=== PATIENT | female | born 1960 | race Caucasian/White ===

== ENCOUNTER 2019-01-18 11:39 | Day surgery (SDC) | payer MEDICARE, OTHER ==
[2019-01-15 12:11] VITALS: BMI 31.8
[~2019-01-18 11:39] MED LIST: HEPARIN SODIUM,PORCINE 5,000 UNIT/ML 1 ML VIAL SQ ONE; LACTATED RINGERS 1,000 ML IV SCH; ONDANSETRON 4 MG/2 ML VIAL IVP ONE; Pre Op ABX Message 1 EACH MISC MISCELLANE ONE
[2019-01-18 12:43] VITALS: RESP 16
[2019-01-18 13:03] LABS: Glucose,Whole Blood 188 mg/dL (75-99)
[2019-01-18] MEDS ORDERED: LIDOCAINE 1% 20 ML VIAL (10MG/ML) FOR IV START INTRADERMA ONE (13:03)
[2019-01-18] MEDS ORDERED: fentaNYL (PF) 50 MCG/ML 2 ML AMP IVP ONE ×2 (14:15→14:30)
[2019-01-18] MEDS ORDERED: PROPOFOL 10 MG/ML 20 ML VIAL IV ONE (14:58)
[2019-01-18] MEDS ORDERED: MIDAZOLAM 2 MG/2 ML VIAL ONE (14:58)
[2019-01-18] MEDS ORDERED: LIDOCAINE 1% INJ 10MG/ML (20 ML MDV) ONE (14:58)
[2019-01-18] MEDS ORDERED: BUPIVACAIN-EPI 0.25%-1:200,000 30 ML VIAL SQ ONE ×2 (15:23)
[2019-01-18] MEDS ORDERED: SODIUM CHLORIDE 0.9% 100 ML with ceFAZolin 2,000 MG IV ONE ×2 (15:23)
[2019-01-18] MEDS ORDERED: LACTATED RINGERS 1,000 ML IV ONE (15:27)
[2019-01-18] MEDS ORDERED: BACITRACIN 500 UNIT/GM OINT 28.4 GM TUBE TOPICAL ONE (15:43)
[2019-01-18] MEDS ORDERED: HYDROcodone/APAP 5-325MG 1 EACH TAB PO PRN (15:53)
[2019-01-18] MEDS ORDERED: NALOXONE 0.4 MG/ML 1 ML VIAL IV PRN (15:53)
--- NOTE | 2019-01-18 15:56 | P.OP ---
Date of Procedure: 01/18/19 Procedure(s) Performed: PREOPERATIVE DIAGNOSIS: Infected sebaceous cyst chest wall, chest wall nevus POSTOPERATIVE DIAGNOSIS: Same PROCEDURE: Excision cyst and nevus SURGEON: Camilo EBL: 10 mL ANESTHESIA: Local plus sedation COMPLICATIONS: None OPERATIVE PROCEDURE: Patient was placed in the operating table in the supine position. The patient was placed under sedation. The chest was prepped and draped sterilely. The skin was localized with Marcaine. An elliptical incision was made encompassing the infected sebaceous cyst along the medial aspect of her previous mastectomy scar site and including the more medially located nevus that was midsternal in location. The subcutaneous tissues were divided using both cautery and sharp dissection. The area was fully excised. Bleeding was controlled using electrocautery. The subcutaneous tissues were closed using 3-0 Vicryl sutures. Skin was closed using interrupted and running 4-0 nylon sutures. Sterile dressings were applied. DISPOSITION: Stable to recovery room
[2019-01-18] MEDS: HYDROmorphone 0.5 MG/0.5 ML SYRINGE IVP PRN ×2 (16:02→16:13)
[2019-01-18 16:12] VITALS: TEMP 97.6
[2019-01-18 16:23] LABS: Glucose,Whole Blood 117 mg/dL (75-99)
[2019-01-18 17:11] VITALS: BP 119/63; PULSE 74
== END 2019-01-18 17:18 | disposition home or self-care (01) ==
LOC: OR 11:39
PROVIDERS: ATTEND Surgery
DX: L72.0 Epidermal cyst (principal); L02.213 Cutaneous abscess of chest wall; L90.5 Scar conditions and fibrosis of skin; L08.9 Local infection of the skin and subcutaneous tissue, unspecified; I10 Essential (primary) hypertension; F41.9 Anxiety disorder, unspecified; K44.9 Diaphragmatic hernia without obstruction or gangrene; J44.9 Chronic obstructive pulmonary disease, unspecified; K57.92 Diverticulitis of intestine, part unspecified, without perforation or abscess without bleeding; K21.9 Gastro-esophageal reflux disease without esophagitis; G47.33 Obstructive sleep apnea (adult) (pediatric); E11.9 Type 2 diabetes mellitus without complications; R56.9 Unspecified convulsions; M06.9 Rheumatoid arthritis, unspecified; K08.9 Disorder of teeth and supporting structures, unspecified; F17.210 Nicotine dependence, cigarettes, uncomplicated; Z85.3 Personal history of malignant neoplasm of breast; Z90.11 Acquired absence of right breast and nipple; Z85.828 Personal history of other malignant neoplasm of skin; Z88.5 Allergy status to narcotic agent; Z88.2 Allergy status to sulfonamides; Z88.8 Allergy status to other drugs, medicaments and biological substances; Z88.1 Allergy status to other antibiotic agents; Z91.048 Other nonmedicinal substance allergy status; Z79.899 Other long term (current) drug therapy; Z79.891 Long term (current) use of opiate analgesic; Z79.1 Long term (current) use of non-steroidal anti-inflammatories (NSAID); Z79.4 Long term (current) use of insulin; Z79.82 Long term (current) use of aspirin; Z87.11 Personal history of peptic ulcer disease; Z87.898 Personal history of other specified conditions; Z90.89 Acquired absence of other organs; Z90.49 Acquired absence of other specified parts of digestive tract; Z98.890 Other specified postprocedural states; Z90.710 Acquired absence of both cervix and uterus; Z86.73 Personal history of transient ischemic attack (TIA), and cerebral infarction without residual deficits; Z82.49 Family history of ischemic heart disease and other diseases of the circulatory system; Z83.3 Family history of diabetes mellitus; Z80.1 Family history of malignant neoplasm of trachea, bronchus and lung
CPT/HCPCS: 11404; 12032; 88304; J2250; J1644; J2405; J0690; J2001; J3010; J2704; J1170

== ENCOUNTER → 2021-12-03 | Outpatient (CLI) | payer MEDICARE, OTHER ==
[2021-12-03 18:17] LABS: HCT 51.7 % (37.2-46.3); HGB 17.6 g/dL (12.0-15.0); MCH 35.1 pg (27.0-32.0); Mean Platelet Volume 11.5 fL (9.5-12.2); NRBC Per 100 WBC 0 /100 WBCS (0.0-0.0); Platelet Count 191 X 10*3/uL (140-440); RBC 5.02 X 10*6/uL (4.10-5.20); RDW 13.9 % (11.5-14.5); WBC 6.22 X 10*3/uL (4.50-10.00)
[2021-12-03 20:28] LABS: African American GFR (CKD) 72.8 (60.0-200.0); Anion Gap 11.3 mmol/L (10.00-18.00); Blood Urea Nitrogen 10.1 mg/dL (9.0-27.0); Carbon Dioxide 26.9 mmol/L (20.0-27.5); Non-African American GFR(CKD) 62.8 (60.0-200.0); Potassium 4.4 mmol/L (3.5-5.5)
== END | disposition home or self-care (01) ==
LOC: LABPAT 10:56
PROVIDERS: ATTEND Internal Medicine
DX: Z01.812 Encounter for preprocedural laboratory examination (principal); R07.9 Chest pain, unspecified
CPT/HCPCS: 36415; 80051; 82565; 84520; 85027

== ENCOUNTER 2021-12-07 06:04 | Day surgery (SDC) | payer MEDICARE, OTHER ==
[2021-12-04 09:05] VITALS: BMI 30.7
[~2021-12-07 06:04] MED LIST changes: +ALPRAZolam 0.25 MG TAB PO PRN; +ALPRAZolam 0.5 MG TAB PO PRN; +ASPIRIN 325 MG TAB PO ONE; +HEPARIN SODIUM,PORCINE 10,000 UNIT in SODIUM CHLORIDE 0.9% 1,000 ML IRRIGATION PRN; +HEPARIN SODIUM,PORCINE 2,500 UNIT in SODIUM CHLORIDE 0.9% 250 ML IRRIGATION PRN; -HEPARIN SODIUM,PORCINE 5,000 UNIT/ML 1 ML VIAL SQ ONE; -LACTATED RINGERS 1,000 ML IV SCH; +NITROGLYCERIN SL TABS 0.4 MG TAB SUBLINGUAL PRN; -ONDANSETRON 4 MG/2 ML VIAL IVP ONE; -Pre Op ABX Message 1 EACH MISC MISCELLANE ONE; +SODIUM CHLORIDE 0.9% 1,000 ML in EMPTY BAG 1 BAG IV SCH
[2021-12-07 07:04] LABS: Glucose,Whole Blood 147 mg/dL (70-110)
[2021-12-07 07:11] VITALS: TEMP 99.1
[2021-12-07] MEDS ORDERED: HEPARIN SODIUM 1,000 UN/ML (10ML VL) ONE (07:19)
[2021-12-07] MEDS ORDERED: fentaNYL (PF) 50 MCG/ML 2 ML AMP ONE (07:23)
[2021-12-07] MEDS ORDERED: MIDAZOLAM 2 MG/2 ML VIAL IV ONE (07:42)
[2021-12-07] MEDS ORDERED: fentaNYL (PF) 50 MCG/ML 2 ML AMP IV ONE (07:42)
[2021-12-07] MEDS ORDERED: LIDOCAINE 1% INJ 10MG/ML (30 ML VIAL-PF) SQ ONE (07:43)
[2021-12-07] MEDS ORDERED: VERAPAMIL SYRINGE (5 MG/10 ML) INTRAARTER ONE (07:45)
[2021-12-07] MEDS ORDERED: HEPARIN SODIUM 1,000 UN/ML (10ML VL) IV ONE (07:48)
[2021-12-07] MEDS ORDERED: CLOPIDOGREL 75 MG TAB ONE (07:58)
[2021-12-07] MEDS ORDERED: CLOPIDOGREL 75 MG TAB PO ONE (08:02)
[2021-12-07] MEDS: NITROGLYCERIN 1000MCG/10ML SYRINGE INTRACORON ONE ×3 (08:11→08:18)
[2021-12-07] MEDS ORDERED: IOPAMIDOL-370 125ML BTL INJ ONE (08:19)
[2021-12-07] MEDS ORDERED: MAG HYDROX/AL HYDROX/SIMETH 30 ML CUP ONE (08:31)
[2021-12-07] MEDS ORDERED: MAG HYDROX/AL HYDROX/SIMETH 30 ML CUP PO PRN (08:47)
[2021-12-07] MEDS ORDERED: ZOLPIDEM 5 MG TAB PO PRN (08:47)
[2021-12-07] MEDS ORDERED: ATROPINE SULFATE 0.1 MG/ML 10ML SYRINGE IV PRN (08:47)
[2021-12-07] MEDS ORDERED: NITROGLYCERIN SL TABS 0.4 MG TAB SUBLINGUAL PRN (08:47)
[2021-12-07] MEDS ORDERED: RX INFO: IV CONTRAST WAS GIVEN 1 EACH MISC MISCELLANE PRN (08:47)
--- NOTE | 2021-12-07 08:47 | P.PRCINT ---
Percutaneous Coronary Int. - Percutaneous Coronary Intervention Percutaneous Coronary Intervention: PROCEDURES PERFORMED: Left heart catheterization, bilateral coronary angiography, PCI distal RCA with a 2.5 x 15mm Xience KATHLEEN INDICATION: New onset chest pain in the last 2 months, worse with exertion and stress consistent with unstable angina CONSENT:I have discussed the risks, benefits and alternative therapies for the above-mentioned procedure and for both sedation/analgesia as well as necessary blood product administration, if indicated, as they pertain to this patient. The patient has indicated understanding and acceptance of the risks and procedures discussed. PROCEDURE: After the risks, benefits and alternatives of the above mentioned procedure explained in detail with the patient, informed consent was obtained. Patient was taken to the catheterization lab and prepped and draped in usual fashion. 1% lidocaine was used to anesthetize the right radial artery. A 6- Latvian sheath was placed in the right radial artery using modified Seldinger technique. Left coronary angiography was performed with a 5-Latvian JL 3.5 catheter and right coronary angiography was performed with a 5-Latvian JR5 catheter in various views. A 5-Latvian FR5 catheter was inserted into the left ventricle and pressure measurements were obtained. The decision was made to perform PCI of the RCA. Heparin was given for ACT>250. A 6Fr AL 0.75 guide was used to engage the RCA. A 0.014 BMW wire was advanced into the distal PDA. A 2.25 x 8mm balloon was used to predilate the lesion. A 2.5 x 15mm Xience KATHLEEN was placed in the distal RCA, a cm past a moderate size acute marginal branch. The wire was pulled and final angiograms were performed. Pre intervention there was 99% stenosis and YENNI 1 flow and post intervention there was 0% stenosis and YENNI 3 flow. The right radial sheath was removed and a TR band was placed with hemostasis achieved. The patient tolerated the procedure well. Patient was transported back to the post catheterization holding area in stable condition. Conscious Sedation: Patient was monitored under the direct supervision of myself for conscious sedation using Versed and fentanyl for a total duration of 20 minutes HEMODYNAMICS: Aorta: 101/65 LV: 98/7, LVEDP 20 mmHg SELECTIVE CORONARY ARTERIOGRAPHY: LEFT MAIN: The left main is a large caliber vessel which bifurcates into the LAD and circumflex. There is no significant stenosis. LEFT ANTERIOR DESCENDING CORONARY ARTERY: LAD is a large caliber vessel which wraps around to the apex. There is a mid LAD bridging and otherwise mild luminal irregularities. There are left to right collaterals. LEFT CIRCUMFLEX CORONARY ARTERY: Left circumflex is a moderate to large caliber vessel with mild luminal irregularities RIGHT CORONARY ARTERY: The right coronary artery is a large caliber vessel which gives off a PDA and PLV branch and is the dominant vessel. There is a mild to moderate caliber marginal branch with mild luminal irregularities. The distal PDA has a 99% stenosis. FINAL IMPRESSION: 1. CAD as described above with mild luminal irregularities of the left system and 99% distal RCA stenosis. 2. S/p PCI distal RCA with a 2.5 x 15mm Xience KATHLEEN 3. Elevated left sided filling pressures PLAN: 1. Aggressive risk factor modification per most recent ACC/AHA guidelines. 2. Continue dual antiplatelets with aspirin and Plavix for 12 months.
[2021-12-07] MEDS ORDERED: oxyCODONE-APAP 10-325MG 1 EACH TAB PO PRN (08:50)
[2021-12-07] MEDS ORDERED: SODIUM CHLORIDE 0.9% 1,000 ML in EMPTY BAG 1 BAG IV SCH (09:00)
[2021-12-07 18:38] VITALS: BP 117/74; PULSE 62; RESP 16
[2021-12-08] MEDS ORDERED: CLOPIDOGREL 75 MG TAB PO SCH (09:00)
[2021-12-08] MEDS ORDERED: ASPIRIN 81 MG PO SCH (09:00)
== END 2021-12-07 13:25 | disposition home or self-care (01) ==
LOC: CATHCVL 06:04
PROVIDERS: ATTEND Internal Medicine
DX: I25.10 Atherosclerotic heart disease of native coronary artery without angina pectoris (principal); I10 Essential (primary) hypertension; Z87.891 Personal history of nicotine dependence; E78.5 Hyperlipidemia, unspecified; E11.9 Type 2 diabetes mellitus without complications; Z20.822 Contact with and (suspected) exposure to COVID-19; Z79.4 Long term (current) use of insulin; Z79.52 Long term (current) use of systemic steroids; Z79.899 Other long term (current) drug therapy; Z88.5 Allergy status to narcotic agent; Z88.8 Allergy status to other drugs, medicaments and biological substances; Z91.09 Other allergy status, other than to drugs and biological substances; Z88.2 Allergy status to sulfonamides
CPT/HCPCS: 93458; 87635; C9600; C1769 ×2; C1887; C1894; C1725; C1874; J2250; J2001; J3010; J1644; Q9967

== ENCOUNTER → 2022-02-05 | Outpatient (CLI) | payer MEDICARE, OTHER ==
[2022-02-05 18:42] LABS: Chol/HDL Ratio 2.98 Ratio; LDL Cholesterol,Calculated 60.7 mg/dL (0.0-131.0)
== END | disposition home or self-care (01) ==
LOC: LABWHC1 11:34
PROVIDERS: ATTEND Internal Medicine
DX: I25.10 Atherosclerotic heart disease of native coronary artery without angina pectoris (principal); E78.5 Hyperlipidemia, unspecified
CPT/HCPCS: 36415; 80061

== ENCOUNTER 2022-04-15 20:37 | Inpatient (IN) | payer MEDICARE, OTHER ==
[2022-04-15] MEDS ORDERED: SODIUM CHLORIDE 0.9% 1,000 ML IV STA (21:16)
--- NOTE | 2022-04-15 21:26 | ED ---
Weakness HPI - General Chief complaint: Weakness Stated complaint: Weakness Time Seen by Provider: 04/15/22 21:16 Source: EMS, RN notes reviewed, old records reviewed, Caregiver Mode of arrival: EMS Limitations: no limitations - History of Present Illness Initial comments: This is a 62-year-old female to the ER today for evaluation. Patient presents today for evaluation of persistent weakness. Patient statement she has many medical issues remained is walking. Patient is without headache chest pain shortness breath or abdominal pain. No back pain. No loss of bowel or bladder. MD Complaint: generalized weakness -: days(s) Location: generalized Severity: mild Severity scale (1-10): 2 Consistency: constant Improves with: none Worsens with: none Context: history of similar Associated Symptoms: denies other symptoms - Related Data Home Medications Medication Instructions Recorded Confirmed Ibuprofen 800 mg PO TID 01/15/19 12/07/21 Insulin Aspart [NovoLOG Flexpen] 40 units SQ QID PRN 01/15/19 12/04/21 Insulin Glargine [Lantus] 8 unit SQ HS 01/15/19 12/07/21 Linaclotide [Linzess] 145 mcg PO BID 01/15/19 12/07/21 Montelukast Sodium [Singulair] 10 mg PO HS 01/15/19 12/07/21 Nitroglycerin Sl Tabs [Nitrostat] 0.4 mg SUBLINGUAL Q5M PRN 01/15/19 12/04/21 dilTIAZem HCL [Cardizem CD] 120 mg PO HS 01/15/19 12/07/21 gemfibroziL [Lopid] 600 mg PO BID 01/15/19 12/07/21 levETIRAcetam [Keppra] 750 mg PO BID 01/15/19 12/07/21 Baclofen 10 mg PO TID 12/04/21 12/07/21 Citalopram Hydrobromide 40 mg PO DAILY 12/04/21 12/07/21 [Citalopram HBr] Evolocumab [Repatha Sureclick] 140 mg SQ Q14D 12/04/21 12/07/21 Folic Acid 1 mg PO DAILY 12/04/21 12/07/21 Gabapentin [Neurontin] 200 mg PO BID 12/04/21 12/07/21 Magnesium Chloride [Mag64] 128 mg PO DAILY 12/04/21 12/07/21 Omeprazole 40 mg PO BID 12/04/21 12/07/21 Triamterene/Hydrochlorothiazid 1 each PO HS 12/04/21 12/07/21 [Triamterene-Hctz 37.5-25 mg Tb] oxyCODONE HCL [Oxycodone HCl] 10 mg PO TID 12/04/21 12/07/21 rOPINIRole HCL [Requip] 1 mg PO TID 12/04/21 12/07/21 Previous Rx's Medication Instructions Recorded Clopidogrel [Plavix] 75 mg PO DAILY #90 tablet 12/07/21 lisinopriL 2.5 mg PO DAILY #30 tablet 12/07/21 Allergies Allergy/AdvReac Type Severity Reaction Status Date / Time atorvastatin [From Lipitor] Allergy Unknown Unknown Verified 04/15/22 20:45 Corticosteroids Allergy Unknown Anaphylaxis Verified 04/15/22 20:45 (Glucocorticoids) doxycycline Allergy Unknown Unknown Verified 04/15/22 20:45 Xxxszoz-CXO-NoR Reductase Allergy Unknown Anaphylaxis Verified 04/15/22 20:45 Inhibitor [Sqanctv-Yty-Wox Reductase Inhibitor] Sulfa (Sulfonamide Allergy Unknown Nausea & Verified 04/15/22 20:45 Antibiotics) Vomiting ANABOLIC STEROIDS Allergy Severe Anaphylaxis Uncoded 04/15/22 20:45 persumesor aerosol products Allergy Severe Anaphylaxis Uncoded 04/15/22 20:45 STEROIDS Allergy Severe Anaphylaxis Uncoded 04/15/22 20:45 EKG Electrode Patches Allergy Unknown Blisters Uncoded 04/15/22 20:45 Review of Systems ROS Statement: Those systems with pertinent positive or pertinent negative responses have been documented in the HPI. ROS Other: All systems not noted in ROS Statement are negative. Past Medical History Past Medical History: Cancer, Chest Pain / Angina, COPD, CVA/TIA, Diabetes Mellitus, GERD/Reflux, Hypertension, Pneumonia, Rheumatoid Arthritis (RA), Seizure Disorder, Sleep Apnea/CPAP/BIPAP Additional Past Medical History / Comment(s): SEIZURE X1 (2011), HX TIA, HX OF HEAD INJURIES, MIGRAINES, BRONCHITIS, SLEEP APNEA-USES C-PAP MACHINE, HERNIATED DISCS WITH BACK PAIN, OSTEOPOROSIS, IBS, HX COLON POLYPS, HX OF DYSPHAGIA WITH DILATION- STATES USUALLY YEARLY., RIGHT BREAST CANCER 2009 WITH SURGERY & CHEMO., FACIAL SKIN CANCER.. VARICOSE VEINS, STATES ENLARGED LEFT VENTRICLE. History of Any Multi-Drug Resistant Organisms: None Reported Past Surgical History: Appendectomy, Breast Surgery, Section, Cholecystectomy, Heart Catheterization, Hysterectomy, Tonsillectomy Additional Past Surgical History / Comment(s): CARPAL TUNNEL, LEFT BREAST BX AND LIFT, RIGHT BREAST BX, LUMPECTOMY'S AND RIGHT BREAST MASTECTOMY AND RECONSTRUCTION. PORT-A-CATH INSERTED AND REMOVED. Past Anesthesia/Blood Transfusion Reactions: No Reported Reaction, Motion Sickness Past Psychological History: Anxiety, Depression Past Alcohol Use History: None Reported Past Drug Use History: None Reported - Past Family History Mother Family Medical History: Cancer Additional Family Medical History / Comment(s): LUNG CANCER. Father Family Medical History: Coronary Artery Disease (CAD), Diabetes Mellitus General Exam Limitations: no limitations General appearance: alert, in no apparent distress Head exam: Present: atraumatic, normocephalic, normal inspection Eye exam: Present: normal appearance, PERRL, EOMI. Absent: scleral icterus, conjunctival injection, periorbital swelling ENT exam: Present: normal exam, mucous membranes moist Neck exam: Present: normal inspection. Absent: tenderness, meningismus, lymphadenopathy Respiratory exam: Present: normal lung sounds bilaterally. Absent: respiratory distress, wheezes, rales, rhonchi, stridor Cardiovascular Exam: Present: regular rate, normal rhythm, normal heart sounds. Absent: systolic murmur, diastolic murmur, rubs, gallop, clicks GI/Abdominal exam: Present: soft, normal bowel sounds. Absent: distended, tenderness, guarding, rebound, rigid Extremities exam: Present: normal inspection, full ROM, normal capillary refill. Absent: tenderness, pedal edema, joint swelling, calf tenderness Back exam: Present: normal inspection Neurological exam: Present: alert, oriented X3, CN II-XII intact Psychiatric exam: Present: normal affect, normal mood Skin exam: Present: warm, dry, intact, normal color. Absent: rash Course Vital Signs 04/15/22 20:45 Temperature 98.2 F Pulse Rate 87 Respiratory 15 Rate Blood Pressure 114/52 O2 Sat by Pulse 99 Oximetry - Reevaluation(s) Reevaluation #1: 04/15/22 21:47 Medical records reviewed Reevaluation #2: 04/15/22 21:47 Patient is unchanged here in the emergency department Reevaluation #3: 04/15/22 21:47 patient informed results questions answered Reevaluation #4: 04/15/22 21:47 Differential Weakness: Hypoglycemia, shock, sepsis, hyponatremia, anemia, infection, SD, ETOH, adverse medicine reaction, overdose, stroke, this is not meant to be an all-inclusive list. Reevaluation #5: 04/15/22 21:47 Was pt. sent in by a medical professional or institution? @ -no Did you speak to anyone other than the patient for history? @ -family Did you review nursing and triage notes? @ -agree accurate Were old charts reviewed? @ -no Differential Diagnosis? @ -prior EKG interpreted by me (3pts min.)? @ -yes X-rays interpreted by me (1pt min.)? @ -[none] CT interpreted by me (1pt min.)? @ -[none] U/S interpreted by me (1pt. min.)? @ -[none] What testing was considered but not performed? (CT, X-rays, U/S, labs)? Why? @ no What meds were considered but not given? Why? @ -[none] Did you discuss the management of the patient with other professionals? @ -no Did you reconcile home meds? @ -[none] Was smoking cessation discussed for >3mins.? @ -[none] Was critical care preformed (if so, how long)? @ -yes 32 Were there social determinants of health that impacted care today? How? (Homelessness, low income, unemployed, alcoholism, drug addiction, transportation, low edu. Level, literacy, decrease access to med. care, fpc, rehab)? @ -no Was there de-escalation of care discussed even if they declined? (Discuss DNR or withdrawal of care, Hospice)? @ -no What co-morbidities impacted this encounter? (DM, HTN, Smoking, COPD, CAD, Cancer, CVA, Hep., AIDS, mental health diagnosis, sleep apnea, morbid obesity)? @ -no Was patient admitted / discharged? @ -admit Undiagnosed new problem with uncertain prognosis? @ -[none] Drug Therapy requiring intensive monitoring for toxicity (Heparin, Nitro, Insulin, Cardizem)? @ -[none] Were any procedures done? @ -[none] Diagnosis/symptom? @ -[default] Acute, or Chronic, or Acute on Chronic? @ -[default] Uncomplicated (without systemic symptoms) or Complicated (systemic symptoms)? @ -[default] Side effects of treatment? @ -[none] Exacerbation, Progression, or Severe Exacerbation] @ -[no] Poses a threat to life or bodily function? @ yes 04/15/22 23:04 - Consultations Consultation #1: Spoke with admitting physician regarding admission there agreeable Medical Decision Making - Medical Decision Making [address] with complete weakness and inability to ambulate and severity of debility. Patient does have significantly low hemoglobin and anemia, significant malnutrition with multiple electrolyte abnormalities. Patient be admitted to stepdown - Lab Data Result diagrams: 04/15/22 22:03 04/15/22 22:03 Lab Results 04/15/22 04/15/22 04/15/22 Range/Units 20:59 22:03 22:03 WBC 8.1 (3.8-10.6) k/uL RBC 1.41 L (3.80-5.40) m/uL Hgb 4.5 L* (11.4-16.0) gm/dL Hct 13.0 L* (34.0-46.0) % MCV 92.4 (80.0-100.0) fL MCH 31.6 (25.0-35.0) pg MCHC 34.2 (31.0-37.0) g/dL RDW 15.2 (11.5-15.5) % Plt Count 217 (150-450) k/uL MPV 10.5 Neutrophils % 70 % Lymphocytes % 19 % Monocytes % 6 % Eosinophils % 2 % Basophils % 0 % Neutrophils # 5.7 (1.3-7.7) k/uL Lymphocytes # 1.6 (1.0-4.8) k/uL Monocytes # 0.5 (0-1.0) k/uL Eosinophils # 0.2 (0-0.7) k/uL Basophils # 0.0 (0-0.2) k/uL Hypochromasia Moderate Hyperchromasia Slight Poikilocytosis Marked PT (9.0-12.0) sec INR (<1.2) APTT (22.0-30.0) sec Sodium 137 (137-145) mmol/L Potassium 2.3 L* (3.5-5.1) mmol/L Chloride 118 H (98-107) mmol/L Carbon Dioxide 15 L (22-30) mmol/L Anion Gap 4 mmol/L BUN 31 H (7-17) mg/dL Creatinine 0.68 (0.52-1.04) mg/dL Est GFR (CKD-EPI)AfAm >90 (>60 ml/min/1.73 sqM) Est GFR (CKD-EPI)NonAf >90 (>60 ml/min/1.73 sqM) Glucose 105 H (74-99) mg/dL Calcium 5.2 L* (8.4-10.2) mg/dL Phosphorus 2.9 (2.5-4.5) mg/dL Magnesium 1.5 L (1.6-2.3) mg/dL Total Bilirubin 0.1 L (0.2-1.3) mg/dL AST 12 L (14-36) U/L ALT 8 (4-34) U/L Alkaline Phosphatase 28 L (38-126) U/L NT-Pro-B Natriuret Pep 916 pg/mL Total Protein 3.6 L (6.3-8.2) g/dL Albumin 1.9 L (3.5-5.0) g/dL 04/15/22 Range/Units 22:03 WBC (3.8-10.6) k/uL RBC (3.80-5.40) m/uL Hgb (11.4-16.0) gm/dL Hct (34.0-46.0) % MCV (80.0-100.0) fL MCH (25.0-35.0) pg MCHC (31.0-37.0) g/dL RDW (11.5-15.5) % Plt Count (150-450) k/uL MPV Neutrophils % % Lymphocytes % % Monocytes % % Eosinophils % % Basophils % % Neutrophils # (1.3-7.7) k/uL Lymphocytes # (1.0-4.8) k/uL Monocytes # (0-1.0) k/uL Eosinophils # (0-0.7) k/uL Basophils # (0-0.2) k/uL Hypochromasia Hyperchromasia Poikilocytosis PT 10.0 (9.0-12.0) sec INR 0.9 (<1.2) APTT 19.1 L (22.0-30.0) sec Sodium (137-145) mmol/L Potassium (3.5-5.1) mmol/L Chloride (98-107) mmol/L Carbon Dioxide (22-30) mmol/L Anion Gap mmol/L BUN (7-17) mg/dL Creatinine (0.52-1.04) mg/dL Est GFR (CKD-EPI)AfAm (>60 ml/min/1.73 sqM) Est GFR (CKD-EPI)NonAf (>60 ml/min/1.73 sqM) Glucose (74-99) mg/dL Calcium (8.4-10.2) mg/dL Phosphorus (2.5-4.5) mg/dL Magnesium (1.6-2.3) mg/dL Total Bilirubin (0.2-1.3) mg/dL AST (14-36) U/L ALT (4-34) U/L Alkaline Phosphatase (38-126) U/L NT-Pro-B Natriuret Pep pg/mL Total Protein (6.3-8.2) g/dL Albumin (3.5-5.0) g/dL - Radiology Data Radiology results: report reviewed (X-ray lumbar spine is negative for acute disease), image reviewed Critical Care Time Critical Care Time: Yes Total Critical Care Time: 32 Disposition Clinical Impression: Dehydration, Hypokalemia, Myopathy, Anemia, Weakness, Back pain Disposition: ADMITTED IP TO THIS [facility] Condition: Serious Is patient prescribed a controlled substance at d/c from ED?: No Referrals: Art Dewitt MD [Primary Care Provider] - 1-2 days Time of Disposition: 23:05
[2022-04-15 22:17] LABS: Basophils % (A) 0 %; Eosinophils # (A) 0.2 k/uL (0-0.7); Eosinophils % (A) 2 %; Hyperchromasia Slight; Hypochromasia Moderate; Lymphocytes # (A) 1.6 k/uL (1.0-4.8); Lymphocytes % (A) 19 %; MCH 31.6 pg (25.0-35.0); MCHC 34.2 g/dL (31.0-37.0); MCV 92.4 fL (80.0-100.0); Mean Platelet Volume 10.5; Monocytes # (A) 0.5 k/uL (0-1.0); Monocytes % (A) 6 %; Neutrophils # (A) 5.7 k/uL (1.3-7.7); Neutrophils % (A) 70 %; Platelet Count 217 k/uL (150-450); Poikilocytosis Marked; RBC 1.41 m/uL (3.80-5.40); RDW 15.2 % (11.5-15.5); WBC 8.1 k/uL (3.8-10.6)
[2022-04-15 22:23] LABS: HGB 4.5 gm/dL (11.4-16.0)
[2022-04-15 22:29] LABS: ALT 8 U/L (4-34); AST 12 U/L (14-36); African American GFR (CKD) >90 (>60 ml/min/1.73 sqM); Albumin 1.9 g/dL (3.5-5.0); Alkaline Phosphatase 28 U/L (38-126); Anion Gap 4 mmol/L; Blood Urea Nitrogen 31 mg/dL (7-17); Carbon Dioxide 15 mmol/L (22-30); Chloride 118 mmol/L (98-107); Glucose 105 mg/dL (74-99); Magnesium 1.5 mg/dL (1.6-2.3); Non-African American GFR(CKD) >90 (>60 ml/min/1.73 sqM); Phosphorus 2.9 mg/dL (2.5-4.5); Sodium 137 mmol/L (137-145); Total Bilirubin 0.1 mg/dL (0.2-1.3); Total Protein 3.6 g/dL (6.3-8.2)
[2022-04-15 22:32] LABS: Calcium 5.2 mg/dL (8.4-10.2); Potassium 2.3 mmol/L (3.5-5.1)
--- NOTE | 2022-04-15 22:36 | XR ---
EXAMINATION TYPE: XR lumbar spine 2 or 3V DATE OF EXAM: 04/15/2022 CLINICAL HISTORY: Weakness and low back pain. TECHNIQUE: Frontal and lateral images of the lumbar spine are obtained. COMPARISON: CT lumbar spine February 09, 2011 FINDINGS: There are 5 lumbar type vertebral bodies redemonstrated. The lumbar spine shows stable an d satisfactory alignment without evidence of acute fracture or dislocation. Vertebral body heights an d disk space heights remain within normal limits. Overlying cholecystectomy clips are redemonstrated. Mild to moderate overlying arterial vascular calcification is again seen. IMPRESSION: As above.
[2022-04-15 22:41] LABS: INR 0.9 (<1.2)
[2022-04-15 22:46] LABS: Partial Thromboplastin Time 19.1 sec (22.0-30.0)
[2022-04-15] MEDS ORDERED: MORPHINE SULFATE 4 MG/ML SYRINGE IVP STA (22:48)
[2022-04-15] MEDS ORDERED: MAGNESIUM OXIDE 400 MG TAB PO STA ×2 (23:00)
[2022-04-15] MEDS ORDERED: POTASSIUM BICARBONATE/CIT AC 20 MEQ TABLET.EFF PO ONE ×2 (23:00)
[2022-04-15] MEDS ORDERED: CALCIUM CARBONATE 500 MG CHEWABLE PO PRN (23:00)
[2022-04-15] MEDS ORDERED: CALCIUM GLUCONATE IN NACL 2 GM in SALINE 1 100ML.BAG IVPB ONE (23:00)
[2022-04-15] MEDS ORDERED: NALOXONE 0.4 MG/ML 1 ML VIAL IV PRN (23:02)
[2022-04-15] MEDS ORDERED: ONDANSETRON 4 MG/2 ML VIAL IVP PRN (23:02)
[2022-04-15] MEDS: MAGNESIUM SULFATE-D5W PMX 1 GM in DEXTROSE/WATER 1 100ML.BAG IVPB SCH (23:20)
[2022-04-15] MEDS: SODIUM CHLORIDE 0.9% 1,000 ML IV SCH (23:49)
[2022-04-16] MEDS: MAGNESIUM SULFATE-D5W PMX 1 GM in DEXTROSE/WATER 1 100ML.BAG IVPB SCH (03:59)
[2022-04-16 04:21] LABS: Albumin 3.1 g/dL (3.5-5.0); Calcium 8.2 mg/dL (8.4-10.2); Magnesium 2.5 mg/dL (1.6-2.3); Potassium 3.7 mmol/L (3.5-5.1); Total Bilirubin 0.5 mg/dL (0.2-1.3); Total Protein 5.3 g/dL (6.3-8.2)
[2022-04-16 04:22] LABS: Basophils % (A) 0 %; Eosinophils # (A) 0.1 k/uL (0-0.7); Eosinophils % (A) 1 %; Hypochromasia Slight; Lymphocytes # (A) 0.8 k/uL (1.0-4.8); Lymphocytes % (A) 11 %; MCH 30.3 pg (25.0-35.0); MCHC 33.4 g/dL (31.0-37.0); MCV 90.7 fL (80.0-100.0); Monocytes # (A) 0.3 k/uL (0-1.0); Monocytes % (A) 4 %; Neutrophils # (A) 6.1 k/uL (1.3-7.7); Neutrophils % (A) 82 %; Platelet Count 187 k/uL (150-450); Poikilocytosis Marked; RBC 2.12 m/uL (3.80-5.40); RDW 15.8 % (11.5-15.5); WBC 7.5 k/uL (3.8-10.6)
[2022-04-16 04:25] LABS: HGB 6.4 gm/dL (11.4-16.0)
[2022-04-16 04:26] LABS: HCT 19.2 % (34.0-46.0)
[2022-04-16 06:05] LABS: Glucose,Whole Blood 217 mg/dL (70-110)
[2022-04-16] MEDS: PANTOPRAZOLE 40 MG/10 ML VIAL IV SCH ×2 (08:04→20:11)
[2022-04-16] MEDS: MORPHINE SULFATE 4 MG/ML SYRINGE IV PRN ×3 (08:04→22:16)
--- NOTE | 2022-04-16 08:04 | P.HPIM ---
History of Present Illness This is a pleasant 62 years old female with multiple medical problems diabetes mellitus, COPD, CVA/TIA, hypertension, rheumatoid arthritis, seizure disorder, sleep apnea on CPAP, history of migraine and chronic back pain, irritable bowel syndrome, history of right breast cancer in 2010 status post surgery and chemotherapy. Information were obtained from the patient and sister at bedside. Patient presents because of feeling generally weak for a few days, yesterday she went downstairs to have a cigarette and she could not get back she was very weak and short of breath, she says that her weakness and all her extremities and e qual and at the same time. Also she is feeling dizzy with exertion and more weakness. She denies headache, no new weakness or numbness. However she is complaining of from burning and pain in both feet and up to the knees, Patient fell 2 days ago on her knees with no head trauma. 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 She noticed some black stool and she is complaining of from abdominal pain, mainly in the lower abdomen and more to the right side and suprapubic area, about 9-10 in severity, nonspecific and radiating to the right side. She is on oxycodone at home for back surgery and back pain that is been going on for about one year however she declines recent use of other pain medication like NSAIDs. No diarrhea actually she is constipated, she has vomiting 2 days ago with no blood but not currently. Presents with generalized weakness Patient found to be severely anemic with hemoglobin was 4.5 on admission she received 2 units of blood transfusion and hemoglobin went up to 6.4 INR 0.9. Sodium 1:30 09/19/1932, potassium 2.3 and 3.7. Creatinine 0.6 and 1.0. Troponin elevated 0.12. ProBNP 916 Lumbosacral x-ray showing no evidence of acute fracture or dislocation. In the emergency room patient received normal saline, morphine, replace electrolytes. And IV Protonix. GI service was consulted. Currently patient is receiving third unit of blood transfusion and she is kept nothing by mouth Review of Systems Review of systems CONSTITUTIONAL: No fever, no malaise, HEENT: No recent visual problems or hearing problems. Denied any sore throat. CARDIOVASCULAR: No orthopnea, PND, no palpitations, no syncope. PULMONARY: No shortness of breath, no cough, no hemoptysis. GASTROINTESTINAL: No diarrhea, no nausea,. Normoactive bowel sounds. NEUROLOGICAL: No headaches, no weakness, no numbness. HEMATOLOGICAL: Denies any bleeding or petechiae. GENITOURINARY: Denies any change in urine frequency, or urgency. MUSCULOSKELETAL/RHEUMATOLOGICAL: Denies any joint pain, swelling, or any muscle pain. ENDOCRINE: Denies any polyuria or polydipsia. Past Medical History Past Medical History: Cancer, Chest Pain / Angina, COPD, CVA/TIA, Diabetes Mellitus, GERD/Reflux, Hypertension, Pneumonia, Rheumatoid Arthritis (RA), Seizure Disorder, Sleep Apnea/CPAP/BIPAP Additional Past Medical History / Comment(s): SEIZURE X1 (2011), HX TIA, HX OF HEAD INJURIES, MIGRAINES, BRONCHITIS, SLEEP APNEA-USES C-PAP MACHINE, HERNIATED DISCS WITH BACK PAIN, OSTEOPOROSIS, IBS, HX COLON POLYPS, HX OF DYSPHAGIA WITH DILATION- STATES USUALLY YEARLY., RIGHT BREAST CANCER 2009 WITH SURGERY & CHEMO., FACIAL SKIN CANCER.. VARICOSE VEINS, STATES ENLARGED LEFT VENTRICLE. History of Any Multi-Drug Resistant Organisms: None Reported Past Surgical History: Appendectomy, Breast Surgery, Section, Cholecystectomy, Heart Catheterization, Hysterectomy, Tonsillectomy Additional Past Surgical History / Comment(s): CARPAL TUNNEL, LEFT BREAST BX AND LIFT, RIGHT BREAST BX, LUMPECTOMY'S AND RIGHT BREAST MASTECTOMY AND RECONSTRUCTION. PORT-A-CATH INSERTED AND REMOVED. Past Anesthesia/Blood Transfusion Reactions: No Reported Reaction, Motion Sickness Past Psychological History: Anxiety, Depression Smoking Status: Current every day smoker Past Alcohol Use History: None Reported Additional Past Alcohol Use History / Comment(s): SMOKES 1/2 PPD, SMOKING SINCE 11 YEARS OLD Past Drug Use History: None Reported - Past Family History Mother Family Medical History: Cancer Additional Family Medical History / Comment(s): LUNG CANCER. Father Family Medical History: Coronary Artery Disease (CAD), Diabetes Mellitus Medications and Allergies Home Medications Medication Instructions Recorded Confirmed Type Ibuprofen 800 mg PO TID 01/15/19 04/16/22 History Insulin Aspart [NovoLOG Flexpen] See Protocol SQ ACHS 01/15/19 04/16/22 History Insulin Glargine [Lantus] 4 unit SQ HS 01/15/19 04/16/22 History Linaclotide [Linzess] 145 mcg PO BID 01/15/19 04/16/22 History Montelukast Sodium [Singulair] 10 mg PO HS 01/15/19 04/16/22 History Nitroglycerin Sl Tabs [Nitrostat] 0.4 mg SUBLINGUAL Q5M PRN 01/15/19 04/16/22 History dilTIAZem HCL [Cardizem CD] 120 mg PO HS 01/15/19 04/16/22 History gemfibroziL [Lopid] 600 mg PO BID 01/15/19 04/16/22 History levETIRAcetam [Keppra] 750 mg PO BID 01/15/19 04/16/22 History Baclofen 10 mg PO TID 12/04/21 04/16/22 History Citalopram Hydrobromide 40 mg PO DAILY 12/04/21 04/16/22 History [Citalopram HBr] Evolocumab [Repatha Sureclick] 140 mg SQ Q14D 12/04/21 04/16/22 History Folic Acid 1 mg PO DAILY 12/04/21 04/16/22 History Gabapentin [Neurontin] 200 mg PO BID 12/04/21 04/16/22 History Magnesium Chloride [Mag64] 128 mg PO DAILY 12/04/21 04/16/22 History Triamterene/Hydrochlorothiazid 1 tab PO HS 12/04/21 04/16/22 History [Triamterene-Hctz 37.5-25 mg Tb] oxyCODONE HCL [Oxycodone HCl] 10 mg PO TID 12/04/21 04/16/22 History rOPINIRole HCL [Requip] 1 mg PO TID 12/04/21 04/16/22 History Clopidogrel [Plavix] 75 mg PO DAILY #90 tablet 12/07/21 04/16/22 Rx lisinopriL 2.5 mg PO DAILY #30 tablet 12/07/21 04/16/22 Rx Metoprolol Succinate (ER) [Toprol 25 mg PO W/LUNCH 04/16/22 04/16/22 History Xl] Pantoprazole Sodium [Protonix] 40 mg PO DAILY 04/16/22 04/16/22 History Allergies Allergy/AdvReac Type Severity Reaction Status Date / Time atorvastatin [From Lipitor] Allergy Unknown Unknown Verified 04/16/22 07:21 Corticosteroids Allergy Unknown Anaphylaxis Verified 04/16/22 07:21 (Glucocorticoids) doxycycline Allergy Unknown Unknown Verified 04/16/22 07:21 Oiefndb-RVP-ElB Reductase Allergy Unknown Anaphylaxis Verified 04/16/22 07:21 Inhibitor [Qhhcfpw-Unf-Qvz Reductase Inhibitor] Sulfa (Sulfonamide AdvReac Unknown Nausea & Verified 04/16/22 07:21 Antibiotics) Vomiting ANABOLIC STEROIDS Allergy Severe Anaphylaxis Uncoded 04/16/22 07:21 persumesor aerosol products Allergy Severe Anaphylaxis Uncoded 04/16/22 07:21 STEROIDS Allergy Severe Anaphylaxis Uncoded 04/16/22 07:21 EKG Electrode Patches Allergy Unknown Blisters Uncoded 04/16/22 07:21 Physical Exam Vitals: Vital Signs Temp Pulse Pulse Resp BP BP Pulse Ox 04/16/22 06:16 16 04/16/22 06:12 97.7 F 78 16 157/68 94 L 04/16/22 05:52 98 F 84 18 138/71 92 L 04/16/22 05:42 97.9 F 87 16 124/75 96 04/16/22 05:15 98.1 F 87 16 152/77 98 04/16/22 04:00 145/76 100 04/16/22 03:45 124/72 100 04/16/22 03:30 126/61 100 04/16/22 03:15 123/70 100 04/16/22 03:00 119/71 100 04/16/22 02:45 113/61 100 04/16/22 02:30 123/54 100 04/16/22 02:15 109/56 100 04/16/22 02:00 86 108/52 99 04/16/22 01:45 74 91/49 90 L 04/16/22 01:30 87 92/43 94 L 04/16/22 01:15 94/48 95 04/16/22 01:05 98.3 F 80 16 100/48 98 04/16/22 01:00 92/48 79 L 04/16/22 00:45 98.7 F 72 16 91/44 98 04/16/22 00:43 91/44 04/16/22 00:29 98.6 F 68 16 91/44 97 04/15/22 23:29 68 15 114/54 100 04/15/22 20:45 98.2 F 87 15 114/52 99 Intake and Output 04/15/22 04/16/22 04/16/22 22:59 06:59 14:59 Intake Total 548 Balance 548 Intake: Blood Product 548 Rc As-1 Unit 0 [id number] Rc Pheresis As-3 Unit 277 [id number] Rc Pheresis As-3 Unit 271 [id number] Other: Voiding Method External Catheter Weight 68.039 kg 68.039 kg GENERAL: The patient is alert and oriented x3, not in any acute distress. Well developed, well nourished. HEENT: Pupils are round and equally reacting to light. EOMI. No scleral icterus. No conjunctival pallor. Normocephalic, atraumatic. No pharyngeal erythema. No thyromegaly. CARDIOVASCULAR: S1 and S2 present. No murmurs, rubs, or gallops. PULMONARY: Chest is clear to auscultation, no wheezing or crackles. -ABDOMEN: Soft, suprapubic and right lower quadrant tenderness, no rebound tenderness, no guarding, nondistended, normoactive bowel sounds. No palpable organomegaly. MUSCULOSKELETAL: No joint swelling or deformity. EXTREMITIES: No cyanosis, clubbing, or pedal edema. NEUROLOGICAL: Gross neurological examination did not reveal any focal deficits. SKIN: No rashes. no petechiae. Results CBC & Chem 7: 04/16/22 03:47 04/16/22 03:47 Labs: Abnormal Lab Results - Last 24 Hours (Table) 04/15/22 04/15/22 04/15/22 Range/Units 21:52 22:03 22:03 RBC (3.80-5.40) m/uL Hgb (11.4-16.0) gm/dL Hct (34.0-46.0) % RDW (11.5-15.5) % Lymphocytes # (1.0-4.8) k/uL APTT (22.0-30.0) sec Sodium (137-145) mmol/L Potassium 2.3 L* (3.5-5.1) mmol/L Chloride 118 H (98-107) mmol/L Carbon Dioxide 15 L (22-30) mmol/L BUN 31 H (7-17) mg/dL Creatinine (0.52-1.04) mg/dL Glucose 105 H (74-99) mg/dL POC Glucose (mg/dL) (70-110) mg/dL Calcium 5.2 L* (8.4-10.2) mg/dL Phosphorus (2.5-4.5) mg/dL Magnesium 1.5 L (1.6-2.3) mg/dL Total Bilirubin 0.1 L (0.2-1.3) mg/dL AST 12 L (14-36) U/L Alkaline Phosphatase 28 L (38-126) U/L Troponin I 0.110 H* (0.000-0.034) ng/mL Total Protein 3.6 L (6.3-8.2) g/dL Albumin 1.9 L (3.5-5.0) g/dL Crossmatch See Detail 04/15/22 04/15/22 04/16/22 Range/Units 22:03 22:03 03:47 RBC 1.41 L (3.80-5.40) m/uL Hgb 4.5 L* (11.4-16.0) gm/dL Hct 13.0 L* (34.0-46.0) % RDW (11.5-15.5) % Lymphocytes # (1.0-4.8) k/uL APTT 19.1 L (22.0-30.0) sec Sodium 132 L (137-145) mmol/L Potassium (3.5-5.1) mmol/L Chloride (98-107) mmol/L Carbon Dioxide (22-30) mmol/L BUN 45 H (7-17) mg/dL Creatinine 1.06 H (0.52-1.04) mg/dL Glucose 181 H (74-99) mg/dL POC Glucose (mg/dL) (70-110) mg/dL Calcium 8.2 L (8.4-10.2) mg/dL Phosphorus 5.0 H (2.5-4.5) mg/dL Magnesium 2.5 H (1.6-2.3) mg/dL Total Bilirubin (0.2-1.3) mg/dL AST (14-36) U/L Alkaline Phosphatase (38-126) U/L Troponin I (0.000-0.034) ng/mL Total Protein 5.3 L (6.3-8.2) g/dL Albumin 3.1 L (3.5-5.0) g/dL Crossmatch 04/16/22 04/16/22 04/16/22 Range/Units 03:47 03:47 06:04 RBC 2.12 L (3.80-5.40) m/uL Hgb 6.4 L* D (11.4-16.0) gm/dL Hct 19.2 L* (34.0-46.0) % RDW 15.8 H (11.5-15.5) % Lymphocytes # 0.8 L (1.0-4.8) k/uL APTT (22.0-30.0) sec Sodium (137-145) mmol/L Potassium (3.5-5.1) mmol/L Chloride (98-107) mmol/L Carbon Dioxide (22-30) mmol/L BUN (7-17) mg/dL Creatinine (0.52-1.04) mg/dL Glucose (74-99) mg/dL POC Glucose (mg/dL) 217 H (70-110) mg/dL Calcium (8.4-10.2) mg/dL Phosphorus (2.5-4.5) mg/dL Magnesium (1.6-2.3) mg/dL Total Bilirubin (0.2-1.3) mg/dL AST (14-36) U/L Alkaline Phosphatase (38-126) U/L Troponin I 0.154 H* (0.000-0.034) ng/mL Total Protein (6.3-8.2) g/dL Albumin (3.5-5.0) g/dL Crossmatch Thrombosis Risk Factor Assmnt - Choose All That Apply Any of the Below Risk Factors Present?: Yes Each Factor Represents 1 point: Age 41-60 years, Medical pt on bed rest, Obesity (BMI >25) Thrombosis Risk Factor Assessment Total Risk Factor Score: 3 Thrombosis Risk Factor Assessment Level: Moderate Risk Assessment and Plan Assessment: Severe anemia, present on admission Elevated troponin suspicious for supply/demand ischemia. Bilateral feet and leg tingling and pain Suprapubic tenderness and dysuria, rule out obstructive lesion or UTI nicotine dependence, counseled to quit and she agrees but she declines nicotine patch Hypertension Diabetes mellitus History of CVA/TIA History of rheumatoid arthritis History of seizure disorder History of sleep apnea History of migraine Chronic back pain, status post back surgery at [facility] about 20 ago as per patient History of irritable bowel syndrome History of right breast cancer in 2010 status post surgery and chemotherapy Plan: Keep the patient nothing by mouth, Continue with IV Protonix Monitor hemoglobin Anemia workup (called lab decided on the first specimen) GI team consult Cardiologic consult for elevated troponin Check ultrasound of the leg although the chances for DVT is low Check urine analysis and bladder scan labs and medication were reviewed.. Continue same treatment. Continue with symptomatic treatment. Resume home medication. Monitor labs and vitals. DVT and GI prophylaxis. Further recommendations as per clinical course of the patient DVT prophylaxis:no Subcutaneous heparin in view of severe anemia GI Prophylaxis: Ppi PT/OT: Pending Prognosis is guarded
--- NOTE | 2022-04-16 08:21 | P.CONS ---
History of Present Illness - Reason for Consult Consult date: 04/16/22 Anemia Requesting physician: Bear Bradford - Chief Complaint Weakness - History of Present Illness this is a pleasant 62-year-old female with multiple comorbidities including history of breast cancer, angina, coronary artery disease status post stenting in November of 2021, diabetes mellitus, GERD, hypertension, rheumatoid arthritis, seizure disorder and sleep apnea. Patient states she has been feeling weak over the last couple weeks, on admission she was noted to have a hemoglobin of 4.5. She states that she's had some epigastric discomfort, black stools for at least 1-2 weeks. No nausea or vomiting. Patient is on Plavix, and ibuprofen daily. She states that she just started noticing herself some dark red in her stool as well last evening. No previous history of GI bleed. She does have a history of dysphagia and has had esophageal dilation in the past. Last EGD colonoscopy approximately 2 years ago done at [facility].patient is receiving her third unit of blood. She had a repeat hemoglobin this morning at 6.4. Labs WBC 7.5 hemoglobin 6.4 hematocrit 19 platelet count 187,000 INR 0.9 sodium 132 potassium 3.7 BUN 45 creatinine 1.0 magnesium 2.5 total bilirubin 0.5 AST 17 ALT 12 alkaline phosphatase 40 troponin 0.154 Review of Systems REVIEW OF SYSTEMS: CARDIOPULMONARY: No chest pain or shortness of breath. Gastrointestinal: epigastric pain, also reports some lower abdominal discomfort that wraps around towards her kidney. No nausea or vomiting. No hematemesis, coffee-ground emesis. reported black stool, melena. GENITOURINARY: No dysuria or hematuria. MUSCULOSKELETAL: Reports normal range of motion. SKIN: No rashes. No jaundice. ENDOCRINE: No chills, fevers. No excessive weight gain or loss. No polydipsia or polyuria. PSYCHIATRIC: Unremarkable. NEUROLOGY: No change in mental status. Denies dizziness, headache. ENT: Vision unremarkable. CONSTITUTIONAL: No recent weight loss. No fever, chills, night sweats. Past Medical History Past Medical History: Cancer, Chest Pain / Angina, COPD, CVA/TIA, Diabetes Mellitus, GERD/Reflux, Hypertension, Pneumonia, Rheumatoid Arthritis (RA), Seizure Disorder, Sleep Apnea/CPAP/BIPAP Additional Past Medical History / Comment(s): SEIZURE X1 (2011), HX TIA, HX OF HEAD INJURIES, MIGRAINES, BRONCHITIS, SLEEP APNEA-USES C-PAP MACHINE, HERNIATED DISCS WITH BACK PAIN, OSTEOPOROSIS, IBS, HX COLON POLYPS, HX OF DYSPHAGIA WITH DILATION- STATES USUALLY YEARLY., RIGHT BREAST CANCER 2009 WITH SURGERY & CHEMO., FACIAL SKIN CANCER.. VARICOSE VEINS, STATES ENLARGED LEFT VENTRICLE. History of Any Multi-Drug Resistant Organisms: None Reported Past Surgical History: Appendectomy, Breast Surgery, Section, Cholecystectomy, Heart Catheterization, Hysterectomy, Tonsillectomy Additional Past Surgical History / Comment(s): CARPAL TUNNEL, LEFT BREAST BX AND LIFT, RIGHT BREAST BX, LUMPECTOMY'S AND RIGHT BREAST MASTECTOMY AND RECONSTRUCTION. PORT-A-CATH INSERTED AND REMOVED. Past Anesthesia/Blood Transfusion Reactions: No Reported Reaction, Motion Sickness Past Psychological History: Anxiety, Depression Smoking Status: Current every day smoker Past Alcohol Use History: None Reported Additional Past Alcohol Use History / Comment(s): SMOKES 1/2 PPD, SMOKING SINCE 11 YEARS OLD Past Drug Use History: None Reported - Past Family History Mother Family Medical History: Cancer Additional Family Medical History / Comment(s): LUNG CANCER. Father Family Medical History: Coronary Artery Disease (CAD), Diabetes Mellitus Medications and Allergies Home Medications Medication Instructions Recorded Confirmed Type Ibuprofen 800 mg PO TID 01/15/19 04/16/22 History Insulin Aspart [NovoLOG Flexpen] See Protocol SQ ACHS 01/15/19 04/16/22 History Insulin Glargine [Lantus] 4 unit SQ HS 01/15/19 04/16/22 History Linaclotide [Linzess] 145 mcg PO BID 01/15/19 04/16/22 History Montelukast Sodium [Singulair] 10 mg PO HS 01/15/19 04/16/22 History Nitroglycerin Sl Tabs [Nitrostat] 0.4 mg SUBLINGUAL Q5M PRN 01/15/19 04/16/22 History dilTIAZem HCL [Cardizem CD] 120 mg PO HS 01/15/19 04/16/22 History gemfibroziL [Lopid] 600 mg PO BID 01/15/19 04/16/22 History levETIRAcetam [Keppra] 750 mg PO BID 01/15/19 04/16/22 History Baclofen 10 mg PO TID 12/04/21 04/16/22 History Citalopram Hydrobromide 40 mg PO DAILY 12/04/21 04/16/22 History [Citalopram HBr] Evolocumab [Repatha Sureclick] 140 mg SQ Q14D 12/04/21 04/16/22 History Folic Acid 1 mg PO DAILY 12/04/21 04/16/22 History Gabapentin [Neurontin] 200 mg PO BID 12/04/21 04/16/22 History Magnesium Chloride [Mag64] 128 mg PO DAILY 12/04/21 04/16/22 History Triamterene/Hydrochlorothiazid 1 tab PO HS 12/04/21 04/16/22 History [Triamterene-Hctz 37.5-25 mg Tb] oxyCODONE HCL [Oxycodone HCl] 10 mg PO TID 12/04/21 04/16/22 History rOPINIRole HCL [Requip] 1 mg PO TID 12/04/21 04/16/22 History Clopidogrel [Plavix] 75 mg PO DAILY #90 tablet 12/07/21 04/16/22 Rx lisinopriL 2.5 mg PO DAILY #30 tablet 12/07/21 04/16/22 Rx Metoprolol Succinate (ER) [Toprol 25 mg PO W/LUNCH 04/16/22 04/16/22 History Xl] Pantoprazole Sodium [Protonix] 40 mg PO DAILY 04/16/22 04/16/22 History Allergies Allergy/AdvReac Type Severity Reaction Status Date / Time atorvastatin [From Lipitor] Allergy Unknown Unknown Verified 04/16/22 07:21 Corticosteroids Allergy Unknown Anaphylaxis Verified 04/16/22 07:21 (Glucocorticoids) doxycycline Allergy Unknown Unknown Verified 04/16/22 07:21 Nufwthv-YBJ-LnP Reductase Allergy Unknown Anaphylaxis Verified 04/16/22 07:21 Inhibitor [Xicjwpd-Hma-Rvf Reductase Inhibitor] Sulfa (Sulfonamide AdvReac Unknown Nausea & Verified 04/16/22 07:21 Antibiotics) Vomiting ANABOLIC STEROIDS Allergy Severe Anaphylaxis Uncoded 04/16/22 07:21 persumesor aerosol products Allergy Severe Anaphylaxis Uncoded 04/16/22 07:21 STEROIDS Allergy Severe Anaphylaxis Uncoded 04/16/22 07:21 EKG Electrode Patches Allergy Unknown Blisters Uncoded 04/16/22 07:21 Physical Exam Vitals: Vital Signs Temp Pulse Pulse Resp BP BP Pulse Ox 04/16/22 06:16 16 04/16/22 06:12 97.7 F 78 16 157/68 94 L 04/16/22 05:52 98 F 84 18 138/71 92 L 04/16/22 05:42 97.9 F 87 16 124/75 96 04/16/22 05:15 98.1 F 87 16 152/77 98 04/16/22 04:00 145/76 100 04/16/22 03:45 124/72 100 04/16/22 03:30 126/61 100 04/16/22 03:15 123/70 100 04/16/22 03:00 119/71 100 04/16/22 02:45 113/61 100 04/16/22 02:30 123/54 100 04/16/22 02:15 109/56 100 04/16/22 02:00 86 108/52 99 04/16/22 01:45 74 91/49 90 L 04/16/22 01:30 87 92/43 94 L 04/16/22 01:15 94/48 95 04/16/22 01:05 98.3 F 80 16 100/48 98 04/16/22 01:00 92/48 79 L 04/16/22 00:45 98.7 F 72 16 91/44 98 04/16/22 00:43 91/44 04/16/22 00:29 98.6 F 68 16 91/44 97 04/15/22 23:29 68 15 114/54 100 04/15/22 20:45 98.2 F 87 15 114/52 99 Intake and Output 04/15/22 04/15/22 04/16/22 14:59 22:59 06:59 Intake Total 548 Balance 548 Intake: Blood Product 548 Rc As-1 Unit 0 [id number] Rc Pheresis As-3 Unit 277 [id number] Rc Pheresis As-3 Unit 271 [id number] Other: Voiding Method External Catheter Weight 68.039 kg 68.039 kg General appearance: The patient is alert, oriented, appears in no acute distress. HET: Head is normocephalic and atraumatic. Conjunctiva pink. Sclera anicteric. Neck: Supple without lymphadenopathy. Trachea midline. Heart: S1 S2. Regular rate and rhythm. Lungs: Clear to auscultation. Abdomen: Soft, epigastric tenderness, nondistended with bowel sounds. No guarding or rigidity. Skin: No rashes. No jaundice. Extremities: Normal skin color and turgor. No pedal edema. Neurological: No focal deficits. Alert and oriented x3. Results CBC & Chem 7: 04/16/22 03:47 04/16/22 03:47 Labs: Abnormal Lab Results - Last 24 Hours (Table) 04/15/22 04/15/22 04/15/22 Range/Units 21:52 22:03 22:03 RBC (3.80-5.40) m/uL Hgb (11.4-16.0) gm/dL Hct (34.0-46.0) % RDW (11.5-15.5) % Lymphocytes # (1.0-4.8) k/uL APTT (22.0-30.0) sec Sodium (137-145) mmol/L Potassium 2.3 L* (3.5-5.1) mmol/L Chloride 118 H (98-107) mmol/L Carbon Dioxide 15 L (22-30) mmol/L BUN 31 H (7-17) mg/dL Creatinine (0.52-1.04) mg/dL Glucose 105 H (74-99) mg/dL POC Glucose (mg/dL) (70-110) mg/dL Calcium 5.2 L* (8.4-10.2) mg/dL Phosphorus (2.5-4.5) mg/dL Magnesium 1.5 L (1.6-2.3) mg/dL Total Bilirubin 0.1 L (0.2-1.3) mg/dL AST 12 L (14-36) U/L Alkaline Phosphatase 28 L (38-126) U/L Troponin I 0.110 H* (0.000-0.034) ng/mL Total Protein 3.6 L (6.3-8.2) g/dL Albumin 1.9 L (3.5-5.0) g/dL Crossmatch See Detail 04/15/22 04/15/22 04/16/22 Range/Units 22:03 22:03 03:47 RBC 1.41 L (3.80-5.40) m/uL Hgb 4.5 L* (11.4-16.0) gm/dL Hct 13.0 L* (34.0-46.0) % RDW (11.5-15.5) % Lymphocytes # (1.0-4.8) k/uL APTT 19.1 L (22.0-30.0) sec Sodium 132 L (137-145) mmol/L Potassium (3.5-5.1) mmol/L Chloride (98-107) mmol/L Carbon Dioxide (22-30) mmol/L BUN 45 H (7-17) mg/dL Creatinine 1.06 H (0.52-1.04) mg/dL Glucose 181 H (74-99) mg/dL POC Glucose (mg/dL) (70-110) mg/dL Calcium 8.2 L (8.4-10.2) mg/dL Phosphorus 5.0 H (2.5-4.5) mg/dL Magnesium 2.5 H (1.6-2.3) mg/dL Total Bilirubin (0.2-1.3) mg/dL AST (14-36) U/L Alkaline Phosphatase (38-126) U/L Troponin I (0.000-0.034) ng/mL Total Protein 5.3 L (6.3-8.2) g/dL Albumin 3.1 L (3.5-5.0) g/dL Crossmatch 04/16/22 04/16/22 04/16/22 Range/Units 03:47 03:47 06:04 RBC 2.12 L (3.80-5.40) m/uL Hgb 6.4 L* D (11.4-16.0) gm/dL Hct 19.2 L* (34.0-46.0) % RDW 15.8 H (11.5-15.5) % Lymphocytes # 0.8 L (1.0-4.8) k/uL APTT (22.0-30.0) sec Sodium (137-145) mmol/L Potassium (3.5-5.1) mmol/L Chloride (98-107) mmol/L Carbon Dioxide (22-30) mmol/L BUN (7-17) mg/dL Creatinine (0.52-1.04) mg/dL Glucose (74-99) mg/dL POC Glucose (mg/dL) 217 H (70-110) mg/dL Calcium (8.4-10.2) mg/dL Phosphorus (2.5-4.5) mg/dL Magnesium (1.6-2.3) mg/dL Total Bilirubin (0.2-1.3) mg/dL AST (14-36) U/L Alkaline Phosphatase (38-126) U/L Troponin I 0.154 H* (0.000-0.034) ng/mL Total Protein (6.3-8.2) g/dL Albumin (3.5-5.0) g/dL Crossmatch Assessment and Plan (1) GI bleed Narrative/Plan: 62-year-old female who presented for persistent weakness was noted to have a hemoglobin of 4.5. Patient reports history of ibuprofen use daily for pain, Plavix and aspirin for history of coronary artery disease. Patient also reporting noticing that she has had black stool yesterday with some also Dr. daily. Complaints of epigastric pain. Sister reports she believes that she's been having dark stool for at least 1-2 week duration. No nausea or vomiting. His reporting epigastric pain. Possible etiologies include peptic ulcer d isease, gastritis, esophagitis, AVM or other possible etiologies. She also has a history in the past of esophageal narrowing requiring dilation. We'll proceed with EGD. Avoid anticoagulation, NSAIDs. Current Visit: Yes Status: Acute Code(s): K92.2 - GASTROINTESTINAL HEMORRHAGE, UNSPECIFIED SNOMED Code(s): 75438904 (2) Anemia Current Visit: Yes Status: Acute Code(s): D64.9 - ANEMIA, UNSPECIFIED SNOMED Code(s): 911026338 (3) Coronary artery disease Narrative/Plan: patient with history of stent in November 2021 currently on Plavix and aspirin. Patient with elevated troponins likely reactive from severe anemia. Current Visit: Yes Status: Acute Code(s): I25.10 - ATHSCL HEART DISEASE OF [place] CORONARY ARTERY W/O ANG PCTRS SNOMED Code(s): 95864865 (4) Hypokalemia Current Visit: Yes Status: Acute Code(s): E87.6 - HYPOKALEMIA SNOMED Code(s): 30897591 Plan: 1. Continue symptomatic and supportive care 2. Repeat CBC this evening, transfuse for hemoglobin less than 7 3. Agree with current blood transfusion 4. Protonix 40 mg IV push twice a day 5. Hold aspirin and Plavix today 6. Keep nothing by mouth 7. Avoid NSAIDs 8. Patient scheduled for EGD this afternoon Thank you for this consultation, patient will go for EGD this afternoon, then there will be no GI coverage for the weekend. Dr. Jina Donaldson I agree with the dictator's note, documented as a scribe by Ashley Batista.
[2022-04-16 08:42] LABS: Appearance,Urine Clear (Clear); Bilirubin,Urine Negative (Negative); Blood,Urine Negative (Negative); Color,Urine Light Yellow; Glucose,Urine (UA) Negative (Negative); Ketones,Urine Negative (Negative); Leukocyte Esterase,Urine Negative (Negative); Nitrite,Urine Negative (Negative); Protein,Urine Negative (Negative); Specific Gravity,Urine 1.013 (1.001-1.035); Urobilinogen,Urine <2.0 mg/dL (<2.0)
--- NOTE | 2022-04-16 09:07 | US ---
EXAMINATION TYPE: US venous doppler duplex LE DATE OF EXAM: 04/16/2022 8:38 AM COMPARISON: NONE CLINICAL HISTORY: leg swelling. Patient states she lost feeling of her legs. Patient states she fell down. No redness or swelling. SIDE PERFORMED: Bilateral TECHNIQUE: The lower extremity deep venous system is examined utilizing real time linear array sonog donna with graded compression, doppler sonography and color-flow sonography. VESSELS IMAGED: Common Femoral Vein Deep Femoral Vein Greater Saphenous Vein * Femoral Vein Popliteal Vein Small Saphenous Vein * Proximal Calf Veins (* superficial vessels) Right Leg: Negative for DVT Left Leg: Negative for DVT IMPRESSION: 1. Bilateral lower extremity ultrasound negative for deep venous thrombosis.
--- NOTE | 2022-04-16 10:50 | P.CRDCN ---
History of Present Illness Consult date: 04/16/22 History of present illness: HISTORY OF PRESENT ILLNESS: This is a 62-year-old female with a past medical history significant for hypertension, hyperlipidemia, diabetes, and coronary artery disease with recent stenting to the RCA in November 2021. Patient follows in the office with Dr. Michaels. We have been asked to see the patient in consultation for abnormal troponins. Patient examined at the bedside. Patient presented to the hospital with a chief complaint of epigastric discomfort, weakness, and black stools. The patient was found to have acute anemia with a hemoglobin of 4.5. She has received RBC transfusion. She is scheduled to undergo EGD today with GI service. It is noted that the patient was taking aspirin and Plavix at home secondary to recent stenting. She also reports taking ibuprofen daily. * Laboratory data: WBC 7.5. Hemoglobin 6.4. Platelet count 187. Sodium 132. Potassium 3.7. BUN 45. Creatinine 1.06. Troponin 0.110. 0.154. * Current home cardiac medications include Plavix 75 mg daily, Repatha 140mg SQ Q14 days, metoprolol succinate 20 family grams daily, Cardizem CD 120 mg at night, Lopid 600 mg twice a day, lisinopril 2.5 mg daily, and Triamterene-HCTZ 37.5-25mg at night. REVIEW OF SYSTEMS: At the time of my exam: CONSTITUTIONAL: Denies fever or chills. HEENT: Denies blurred vision, vision changes, or eye pain. Denies hemoptysis CARDIOVASCULAR: Denies chest pain. Denies orthopnea. Denies PND. Denies palpitations RESPIRATORY: Denies shortness of breath. GASTROINTESTINAL: Denies abdominal pain. Denies nausea or vomiting. HEMATOLOGIC: Denies bleeding disorders. GENITOURINARY: Denies any blood in urine. SKIN: Denies pruitis. Denies rash. PHYSICAL EXAM: VITAL SIGNS: Reviewed. GENERAL: Well-developed in no acute distress. HEENT: Head is normocephalic. Pupils are equal, round. Sclerae anicteric. Mucous membranes of the mouth are moist. Neck supple. No JVD or thyromegaly LUNGS: Respirations even and unlabored. Lungs essentially clear to auscultation bilaterally. HEART: Regular rate and rhythm. S1 and S2 heard. ABDOMEN: Soft. Nondistended. Nontender. EXTREMITIES: Normal range of motion. No clubbing or cyanosis. Peripheral pulses intact. No lower extremity edema NEUROLOGIC: Awake and alert. Oriented x 3. ASSESSMENT: Acute GI bleed Acute blood loss anemia Abnormal troponin, not suggestive of ACS, likely type II HI secondary to anemia Coronary artery disease with stenting to the RCA Hypertension Hyperlipidemia Diabetes PLAN: Obtain 2-D echo to assess cardiac structure and function Continue to hold aspirin and Plavix. Ideally, would resume aspirin if possible Patient to undergo EGD today with GI services Further recommendations pending patient's course Nurse practitioner note has been reviewed by physician. Signing provider agrees with the documented findings, assessment, and plan of care. Past Medical History Past Medical History: Cancer, Chest Pain / Angina, COPD, CVA/TIA, Diabetes Mellitus, GERD/Reflux, Hypertension, Pneumonia, Rheumatoid Arthritis (RA), Seizure Disorder, Sleep Apnea/CPAP/BIPAP Additional Past Medical History / Comment(s): SEIZURE X1 (2011), HX TIA, HX OF HEAD INJURIES, MIGRAINES, BRONCHITIS, SLEEP APNEA-USES C-PAP MACHINE, HERNIATED DISCS WITH BACK PAIN, OSTEOPOROSIS, IBS, HX COLON POLYPS, HX OF DYSPHAGIA WITH DILATION- STATES USUALLY YEARLY., RIGHT BREAST CANCER 2009 WITH SURGERY & CHEMO., FACIAL SKIN CANCER.. VARICOSE VEINS, STATES ENLARGED LEFT VENTRICLE. History of Any Multi-Drug Resistant Organisms: None Reported Past Surgical History: Appendectomy, Breast Surgery, Section, Cholecystectomy, Heart Catheterization, Hysterectomy, Tonsillectomy Additional Past Surgical History / Comment(s): CARPAL TUNNEL, LEFT BREAST BX AND LIFT, RIGHT BREAST BX, LUMPECTOMY'S AND RIGHT BREAST MASTECTOMY AND RECONSTRUCTION. PORT-A-CATH INSERTED AND REMOVED. Past Anesthesia/Blood Transfusion Reactions: No Reported Reaction, Motion Sickness Past Psychological History: Anxiety, Depression Smoking Status: Current every day smoker Past Alcohol Use History: None Reported Additional Past Alcohol Use History / Comment(s): SMOKES 1/2 PPD, SMOKING SINCE 11 YEARS OLD Past Drug Use History: None Reported - Past Family History Mother Family Medical History: Cancer Additional Family Medical History / Comment(s): LUNG CANCER. Father Family Medical History: Coronary Artery Disease (CAD), Diabetes Mellitus Medications and Allergies Home Medications Medication Instructions Recorded Confirmed Type Ibuprofen 800 mg PO TID 01/15/19 04/16/22 History Insulin Aspart [NovoLOG Flexpen] See Protocol SQ ACHS 01/15/19 04/16/22 History Insulin Glargine [Lantus] 4 unit SQ HS 01/15/19 04/16/22 History Linaclotide [Linzess] 145 mcg PO BID 01/15/19 04/16/22 History Montelukast Sodium [Singulair] 10 mg PO HS 01/15/19 04/16/22 History Nitroglycerin Sl Tabs [Nitrostat] 0.4 mg SUBLINGUAL Q5M PRN 01/15/19 04/16/22 History dilTIAZem HCL [Cardizem CD] 120 mg PO HS 01/15/19 04/16/22 History gemfibroziL [Lopid] 600 mg PO BID 01/15/19 04/16/22 History levETIRAcetam [Keppra] 750 mg PO BID 01/15/19 04/16/22 History Baclofen 10 mg PO TID 12/04/21 04/16/22 History Citalopram Hydrobromide 40 mg PO DAILY 12/04/21 04/16/22 History [Citalopram HBr] Evolocumab [Repatha Sureclick] 140 mg SQ Q14D 12/04/21 04/16/22 History Folic Acid 1 mg PO DAILY 12/04/21 04/16/22 History Gabapentin [Neurontin] 200 mg PO BID 12/04/21 04/16/22 History Magnesium Chloride [Mag64] 128 mg PO DAILY 12/04/21 04/16/22 History Triamterene/Hydrochlorothiazid 1 tab PO HS 12/04/21 04/16/22 History [Triamterene-Hctz 37.5-25 mg Tb] oxyCODONE HCL [Oxycodone HCl] 10 mg PO TID 12/04/21 04/16/22 History rOPINIRole HCL [Requip] 1 mg PO TID 12/04/21 04/16/22 History Clopidogrel [Plavix] 75 mg PO DAILY #90 tablet 12/07/21 04/16/22 Rx lisinopriL 2.5 mg PO DAILY #30 tablet 12/07/21 04/16/22 Rx Metoprolol Succinate (ER) [Toprol 25 mg PO W/LUNCH 04/16/22 04/16/22 History Xl] Pantoprazole Sodium [Protonix] 40 mg PO DAILY 04/16/22 04/16/22 History Allergies Allergy/AdvReac Type Severity Reaction Status Date / Time atorvastatin [From Lipitor] Allergy Unknown Unknown Verified 04/16/22 07:21 Corticosteroids Allergy Unknown Anaphylaxis Verified 04/16/22 07:21 (Glucocorticoids) doxycycline Allergy Unknown Unknown Verified 04/16/22 07:21 Wobklts-WUO-VqR Reductase Allergy Unknown Anaphylaxis Verified 04/16/22 07:21 Inhibitor [Dkdnoam-Yrg-Hev Reductase Inhibitor] Sulfa (Sulfonamide AdvReac Unknown Nausea & Verified 04/16/22 07:21 Antibiotics) Vomiting ANABOLIC STEROIDS Allergy Severe Anaphylaxis Uncoded 04/16/22 07:21 persumesor aerosol products Allergy Severe Anaphylaxis Uncoded 04/16/22 07:21 STEROIDS Allergy Severe Anaphylaxis Uncoded 04/16/22 07:21 EKG Electrode Patches Allergy Unknown Blisters Uncoded 04/16/22 07:21 Physical Exam Vitals: Vital Signs Temp Pulse Pulse Resp BP BP BP 04/16/22 09:43 98.5 F 86 20 151/82 04/16/22 09:42 98.5 F 86 20 151/82 04/16/22 08:00 98 F 83 20 139/75 04/16/22 06:16 16 04/16/22 06:12 97.7 F 78 16 157/68 04/16/22 05:52 98 F 84 18 138/71 04/16/22 05:42 97.9 F 87 16 124/75 04/16/22 05:15 98.1 F 87 16 152/77 04/16/22 04:00 145/76 04/16/22 03:45 124/72 04/16/22 03:30 126/61 04/16/22 03:15 123/70 04/16/22 03:00 119/71 04/16/22 02:45 113/61 04/16/22 02:30 123/54 04/16/22 02:15 109/56 04/16/22 02:00 86 108/52 04/16/22 01:45 74 91/49 04/16/22 01:30 87 92/43 04/16/22 01:15 94/48 04/16/22 01:05 98.3 F 80 16 100/48 04/16/22 01:00 92/48 04/16/22 00:45 98.7 F 72 16 91/44 04/16/22 00:43 91/44 04/16/22 00:29 98.6 F 68 16 91/44 04/15/22 23:29 68 15 114/54 04/15/22 20:45 98.2 F 87 15 114/52 Pulse Ox 04/16/22 09:43 92 L 04/16/22 09:42 92 L 04/16/22 08:00 95 04/16/22 06:16 04/16/22 06:12 94 L 04/16/22 05:52 92 L 04/16/22 05:42 96 04/16/22 05:15 98 04/16/22 04:00 100 04/16/22 03:45 100 04/16/22 03:30 100 04/16/22 03:15 100 04/16/22 03:00 100 04/16/22 02:45 100 04/16/22 02:30 100 04/16/22 02:15 100 04/16/22 02:00 99 04/16/22 01:45 90 L 04/16/22 01:30 94 L 04/16/22 01:15 95 04/16/22 01:05 98 04/16/22 01:00 79 L 04/16/22 00:45 98 04/16/22 00:43 04/16/22 00:29 97 04/15/22 23:29 100 04/15/22 20:45 99 Intake and Output 04/15/22 04/16/22 04/16/22 22:59 06:59 14:59 Intake Total 548 310 Balance 548 310 Intake: Blood Product 548 310 Rc As-1 Unit 0 310 [id number] Rc Pheresis As-3 Unit 277 [id number] Rc Pheresis As-3 Unit 271 [id number] Other: Voiding Method External Catheter External Catheter # Voids 2 Weight 68.039 kg 68.039 kg Results 04/16/22 03:47 04/16/22 03:47 Cardiac Enzymes 04/15/22 04/15/22 04/16/22 Range/Units 22:03 22:03 03:47 AST 12 L 17 (14-36) U/L Troponin I 0.110 H* (0.000-0.034) ng/mL 04/16/22 Range/Units 03:47 AST (14-36) U/L Troponin I 0.154 H* (0.000-0.034) ng/mL Coagulation 04/15/22 Range/Units 22:03 PT 10.0 (9.0-12.0) sec APTT 19.1 L (22.0-30.0) sec CBC 04/15/22 04/16/22 Range/Units 22:03 03:47 WBC 8.1 7.5 (3.8-10.6) k/uL RBC 1.41 L 2.12 L (3.80-5.40) m/uL Hgb 4.5 L* 6.4 L* D (11.4-16.0) gm/dL Hct 13.0 L* 19.2 L* (34.0-46.0) % Plt Count 217 187 (150-450) k/uL Comprehensive Metabolic Panel 04/15/22 04/16/22 Range/Units 22:03 03:47 Sodium 137 132 L (137-145) mmol/L Potassium 2.3 L* 3.7 (3.5-5.1) mmol/L Chloride 118 H 103 (98-107) mmol/L Carbon Dioxide 15 L 23 (22-30) mmol/L BUN 31 H 45 H (7-17) mg/dL Creatinine 0.68 1.06 H (0.52-1.04) mg/dL Glucose 105 H 181 H (74-99) mg/dL Calcium 5.2 L* 8.2 L (8.4-10.2) mg/dL AST 12 L 17 (14-36) U/L ALT 8 12 (4-34) U/L Alkaline Phosphatase 28 L 40 (38-126) U/L Total Protein 3.6 L 5.3 L (6.3-8.2) g/dL Albumin 1.9 L 3.1 L (3.5-5.0) g/dL Current Medications Generic Name Dose Route Start Last Admin Trade Name Freq PRN Reason Stop Dose Admin Calcium Carbonate/Glycine 500 mg 04/15/22 23:00 Calcium Carbonate 500 Mg Chewable PO TID PRN Heartburn Sodium Chloride 1,000 mls @ 20 mls/hr 04/15/22 23:15 04/15/22 23:49 Saline 0.9% IV 20 mls/hr .Q24H JESUS Administration Morphine Sulfate 4 mg 04/15/22 22:48 04/16/22 08:04 Morphine Sulfate 4 Mg/Ml Syringe IV 4 mg Q4HR PRN Administration Severe Pain (Scale 7 to 10) Naloxone HCl 0.2 mg 04/15/22 23:02 Naloxone 0.4 Mg/Ml 1 Ml Vial IV Q2M PRN Opioid Reversal Ondansetron HCl 4 mg 04/15/22 23:02 Ondansetron 4 Mg/2 Ml Vial IVP Q8HR PRN Nausea And Vomiting Pantoprazole Sodium 40 mg 04/16/22 09:00 04/16/22 08:04 Pantoprazole 40 Mg/10 Ml Vial IV 40 mg BID JESUS Administration Intake and Output 04/15/22 04/16/22 04/16/22 22:59 06:59 14:59 Intake Total 548 310 Balance 548 310 Intake: Blood Product 548 310 Rc As-1 Unit 0 310 [id number] Rc Pheresis As-3 Unit 277 [id number] Rc Pheresis As-3 Unit 271 [id number] Other: Voiding Method External Catheter External Catheter # Voids 2 Weight 68.039 kg 68.039 kg 04/16/22 03:47 04/16/22 03:47
[2022-04-16 11:37] LABS: Glucose,Whole Blood 184 mg/dL (70-110)
[2022-04-16 11:54] LABS: % Iron Saturation 1.9 (12.00-45.00); Ferritin 4.6 ng/mL (10.0-291.0)
[2022-04-16] MEDS ORDERED: PROPOFOL 10 MG/ML 20 ML VIAL IV ONE (14:37)
[2022-04-16] MEDS ORDERED: LIDOCAINE 2% INJ 20 MG/ML (2 ML VIAL) ONE (14:37)
[2022-04-16] MEDS ORDERED: IV FLUID CONTINUATION 1,000 ML IV ONE ×2 (14:41)
--- NOTE | 2022-04-16 14:59 | P.PCN ---
Date of Procedure: 04/16/22 Procedure(s) Performed: BRIEF HISTORY: Patient is a 62-year-old, pleasant, white female admitted to the hospital with severe symptomatic anemia and hemoglobin of 4.5 g/dL requiring 4 units of PRBC transfusion.. She is becoming of intermittent black tarry stools as well as epigastric pain and hence scheduled for an upper endoscopy for possible upper GI source of bleeding PROCEDURE PERFORMED: Esophagogastroduodenoscopy with biopsy. PREOPERATIVE DIAGNOSIS: Severe symptomatic anemia and black tarry stools. IV sedation per anesthesia. PROCEDURE: After informed consent was obtained, the patient was brought into the endoscopy unit. IV sedation was administered by Anesthesia under continuous monitoring. Initially the Olympus GIF-140 video endoscope was inserted into the mouth. Esophagus intubated without any difficulty. It was gradually advanced into the stomach and duodenum and carefully examined. The bulb and the second part of the duodenum appeared normal. The scope at this time was withdrawn to the stomach, adequately insufflated with air, and upon careful examination, mucosa of the antrum, had scattered erosions and a 5 mm antral ulcer with no active bleeding. Biopsies were done from this area. Mucosa of the body, cardia and the fundus appeared normal. The scope was then withdrawn into the esophagus. The GE junction was located at 39 cm from the incisors. Small hiatal hernia noted. The esophagus appeared normal. There were no erosions or ulcerations seen and the patient tolerated the procedure well. IMPRESSION: 1. 5 mm antral ulcer and scattered superficial antral erosions but no active bleeding. 2. Small hiatal hernia. RECOMMENDATIONS: The findings of this examination were discussed with the patient as well as her family. She was advised to follow with the biopsy results. She will be scheduled for colonoscopy tomorrow to evaluate further. In the meantime she will remain on a clear liquid diet and monitor CBC on a daily basis..
[2022-04-16] MEDS ORDERED: PEG 3350 (236 GM/BTL) + LYTES 4,000 ML BOTTLE PO ONE (16:00)
[2022-04-16 16:37] LABS: Glucose,Whole Blood 164 mg/dL (70-110)
[2022-04-16] MEDS: SODIUM CHLORIDE 0.9% 1,000 ML IV SCH (16:44)
[2022-04-16] MEDS: CITALOPRAM HYDROBROMIDE 20 MG TAB PO SCH (18:19)
[2022-04-16] MEDS: METOPROLOL SUCCINATE (ER) 25 MG TAB.ER.24H PO SCH (18:19)
[2022-04-16 20:01] LABS: Glucose,Whole Blood 179 mg/dL (70-110)
[2022-04-16] MEDS: GABAPENTIN 100 MG CAP PO SCH (20:10)
[2022-04-16] MEDS: MONTELUKAST 10 MG TAB PO SCH (20:10)
[2022-04-16] MEDS: DILTIAZEM CD 120 MG CAP.ER.24H PO SCH (20:10)
[2022-04-16] MEDS: INSULIN DETEMIR (LEVEMIR) 100 UNIT/ML SYR SQ SCH (20:11)
[2022-04-16] MEDS ORDERED: CYANOCOBALAMIN 1,000 MCG/ML 1 ML VIAL IM ONE (22:46)
[2022-04-16] MEDS: FERROUS SULFATE 325 MG TAB PO SCH (23:18)
[2022-04-17] MEDS: MORPHINE SULFATE 4 MG/ML SYRINGE IV PRN ×5 (02:18→20:16)
[2022-04-17] MEDS: FERROUS SULFATE 325 MG TAB PO SCH ×2 (05:51→17:35)
[2022-04-17 06:06] LABS: Glucose,Whole Blood 146 mg/dL (70-110)
[2022-04-17] MEDS ORDERED: IV FLUID CONTINUATION 1,000 ML IV ONE (06:55)
[2022-04-17] MEDS ORDERED: PROPOFOL 10 MG/ML 20 ML VIAL IV ONE (06:59)
[2022-04-17] MEDS ORDERED: LIDOCAINE 2% INJ 20 MG/ML (2 ML VIAL) ONE (06:59)
--- NOTE | 2022-04-17 07:25 | P.PCN ---
Date of Procedure: 04/17/22 Procedure(s) Performed: BRIEF HISTORY: Patient is a 62-year-old pleasant white female scheduled for an elective colonoscopy as a part of evaluation of severe symptomatic iron deficiency anemia. She was admitted with a hemoglobin of 4.5 g/dL received total of 4 units of PRBC transfusion and repeat CBC this morning is pending. She underwent upper endoscopy yesterday that revealed mild antral erosive gastritis with the small superficial antral ulcer. No active bleeding noted. She is scheduled for colonoscopy to evaluate further. PROCEDURE PERFORMED: Colonoscopy. PREOPERATIVE DIAGNOSIS: Severe symptomatic iron deficiency anemia. IV sedation per Anesthesia. PROCEDURE: After informed consent was obtained, the patient, was brought into the endoscopy unit. IV sedation was administered by Anesthesia under continuous monitoring. Digital rectal examination was normal. Initially the Olympus CF-160 flexible video colonoscope was then inserted in the rectum, gradually advanced into the cecum without any difficulty. Careful examination was performed as the scope was gradually being withdrawn. Ileocecal valve and the appendiceal orifice were visualized and appeared normal. Prep was oral in several days of the colon which precluded adequate visualization. Irrigation was performed. Visualized portions of the mucosa of the cecum, ascending colon, transverse colon, descending colon, sigmoid colon, and rectum appeared normal. Retroflexion was performed in the rectum and no lesions were seen. The patient tolerated the procedure well. IMPRESSION: Normal-appearing colon from rectum to cecum but poor prep in several areas of the colon that precluded adequate visualization. No obvious polyps noted. . RECOMMENDATIONS: Findings of this examination were discussed with the patient . She will be scheduled for a small bowel capsule endoscopy today. If the hemoglobin is stable she can be discharged home tomorrow with outpatient follow- up in one to 2 weeks..
[2022-04-17] MEDS ORDERED: SIMETHICONE 40 MG/0.6 ML DROPS 2,000 MG/30 ML BOTTLE PO ONE (08:47)
[2022-04-17 09:15] LABS: African American GFR (CKD) >90 (>60 ml/min/1.73 sqM); Anion Gap 5 mmol/L; Blood Urea Nitrogen 27 mg/dL (7-17); Calcium 7.4 mg/dL (8.4-10.2); Carbon Dioxide 25 mmol/L (22-30); Chloride 106 mmol/L (98-107); Glucose 117 mg/dL (74-99); Non-African American GFR(CKD) >90 (>60 ml/min/1.73 sqM); Sodium 136 mmol/L (137-145)
[2022-04-17 09:37] LABS: Anisocytosis Slight; Basophils % (A) 0 %; Eosinophils # (A) 0.1 k/uL (0-0.7); Eosinophils % (A) 2 %; Hyperchromasia Slight; Hypochromasia Slight; Lymphocytes # (A) 1.2 k/uL (1.0-4.8); Lymphocytes % (A) 21 %; MCH 29.6 pg (25.0-35.0); MCHC 33.1 g/dL (31.0-37.0); MCV 89.6 fL (80.0-100.0); Mean Platelet Volume 8.8; Monocytes # (A) 0.3 k/uL (0-1.0); Monocytes % (A) 6 %; Neutrophils # (A) 3.8 k/uL (1.3-7.7); Neutrophils % (A) 67 %; Platelet Count 170 k/uL (150-450); Poikilocytosis Marked; RBC 2.68 m/uL (3.80-5.40); RDW 16.1 % (11.5-15.5); WBC 5.7 k/uL (3.8-10.6)
[2022-04-17 09:41] LABS: HGB 7.9 gm/dL (11.4-16.0)
[2022-04-17] MEDS ORDERED: Potassium Replacement Protocol 1 EACH MISC MISCELLANE PRN ×3 (11:10→14:08)
[2022-04-17] MEDS: PANTOPRAZOLE 40 MG/10 ML VIAL IV SCH ×2 (11:16→20:17)
[2022-04-17 11:35] LABS: Glucose,Whole Blood 162 mg/dL (70-110)
--- NOTE | 2022-04-17 13:13 | P.PN ---
Subjective This is a pleasant 62 years old female with multiple medical problems diabetes mellitus, COPD, CVA/TIA, hypertension, rheumatoid arthritis, seizure disorder, sleep apnea on CPAP, history of migraine and chronic back pain, irritable bowel syndrome, history of right breast cancer in 2010 status post surgery and chemotherapy. Information were obtained from the patient and sister at bedside. Patient presents because of feeling generally weak for a few days, yesterday she went downstairs to have a cigarette and she could not get back she was very weak and short of breath, she says that her weakness and all her extremities and equal and at the same time. Also she is feeling dizzy with exertion and more weakness. She denies headache, no new weakness or numbness. However she is complaining of from burning and pain in both feet and up to the knees, Patient fell 2 days ago on her knees with no head trauma. Also patient has some chest pain yesterday but not today, she has history of coronary artery disease and she is off on up with Dr. 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 She noticed some black stool and she is complaining of from abdominal pain, mainly in the lower abdomen and more to the right side and suprapubic area, about 9-10 in severity, nonspecific and radiating to the right side. She is on oxycodone at home for back surgery and back pain that is been going on for about one year however she declines recent use of other pain medication like NSAIDs. No diarrhea actually she is constipated, she has vomiting 2 days ago with no blood but not currently. Presents with generalized weakness Patient found to be severely anemic with hemoglobin was 4.5 on admission she received 2 units of blood transfusion and hemoglobin went up to 6.4 INR 0.9. Sodium 1:30 09/19/1932, potassium 2.3 and 3.7. Creatinine 0.6 and 1.0. Troponin elevated 0.12. ProBNP 916 Lumbosacral x-ray showing no evidence of acute fracture or dislocation. In the emergency room patient received normal saline, morphine, replace electrolytes. And IV Protonix. GI service was consulted. Currently patient is receiving third unit of blood transfusion and she is kept nothing by mouth 04/17/2022 Patient reports improvement in her generalized weakness and exertional dyspnea She denies any pain, no abdominal pain but she still looks tired She still have pain and numbness in both feet and legs Ultrasound of the neck is negative for DVT Hemoglobin 7.9 Colonoscopy was normal today, small bowel endoscopy was recommended by GI team and if her hemoglobin remains stable tomorrow she may be considered for discharge. Objective - Vital Signs Vital signs: Vital Signs Temp 98.4 F 04/17/22 11:57 Pulse 66 04/17/22 11:57 Resp 17 04/17/22 11:57 BP 106/57 04/17/22 11:57 Pulse Ox 95 04/17/22 11:57 FiO2 Intake & Output 04/16/22 04/17/22 04/17/22 18:59 06:59 18:59 Intake Total 1370 300 Output Total 1125 Balance 245 300 Intake: IV 50 300 Intake, IV Titration 100 Amount Sodium Chloride 0.9% 1, 100 000 ml @ 20 mls/hr IV . Q24H [facility] Rx#:[id number] Blood Product 1220 Rc As-1 Unit 310 [id number] Rc As-1 Unit 310 [id number] Output: Urine 700 Post Void Residual 425 Other: Voiding Method External Catheter Toilet Toilet # Voids 1 2 # Bowel Movements 6 - Exam GENERAL: The patient is alert and oriented x3, not in any acute distress. Well developed, well nourished. HEENT: Pupils are round and equally reacting to light. EOMI. No scleral icterus. No conjunctival pallor. Normocephalic, atraumatic. No pharyngeal erythema. No thyromegaly. CARDIOVASCULAR: S1 and S2 present. No murmurs, rubs, or gallops. PULMONARY: Chest is clear to auscultation, no wheezing or crackles. ABDOMEN: Soft, nontender, nondistended, normoactive bowel sounds. No palpable organomegaly. MUSCULOSKELETAL: No joint swelling or deformity. EXTREMITIES: No cyanosis, clubbing, or pedal edema. NEUROLOGICAL: Gross neurological examination did not reveal any focal deficits. SKIN: No rashes. no petechiae. - Labs CBC & Chem 7: 04/17/22 08:44 04/17/22 08:44 Labs: Abnormal Lab Results - Last 24 Hours (Table) 04/15/22 04/16/22 04/16/22 Range/Units 21:52 16:33 20:00 RBC (3.80-5.40) m/uL Hgb (11.4-16.0) gm/dL Hct (34.0-46.0) % RDW (11.5-15.5) % Sodium (137-145) mmol/L Potassium (3.5-5.1) mmol/L BUN (7-17) mg/dL Glucose (74-99) mg/dL POC Glucose (mg/dL) 164 H 179 H (70-110) mg/dL Calcium (8.4-10.2) mg/dL Crossmatch See Detail 04/17/22 04/17/22 04/17/22 Range/Units 06:04 08:44 08:44 RBC 2.68 L (3.80-5.40) m/uL Hgb 7.9 L D (11.4-16.0) gm/dL Hct 24.0 L (34.0-46.0) % RDW 16.1 H (11.5-15.5) % Sodium 136 L (137-145) mmol/L Potassium 3.0 L (3.5-5.1) mmol/L BUN 27 H (7-17) mg/dL Glucose 117 H (74-99) mg/dL POC Glucose (mg/dL) 146 H (70-110) mg/dL Calcium 7.4 L (8.4-10.2) mg/dL Crossmatch 04/17/22 Range/Units 11:34 RBC (3.80-5.40) m/uL Hgb (11.4-16.0) gm/dL Hct (34.0-46.0) % RDW (11.5-15.5) % Sodium (137-145) mmol/L Potassium (3.5-5.1) mmol/L BUN (7-17) mg/dL Glucose (74-99) mg/dL POC Glucose (mg/dL) 162 H (70-110) mg/dL Calcium (8.4-10.2) mg/dL Crossmatch Assessment and Plan Assessment: Severe anemia, present on admission Elevated troponin suspicious for supply/demand ischemia. Bilateral feet and leg tingling and pain Suprapubic tenderness and dysuria, rule out obstructive lesion or UTI nicotine dependence, counseled to quit and she agrees but she declines nicotine patch Hypertension Diabetes mellitus History of CVA/TIA History of rheumatoid arthritis History of seizure disorder History of sleep apnea History of migraine Chronic back pain, status post back surgery at [facility] about 20 ago as per patient History of irritable bowel syndrome History of right breast cancer in 2010 status post surgery and chemotherapy Plan: Check small bowel endoscopy Monitor hemoglobin tomorrow if stable can be considered for discharge per GI team Continue with IV Protonix GI team consult Cardiologic consult for elevated troponin Check ultrasound of the leg although the chances for DVT is low Check urine analysis and bladder scan labs and medication were reviewed.. Continue same treatment. Continue with symptomatic treatment. Resume home medication. Monitor labs and vitals. DVT and GI prophylaxis. Further recommendations as per clinical course of the patient DVT prophylaxis:no Subcutaneous heparin in view of severe anemia GI Prophylaxis: Ppi PT/OT: Pending Prognosis is guarded
--- NOTE | 2022-04-17 13:48 | P.PN ---
Subjective Progress Note Date: 04/17/22 PROGRESS NOTE The patient is a 62-year-old female with a history of hyperlipidemia diabetes status post stenting of the RCA in 2021 who presented with severe anemia, GI bleeding with a hemoglobin of 4.5 with minimal elevation of the troponin. She underwent upper and lower endoscopy today and there is no evidence of a source for her bleeding. She is undergoing small bowel capsule imaging. She feels we ll this morning. She denies any chest discomfort, dizziness or palpitations. She has no nausea. She continues to be in sinus mechanism. Medications: Cardizem 120 mg daily, iron, insulin, ropinirole, Celexa 40 mg daily PHYSICAL EXAMINATION: Blood pressure 106/60 heart rate 60 LUNGS: Clear to auscultation HEART: Regular rate and rhythm, S1, S2. No S3. No systolic murmur ABDOMEN: Soft, nontender, no organomegaly EXTREMETIES: No edema LAB: Hemoglobin 7.9, potassium 3.0, BUN 27, creatinine 0.7 IMPRESSION: 1. Acute GI bleeding, source unclear 2. Status post stenting in November 2021 3. History of diabetes 4. History of hypertension PLAN: 1. Follow hemoglobin 2. Await the input of the GI service regarding resuming at least aspirin 3. Follow blood pressure 4. Depending on her progress further recommendations will be made Objective - Vital Signs Vital signs: Vital Signs Temp 98.4 F 04/17/22 11:57 Pulse 66 04/17/22 11:57 Resp 17 04/17/22 11:57 BP 106/57 04/17/22 11:57 Pulse Ox 95 04/17/22 11:57 FiO2 Intake & Output 04/16/22 04/17/22 04/17/22 18:59 06:59 18:59 Intake Total 1370 300 Output Total 1125 Balance 245 300 Intake: IV 50 300 Intake, IV Titration 100 Amount Sodium Chloride 0.9% 1, 100 000 ml @ 20 mls/hr IV . Q24H [facility] Rx#:[id number] Blood Product 1220 Rc As-1 Unit 310 [id number] Rc As-1 Unit 310 [id number] Output: Urine 700 Post Void Residual 425 Other: Voiding Method External Catheter Toilet Toilet # Voids 1 2 # Bowel Movements 6 - Labs CBC & Chem 7: 04/17/22 08:44 04/17/22 08:44 Labs: Abnormal Lab Results - Last 24 Hours (Table) 04/16/22 04/16/22 04/17/22 Range/Units 16:33 20:00 06:04 RBC (3.80-5.40) m/uL Hgb (11.4-16.0) gm/dL Hct (34.0-46.0) % RDW (11.5-15.5) % Sodium (137-145) mmol/L Potassium (3.5-5.1) mmol/L BUN (7-17) mg/dL Glucose (74-99) mg/dL POC Glucose (mg/dL) 164 H 179 H 146 H (70-110) mg/dL Calcium (8.4-10.2) mg/dL 04/17/22 04/17/22 04/17/22 Range/Units 08:44 08:44 11:34 RBC 2.68 L (3.80-5.40) m/uL Hgb 7.9 L D (11.4-16.0) gm/dL Hct 24.0 L (34.0-46.0) % RDW 16.1 H (11.5-15.5) % Sodium 136 L (137-145) mmol/L Potassium 3.0 L (3.5-5.1) mmol/L BUN 27 H (7-17) mg/dL Glucose 117 H (74-99) mg/dL POC Glucose (mg/dL) 162 H (70-110) mg/dL Calcium 7.4 L (8.4-10.2) mg/dL
[2022-04-17] MEDS: CITALOPRAM HYDROBROMIDE 20 MG TAB PO SCH (14:06)
[2022-04-17] MEDS: GABAPENTIN 100 MG CAP PO SCH ×2 (14:06→20:17)
[2022-04-17] MEDS: CYANOCOBALAMIN 500 MCG TAB PO SCH (14:06)
--- NOTE | 2022-04-17 15:05 | CA ---
Transthoracic Echo Report Name: Valerie Rios Age: 62 Gender: F : 1960 Exam Date: 04/16/2022 15:20 Exam Location: [facility] Ht (in): 63 Wt (lb): 150 Ordering Physician: Tianna Mejia Attending/Referring Phys: [id number], Jackie Chief Marketing Officer Marysol Parikh RDCS Procedure CPT: Indications: LV function Cardiac Hx: Technical Quality: Fair Contrast 1: Total Dose (mL): Contrast 2: Total Dose (mL): MEASUREMENTS (Male / Female) Normal Values 2D ECHO LV Diastolic Diameter PLAX 3.7 cm 4.2 - 5.9 / 3.9 - 5.3 cm LV Systolic Diameter PLAX 2.7 cm IVS Diastolic Thickness 1.7 cm 0.6 - 1.0 / 0.6 - 0.9 cm LVPW Diastolic Thickness 1.7 cm 0.6 - 1.0 / 0.6 - 0.9 cm LV Relative Wall Thickness 0.9 LA Volume 57.4 cm??? 18 - 58 / 22 - 52 cm??? M-MODE Aortic Root Diameter MM 2.5 cm LA Systolic Diameter MM 4.8 cm LA Ao Ratio MM 1.9 AV Cusp Separation MM 1.3 cm DOPPLER AV Peak Velocity 154.1 cm/s AV Peak Gradient 9.5 mmHg LVOT Peak Velocity 120.6 cm/s LVOT Peak Gradient 5.8 mmHg MV Area PHT 3.5 cm??? Mitral E Point Velocity 77.4 cm/s Mitral A Point Velocity 94.1 cm/s Mitral E to A Ratio 0.8 MV Deceleration Time 215.3 ms MV E' Velocity 5.8 cm/s Mitral E to MV E' Ratio 13.2 TR Peak Velocity 306.9 cm/s TR Peak Gradient 37.7 mmHg Right Ventricular Systolic Press 39.2 mmHg FINDINGS Left Ventricle Severely increased septal wall thickness. Severely increased posterior wall thickness. Normal left ventricular systolic function with no obvious regional wall motion abnormalities. Left ventricular cavity size normal. Left ventricular ejection fraction is estimated at 55-60 %. Right Ventricle Right ventricle appears to be dilated. Mild pulmonary hypertension. Right Atrium Normal right atrial size. Left Atrium Mildly increased left atrial volume. Mitral Valve Structurally normal mitral valve. Mild mitral regurgitation. Mitral valve thickened. Mild mitral annular calcification. Aortic Valve No aortic valve stenosis or regurgitation. Aortic valve sclerosis. Tricuspid Valve Structurally normal tricuspid valve. Mild tricuspid regurgitation. Pulmonic Valve Pulmonic valve not well visualized. Pericardium No pericardial effusion. Aorta Normal size aortic root and proximal ascending aorta. CONCLUSIONS 1. Normal left ventricle size and systolic function 2. Moderate mitral and tricuspid regurgitation 3. The right ventricle appears to be dilated with mild pulmonary hypertension Previewed by: Dr. Deedee Peace MD (Electronically Signed) Final Date: 17 April 2022 15:04
[2022-04-17] MEDS: POTASSIUM CHLORIDE ER 20 MEQ TAB.ER PO SCH ×2 (16:22→17:35)
[2022-04-17 16:40] LABS: Glucose,Whole Blood 217 mg/dL (70-110)
[2022-04-17] MEDS: POTASSIUM CHLORIDE 10 MEQ in WATER FOR INJECTION 1 100ML.BAG IVPB SCH ×2 (17:10→17:11)
[2022-04-17] MEDS: METOPROLOL SUCCINATE (ER) 25 MG TAB.ER.24H PO SCH (17:29)
[2022-04-17 20:09] LABS: Glucose,Whole Blood 185 mg/dL (70-110)
[2022-04-17] MEDS: INSULIN DETEMIR (LEVEMIR) 100 UNIT/ML SYR SQ SCH (20:16)
[2022-04-17] MEDS: DILTIAZEM CD 120 MG CAP.ER.24H PO SCH (20:17)
[2022-04-17] MEDS: MONTELUKAST 10 MG TAB PO SCH (20:17)
[2022-04-18] MEDS: MORPHINE SULFATE 4 MG/ML SYRINGE IV PRN ×4 (05:37→20:56)
[2022-04-18 06:17] LABS: Glucose,Whole Blood 145 mg/dL (70-110)
[2022-04-18] MEDS: SODIUM CHLORIDE 0.9% 1,000 ML IV SCH ×2 (06:31→23:46)
[2022-04-18] MEDS: FERROUS SULFATE 325 MG TAB PO SCH ×2 (06:32→17:08)
[2022-04-18 08:45] LABS: Anisocytosis Slight; Basophils % (A) 1 %; Eosinophils # (A) 0.1 k/uL (0-0.7); Eosinophils % (A) 2 %; HCT 21.4 % (34.0-46.0); HGB 7.3 gm/dL (11.4-16.0); Hypochromasia Slight; Lymphocytes # (A) 1.1 k/uL (1.0-4.8); Lymphocytes % (A) 19 %; MCH 31.1 pg (25.0-35.0); MCHC 34.3 g/dL (31.0-37.0); MCV 90.6 fL (80.0-100.0); Mean Platelet Volume 8.7; Monocytes # (A) 0.4 k/uL (0-1.0); Monocytes % (A) 7 %; Neutrophils # (A) 3.9 k/uL (1.3-7.7); Neutrophils % (A) 69 %; Platelet Count 168 k/uL (150-450); Poikilocytosis Marked; RBC 2.36 m/uL (3.80-5.40); RDW 16.1 % (11.5-15.5); WBC 5.7 k/uL (3.8-10.6)
[2022-04-18] MEDS: PANTOPRAZOLE 40 MG/10 ML VIAL IV SCH ×2 (08:54→20:55)
[2022-04-18] MEDS: CITALOPRAM HYDROBROMIDE 20 MG TAB PO SCH (08:54)
[2022-04-18] MEDS: CYANOCOBALAMIN 500 MCG TAB PO SCH (08:55)
[2022-04-18] MEDS: GABAPENTIN 100 MG CAP PO SCH ×2 (08:55→20:55)
[2022-04-18 09:05] LABS: African American GFR (CKD) >90 (>60 ml/min/1.73 sqM); Anion Gap 2 mmol/L; Blood Urea Nitrogen 26 mg/dL (7-17); Calcium 7.8 mg/dL (8.4-10.2); Carbon Dioxide 27 mmol/L (22-30); Chloride 109 mmol/L (98-107); Glucose 109 mg/dL (74-99); Non-African American GFR(CKD) >90 (>60 ml/min/1.73 sqM); Potassium 3.6 mmol/L (3.5-5.1); Sodium 138 mmol/L (137-145)
[2022-04-18] MEDS: METOPROLOL SUCCINATE (ER) 25 MG TAB.ER.24H PO SCH (11:33)
[2022-04-18 11:43] LABS: Glucose,Whole Blood 158 mg/dL (70-110)
--- NOTE | 2022-04-18 11:50 | P.PN ---
Subjective This is a pleasant 62 years old female with multiple medical problems diabetes mellitus, COPD, CVA/TIA, hypertension, rheumatoid arthritis, seizure disorder, sleep apnea on CPAP, history of migraine and chronic back pain, irritable bowel syndrome, history of right breast cancer in 2010 status post surgery and chemotherapy. Information were obtained from the patient and sister at bedside. Patient presents because of feeling generally weak for a few days, yesterday she went downstairs to have a cigarette and she could not get back she was very weak and short of breath, she says that her weakness and all her extremities and equal and at the same time. Also she is feeling dizzy with exertion and more weakness. She denies headache, no new weakness or numbness. However she is complaining of from burning and pain in both feet and up to the knees, Patient fell 2 days ago on her knees with no head trauma. Also patient has some chest pain yesterday but not today, she has history of coronary artery disease and she is off on up with Dr. Michaels her blood coordinator. She noticed some black stool and she is complaining of from abdominal pain, mainly in the lower abdomen and more to the right side and suprapubic area, about 9-10 in severity, nonspecific and radiating to the right side. She is on oxycodone at home for back surgery and back pain that is been going on for about one year however she declines recent use of other pain medication like NSAIDs. No diarrhea actually she is constipated, she has vomiting 2 days ago with no blood but not currently. Presents with generalized weakness Patient found to be severely anemic with hemoglobin was 4.5 on admission she received 2 units of blood transfusion and hemoglobin went up to 6.4 INR 0.9. Sodium 1:30 [birth year]1931, potassium 2.3 and 3.7. Creatinine 0.6 and 1.0. Troponin elevated 0.12. ProBNP 916 Lumbosacral x-ray showing no evidence of acute fracture or dislocation. In the emergency room patient received normal saline, morphine, replace electrolytes. And IV Protonix. GI service was consulted. Currently patient is receiving third unit of blood transfusion and she is kept nothing by mouth 04/17/2022 Patient reports improvement in her generalized weakness and exertional dyspnea She denies any pain, no abdominal pain but she still looks tired She still have pain and numbness in both feet and legs Ultrasound of the neck is negative for DVT Hemoglobin 7.9 Colonoscopy was normal today, small bowel endoscopy was recommended by GI team and if her hemoglobin remains stable tomorrow she may be considered for discharge. 04/18/2022 Patient weakness slightly better today and she still have some exertional dyspnea when she walks. She is complaining of from sciatic pain on both legs more on the right side with more numbness, more on the right side but no pain anywhere else like no chest pain or abdominal pain. She had some headache earlier which is better now. 04/18/2022 Patient weakness and exertional dyspnea improving slowly and gradually She is complaining from sciatic Pain in both legs more on the right side. She had some headache earlier which is resolved now. Colonoscopy was unremarkable and normal appearing Patient remains on Protonix for stomach ulcer and patient informed of the diagnosis with recommendation to follow-up the biopsy and she verbalized understanding and acceptance and said she will follow up with results. Wet Pan Operator also the case and recommended to start the patient on aspirin 81 mg whenever cleared by surgery team. Plavix remains on hold. She is on vitamin B12 and iron replacement therapy. Objective - Vital Signs Vital signs: Vital Signs Temp 98.9 F 04/18/22 11:41 Pulse 70 04/18/22 11:41 Resp 18 04/18/22 11:41 BP 100/52 04/18/22 11:41 Pulse Ox 95 04/18/22 11:41 FiO2 Intake & Output 04/17/22 04/18/22 04/18/22 18:59 06:59 18:59 Other: Voiding Method Toilet Toilet Toilet # Voids 2 5 1 - Exam GENERAL: The patient is alert and oriented x3, not in any acute distress. Well developed, well nourished. HEENT: Pupils are round and equally reacting to light. EOMI. No scleral icterus. No conjunctival pallor. Normocephalic, atraumatic. No pharyngeal erythema. No thyromegaly. CARDIOVASCULAR: S1 and S2 present. No murmurs, rubs, or gallops. PULMONARY: Chest is clear to auscultation, no wheezing or crackles. ABDOMEN: Soft, nontender, nondistended, normoactive bowel sounds. No palpable organomegaly. MUSCULOSKELETAL: No joint swelling or deformity. EXTREMITIES: No cyanosis, clubbing, or pedal edema. NEUROLOGICAL: Gross neurological examination did not reveal any focal deficits. SKIN: No rashes. no petechiae. - Labs CBC & Chem 7: 04/18/22 08:14 04/18/22 08:14 Labs: Abnormal Lab Results - Last 24 Hours (Table) 04/17/22 04/17/22 04/18/22 Range/Units 16:38 20:07 06:16 RBC (3.80-5.40) m/uL Hgb (11.4-16.0) gm/dL Hct (34.0-46.0) % RDW (11.5-15.5) % Chloride (98-107) mmol/L BUN (7-17) mg/dL Glucose (74-99) mg/dL POC Glucose (mg/dL) 217 H 185 H 145 H (70-110) mg/dL Calcium (8.4-10.2) mg/dL 04/18/22 04/18/22 04/18/22 Range/Units 08:14 08:14 11:40 RBC 2.36 L (3.80-5.40) m/uL Hgb 7.3 L (11.4-16.0) gm/dL Hct 21.4 L (34.0-46.0) % RDW 16.1 H (11.5-15.5) % Chloride 109 H (98-107) mmol/L BUN 26 H (7-17) mg/dL Glucose 109 H (74-99) mg/dL POC Glucose (mg/dL) 158 H (70-110) mg/dL Calcium 7.8 L (8.4-10.2) mg/dL Assessment and Plan Assessment: Severe anemia, present on admission Elevated troponin suspicious for supply/demand ischemia. Bilateral feet and leg tingling and pain Suprapubic tenderness and dysuria, rule out obstructive lesion or UTI nicotine dependence, counseled to quit and she agrees but she declines nicotine patch Hypertension Diabetes mellitus History of CVA/TIA History of rheumatoid arthritis History of seizure disorder History of sleep apnea History of migraine Chronic back pain, status post back surgery at [facility] about 20 ago as per patient History of irritable bowel syndrome History of right breast cancer in 2009 status post surgery and chemotherapy Plan: Check small bowel endoscopy Monitor hemoglobin tomorrow if stable can be considered for discharge per GI team Continue with IV Protonix GI team consult Cardiologic consult for elevated troponin Check ultrasound of the leg although the chances for DVT is low Check urine analysis and bladder scan labs and medication were reviewed.. Continue same treatment. Continue with symptomatic treatment. Resume home medication. Monitor labs and vitals. DVT and GI prophylaxis. Further recommendations as per clinical course of the patient DVT prophylaxis:no Subcutaneous heparin in view of severe anemia GI Prophylaxis: Ppi PT/OT: Pending Prognosis is guarded
--- NOTE | 2022-04-18 12:26 | P.PN ---
Subjective Progress Note Date: 04/18/22 The patient is a 62-year-old female with a history of hyperlipidemia diabetes status post stenting of the RCA in 2021 who presented with severe anemia, GI bleeding with a hemoglobin of 4.5 with minimal elevation of the troponin. She underwent upper and lower endoscopy today and there is no evidence of a source for her bleeding. She is undergoing small bowel capsule imaging. She feels well this morning. She denies any chest discomfort, dizziness or palpitations. She has no nausea. She continues to be in sinus mechanism. 04/18/2022 Patient was seen and examined resting comfortably in bed. She is overall feeling a bit better. She does not feel her breathing is back to her baseline but improved since admission. Hemoglobin this morning 7.3. We're waiting results of capsule endoscopy. Awaiting input from GI in regards to resuming aspirin. Objective - Vital Signs Vital signs: Vital Signs Temp 98.9 F 04/18/22 11:41 Pulse 70 04/18/22 11:41 Resp 18 04/18/22 11:41 BP 100/52 04/18/22 11:41 Pulse Ox 95 04/18/22 11:41 FiO2 Intake & Output 04/17/22 04/18/22 04/18/22 18:59 06:59 18:59 Other: Voiding Method Toilet Toilet Toilet # Voids 2 5 1 - Exam PHYSICAL EXAMINATION: HEENT: Head is atraumatic, normocephalic. Pupils equal, round. Neck is supple. There is no elevated jugular venous pressure. HEART EXAMINATION: Heart sounds regular, S1 and S2 normal. No murmur or gallop heard. CHEST EXAMINATION: Lungs are clear to auscultation and precussion. No chest wall tenderness is noted on palpation or with deep breathing. ABDOMEN: Soft, nontender. Bowel sounds are heard. No organomegaly noted. EXTREMITIES: 2+ peripheral pulses with no evidence of peripheral edema and no calf tenderness noted. NEUROLOGIC patient is awake, alert and oriented x3. . - Labs CBC & Chem 7: 04/18/22 08:14 04/18/22 08:14 Labs: Abnormal Lab Results - Last 24 Hours (Table) 04/17/22 04/17/22 04/18/22 Range/Units 16:38 20:07 06:16 RBC (3.80-5.40) m/uL Hgb (11.4-16.0) gm/dL Hct (34.0-46.0) % RDW (11.5-15.5) % Chloride (98-107) mmol/L BUN (7-17) mg/dL Glucose (74-99) mg/dL POC Glucose (mg/dL) 217 H 185 H 145 H (70-110) mg/dL Calcium (8.4-10.2) mg/dL 04/18/22 04/18/22 04/18/22 Range/Units 08:14 08:14 11:40 RBC 2.36 L (3.80-5.40) m/uL Hgb 7.3 L (11.4-16.0) gm/dL Hct 21.4 L (34.0-46.0) % RDW 16.1 H (11.5-15.5) % Chloride 109 H (98-107) mmol/L BUN 26 H (7-17) mg/dL Glucose 109 H (74-99) mg/dL POC Glucose (mg/dL) 158 H (70-110) mg/dL Calcium 7.8 L (8.4-10.2) mg/dL Assessment and Plan Assessment: 1. Acute GI bleeding, source unclear 2. Status post stenting in November 2021 3. History of diabetes 4. History of hypertension Plan: From cardiology's perspective continue to follow hemoglobin and blood pressure. Awaiting input from GI service in regards to resuming aspirin. We will continue to follow the patient provides further recommendations accordingly. SDET note has been reviewed, I agree with a documented findings and plan of care. Patient was seen and examined.
[2022-04-18 15:06] LABS: Anisocytosis Slight; HCT 20.3 % (34.0-46.0); Hypochromasia Slight; MCH 31.6 pg (25.0-35.0); MCHC 34.4 g/dL (31.0-37.0); MCV 91.8 fL (80.0-100.0); Mean Platelet Volume 9.2; Platelet Count 161 k/uL (150-450); Poikilocytosis Marked; RBC 2.21 m/uL (3.80-5.40); RDW 16.5 % (11.5-15.5); WBC 5.8 k/uL (3.8-10.6)
[2022-04-18] MEDS: ACETAMINOPHEN TAB 325 MG TAB PO PRN (15:37)
[2022-04-18 16:52] LABS: Glucose,Whole Blood 136 mg/dL (70-110)
[2022-04-18 20:25] LABS: Glucose,Whole Blood 166 mg/dL (70-110)
[2022-04-18] MEDS: MONTELUKAST 10 MG TAB PO SCH (20:55)
[2022-04-18] MEDS: INSULIN DETEMIR (LEVEMIR) 100 UNIT/ML SYR SQ SCH (20:55)
[2022-04-18] MEDS: DILTIAZEM CD 120 MG CAP.ER.24H PO SCH (20:55)
[2022-04-19] MEDS: MORPHINE SULFATE 4 MG/ML SYRINGE IV PRN ×5 (01:03→23:43)
[2022-04-19 06:12] LABS: Glucose,Whole Blood 137 mg/dL (70-110)
[2022-04-19] MEDS: FERROUS SULFATE 325 MG TAB PO SCH (06:21)
[2022-04-19 08:21] LABS: African American GFR (CKD) >90 (>60 ml/min/1.73 sqM); Anion Gap 3 mmol/L; Blood Urea Nitrogen 21 mg/dL (7-17); Calcium 7.6 mg/dL (8.4-10.2); Carbon Dioxide 28 mmol/L (22-30); Chloride 106 mmol/L (98-107); Glucose 111 mg/dL (74-99); Non-African American GFR(CKD) >90 (>60 ml/min/1.73 sqM); Potassium 3.3 mmol/L (3.5-5.1); Sodium 137 mmol/L (137-145)
[2022-04-19 08:38] LABS: Anisocytosis Slight; Hypochromasia Moderate; MCHC 33.7 g/dL (31.0-37.0); Mean Platelet Volume 9.3; Platelet Count 151 k/uL (150-450); Poikilocytosis Marked; RBC 2.05 m/uL (3.80-5.40); RDW 18.4 % (11.5-15.5); WBC 4.5 k/uL (3.8-10.6)
[2022-04-19 08:44] LABS: HCT 18.9 % (34.0-46.0); HGB 6.4 gm/dL (11.4-16.0)
[2022-04-19] MEDS: CITALOPRAM HYDROBROMIDE 20 MG TAB PO SCH (09:03)
[2022-04-19] MEDS: CYANOCOBALAMIN 500 MCG TAB PO SCH (09:03)
[2022-04-19] MEDS: PANTOPRAZOLE 40 MG/10 ML VIAL IV SCH ×2 (09:03→20:06)
[2022-04-19] MEDS: GABAPENTIN 100 MG CAP PO SCH ×2 (09:04→21:04)
[2022-04-19] MEDS ORDERED: Potassium Replacement Protocol 1 EACH MISC MISCELLANE PRN (09:10)
[2022-04-19] MEDS: POTASSIUM CHLORIDE ER 20 MEQ TAB.ER PO SCH (09:37)
[2022-04-19] MEDS: CYANOCOBALAMIN 1,000 MCG/ML 1 ML VIAL IM SCH (10:56)
[2022-04-19] MEDS: SODIUM FERRIC GLUCONAT-SUCROSE 125 MG in SODIUM CHLORIDE 0.9% 100 ML IVPB SCH (10:56)
--- NOTE | 2022-04-19 11:26 | P.PN ---
Subjective Progress Note Date: 04/19/22 Principal diagnosis: Anemia This is a pleasant 62-year-old female with multiple comorbidities including history of breast cancer, angina, coronary artery disease status post stenting in November of 2021, diabetes mellitus, GERD, hypertension, rheumatoid arthritis, seizure disorder and sleep apnea. Patient states she has been feeling weak over the last couple weeks, on admission she was noted to have a hemoglobin of 4.5. She states that she's had some epigastric discomfort, black stools for at least 1-2 weeks. No nausea or vomiting. Patient is on Plavix, and ibuprofen daily. She states that she just started noticing herself some dark red in her stool as well last evening. No previous history of GI bleed. She does have a history of dysphagia and has had esophageal dilation in the past. Last EGD colonoscopy approximately 2 years ago done at [facility].patient is receiving her third unit of blood. She had a repeat hemoglobin this morning at 6.4. 04/19/2022: Patient seen and examined as a follow-up. Tuesday she underwent EGD with findings of a 5 mm antral ulcer and scattered superficial antral erosions but no active bleeding. Small hiatal hernia. Patient then was scheduled to undergo colonoscopy on 04/17/2022, colonoscopy revealed normal appearing colon from rectum to cecum but poor prep and several areas of the colon that precluded adequate visualization. No obvious polyps noted. Patient then underwent small bowel capsule endoscopy with results currently pending. This morning patient had a drop in her hemoglobin to 6.4. 1 unit of blood as ordered. Patient does have a long history of chronic anemia and follows with Dr. Daugherty in the outpatient setting. States she was due for vitamin B12 last week and has gotten iron in the past. No blood transfusions that she can recall. She denies any abdominal pain, nausea or vomiting. No rectal bleeding. Has not had a bowel movement since her colonoscopy. Starting to pass flatus. Tolerating a regular diet. Objective - Vital Signs Vital signs: Vital Signs Temp 98.1 F 04/19/22 08:56 Pulse 74 04/19/22 08:56 Resp 16 04/19/22 08:56 BP 95/69 04/19/22 08:56 Pulse Ox 99 04/19/22 08:56 FiO2 Intake & Output 04/18/22 04/19/22 04/19/22 18:59 06:59 18:59 Intake Total 10 118 Balance 10 118 Intake: IV 10 Invasive Line 2 10 Oral 118 Other: Voiding Method Toilet Toilet # Voids 2 1 1 - Exam General appearance: The patient is alert, oriented, appears in no acute distress. HET: Head is normocephalic and atraumatic. Conjunctiva pink. Sclera anicteric. Neck: Supple without lymphadenopathy. Trachea midline. Heart: S1 S2. Regular rate and rhythm. Lungs: Clear to auscultation. Abdomen: Soft, nontender, nondistended with bowel sounds. No guarding or rigidity. Skin: No rashes. No jaundice. Extremities: Normal skin color and turgor. No pedal edema. Neurological: No focal deficits. Alert and oriented x3. - Labs CBC & Chem 7: 04/19/22 07:14 04/19/22 07:14 Labs: Abnormal Lab Results - Last 24 Hours (Table) 04/18/22 04/18/22 04/18/22 Range/Units 11:40 14:37 16:49 RBC 2.21 L (3.80-5.40) m/uL Hgb 7.0 L (11.4-16.0) gm/dL Hct 20.3 L (34.0-46.0) % RDW 16.5 H (11.5-15.5) % Potassium (3.5-5.1) mmol/L BUN (7-17) mg/dL Glucose (74-99) mg/dL POC Glucose (mg/dL) 158 H 136 H (70-110) mg/dL Calcium (8.4-10.2) mg/dL 04/18/22 04/19/22 04/19/22 Range/Units 20:24 06:11 07:14 RBC (3.80-5.40) m/uL Hgb (11.4-16.0) gm/dL Hct (34.0-46.0) % RDW (11.5-15.5) % Potassium 3.3 L (3.5-5.1) mmol/L BUN 21 H (7-17) mg/dL Glucose 111 H (74-99) mg/dL POC Glucose (mg/dL) 166 H 137 H (70-110) mg/dL Calcium 7.6 L (8.4-10.2) mg/dL 04/19/22 Range/Units 07:14 RBC 2.05 L (3.80-5.40) m/uL Hgb 6.4 L* (11.4-16.0) gm/dL Hct 18.9 L* (34.0-46.0) % RDW 18.4 H (11.5-15.5) % Potassium (3.5-5.1) mmol/L BUN (7-17) mg/dL Glucose (74-99) mg/dL POC Glucose (mg/dL) (70-110) mg/dL Calcium (8.4-10.2) mg/dL Assessment and Plan (1) GI bleed Narrative/Plan: 62-year-old female who presented for persistent weakness was noted to have a hemoglobin of 4.5. Patient reports history of ibuprofen use daily for pain, Plavix and aspirin for history of coronary artery disease. Patient also reporting noticing that she has had black stool yesterday with some also Dr. daily. Complaints of epigastric pain. Sister reports she believes that she's been having dark stool for at least 1-2 week duration. No nausea or vomiting. His reporting epigastric pain. Possible etiologies include peptic ulcer di sease, gastritis, esophagitis, AVM or other possible etiologies. She also has a history in the past of esophageal narrowing requiring dilation. We'll proceed with EGD. Avoid anticoagulation, NSAIDs. Patient underwent EGD, colonoscopy. EGD showed small antral ulcer and scattered erosions with no active bleeding. Colonoscopy although poor prep visualized areas normal from rectum to cecum. Patient underwent small bowel capsule endoscopy with results currently pending. Current Visit: Yes Status: Acute Code(s): K92.2 - GASTROINTESTINAL HEMORRHAGE, UNSPECIFIED SNOMED Code(s): 71582777 (2) Anemia Narrative/Plan: Patient with history of chronic anemia, follows with hematology. Hematology consulted. Current Visit: Yes Status: Acute Priority: High Code(s): D64.9 - ANEMIA, UNSPECIFIED SNOMED Code(s): 496100375 (3) Coronary artery disease Narrative/Plan: patient with history of stent in November 2021 currently on Plavix and aspirin. Patient with elevated troponins likely reactive from severe anemia. Current Visit: Yes Status: Acute Code(s): I25.10 - ATHSCL HEART DISEASE OF [place] CORONARY ARTERY W/O ANG PCTRS SNOMED Code(s): 10354021 (4) Hypokalemia Current Visit: Yes Status: Acute Code(s): E87.6 - HYPOKALEMIA SNOMED Code(s): 00862820 (5) Gastric AVM Narrative/Plan: Small bowel capsule endoscopy showed AVMs in the distal jejunum/proximal ileum. Unable to treat with endoscopy. Continue with iron supplementation, avoid anticoagulation. Current Visit: Yes Status: Acute Code(s): K31.819 - ANGIODYSPLASIA OF STOMACH AND DUODENUM WITHOUT BLEEDING SNOMED Code(s): 219006311 Plan: 1. Continue symptomatic and supportive care 2. Repeat CBC this evening, transfuse for hemoglobin less than 7 3. Transfuse 1 unit of blood 4. Protonix 40 mg IV push twice a day 5. Distal jejunum/proximal ileum AVM. Avoid anticoagulation. Discussed with cardiology, avoid dual antiplatelet therapy. Patient recent cardiac stent November 2021 6. Diet as tolerated 7. Avoid NSAIDs Dr. Jina Donaldson I agree with the dictator's note, documented as a scribe by Ashley Batista.
[2022-04-19 11:37] LABS: Glucose,Whole Blood 185 mg/dL (70-110)
--- NOTE | 2022-04-19 11:40 | P.PN ---
Subjective HISTORY OF PRESENTING ILLNESS The patient is a 62-year-old female with a history of hyperlipidemia diabetes status post stenting of the RCA in 2021 who presented with severe anemia, GI bleeding with a hemoglobin of 4.5 with minimal elevation of the troponin. She underwent upper and lower endoscopy today and there is no evidence of a source for her bleeding. She is undergoing small bowel capsule imaging. She feels well this morning. She denies any chest discomfort, dizziness or palpitations. She has no nausea. She continues to be in sinus mechanism. 04/18/2022 Patient was seen and examined resting comfortably in bed. She is overall fe eling a bit better. She does not feel her breathing is back to her baseline but improved since admission. Hemoglobin this morning 7.3. We're waiting results of capsule endoscopy. Awaiting input from GI in regards to resuming aspirin. 04/19 patient seen and examined. Patient underwent EGD and colonoscopy with no active bleeding. She denies any hematochezia or melena. Denies any lightheadedness. Her antihypertensive medications have been held except for diltiazem. remains off of antiplatelets. Hemoglobin down to 6.6 and has received IV iron and pending blood transfusion. PHYSICAL EXAMINATION Vital signs reviewed. CONSTITUTIONAL: No apparent distress. HEENT: Head is normocephalic. Pupils are equal, round. Sclerae anicteric. Mucous membranes of the mouth are moist. No JVD. No carotid bruit. CHEST EXAMINATION: Lungs are clear to auscultation. No chest wall tenderness is noted on palpation or with deep breathing. HEART EXAMINATION: Regular rate and rhythm. S1, S2 heard. No murmurs, gallops or rub. ABDOMEN: Soft, nontender. Positive bowel sounds. EXTREMITIES: 2+ peripheral pulses, no lower extremity edema and no calf tenderness. NEUROLOGIC EXAMINATION: Patient is awake, alert and oriented x3. Assessment: 1. Acute GI bleeding, source unclear 2. Status post stenting in November 2021 3. History of diabetes 4. History of hypertension 5. NSTEMI related to GIB Plan: discussed with GI service and given no active bleeding okay to place back on aspirin and we will restart aspirin 81 mg daily. Continue to monitor hemoglobin and transfuse as needed. Iron supplementation. Further recommendations to follow. Objective - Vital Signs Vital signs: Vital Signs Temp 98.1 F 01/30/23 08:56 Pulse 74 04/19/22 08:56 Resp 16 04/19/22 11:15 BP 100/50 04/19/22 11:15 Pulse Ox 97 04/19/22 11:15 FiO2 Intake & Output 04/18/22 04/19/22 04/19/22 18:59 06:59 18:59 Intake Total 10 118 Balance 10 118 Intake: IV 10 Invasive Line 2 10 Oral 118 Other: Voiding Method Toilet Toilet # Voids 2 1 1 - Labs CBC & Chem 7: 04/19/22 07:14 04/19/22 07:14 Labs: Abnormal Lab Results - Last 24 Hours (Table) 04/18/22 04/18/22 04/18/22 Range/Units 11:40 14:37 16:49 RBC 2.21 L (3.80-5.40) m/uL Hgb 7.0 L (11.4-16.0) gm/dL Hct 20.3 L (34.0-46.0) % RDW 16.5 H (11.5-15.5) % Potassium (3.5-5.1) mmol/L BUN (7-17) mg/dL Glucose (74-99) mg/dL POC Glucose (mg/dL) 158 H 136 H (70-110) mg/dL Calcium (8.4-10.2) mg/dL 04/18/22 04/19/22 04/19/22 Range/Units 20:24 06:11 07:14 RBC (3.80-5.40) m/uL Hgb (11.4-16.0) gm/dL Hct (34.0-46.0) % RDW (11.5-15.5) % Potassium 3.3 L (3.5-5.1) mmol/L BUN 21 H (7-17) mg/dL Glucose 111 H (74-99) mg/dL POC Glucose (mg/dL) 166 H 137 H (70-110) mg/dL Calcium 7.6 L (8.4-10.2) mg/dL 04/19/22 Range/Units 07:14 RBC 2.05 L (3.80-5.40) m/uL Hgb 6.4 L* (11.4-16.0) gm/dL Hct 18.9 L* (34.0-46.0) % RDW 18.4 H (11.5-15.5) % Potassium (3.5-5.1) mmol/L BUN (7-17) mg/dL Glucose (74-99) mg/dL POC Glucose (mg/dL) (70-110) mg/dL Calcium (8.4-10.2) mg/dL
[2022-04-19] MEDS ORDERED: ASPIRIN 81 MG PO SCH (11:45)
--- NOTE | 2022-04-19 13:21 | P.PN ---
Subjective This is a pleasant 62 years old female with multiple medical problems diabetes mellitus, COPD, CVA/TIA, hypertension, rheumatoid arthritis, seizure disorder, sleep apnea on CPAP, history of migraine and chronic back pain, irritable bowel syndrome, history of right breast cancer in 2010 status post surgery and chemotherapy. Information were obtained from the patient and sister at bedside. Patient presents because of feeling generally weak for a few days, yesterday she went downstairs to have a cigarette and she could not get back she was very weak and short of breath, she says that her weakness and all her extremities and equal and at the same time. Also she is feeling dizzy with exertion and more weakness. She denies headache, no new weakness or numbness. However she is complaining of from burning and pain in both feet and up to the knees, Patient fell 2 days ago on her knees with no head trauma. Also patient has some chest pain yesterday but not today, she has history of coronary artery disease and she is off on up with Dr. Michaels her manager star. She noticed some black stool and she is complaining of from abdominal pain, mainly in the lower abdomen and more to the right side and suprapubic area, about 9-10 in severity, nonspecific and radiating to the right side. She is on oxycodone at home for back surgery and back pain that is been going on for about one year however she declines recent use of other pain medication like NSAIDs. No diarrhea actually she is constipated, she has vomiting 2 days ago with no blood but not currently. Presents with generalized weakness Patient found to be severely anemic with hemoglobin was 4.5 on admission she received 2 units of blood transfusion and hemoglobin went up to 6.4 INR 0.9. Sodium 1:30 09/19/1932, potassium 2.3 and 3.7. Creatinine 0.6 and 1.0. Troponin elevated 0.12. ProBNP 916 Lumbosacral x-ray showing no evidence of acute fracture or dislocation. In the emergency room patient received normal saline, morphine, replace electrolytes. And IV Protonix. GI service was consulted. Currently patient is receiving third unit of blood transfusion and she is kept nothing by mouth 04/17/2022 Patient reports improvement in her generalized weakness and exertional dyspnea She denies any pain, no abdominal pain but she still looks tired She still have pain and numbness in both feet and legs Ultrasound of the neck is negative for DVT Hemoglobin 7.9 Colonoscopy was normal today, small bowel endoscopy was recommended by GI team and if her hemoglobin remains stable tomorrow she may be considered for discharge. 04/18/2022 Patient weakness slightly better today and she still have some exertional dyspnea when she walks. She is complaining of from sciatic pain on both legs more on the right side with more numbness, more on the right side but no pain anywhere else like no chest pain or abdominal pain. She had some headache earlier which is better now. 04/18/2022 Patient weakness and exertional dyspnea improving slowly and gradually She is complaining from sciatic Pain in both legs more on the right side. She had some headache earlier which is resolved now. Colonoscopy was unremarkable and normal appearing Patient remains on Protonix for stomach ulcer and patient informed of the diagnosis with recommendation to follow-up the biopsy and she verbalized understanding and acceptance and said she will follow up with results. Side Show Entertainer also the case and recommended to start the patient on aspirin 81 mg whenever cleared by surgery team. Plavix remains on hold. She is on vitamin B12 and iron replacement therapy. 04/19/2022 Patient feels better generally with this weakness and exertional dyspnea She has chronic sciatic pain since 1996 Her headache is gone and is working better However her hemoglobin dropped today down to 6.4, colonoscopy was normal and EGD showing antral ulcer. She is getting 1 unit of blood today Aspirin and Plavix are still on hold and she is on IV Protonix Also she is getting vitamin B12 and iron replacement therapy. Objective - Vital Signs Vital signs: Vital Signs Temp 98.1 F 04/19/22 08:56 Pulse 74 04/19/22 08:56 Resp 16 04/19/22 11:15 BP 100/50 04/19/22 11:15 Pulse Ox 97 04/19/22 11:15 FiO2 Intake & Output 04/18/22 04/19/22 04/19/22 18:59 06:59 18:59 Intake Total 10 236 Balance 10 236 Intake: IV 10 Invasive Line 2 10 Oral 236 Other: Voiding Method Toilet Toilet # Voids 2 1 1 - Exam GENERAL: The patient is alert and oriented x3, not in any acute distress. Well developed, well nourished. HEENT: Pupils are round and equally reacting to light. EOMI. No scleral icterus. No conjunctival pallor. Normocephalic, atraumatic. No pharyngeal erythema. No thyromegaly. CARDIOVASCULAR: S1 and S2 present. No murmurs, rubs, or gallops. PULMONARY: Chest is clear to auscultation, no wheezing or crackles. ABDOMEN: Soft, nontender, nondistended, normoactive bowel sounds. No palpable organomegaly. MUSCULOSKELETAL: No joint swelling or deformity. EXTREMITIES: No cyanosis, clubbing, or pedal edema. NEUROLOGICAL: Gross neurological examination did not reveal any focal deficits. SKIN: No rashes. no petechiae. - Labs CBC & Chem 7: 04/19/22 07:14 04/19/22 07:14 Labs: Abnormal Lab Results - Last 24 Hours (Table) 04/18/22 04/18/22 04/18/22 Range/Units 14:37 16:49 20:24 RBC 2.21 L (3.80-5.40) m/uL Hgb 7.0 L (11.4-16.0) gm/dL Hct 20.3 L (34.0-46.0) % RDW 16.5 H (11.5-15.5) % Potassium (3.5-5.1) mmol/L BUN (7-17) mg/dL Glucose (74-99) mg/dL POC Glucose (mg/dL) 136 H 166 H (70-110) mg/dL Calcium (8.4-10.2) mg/dL Crossmatch 04/19/22 04/19/22 04/19/22 Range/Units 06:11 07:14 07:14 RBC 2.05 L (3.80-5.40) m/uL Hgb 6.4 L* (11.4-16.0) gm/dL Hct 18.9 L* (34.0-46.0) % RDW 18.4 H (11.5-15.5) % Potassium 3.3 L (3.5-5.1) mmol/L BUN 21 H (7-17) mg/dL Glucose 111 H (74-99) mg/dL POC Glucose (mg/dL) 137 H (70-110) mg/dL Calcium 7.6 L (8.4-10.2) mg/dL Crossmatch 04/19/22 04/19/22 Range/Units 09:39 11:34 RBC (3.80-5.40) m/uL Hgb (11.4-16.0) gm/dL Hct (34.0-46.0) % RDW (11.5-15.5) % Potassium (3.5-5.1) mmol/L BUN (7-17) mg/dL Glucose (74-99) mg/dL POC Glucose (mg/dL) 185 H (70-110) mg/dL Calcium (8.4-10.2) mg/dL Crossmatch See Detail Assessment and Plan Assessment: Severe anemia, present on admission Elevated troponin suspicious for supply/demand ischemia. Bilateral feet and leg tingling and pain Suprapubic tenderness and dysuria, rule out obstructive lesion or UTI nicotine dependence, counseled to quit and she agrees but she declines nicotine patch Hypertension Diabetes mellitus History of CVA/TIA History of rheumatoid arthritis History of seizure disorder History of sleep apnea History of migraine Chronic back pain, status post back surgery at [facility] about 20 ago as per patient History of irritable bowel syndrome History of right breast cancer in 2009 status post surgery and chemotherapy Plan: Check small bowel endoscopy Monitor hemoglobin tomorrow if stable can be considered for discharge per GI team Continue with IV Protonix GI team consult Cardiologic consult for elevated troponin Check ultrasound of the leg although the chances for DVT is low Check urine analysis and bladder scan labs and medication were reviewed.. Continue same treatment. Continue with symptomatic treatment. Resume home medication. Monitor labs and vitals. DVT and GI prophylaxis. Further recommendations as per clinical course of the patient DVT prophylaxis:no Subcutaneous heparin in view of severe anemia GI Prophylaxis: Ppi PT/OT: Pending Prognosis is guarded
[2022-04-19 16:30] LABS: Glucose,Whole Blood 226 mg/dL (70-110)
[2022-04-19] MEDS: METOPROLOL SUCCINATE (ER) 25 MG TAB.ER.24H PO SCH (17:31)
[2022-04-19 19:32] LABS: Reticulocyte % 5.4 % (0.5-2.0)
--- NOTE | 2022-04-19 19:39 | P.CONS ---
History of Present Illness - Reason for Consult Consult date: 04/19/22 anemia, known Requesting physician: Ashley Pompa - Chief Complaint weakness - History of Present Illness Ms Rios is a pleasant female pt of Dr. Daugherty who we have been asked to see because of severe anemia. She came to ER for progressive weakness, dizziness, reports very dark, maroon stools x 1 week, no other bleeding to report, no fever, abd pain, N,V. Hgb was 4.5 on admit, she is s/p 5 units PRBCs with Hgb 6.4 today- another unit ordered. Iron studies and ferritin low. Iron ordered. She did have upper and lower endoscopy with GI, capsule pending. She was referred to Dr. Daugherty 06/09 because of progressive anemia. Hgb was 10.4 in 09/08. 03/10 Hgb was 8.1 when she was inpt after a fall, altered mental status, confusion, and COVID infection. 04/11 it was 7.9, and remained in that range on repeat blood draws in 05/12. Ferritin on 05/04/21 was only 8 with serum iron of 25. Patient's chem panel did not show any significant anomaly other then hyperglycemia. She had no bleeding Hx, some dark stools, FOB was positive in 2020. She was chronically taking ibuprofen for MATT and DJD. Had colonoscopy and EGD 2016 at the [facility]. SHe reported multiple colonic polyps removed but these were all benign. Labs confirmed severe iron deficiency. Her B12 was in the lower end of normal at 274, with high MMA, also indicating probable B12 deficiency. She received IV iron in 06/09, 07/10, 09/09. EGD and colonoscopy on 06/18/21 showed some mild gastritis and esophagitis. She was started on IM B12. Testing for pernicious anemia revealed parietal cell antibody positive, but intrinsic factor antibody was negative. With supplementation, her Hgb actually increased to > normal, and was 18.4 in 01/09. Workup done to rule out primary polycythemia, which was negative for MPD-related gene mutations. Erythropoietin level was also normal, essentially ruling this out. Carbon monoxide level was increased in the range for smokers indicating that secondary polycythemia was the most likely cause. Iron supplementation was held, B12 cont on a monthly basis. Hx of breast cancer on the right side, treated with mastectomy and then chemotherapy in 2008. Review of Systems 10 point ROS is neg except as stated in HPI Past Medical History Past Medical History: Cancer, Chest Pain / Angina, COPD, CVA/TIA, Diabetes Mellitus, GERD/Reflux, Hypertension, Pneumonia, Rheumatoid Arthritis (RA), Seizure Disorder, Sleep Apnea/CPAP/BIPAP Additional Past Medical History / Comment(s): SEIZURE X1 (2011), HX TIA, HX OF HEAD INJURIES, MIGRAINES, BRONCHITIS, SLEEP APNEA-USES C-PAP MACHINE, HERNIATED DISCS WITH BACK PAIN, OSTEOPOROSIS, IBS, HX COLON POLYPS, HX OF DYSPHAGIA WITH DILATION- STATES USUALLY YEARLY., RIGHT BREAST CANCER 2009 WITH SURGERY & CHEMO., FACIAL SKIN CANCER.. VARICOSE VEINS, STATES ENLARGED LEFT VENTRICLE. History of Any Multi-Drug Resistant Organisms: None Reported Past Surgical History: Appendectomy, Breast Surgery, Section, Cholecystectomy, Heart Catheterization, Hysterectomy, Tonsillectomy Additional Past Surgical History / Comment(s): CARPAL TUNNEL, LEFT BREAST BX AND LIFT, RIGHT BREAST BX, LUMPECTOMY'S AND RIGHT BREAST MASTECTOMY AND RECONSTRUCTION. PORT-A-CATH INSERTED AND REMOVED. Past Anesthesia/Blood Transfusion Reactions: No Reported Reaction, Motion Sickness Past Psychological History: Anxiety, Depression Smoking Status: Current every day smoker Past Alcohol Use History: None Reported Additional Past Alcohol Use History / Comment(s): SMOKES 1/2 PPD, SMOKING SINCE 11 YEARS OLD Past Drug Use History: None Reported - Past Family History Mother Family Medical History: Cancer Additional Family Medical History / Comment(s): LUNG CANCER. Father Family Medical History: Coronary Artery Disease (CAD), Diabetes Mellitus Medications and Allergies Home Medications Medication Instructions Recorded Confirmed Type Ibuprofen 800 mg PO TID 01/15/19 04/16/22 History Insulin Aspart [NovoLOG Flexpen] See Protocol SQ ACHS 01/15/19 04/16/22 History Insulin Glargine [Lantus] 4 unit SQ HS 01/15/19 04/16/22 History Linaclotide [Linzess] 145 mcg PO BID 01/15/19 04/16/22 History Montelukast Sodium [Singulair] 10 mg PO HS 01/15/19 04/16/22 History Nitroglycerin Sl Tabs [Nitrostat] 0.4 mg SUBLINGUAL Q5M PRN 01/15/19 04/16/22 History dilTIAZem HCL [Cardizem CD] 120 mg PO HS 01/15/19 04/16/22 History gemfibroziL [Lopid] 600 mg PO BID 01/15/19 04/16/22 History levETIRAcetam [Keppra] 750 mg PO BID 01/15/19 04/16/22 History Baclofen 10 mg PO TID 12/04/21 04/16/22 History Citalopram Hydrobromide 40 mg PO DAILY 12/04/21 04/16/22 History [Citalopram HBr] Evolocumab [Repatha Sureclick] 140 mg SQ Q14D 12/04/21 04/16/22 History Folic Acid 1 mg PO DAILY 12/04/21 04/16/22 History Gabapentin [Neurontin] 200 mg PO BID 12/04/21 04/16/22 History Magnesium Chloride [Mag64] 128 mg PO DAILY 12/04/21 04/16/22 History Triamterene/Hydrochlorothiazid 1 tab PO HS 12/04/21 04/16/22 History [Triamterene-Hctz 37.5-25 mg Tb] oxyCODONE HCL [Oxycodone HCl] 10 mg PO TID 12/04/21 04/16/22 History rOPINIRole HCL [Requip] 1 mg PO TID 12/04/21 04/16/22 History Clopidogrel [Plavix] 75 mg PO DAILY #90 tablet 12/07/21 04/16/22 Rx lisinopriL 2.5 mg PO DAILY #30 tablet 12/07/21 04/16/22 Rx Metoprolol Succinate (ER) [Toprol 25 mg PO W/LUNCH 04/16/22 04/16/22 History Xl] Pantoprazole Sodium [Protonix] 40 mg PO DAILY 04/16/22 04/16/22 History Allergies Allergy/AdvReac Type Severity Reaction Status Date / Time atorvastatin [From Lipitor] Allergy Unknown Unknown Verified 04/16/22 07:21 Corticosteroids Allergy Unknown Anaphylaxis Verified 04/16/22 07:21 (Glucocorticoids) doxycycline Allergy Unknown Unknown Verified 04/16/22 07:21 [place]-LOX-VgG Reductase Allergy Unknown Anaphylaxis Verified 04/16/22 07:21 Inhibitor [Pltazlh-Wvc-Our Reductase Inhibitor] Sulfa (Sulfonamide AdvReac Unknown Nausea & Verified 04/16/22 07:21 Antibiotics) Vomiting ANABOLIC STEROIDS Allergy Severe Anaphylaxis Uncoded 04/16/22 07:21 persumesor aerosol products Allergy Severe Anaphylaxis Uncoded 04/16/22 07:21 STEROIDS Allergy Severe Anaphylaxis Uncoded 04/16/22 07:21 EKG Electrode Patches Allergy Unknown Blisters Uncoded 04/16/22 07:21 Physical Exam Vitals: Vital Signs Temp Pulse Pulse Resp BP Pulse Ox 04/19/22 08:56 98.1 F 74 16 95/69 99 04/19/22 07:42 96 04/19/22 03:40 97.8 F 115 H 20 114/62 93 L 04/18/22 23:38 98.0 F 101 H 20 98/60 93 L 04/18/22 20:00 98.1 F 78 18 117/67 97 04/18/22 15:25 98.7 F 90 19 101/53 04/18/22 13:50 70 18 04/18/22 11:41 98.9 F 70 18 100/52 95 Intake and Output 04/18/22 04/19/22 04/19/22 22:59 06:59 14:59 Intake Total 10 118 Balance 10 118 Intake: IV 10 Invasive Line 2 10 Oral 118 Other: Voiding Method Toilet Toilet # Voids 2 1 1 - Constitutional General appearance: average body habitus, cooperative, no acute distress - EENT dry mouth Eyes: anicteric sclerae, EOMI ENT: hearing grossly normal - Neck Neck: no lymphadenopathy - Respiratory Respiratory: bilateral: CTA, diminished - Cardiovascular Rhythm: regular Heart sounds: normal: S1, S2 Abnormal Heart Sounds: no systolic murmur, no diastolic murmur, no rub, no S3 Gallop, no S4 Gallop, no click, no other leg Peripheral Edema: bilateral: None - Gastrointestinal General gastrointestinal: no absent bowel sounds, no decreased bowel sounds, no distended, no hepatomegaly, no hyperactive bowel sounds, normal bowel sounds, no organomegaly, no rigid, no scaphoid, soft, no splenomegaly, no tenderness, no umbilical hernia, no ventral hernia - Neurologic Neurologic: CNII-XII intact - Musculoskeletal Musculoskeletal: strength equal bilaterally - Psychiatric Psychiatric: A&O x's 3, appropriate affect, intact judgment & insight Results CBC & Chem 7: 04/19/22 07:14 04/19/22 18:57 Labs: Abnormal Lab Results - Last 24 Hours (Table) 04/18/22 04/18/22 04/18/22 Range/Units 11:40 14:37 16:49 RBC 2.21 L (3.80-5.40) m/uL Hgb 7.0 L (11.4-16.0) gm/dL Hct 20.3 L (34.0-46.0) % RDW 16.5 H (11.5-15.5) % Potassium (3.5-5.1) mmol/L BUN (7-17) mg/dL Glucose (74-99) mg/dL POC Glucose (mg/dL) 158 H 136 H (70-110) mg/dL Calcium (8.4-10.2) mg/dL 04/18/22 04/19/22 04/19/22 Range/Units 20:24 06:11 07:14 RBC (3.80-5.40) m/uL Hgb (11.4-16.0) gm/dL Hct (34.0-46.0) % RDW (11.5-15.5) % Potassium 3.3 L (3.5-5.1) mmol/L BUN 21 H (7-17) mg/dL Glucose 111 H (74-99) mg/dL POC Glucose (mg/dL) 166 H 137 H (70-110) mg/dL Calcium 7.6 L (8.4-10.2) mg/dL 04/19/22 Range/Units 07:14 RBC 2.05 L (3.80-5.40) m/uL Hgb 6.4 L* (11.4-16.0) gm/dL Hct 18.9 L* (34.0-46.0) % RDW 18.4 H (11.5-15.5) % Potassium (3.5-5.1) mmol/L BUN (7-17) mg/dL Glucose (74-99) mg/dL POC Glucose (mg/dL) (70-110) mg/dL Calcium (8.4-10.2) mg/dL Comments: ECHO report reviewed GI procedure notes reviewed Venous US: report reviewed (BLE doppler, neg for DVT) Assessment and Plan (1) Anemia Current Visit: Yes Status: Acute Priority: High Code(s): D64.9 - ANEMIA, UNSPECIFIED SNOMED Code(s): 787109640 (2) Weakness Current Visit: Yes Status: Acute Priority: High Code(s): R53.1 - WEAKNESS SNOMED Code(s): 24440104 Plan: Hx of anemia, acute on chronic -Pt has history of anemia, iron def. GI work up, polyps. Given iron--> Hgb went above 18, iron held (05/2021) -Hgb of 4.5, and received 4 units of PRBCs. Hemoglobin today was 6.4, 1 unit PRBC unit ordered. Please transfuse for hemoglobin less than 7 or if symptomatic. -Iron studies showed iron deficiency. Parenteral iron ordered. -B12 injection ordered x 1 as pt is due -Pt reports having marisol blood in stool and melena over the last 1 week. Pt is being followed by GI. EGD showed antral ulceration but no acute bleeding and a small hiatal hernia, biopsy pending. Colonoscopy was negative for acute finding. Small bowel capsule study pending -Pt was on plavix and ASA for previous cardiac stent. This has been discontinued during this admission due to acute bleeding. Cardiology recommendations pending Hx of secondary polycythemia -due likely to smoking, worked up last year by Dr. Daugherty. Will monitor Hgb as pt is given iron
[2022-04-19 20:39] LABS: Glucose,Whole Blood 225 mg/dL (70-110)
[2022-04-19] MEDS: DILTIAZEM CD 120 MG CAP.ER.24H PO SCH (21:04)
[2022-04-19] MEDS: MONTELUKAST 10 MG TAB PO SCH (21:05)
[2022-04-19] MEDS: INSULIN DETEMIR (LEVEMIR) 100 UNIT/ML SYR SQ SCH (21:05)
[2022-04-19] MEDS: SODIUM CHLORIDE 0.9% 1,000 ML IV SCH (23:24)
[2022-04-20 06:16] LABS: Glucose,Whole Blood 125 mg/dL (70-110)
[2022-04-20 07:57] LABS: African American GFR (CKD) >90 (>60 ml/min/1.73 sqM); Anion Gap 1 mmol/L; Blood Urea Nitrogen 16 mg/dL (7-17); Carbon Dioxide 28 mmol/L (22-30); Chloride 108 mmol/L (98-107); Glucose 100 mg/dL (74-99); Non-African American GFR(CKD) >90 (>60 ml/min/1.73 sqM); Sodium 137 mmol/L (137-145)
[2022-04-20 08:20] LABS: Anisocytosis Moderate; Basophils % (A) 1 %; Eosinophils # (A) 0.2 k/uL (0-0.7); Eosinophils % (A) 4 %; HCT 21.8 % (34.0-46.0); HGB 7.2 gm/dL (11.4-16.0); Hypochromasia Moderate; Lymphocytes # (A) 1.2 k/uL (1.0-4.8); Lymphocytes % (A) 21 %; MCH 30.7 pg (25.0-35.0); MCHC 32.9 g/dL (31.0-37.0); MCV 93.1 fL (80.0-100.0); Macrocytosis Slight; Mean Platelet Volume 9.7; Monocytes # (A) 0.3 k/uL (0-1.0); Monocytes % (A) 5 %; Neutrophils # (A) 3.7 k/uL (1.3-7.7); Neutrophils % (A) 66 %; Platelet Count 142 k/uL (150-450); Poikilocytosis Marked; RBC 2.34 m/uL (3.80-5.40); RDW 21.1 % (11.5-15.5); WBC 5.7 k/uL (3.8-10.6)
[2022-04-20] MEDS: CITALOPRAM HYDROBROMIDE 20 MG TAB PO SCH (08:30)
[2022-04-20] MEDS: GABAPENTIN 100 MG CAP PO SCH ×2 (08:31→21:23)
[2022-04-20] MEDS: PANTOPRAZOLE 40 MG/10 ML VIAL IV SCH ×2 (08:31→21:23)
[2022-04-20] MEDS: MORPHINE SULFATE 4 MG/ML SYRINGE IV PRN ×4 (08:32→21:31)
[2022-04-20] MEDS: SODIUM FERRIC GLUCONAT-SUCROSE 125 MG in SODIUM CHLORIDE 0.9% 100 ML IVPB SCH (08:35)
--- NOTE | 2022-04-20 11:24 | P.PN ---
Subjective Progress Note Date: 04/20/22 HISTORY OF PRESENTING ILLNESS The patient is a 62-year-old female with a history of hyperlipidemia diabetes status post stenting of the RCA in 2021 who presented with severe anemia, GI bleeding with a hemoglobin of 4.5 with minimal elevation of the troponin. She underwent upper and lower endoscopy today and there is no evidence of a source for her bleeding. She is undergoing small bowel capsule imaging. She feels well this morning. She denies any chest discomfort, dizziness or palpitations. She has no nausea. She continues to be in sinus mechanism. 04/18/2022 Patient was seen and examined resting comfortably in bed. She is overall feeling a bit better. She does not feel her breathing is back to her baseline but improved since admission. Hemoglobin this morning 7.3. We're waiting results of capsule endoscopy. Awaiting input from GI in regards to resuming aspirin. 04/19 patient seen and examined. Patient underwent EGD and colonoscopy with no active bleeding. She denies any hematochezia or melena. Denies any lightheadedness. Her antihypertensive medications have been held except for diltiazem. remains off of antiplatelets. Hemoglobin down to 6.6 and has received IV iron and pending blood transfusion. 04/20 Patient underwent capsule endoscopy which didn't reveal AVM and aspirin was discontinued yesterday before she received any. No new concerns today. Hemoglobin is 7.2. BUN 16 and creatinine 0.63, potassium 4.0. Blood pressure is 90s/55, heart rate in the 60s and 70s. PHYSICAL EXAMINATION Vital signs reviewed. CONSTITUTIONAL: No apparent distress. HEENT: Head is normocephalic. Pupils are equal, round. Sclerae anicteric. Mucous membranes of the mouth are moist. No JVD. No carotid bruit. CHEST EXAMINATION: Lungs are clear to auscultation. No chest wall tenderness is noted on palpation or with deep breathing. HEART EXAMINATION: Regular rate and rhythm. S1, S2 heard. No murmurs, gallops or rub. ABDOMEN: Soft, nontender. EXTREMITIES: 2+ peripheral pulses, no lower extremity edema and no calf tenderness. NEUROLOGIC EXAMINATION: Patient is awake, alert and oriented x3. Assessment: 1. Acute GI bleeding, source unclear 2. Status post stenting in November 2021 3. History of diabetes 4. History of hypertension 5. NSTEMI related to GIB Plan: Continue patient's home cardiac medications Hold aspirin and Plavix until cleared by GI. Patient at this point is safe to be off Plavix at 6 months post stent. Cardiology we'll sign off and follow on an as-needed basis. Please reconsult for any new concerns. Nurse practitioner note has been reviewed, I agree with the documented findings and plan of care. Patient was seen and examined. Objective - Vital Signs Vital signs: Vital Signs Temp 98.4 F 04/20/22 08:20 Pulse 74 04/20/22 08:20 Resp 20 04/20/22 08:20 BP 94/55 04/20/22 08:20 Pulse Ox 98 04/20/22 09:05 FiO2 Intake & Output 04/19/22 04/20/22 04/20/22 18:59 06:59 18:59 Intake Total 546 10 480 Balance 546 10 480 Intake: IV 10 Invasive Line 2 10 Oral 236 480 Blood Product 310 Rc As-1 Unit 310 [id number] Other: Voiding Method Toilet Toilet # Voids 1 1 1 - Labs CBC & Chem 7: 04/20/22 07:17 04/20/22 07:17 Labs: Abnormal Lab Results - Last 24 Hours (Table) 04/19/22 04/19/22 04/19/22 Range/Units 07:14 09:39 11:34 RBC (3.80-5.40) m/uL Hgb (11.4-16.0) gm/dL Hct (34.0-46.0) % RDW (11.5-15.5) % Plt Count (150-450) k/uL Retic Count 5.4 H (0.5-2.0) % Chloride (98-107) mmol/L Glucose (74-99) mg/dL POC Glucose (mg/dL) 185 H (70-110) mg/dL Calcium (8.4-10.2) mg/dL Crossmatch See Detail 04/19/22 04/19/22 04/20/22 Range/Units 16:28 20:38 06:15 RBC (3.80-5.40) m/uL Hgb (11.4-16.0) gm/dL Hct (34.0-46.0) % RDW (11.5-15.5) % Plt Count (150-450) k/uL Retic Count (0.5-2.0) % Chloride (98-107) mmol/L Glucose (74-99) mg/dL POC Glucose (mg/dL) 226 H 225 H 125 H (70-110) mg/dL Calcium (8.4-10.2) mg/dL Crossmatch 04/20/22 04/20/22 Range/Units 07:17 07:17 RBC 2.34 L (3.80-5.40) m/uL Hgb 7.2 L (11.4-16.0) gm/dL Hct 21.8 L (34.0-46.0) % RDW 21.1 H (11.5-15.5) % Plt Count 142 L (150-450) k/uL Retic Count (0.5-2.0) % Chloride 108 H (98-107) mmol/L Glucose 100 H (74-99) mg/dL POC Glucose (mg/dL) (70-110) mg/dL Calcium 8.0 L (8.4-10.2) mg/dL Crossmatch
[2022-04-20 11:52] LABS: Glucose,Whole Blood 157 mg/dL (70-110)
[2022-04-20] MEDS: METOPROLOL SUCCINATE (ER) 25 MG TAB.ER.24H PO SCH (12:21)
--- NOTE | 2022-04-20 12:35 | P.PN ---
Subjective Progress Note Date: 04/20/22 Principal diagnosis: Anemia This is a pleasant 62-year-old female with multiple comorbidities including history of breast cancer, angina, coronary artery disease status post stenting in November of 2021, diabetes mellitus, GERD, hypertension, rheumatoid arthritis, seizure disorder and sleep apnea. Patient states she has been feeling weak over the last couple weeks, on admission she was noted to have a hemoglobin of 4.5. She states that she's had some epigastric discomfort, black stools for at least 1-2 weeks. No nausea or vomiting. Patient is on Plavix, and ibuprofen daily. She states that she just started noticing herself some dark red in her stool as well last evening. No previous history of GI bleed. She does have a history of dysphagia and has had esophageal dilation in the past. Last EGD colonoscopy approximately 2 years ago done at [facility].patient is receiving her third unit of blood. She had a repeat hemoglobin this morning at 6.4. 04/19/2022: Patient seen and examined as a follow-up. Tuesday she underwent EGD with findings of a 5 mm antral ulcer and scattered superficial antral erosions but no active bleeding. Small hiatal hernia. Patient then was scheduled to undergo colonoscopy on 04/17/2022, colonoscopy revealed normal appearing colon from rectum to cecum but poor prep and several areas of the colon that precluded adequate visualization. No obvious polyps noted. Patient then underwent small bowel capsule endoscopy with results currently pending. This morning patient had a drop in her hemoglobin to 6.4. 1 unit of blood as ordered. Patient does have a long history of chronic anemia and follows with Dr. Daugherty in the outpatient setting. States she was due for vitamin B12 last week and has gotten iron in the past. No blood transfusions that she can recall. She denies any abdominal pain, nausea or vomiting. No rectal bleeding. Has not had a bowel movement since her colonoscopy. Starting to pass flatus. Tolerating a regular diet. 04/20/2022: Patient seen and examined his follow-up for GI bleed. a small bowel capsule endoscopy showed a nonbleeding and small bleeding AVM noted in the distal jejunum/proximal ileum. She received 1 unit of blood yesterday, repeat hemoglobin today 7.2. As of this morning she had no bowel movement but states that she feels that she will be having one today. Denies any abdominal pain, nausea or vomiting. No rectal bleeding. Objective - Vital Signs Vital signs: Vital Signs Temp 98.4 F 04/20/22 08:20 Pulse 74 04/20/22 08:20 Resp 20 04/20/22 08:20 BP 94/55 04/20/22 08:20 Pulse Ox 96 04/20/22 08:20 FiO2 Intake & Output 04/19/22 04/20/22 04/20/22 18:59 06:59 18:59 Intake Total 546 10 480 Balance 546 10 480 Intake: IV 10 Invasive Line 2 10 Oral 236 480 Blood Product 310 Rc As-1 Unit 310 [id number] Other: Voiding Method Toilet Toilet # Voids 1 1 1 - Exam General appearance: The patient is alert, oriented, appears in no acute distress. HET: Head is normocephalic and atraumatic. Conjunctiva pink. Sclera anicteric. Neck: Supple without lymphadenopathy. Trachea midline. Heart: S1 S2. Regular rate and rhythm. Lungs: Clear to auscultation. Abdomen: Soft, nontender, nondistended with bowel sounds. No guarding or rigidity. Skin: No rashes. No jaundice. Extremities: Normal skin color and turgor. No pedal edema. Neurological: No focal deficits. Alert and oriented x3. - Labs CBC & Chem 7: 04/20/22 07:17 04/20/22 07:17 Labs: Abnormal Lab Results - Last 24 Hours (Table) 04/19/22 04/19/22 04/19/22 Range/Units 07:14 09:39 11:34 RBC (3.80-5.40) m/uL Hgb (11.4-16.0) gm/dL Hct (34.0-46.0) % RDW (11.5-15.5) % Plt Count (150-450) k/uL Retic Count 5.4 H (0.5-2.0) % Chloride (98-107) mmol/L Glucose (74-99) mg/dL POC Glucose (mg/dL) 185 H (70-110) mg/dL Calcium (8.4-10.2) mg/dL Crossmatch See Detail 04/19/22 04/19/22 04/20/22 Range/Units 16:28 20:38 06:15 RBC (3.80-5.40) m/uL Hgb (11.4-16.0) gm/dL Hct (34.0-46.0) % RDW (11.5-15.5) % Plt Count (150-450) k/uL Retic Count (0.5-2.0) % Chloride (98-107) mmol/L Glucose (74-99) mg/dL POC Glucose (mg/dL) 226 H 225 H 125 H (70-110) mg/dL Calcium (8.4-10.2) mg/dL Crossmatch 04/20/22 04/20/22 Range/Units 07:17 07:17 RBC 2.34 L (3.80-5.40) m/uL Hgb 7.2 L (11.4-16.0) gm/dL Hct 21.8 L (34.0-46.0) % RDW 21.1 H (11.5-15.5) % Plt Count 142 L (150-450) k/uL Retic Count (0.5-2.0) % Chloride 108 H (98-107) mmol/L Glucose 100 H (74-99) mg/dL POC Glucose (mg/dL) (70-110) mg/dL Calcium 8.0 L (8.4-10.2) mg/dL Crossmatch Assessment and Plan (1) GI bleed Narrative/Plan: 62-year-old female who presented for persistent weakness was noted to have a hemoglobin of 4.5. Patient reports history of ibuprofen use daily for pain, Plavix and aspirin for history of coronary artery disease. Patient also reporting noticing that she has had black stool yesterday with some also Dr. daily. Complaints of epigastric pain. Sister reports she believes that she's been having dark stool for at least 1-2 week duration. No nausea or vomiting. His reporting epigastric pain. Possible etiologies include peptic ulcer disease, gastritis, esophagitis, AVM or other possible etiologies. She also has a history in the past of esophageal narrowing requiring dilation. We'll proceed with EGD. Avoid anticoagulation, NSAIDs. Patient underwent EGD, colonoscopy. EGD showed small antral ulcer and scattered erosions with no active bleeding. Colonoscopy although poor prep visualized areas normal from rectum to cecum. small bowel capsule endoscopy was reviewed and showed a nonbleeding AVM and a small bleeding AVM in the distal jejunum/proximal ileum. No indication for further endoscopic evaluation at this time. Continue to monitor H&H, hold anticoagulation and transfuse as needed. Current Visit: Yes Status: Acute Code(s): K92.2 - GASTROINTESTINAL HEMORRHAGE, UNSPECIFIED SNOMED Code(s): 75871988 (2) Anemia Narrative/Plan: Patient with history of chronic anemia, follows with hematology. Hematology consulted. Current Visit: Yes Status: Acute Priority: High Code(s): D64.9 - ANEMIA, UNSPECIFIED SNOMED Code(s): 231820925 (3) Coronary artery disease Narrative/Plan: patient with history of stent in November 2021 currently on Plavix and aspirin. Patient with elevated troponins likely reactive from severe anemia. Current Visit: Yes Status: Acute Code(s): I25.10 - ATHSCL HEART DISEASE OF [place] CORONARY ARTERY W/O ANG PCTRS SNOMED Code(s): 54872614 (4) Hypokalemia Current Visit: Yes Status: Acute Code(s): E87.6 - HYPOKALEMIA SNOMED Code(s): 89727438 (5) Gastric AVM Narrative/Plan: Small bowel capsule endoscopy showed AVMs in the distal jejunum/proximal ileum. Unable to treat with endoscopy. Continue with iron supplementation, avoid anticoagulation. Current Visit: Yes Status: Acute Code(s): K31.819 - ANGIODYSPLASIA OF STOMAC H AND DUODENUM WITHOUT BLEEDING SNOMED Code(s): 550179562 Plan: 1. Continue symptomatic and supportive care 2. Daily CBC, transfuse for hemoglobin less than 7 3. Protonix 40 40 mg daily 4. Distal jejunum/proximal ileum AVM. Avoid anticoagulation. Discussed with cardiology, avoid dual antiplatelet therapy. Patient recent cardiac stent November 2021 5. Diet as tolerated 6. Avoid NSAIDs 7. No further planned endoscopic evaluation indicated. Once hemoglobin is stable, cleared from gastroenterology for discharge Thank you for this consultation. Dr. Jina Donaldson I agree with the dictator's note, documented as a scribe by Ashley Batista.
--- NOTE | 2022-04-20 14:02 | P.PN ---
Subjective This is a pleasant 62 years old female with multiple medical problems diabetes mellitus, COPD, CVA/TIA, hypertension, rheumatoid arthritis, seizure disorder, sleep apnea on CPAP, history of migraine and chronic back pain, irritable bowel syndrome, history of right breast cancer in 2010 status post surgery and chemotherapy. Information were obtained from the patient and sister at bedside. Patient presents because of feeling generally weak for a few days, yesterday she went downstairs to have a cigarette and she could not get back she was very weak and short of breath, she says that her weakness and all her extremities and equal and at the same time. Also she is feeling dizzy with exertion and more weakness. She denies headache, no new weakness or numbness. However she is complaining of from burning and pain in both feet and up to the knees, Patient fell 2 days ago on her knees with no head trauma. 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 She noticed some black stool and she is complaining of from abdominal pain, mainly in the lower abdomen and more to the right side and suprapubic area, about 9-10 in severity, nonspecific and radiating to the right side. She is on oxycodone at home for back surgery and back pain that is been going on for about one year however she declines recent use of other pain medication like NSAIDs. No diarrhea actually she is constipated, she has vomiting 2 days ago with no blood but not currently. Presents with generalized weakness Patient found to be severely anemic with hemoglobin was 4.5 on admission she received 2 units of blood transfusion and hemoglobin went up to 6.4 INR 0.9. Sodium 1:30 09/19/1932, potassium 2.3 and 3.7. Creatinine 0.6 and 1.0. Troponin elevated 0.12. ProBNP 916 Lumbosacral x-ray showing no evidence of acute fracture or dislocation. In the emergency room patient received normal saline, morphine, replace electrolytes. And IV Protonix. GI service was consulted. Currently patient is receiving third unit of blood transfusion and she is kept nothing by mouth 04/17/2022 Patient reports improvement in her generalized weakness and exertional dyspnea She denies any pain, no abdominal pain but she still looks tired She still have pain and numbness in both feet and legs Ultrasound of the neck is negative for DVT Hemoglobin 7.9 Colonoscopy was normal today, small bowel endoscopy was recommended by GI team and if her hemoglobin remains stable tomorrow she may be considered for discharge. 04/18/2022 Patient weakness slightly better today and she still have some exertional dyspnea when she walks. She is complaining of from sciatic pain on both legs more on the right side with more numbness, more on the right side but no pain anywhere else like no chest pain or abdominal pain. She had some headache earlier which is better now. 04/18/2022 Patient weakness and exertional dyspnea improving slowly and gradually She is complaining from sciatic Pain in both legs more on the right side. She had some headache earlier which is resolved now. Colonoscopy was unremarkable and normal appearing Patient remains on Protonix for stomach ulcer and patient informed of the diagnosis with recommendation to follow-up the biopsy and she verbalized understanding and acceptance and said she will follow up with results. Assurance Officer also the case and recommended to start the patient on aspirin 81 mg whenever cleared by surgery team. Plavix remains on hold. She is on vitamin B12 and iron replacement therapy. 04/19/2022 Patient feels better generally with this weakness and exertional dyspnea She has chronic sciatic pain since 1996 Her headache is gone and is working better However her hemoglobin dropped today down to 6.4, colonoscopy was normal and EGD showing antral ulcer. She is getting 1 unit of blood today Aspirin and Plavix are still on hold and she is on IV Protonix Also she is getting vitamin B12 and iron replacement therapy. 04/20/2022 Patient has evidence of Distal jejunum/proximal ileum AVM. GI team, they recommended to avoid anticoagulation with cardiology team who agreed to stop Plavix. We will discuss with GI team when we can resume but was hemoglobin stable patient can be considered for discharge per their recommendation. Yesterday hemoglobin 6.4 went up to 7.2 after blood transfusion. PT/OT recommended home Objective - Vital Signs Vital signs: Vital Signs Temp 98.1 F 04/20/22 11:21 Pulse 82 04/20/22 11:21 Resp 16 04/20/22 11:21 BP 128/54 04/20/22 11:21 Pulse Ox 94 L 04/20/22 11:21 FiO2 Intake & Output 01/30/23 01/31/23 01/31/23 18:59 06:59 18:59 Intake Total 546 10 480 Balance 546 10 480 Intake: IV 10 Invasive Line 2 10 Oral 236 480 Blood Product 310 Rc As-1 Unit 310 [id number] Other: Voiding Method Toilet Toilet # Voids 1 1 2 - Exam GENERAL: The patient is alert and oriented x3, not in any acute distress. Well developed, well nourished. HEENT: Pupils are round and equally reacting to light. EOMI. No scleral icterus. No conjunctival pallor. Normocephalic, atraumatic. No pharyngeal erythema. No thyromegaly. CARDIOVASCULAR: S1 and S2 present. No murmurs, rubs, or gallops. PULMONARY: Chest is clear to auscultation, no wheezing or crackles. ABDOMEN: Soft, nontender, nondistended, normoactive bowel sounds. No palpable organomegaly. MUSCULOSKELETAL: No joint swelling or deformity. EXTREMITIES: No cyanosis, clubbing, or pedal edema. NEUROLOGICAL: Gross neurological examination did not reveal any focal deficits. SKIN: No rashes. no petechiae. - Labs CBC & Chem 7: 04/20/22 07:17 04/20/22 07:17 Labs: Abnormal Lab Results - Last 24 Hours (Table) 04/19/22 04/19/22 04/19/22 Range/Units 07:14 09:39 16:28 RBC (3.80-5.40) m/uL Hgb (11.4-16.0) gm/dL Hct (34.0-46.0) % RDW (11.5-15.5) % Plt Count (150-450) k/uL Retic Count 5.4 H (0.5-2.0) % Chloride (98-107) mmol/L Glucose (74-99) mg/dL POC Glucose (mg/dL) 226 H (70-110) mg/dL Calcium (8.4-10.2) mg/dL Crossmatch See Detail 04/19/22 04/20/22 04/20/22 Range/Units 20:38 06:15 07:17 RBC 2.34 L (3.80-5.40) m/uL Hgb 7.2 L (11.4-16.0) gm/dL Hct 21.8 L (34.0-46.0) % RDW 21.1 H (11.5-15.5) % Plt Count 142 L (150-450) k/uL Retic Count (0.5-2.0) % Chloride (98-107) mmol/L Glucose (74-99) mg/dL POC Glucose (mg/dL) 225 H 125 H (70-110) mg/dL Calcium (8.4-10.2) mg/dL Crossmatch 04/20/22 04/20/22 Range/Units 07:17 11:40 RBC (3.80-5.40) m/uL Hgb (11.4-16.0) gm/dL Hct (34.0-46.0) % RDW (11.5-15.5) % Plt Count (150-450) k/uL Retic Count (0.5-2.0) % Chloride 108 H (98-107) mmol/L Glucose 100 H (74-99) mg/dL POC Glucose (mg/dL) 157 H (70-110) mg/dL Calcium 8.0 L (8.4-10.2) mg/dL Crossmatch Assessment and Plan Assessment: Distal jejunum/proximal ileum AVM. Severe anemia, present on admission, secondary to above Elevated troponin suspicious for supply/demand ischemia. Bilateral feet and leg tingling and pain Suprapubic tenderness and dysuria, rule out obstructive lesion or UTI nicotine dependence, counseled to quit and she agrees but she declines nicotine patch Hypertension Diabetes mellitus History of CVA/TIA History of rheumatoid arthritis History of seizure disorder History of sleep apnea History of migraine Chronic back pain, status post back surgery at [facility] about 20 ago as per patient History of irritable bowel syndrome History of right breast cancer in 2010 status post surgery and chemotherapy Plan: GI team recommended to avoid dual antiplatelet therapy or blood thinner. Assurance Officer agreed to hold Plavix and continue with aspirin. By GI team when hemoglobin stable and can resume aspirin patient can be considered for discharge Hemoglobin today is reviewed. Check hemoglobin tomorrow and we will reassess Continue with Protonix Check urine analysis and bladder scan labs and medication were reviewed.. Continue same treatment. Continue with symptomatic treatment. Resume home medication. Monitor labs and vitals. DVT and GI prophylaxis. Further recommendations as per clinical course of the patient DVT prophylaxis:no Subcutaneous heparin in view of severe anemia GI Prophylaxis: Ppi PT/OT: Home Prognosis is fair
[2022-04-20] MEDS: ACETAMINOPHEN TAB 325 MG TAB PO PRN (14:17)
[2022-04-20 15:11] VITALS: BMI 27.4
[2022-04-20 16:26] LABS: Glucose,Whole Blood 239 mg/dL (70-110)
--- NOTE | 2022-04-20 17:32 | P.PN ---
Subjective Progress Note Date: 04/20/22 Principal diagnosis: anemia, iron def, 2/2 bleeding, Hx of secondary polycythemia Pt is resting comfortably in stretcher. Pt reports she is having continued improvement in symptoms. Pt reports she has had no BM today or yesterday. She states she noticed light pink urine yesterday but denies clotting. She denies epistaxis. No other reported complaints at this time. Small bowel capsule study showed AVM at distal jejunum/proximal ileum Objective - Vital Signs Vital signs: Vital Signs Temp 98.1 F 04/20/22 11:21 Pulse 82 04/20/22 11:21 Resp 16 04/20/22 11:21 BP 128/54 04/20/22 11:21 Pulse Ox 94 L 04/20/22 11:21 FiO2 Intake & Output 04/19/22 04/20/22 04/20/22 18:59 06:59 18:59 Intake Total 546 10 480 Balance 546 10 480 Intake: IV 10 Invasive Line 2 10 Oral 236 480 Blood Product 310 Rc As-1 Unit 310 [id number] Other: Voiding Method Toilet Toilet # Voids 1 1 2 - Constitutional General appearance: Present: average body habitus, cooperative, no acute dis tress - EENT Eyes: Present: anicteric sclerae, EOMI ENT: Present: hearing grossly normal - Respiratory Respiratory: bilateral: CTA - Cardiovascular Rhythm: regular Heart sounds: normal: S1, S2 Abnormal Heart Sounds: Absent: systolic murmur, diastolic murmur, rub, S3 Gallop, S4 Gallop, click, other - Gastrointestinal General gastrointestinal: Present: normal bowel sounds, soft. Absent: tenderness - Integumentary Integumentary: Present: pale - Neurologic Neurologic Comment(s): grossly intact Neurologic: Present: CNII-XII intact - Musculoskeletal Musculoskeletal: Present: strength equal bilaterally - Psychiatric Psychiatric: Present: A&O x's 3, appropriate affect, intact judgment & insight - Labs CBC & Chem 7: 04/20/22 07:17 04/20/22 07:17 Labs: Abnormal Lab Results - Last 24 Hours (Table) 04/19/22 04/19/22 04/19/22 Range/Units 07:14 09:39 16:28 RBC (3.80-5.40) m/uL Hgb (11.4-16.0) gm/dL Hct (34.0-46.0) % RDW (11.5-15.5) % Plt Count (150-450) k/uL Retic Count 5.4 H (0.5-2.0) % Chloride (98-107) mmol/L Glucose (74-99) mg/dL POC Glucose (mg/dL) 226 H (70-110) mg/dL Calcium (8.4-10.2) mg/dL Crossmatch See Detail 04/19/22 04/20/22 04/20/22 Range/Units 20:38 06:15 07:17 RBC 2.34 L (3.80-5.40) m/uL Hgb 7.2 L (11.4-16.0) gm/dL Hct 21.8 L (34.0-46.0) % RDW 21.1 H (11.5-15.5) % Plt Count 142 L (150-450) k/uL Retic Count (0.5-2.0) % Chloride (98-107) mmol/L Glucose (74-99) mg/dL POC Glucose (mg/dL) 225 H 125 H (70-110) mg/dL Calcium (8.4-10.2) mg/dL Crossmatch 04/20/22 04/20/22 Range/Units 07:17 11:40 RBC (3.80-5.40) m/uL Hgb (11.4-16.0) gm/dL Hct (34.0-46.0) % RDW (11.5-15.5) % Plt Count (150-450) k/uL Retic Count (0.5-2.0) % Chloride 108 H (98-107) mmol/L Glucose 100 H (74-99) mg/dL POC Glucose (mg/dL) 157 H (70-110) mg/dL Calcium 8.0 L (8.4-10.2) mg/dL Crossmatch Assessment and Plan (1) Anemia Current Visit: Yes Status: Acute Priority: High Code(s): D64.9 - ANEMIA, UNSPECIFIED SNOMED Code(s): 456548444 (2) Weakness Current Visit: Yes Status: Acute Priority: High Code(s): R53.1 - WEAKNESS SNOMED Code(s): 51038046 Plan: Hx of anemia, acute on chronic -Pt has history of anemia, iron def, B12 deficiency. GI work up, polyps. Given iron--> Hgb went above 18, iron held (05/2021). EGD showed antral ulceration but no acute bleeding and a small hiatal hernia, biopsy pending. Colonoscopy was negative for acute finding. Capsule showed 2 AVM's, jejunum/ileum, one not bleeding one bleeding. F/U GI -Hgb 7.2 today, has received 5 units of PRBCs. Please transfuse for hemoglobin less than 7 or if symptomatic. -Iron studies showed iron deficiency. Parenteral iron started. -B12 injection -Pt was on plavix and ASA for previous cardiac stent. This has been discontinued during this admission due to acute bleeding. Cardiology recommendations pending Hx of secondary polycythemia -due likely to smoking, worked up last year by Dr. Daugherty. Will monitor Hgb as pt is being given iron. Attests: I have seen and examined pt, performed H&P, developed impression and plan of care. Discussed with dictator. Agree with dictation, documented as a scribe.
[2022-04-20] MEDS: CYANOCOBALAMIN 1,000 MCG/ML 1 ML VIAL IM SCH (19:08)
[2022-04-20 20:08] LABS: Glucose,Whole Blood 208 mg/dL (70-110)
[2022-04-20] MEDS: DILTIAZEM CD 120 MG CAP.ER.24H PO SCH (21:23)
[2022-04-20] MEDS: INSULIN DETEMIR (LEVEMIR) 100 UNIT/ML SYR SQ SCH (21:23)
[2022-04-20] MEDS: MONTELUKAST 10 MG TAB PO SCH (21:23)
[2022-04-20] MEDS: SODIUM CHLORIDE 0.9% 1,000 ML IV SCH (23:58)
[2022-04-21] MEDS: MORPHINE SULFATE 4 MG/ML SYRINGE IV PRN ×3 (02:28→13:50)
[2022-04-21 06:14] LABS: Glucose,Whole Blood 150 mg/dL (70-110)
[2022-04-21 08:44] LABS: Anisocytosis Moderate; Basophils % (A) 0 %; Eosinophils # (A) 0.2 k/uL (0-0.7); Eosinophils % (A) 3 %; HGB 7.3 gm/dL (11.4-16.0); Hypochromasia Moderate; Lymphocytes # (A) 0.9 k/uL (1.0-4.8); Lymphocytes % (A) 16 %; MCH 30.1 pg (25.0-35.0); MCHC 31.9 g/dL (31.0-37.0); MCV 94.3 fL (80.0-100.0); Macrocytosis Slight; Mean Platelet Volume 9.4; Monocytes # (A) 0.3 k/uL (0-1.0); Monocytes % (A) 5 %; Neutrophils # (A) 4.3 k/uL (1.3-7.7); Neutrophils % (A) 73 %; Platelet Count 145 k/uL (150-450); Poikilocytosis Marked; RBC 2.44 m/uL (3.80-5.40); RDW 21.8 % (11.5-15.5); WBC 5.9 k/uL (3.8-10.6)
[2022-04-21] MEDS: SODIUM FERRIC GLUCONAT-SUCROSE 125 MG in SODIUM CHLORIDE 0.9% 100 ML IVPB SCH (10:01)
[2022-04-21] MEDS: CITALOPRAM HYDROBROMIDE 20 MG TAB PO SCH (10:02)
[2022-04-21] MEDS: GABAPENTIN 100 MG CAP PO SCH (10:02)
[2022-04-21] MEDS: CYANOCOBALAMIN 1,000 MCG/ML 1 ML VIAL IM SCH (10:03)
[2022-04-21] MEDS: PANTOPRAZOLE 40 MG/10 ML VIAL IV SCH (10:03)
[2022-04-21 11:31] VITALS: RESP 16; TEMP 98.1
[2022-04-21 11:37] LABS: Glucose,Whole Blood 108 mg/dL (70-110)
--- NOTE | 2022-04-21 11:38 | P.PN ---
Subjective Progress Note Date: 04/21/22 Principal diagnosis: Anemia This is a pleasant 62-year-old female with multiple comorbidities including history of breast cancer, angina, coronary artery disease status post stenting in November of 2021, diabetes mellitus, GERD, hypertension, rheumatoid arthritis, seizure disorder and sleep apnea. Patient states she has been feeling weak over the last couple weeks, on admission she was noted to have a hemoglobin of 4.5. She states that she's had some epigastric discomfort, black stools for at least 1-2 weeks. No nausea or vomiting. Patient is on Plavix, and ibuprofen daily. She states that she just started noticing herself some dark red in her stool as well last evening. No previous history of GI bleed. She does have a history of dysphagia and has had esophageal dilation in the past. Last EGD colonoscopy approximately 2 years ago done at [facility].patient is receiving her third unit of blood. She had a repeat hemoglobin this morning at 6.4. 04/19/2022: Patient seen and examined as a follow-up. Tuesday she underwent EGD with findings of a 5 mm antral ulcer and scattered superficial antral erosions but no active bleeding. Small hiatal hernia. Patient then was scheduled to undergo colonoscopy on 04/17/2022, colonoscopy revealed normal appearing colon from rectum to cecum but poor prep and several areas of the colon that precluded adequate visualization. No obvious polyps noted. Patient then underwent small bowel capsule endoscopy with results currently pending. This morning patient had a drop in her hemoglobin to 6.4. 1 unit of blood as ordered. Patient does have a long history of chronic anemia and follows with Dr. Daugherty in the outpatient setting. States she was due for vitamin B12 last week and has gotten iron in the past. No blood transfusions that she can recall. She denies any abdominal pain, nausea or vomiting. No rectal bleeding. Has not had a bowel movement since her colonoscopy. Starting to pass flatus. Tolerating a regular diet. 04/20/2022: Patient seen and examined his follow-up for GI bleed. a small bowel capsule endoscopy showed a nonbleeding and small bleeding AVM noted in the distal jejunum/proximal ileum. She received 1 unit of blood yesterday, repeat hemoglobin today 7.2. As of this morning she had no bowel movement but states that she feels that she will be having one today. Denies any abdominal pain, nausea or vomiting. No rectal bleeding. 04/21/2022: Patient seen and examined in for follow-up. She reports no bowel movement since colonoscopy. She states she is feeling better overall. No abdominal pain, nausea or vomiting. Hemoglobin stable at 7.3. Patient has been receiving parental iron. She is status post EGD, colonoscopy and small bowel capsule endoscopy. Objective - Vital Signs Vital signs: Vital Signs Temp 98.1 F 04/21/22 11:28 Pulse 68 04/21/22 11:28 Resp 16 04/21/22 11:28 BP 114/68 04/21/22 11:28 Pulse Ox 94 L 04/21/22 11:28 FiO2 Intake & Output 04/20/22 04/21/22 04/21/22 18:59 06:59 18:59 Intake Total 600 10 240 Balance 600 10 240 Weight 68.039 kg Intake: IV 10 Invasive Line 2 10 Oral 600 240 Other: Voiding Method Toilet Toilet Toilet # Voids 2 2 - Exam General appearance: The patient is alert, oriented, appears in no acute distress. HET: Head is normocephalic and atraumatic. Conjunctiva pink. Sclera anicteric. Neck: Supple without lymphadenopathy. Trachea midline. Heart: S1 S2. Regular rate and rhythm. Lungs: Clear to auscultation. Abdomen: Soft, nontender, nondistended with bowel sounds. No guarding or rigidity. Skin: No rashes. No jaundice. Extremities: Normal skin color and turgor. No pedal edema. Neurological: No focal deficits. Alert and oriented x3. - Labs CBC & Chem 7: 04/21/22 08:15 04/20/22 07:17 Labs: Abnormal Lab Results - Last 24 Hours (Table) 04/20/22 04/20/22 04/20/22 Range/Units 11:40 16:24 20:06 RBC (3.80-5.40) m/uL Hgb (11.4-16.0) gm/dL Hct (34.0-46.0) % RDW (11.5-15.5) % Plt Count (150-450) k/uL Lymphocytes # (1.0-4.8) k/uL POC Glucose (mg/dL) 157 H 239 H 208 H (70-110) mg/dL 02/01/23 02/01/23 Range/Units 06:12 08:15 RBC 2.44 L (3.80-5.40) m/uL Hgb 7.3 L (11.4-16.0) gm/dL Hct 23.0 L (34.0-46.0) % RDW 21.8 H (11.5-15.5) % Plt Count 145 L (150-450) k/uL Lymphocytes # 0.9 L (1.0-4.8) k/uL POC Glucose (mg/dL) 150 H (70-110) mg/dL Assessment and Plan (1) GI bleed Narrative/Plan: 62-year-old female who presented for persistent weakness was noted to have a hemoglobin of 4.5. Patient reports history of ibuprofen use daily for pain, Plavix and aspirin for history of coronary artery disease. Patient also reporting noticing that she has had black stool yesterday with some also Dr. adily. Complaints of epigastric pain. Sister reports she believes that she's been having dark stool for at least 1-2 week duration. No nausea or vomiting. His reporting epigastric pain. Possible etiologies include peptic ulcer disease, gastritis, esophagitis, AVM or other possible etiologies. She also has a history in the past of esophageal narrowing requiring dilation. We'll proceed with EGD. Avoid anticoagulation, NSAIDs. Patient underwent EGD, colonoscopy. EGD showed small antral ulcer and scattered erosions with no active bleeding. Colonoscopy although poor prep visualized areas normal from rectum to cecum. small bowel capsule endoscopy was reviewed and showed a nonbleeding AVM and a small bleeding AVM in the distal jejunum/proximal ileum. No indication for further endoscopic evaluation at this time. Continue to monitor H&H, hold anticoagulation and transfuse as needed. Current Visit: Yes Status: Acute Code(s): K92.2 - GASTROINTESTINAL HEMORRHAGE, UNSPECIFIED SNOMED Code(s): 72664344 (2) Anemia Narrative/Plan: Patient with history of chronic anemia, follows with hematology. Hematology consulted. Current Visit: Yes Status: Acute Priority: High Code(s): D64.9 - ANEMIA, UNSPECIFIED SNOMED Code(s): 529323419 (3) Coronary artery disease Narrative/Plan: patient with history of stent in November 2021 currently on Plavix and aspirin. Patient with elevated troponins likely reactive from severe anemia. Current Visit: Yes Status: Acute Code(s): I25.10 - ATHSCL HEART DISEASE OF [place] CORONARY ARTERY W/O ANG PCTRS SNOMED Code(s): 68707400 (4) Hypokalemia Current Visit: Yes Status: Acute Code(s): E87.6 - HYPOKALEMIA SNOMED Code(s): 17304628 (5) Gastric AVM Narrative/Plan: Small bowel capsule endoscopy showed AVMs in the distal jejunum/proximal ileum. Unable to treat with endoscopy. Continue with iron supplementation, avoid anticoagulation. Current Visit: Yes Status: Acute Code(s): K31.819 - ANGIODYSPLASIA OF STOMACH AND DUODENUM WITHOUT BLEEDING SNOMED Code(s): 047646689 Plan: 1. Continue symptomatic and supportive care 2. Daily CBC, transfuse for hemoglobin less than 7 3. Protonix 40 40 mg daily 4. Distal jejunum/proximal ileum AVM. Avoid anticoagulation. Discussed with cardiology, avoid dual antiplatelet therapy. Patient recent cardiac stent November 2021 5. Diet as tolerated 6. Avoid NSAIDs 7. No further planned endoscopic evaluation indicated. Patient is cleared from gastroenterology for discharge. Thank you for this consultation. We will sign off at this time. Dr. Jina Donaldson I agree with the dictator's note, documented as a scribe by Ashley Batista.
[2022-04-21] MEDS ORDERED: FERROUS SULFATE 325 MG TAB PO SCH (12:36)
[2022-04-21 12:39] VITALS: PULSE 87
[2022-04-21] MEDS ORDERED: ASPIRIN 81 MG PO SCH (12:45)
[2022-04-21] MEDS: METOPROLOL SUCCINATE (ER) 25 MG TAB.ER.24H PO SCH (12:51)
[2022-04-21] MEDS: ACETAMINOPHEN TAB 325 MG TAB PO PRN (12:53)
[2022-04-21 13:55] VITALS: BP 120/54
--- NOTE | 2022-04-21 20:36 | P.DS ---
Providers Date of admission: 04/15/22 23:02 Attending physician: Dl Lawrence Consults: 04/15/22 23:02 Consult Physician Routine Consulting Provider: Jeannine Donaldson Consult Reason/Comments: anemia Do you want consulting provider notified?: Yes 04/16/22 07:58 Consult Physician Urgent Consulting Provider: Jono Donaldson Consult Reason/Comments: high marie, chest pain Do you want consulting provider notified?: Yes 04/19/22 09:38 Consult Physician Routine Consulting Provider: Wesley Daugherty Consult Reason/Comments: chronic anemia, known to you, had endoscopy Do you want consulting provider notified?: Yes Primary care physician: Art Shea [facility] Course: Diagnoses: Distal jejunum/proximal ileum AVM. Severe anemia, present on admission, secondary to above Elevated troponin suspicious for supply/demand ischemia. Bilateral feet and leg tingling and pain Suprapubic tenderness and dysuria, rule out obstructive lesion or UTI nicotine dependence, counseled to quit and she agrees but she declines nicotine patch Hypertension Diabetes mellitus History of CVA/TIA History of rheumatoid arthritis History of seizure disorder History of sleep apnea History of migraine Chronic back pain, status post back surgery at [facility] about 20 ago as per patient History of irritable bowel syndrome History of right breast cancer in 2010 status post surgery and chemotherapy Hospital course: This is a pleasant 62 years old female with multiple medical problems diabetes mellitus, COPD, CVA/TIA, hypertension, rheumatoid arthritis, seizure disorder, sleep apnea on CPAP, history of migraine and chronic back pain, irritable bowel syndrome, history of right breast cancer in 2010 status post surgery and chemotherapy. Patient presents because of feeling generally weak for a few days, she found to have severe anemia with hemoglobin 4.5. She received multiple blood transfusion hemoglobin improved. She tolerated by GI team and she underwent EGD on 04/16: 5 mm antral ulcer and scattered superficial antral erosions but no active bleeding. Colonoscopy was normal therefore patient underwent capsule endoscopy showing Distal jejunum/proximal ileum AVM. Hemoglobin remained stable at 7.3 and patient was asymptomatic, significantly improved strength and she was working herself in the hallway today using her walker. As per cardiology recommendation Plavix can be stopped as it is more than 6 months from her stent placement. We discussed the case with GI team who agreed to start the patient on aspirin. Also patient started on ferrous sulfate to support her hemoglobin. Patient today was eager to be discharged. She was fully awake and oriented back to her baseline. No chest pain, no dyspnea, no abdominal pain vomiting or diarrhea. No other new symptoms. Patient was cleared for discharge by GI and cardiology teams. Also patient will be discharged on Protonix recommendation 0 GI team Problems and management plan were discussed with the patient and he verbalized understanding and acceptance Patient was found stable and can be discharged home in guarded prognosis however he needs follow-up as an outpatient. Patient was instructed to follow up with PCP within one week and patient agrees with the appointments made for her with Dr. steward on 04/23 , patient was advised to check her blood thinners including hemoglobin. Also patient agrees with the appointments made for her with Dr. Donaldson on 04/26, with Dr. Michaels in [address] Daugherty from hematology team on 04/27 Physical exam Gen: patient is a AAOx3, no distress CVS: S1-S2, RRR, no murmur Lungs: B/L CTA, no wheezing Abdomen: soft, no distention, no tenderness, positive bowel sounds Extremity: no leg edema or induration Time spent more than 35 minutes Patient Condition at Discharge: Serious Plan - Discharge Summary Discharge Rx Participant: No New Discharge Prescriptions: New Aspirin 81 mg PO DAILY #30 tab Ferrous Sulfate [Iron (65 MG Elemental)] 325 mg PO BID-W/MEALS #60 tab Continue Montelukast Sodium [Singulair] 10 mg PO HS dilTIAZem HCL [Cardizem CD] 120 mg PO HS Nitroglycerin Sl Tabs [Nitrostat] 0.4 mg SUBLINGUAL Q5M PRN PRN Reason: Chest Pain gemfibroziL [Lopid] 600 mg PO BID levETIRAcetam [Keppra] 750 mg PO BID Insulin Glargine [Lantus Vial] 4 unit SQ HS Linaclotide [Linzess] 145 mcg PO BID Insulin Aspart [NovoLOG Flexpen] See Protocol SQ ACHS Folic Acid 1 mg PO DAILY rOPINIRole HCL [Requip] 1 mg PO TID Triamterene/Hydrochlorothiazid [Triamterene-Hctz 37.5-25 mg Tb] 1 tab PO HS Magnesium Chloride [Mag64] 128 mg PO DAILY Evolocumab [Repatha Sureclick] 140 mg SQ Q14D Citalopram Hydrobromide [Citalopram HBr] 40 mg PO DAILY Metoprolol Succinate (ER) [Toprol XL] 25 mg PO W/LUNCH Baclofen 10 mg PO TID Gabapentin [Neurontin] 200 mg PO BID oxyCODONE HCL [oxyCODONE HCL (IR)] 10 mg PO TID Pantoprazole Sodium [Protonix] 40 mg PO DAILY #30 tab Discontinued Ibuprofen 800 mg PO TID lisinopriL 2.5 mg PO DAILY #30 tablet Clopidogrel [Plavix] 75 mg PO DAILY #90 tablet Discharge Medication List Insulin Aspart [NovoLOG Flexpen] See Protocol SQ ACHS 01/15/19 [History] Insulin Glargine [Lantus Vial] 4 unit SQ HS 01/15/19 [History] Linaclotide [Linzess] 145 mcg PO BID 01/15/19 [History] Montelukast Sodium [Singulair] 10 mg PO HS 01/15/19 [History] Nitroglycerin Sl Tabs [Nitrostat] 0.4 mg SUBLINGUAL Q5M PRN 01/15/19 [History] dilTIAZem HCL [Cardizem CD] 120 mg PO HS 01/15/19 [History] gemfibroziL [Lopid] 600 mg PO BID 01/15/19 [History] levETIRAcetam [Keppra] 750 mg PO BID 01/15/19 [History] Baclofen 10 mg PO TID 12/04/21 [History] Citalopram Hydrobromide [Citalopram HBr] 40 mg PO DAILY 12/04/21 [History] Evolocumab [Repatha Surenimishaick] 140 mg SQ Q14D 12/04/21 [History] Folic Acid 1 mg PO DAILY 12/04/21 [History] Gabapentin [Neurontin] 200 mg PO BID 12/04/21 [History] Magnesium Chloride [Mag64] 128 mg PO DAILY 12/04/21 [History] Triamterene/Hydrochlorothiazid [Triamterene-Hctz 37.5-25 mg Tb] 1 tab PO HS 12/04/21 [History] oxyCODONE HCL [oxyCODONE HCL (IR)] 10 mg PO TID 12/04/21 [History] rOPINIRole HCL [Requip] 1 mg PO TID 12/04/21 [History] Metoprolol Succinate (ER) [Toprol XL] 25 mg PO W/LUNCH 04/16/22 [History] Aspirin 81 mg PO DAILY #30 tab 04/21/22 [Rx] Ferrous Sulfate [Iron (65 MG Elemental)] 325 mg PO BID-W/MEALS #60 tab 04/21/22 [Rx] Pantoprazole Sodium [Protonix] 40 mg PO DAILY #30 tab 04/21/22 [Rx] Follow up Appointment(s)/Referral(s): Wesley Daugherty MD [STAFF PHYSICIAN] - 04/27/22 9:30 am (This appt is at the office located behind [facility]) Nitesh Michaels DO [STAFF PHYSICIAN] - 05/10/22 2:45 pm Jeannine Donaldson MD [STAFF PHYSICIAN] - 04/26/22 4:00 pm Art Steward MD [Primary Care Provider] - 04/23/22 3:00 pm Patient Instructions/Handouts: Iron Supplements (By mouth), Aspirin (By mouth), Pantoprazole (By mouth), Gastrointestinal Bleeding (DC), Heart Healthy Diet (DC), Hypokalemia (DC), Anemia (DC) Activity/Diet/Wound Care/Special Instructions: Heart healthy diet activity is restricted till you see your doctor We recommend to avoid NSAIDs like normal treatment, no ibuprofen, no Mobic, no naproxen, Check with your doctor before the take any pain medication please Okay to take baby aspirin 81 mg daily Discharge/Stand Alone Forms: Who Do I Call?, [employer] Discharge Disposition: HOME WITH HOME HEALTH SERVICES
== END 2022-04-21 15:46 | disposition home or self-care (01) | DRG 377 ==
LOC: EC 20:37 → 3SCARD 23:02
PROVIDERS: ADMIT Hospitalist; ATTEND Hospitalist
PROC: 30233N1 Transfusion of Nonautologous Red Blood Cells into Peripheral Vein, Percutaneous Approach (ICD-10-PCS; 2022-04-16)
PROC: 0DB78ZX Excision of Stomach, Pylorus, Via Natural or Artificial Opening Endoscopic, Diagnostic (ICD-10-PCS; principal; 2022-04-16 07:55)
PROC: 0DJD8ZZ Inspection of Lower Intestinal Tract, Via Natural or Artificial Opening Endoscopic (ICD-10-PCS; 2022-04-17)
PROC: 0DJ07ZZ Inspection of Upper Intestinal Tract, Via Natural or Artificial Opening (ICD-10-PCS; 2022-04-17)
DX: K31.811 Angiodysplasia of stomach and duodenum with bleeding (principal); I21.A1 Myocardial infarction type 2; E46 Unspecified protein-calorie malnutrition; D62 Acute posthemorrhagic anemia; I11.9 Hypertensive heart disease without heart failure; E11.65 Type 2 diabetes mellitus with hyperglycemia; J44.9 Chronic obstructive pulmonary disease, unspecified; M06.9 Rheumatoid arthritis, unspecified; G40.909 Epilepsy, unspecified, not intractable, without status epilepticus; Z79.4 Long term (current) use of insulin; Z28.310 Unvaccinated for COVID-19; K25.9 Gastric ulcer, unspecified as acute or chronic, without hemorrhage or perforation; K29.70 Gastritis, unspecified, without bleeding; I10 Essential (primary) hypertension; K21.00 Gastro-esophageal reflux disease with esophagitis, without bleeding; M81.0 Age-related osteoporosis without current pathological fracture; E53.8 Deficiency of other specified B group vitamins; E78.5 Hyperlipidemia, unspecified; E86.0 Dehydration; E87.6 Hypokalemia; F32.A Depression, unspecified; F41.9 Anxiety disorder, unspecified; G89.29 Other chronic pain; M54.42 Lumbago with sciatica, left side; M54.41 Lumbago with sciatica, right side; I25.10 Atherosclerotic heart disease of native coronary artery without angina pectoris; I83.90 Asymptomatic varicose veins of unspecified lower extremity; K44.9 Diaphragmatic hernia without obstruction or gangrene; M19.90 Unspecified osteoarthritis, unspecified site; G47.30 Sleep apnea, unspecified; R13.10 Dysphagia, unspecified; K58.9 Irritable bowel syndrome, unspecified; Z68.27 Body mass index [BMI] 27.0-27.9, adult; F17.210 Nicotine dependence, cigarettes, uncomplicated; Z71.6 Tobacco abuse counseling; Z79.02 Long term (current) use of antithrombotics/antiplatelets; Z79.899 Other long term (current) drug therapy; Z86.73 Personal history of transient ischemic attack (TIA), and cerebral infarction without residual deficits; Z85.828 Personal history of other malignant neoplasm of skin; Z85.3 Personal history of malignant neoplasm of breast; Z92.21 Personal history of antineoplastic chemotherapy; Z86.16 Personal history of COVID-19; Z95.5 Presence of coronary angioplasty implant and graft; Z88.1 Allergy status to other antibiotic agents; Z88.2 Allergy status to sulfonamides; Z88.8 Allergy status to other drugs, medicaments and biological substances; W19.XXXA Unspecified fall, initial encounter
CPT/HCPCS: 36415; 36430; 43239; 45378; 72100; 80048; 80053; 81003; 82607; 82728; 82746; 83010; 83540; 83550; 83615; 83735; 83880; 84100; 84132; 84484; 85025; 85027; 85045; 85610; 85730; 86850; 86900; 86901; 86920; 88305; 91110; 93005; 93306; 93970; 94760; 96365; 96366; 96375; 99291

== ENCOUNTER → 2023-04-18 | Outpatient (CLI) | payer MEDICARE, OTHER ==
[2023-04-18 12:09] LABS: ALT 8 U/L (8-44); AST 17 U/L (13-35); LDL Cholesterol,Calculated 105.5 mg/dL (0.0-131.0)
== END | disposition home or self-care (01) ==
LOC: LABWHC1 08:43
PROVIDERS: ATTEND Internal Medicine
DX: E78.2 Mixed hyperlipidemia (principal)
CPT/HCPCS: 36415; 80061; 84450; 84460

== ENCOUNTER → 2024-01-06 | Outpatient (CLI) | payer MEDICARE ==
--- NOTE | 2024-01-11 23:05 | P.PCN ---
Date of Procedure: 01/06/24 Operative Findings: Home sleep study Pertinent history 63-year-old male patient, known history of COPD and coronary disease with previous stenting of the RCA in addition to history of diabetes mellitus, chronic kidney disease, hypertension, seizure disorder, chronic anemia, hyperlipidemia and environmental allergies. The patient was also given diagnosed obstructive sleep apnea many years back. He has not followed up with any treatment and the patient is currently undergoing home sleep study to [facility] the presence and severity of BRAXTON Pertinent physical findings Weight is 167 pounds with a BMI of 29.6 Technical description The [employer] ApneaLink system was used to complete his home sleep study. This is a type III home sleep study evaluation. The total recording duration was 8 hours and 4 minutes. The study started at 12:07 PM and ended at 8:12 AM. There was a total of 7 hours of 52 minutes of flow monitoring and 6 hours of 41 minutes of oxygen saturation monitoring. Results Respiratory analysis showed a total of 30 obstructive apneas and 23 obstructive hypopneas. The resulting AHI was 6.7. AHI in supine body position was 7.9 Oxygenation analysis Nocturnal oxygen desaturations were present. In fact, the patient's baseline pulse ox was 80% room air oxygen. The patient was placed on O2. Average pulse ox was 87% during sleep with a minimum pulse ox of 55% and the patient spent approximately 5 hours of diabetes of sleep time below pulse ox of 89% Cardiac summary Average heart rate was 68 with a minimum heart rate of 40 and a maximum rate of 238 Assessment Mild obstructive sleep apnea, with an AHI of 6.7 Chronic hypoxemia with evidence of nocturnal oxygen saturations COPD Coronary artery disease Chronic kidney disease Hypertension Seizure disorder Hyperlipidemia Chronic anemia Plan This is a case of mild obstructive sleep apnea. Treatment should be individuali zed. The benefit of CPAP therapy is marginal based on the severity of his illness. Recommend O2 therapy to maintain saturation above 90%. No immediate need for CPAP therapy unless his condition decompensates and/or the patient becomes more symptomatic. Encourage weight loss. Maintain good sleep hygiene measures.
== END ==
LOC: 3 N SLEEP 10:50
PROVIDERS: ATTEND Internal Medicine Critical Care Medicine
DX: G47.33 Obstructive sleep apnea (adult) (pediatric) (principal); R09.02 Hypoxemia; I25.10 Atherosclerotic heart disease of native coronary artery without angina pectoris; E78.5 Hyperlipidemia, unspecified; I12.9 Hypertensive chronic kidney disease with stage 1 through stage 4 chronic kidney disease, or unspecified chronic kidney disease; N18.9 Chronic kidney disease, unspecified; G40.909 Epilepsy, unspecified, not intractable, without status epilepticus; D64.9 Anemia, unspecified; E11.22 Type 2 diabetes mellitus with diabetic chronic kidney disease; F17.200 Nicotine dependence, unspecified, uncomplicated; J44.9 Chronic obstructive pulmonary disease, unspecified; Z95.5 Presence of coronary angioplasty implant and graft; Z88.8 Allergy status to other drugs, medicaments and biological substances; Z88.1 Allergy status to other antibiotic agents; Z88.2 Allergy status to sulfonamides; Z79.4 Long term (current) use of insulin; Z79.899 Other long term (current) drug therapy

== ENCOUNTER → 2024-01-12 | Outpatient (CLI) | payer MEDICARE ==
--- NOTE | 2024-01-12 09:10 | MM ---
Reason for Exam: Clinical finding. Last mammogram was performed 2 year(s) and 0 month(s) ago. Patient History: Menarche at age 16. First Full-Term at age 22. Left ovary removed at age 30. Right ovary removed at age 30. Hysterectomy at age 30. Patient has history of breast feeding. Breast cancer, right, age 49. 05/27/2009, Mastectomy on the Right side. 03/19/2009, Malignant Excisional Biopsy on the right side. 02/25/2009, Benign Core Biopsy on the right side. 02/25/2009, Benign Core Biopsy on the right side. 02/25/2009, Malignant Core Biopsy on the right side. Paternal grandmother had breast cancer at or over age 50. Prior Study Comparison: 06/01/2006 Bilateral Screening Mammogram, [facility]. 02/04/2009 Bilateral Diagnostic Mammogram, [facility]. 02/04/2009 Right Diagnostic Ultrasound, [facility]. 07/24/2010 Left Diagnostic Mammogram, [facility]. Tissue Density: Left: The breasts are heterogeneously dense, which may obscure small masses. Findings: Analyzed By CAD. No evidence for mass or distortion concern. Ultrasound recommended. Overall Assessment: Incomplete: need additional imaging evaluation, BI-RAD 0 Management: Diagnostic Breast Ultrasound of the left breast. . Results were given to the patient verbally at the time of exam. Patient should continue monthly self-breast exams. A clinical breast exam by your physician is recommended on an annual basis. This exam should not preclude additional follow-up of suspicious palpable abnormalities. Note on Joaquina scores and lifetime risk: 1. A Joaquina score greater than 3% is considered moderate risk. If this is the case, consider specialist referral to assess eligibility for a risk reducing agent. 2. If overall lifetime risk for the development of breast cancer is 20% or higher, the patient may qualify for future screening with alternating mammogram and breast MRI. [facility], , 01/12/2024 8:55 AM. Electronically signed and approved by: Mikie Hollingsworth M.D. Radiologis
--- NOTE | 2024-01-12 09:32 | USB ---
Reason for Exam: Clinical finding. Patient History: Menarche at age 16. First Full-Term at age 22. Left ovary removed at age 30. Right ovary removed at age 30. Hysterectomy at age 30. Patient has history of breast feeding. Breast cancer, right, age 49. 05/27/2009, Mastectomy on the Right side. 03/19/2009, Malignant Excisional Biopsy on the right side. 02/25/2009, Benign Core Biopsy on the right side. 02/25/2009, Benign Core Biopsy on the right side. 02/25/2009, Malignant Core Biopsy on the right side. Paternal grandmother had breast cancer at or over age 50. Technique: Method: Targeted. Prior Study Comparison: 06/01/2006 Bilateral Screening Mammogram, [facility]. 02/04/2009 Bilateral Diagnostic Mammogram, [facility]. 07/24/2010 Left Diagnostic Mammogram, [facility]. Findings: The area of palpable concern of the left breast, the axilla of the left breast and the retroareolar of the left breast were scanned. No solid or cystic masses are identified.. Overall Assessment: Negative, BI-RAD 1 Management: Diagnostic Mammogram of the left breast in 1 year. A clinical breast exam by your physician is recommended on an annual basis and results should be correlated with mammographic findings. This exam should not preclude additional follow-up of suspicious palpable abnormalities. Results were given to the patient verbally at the time of exam. [facility], , 01/12/2024 9:29 AM. Electronically signed and approved by: Mikie Hollingsworth M.D. Radiologis
--- NOTE | 2024-01-12 10:27 | BD ---
EXAMINATION TYPE: Axial Bone Density DATE OF EXAM: 01/12/2024 CLINICAL HISTORY: 63 years old Female. ICD-10 CODE: Z78.0 ASYMPTOMATIC MENOPAUSAL Height: 61.25 Weight: 169 FRAX RISK QUESTIONS: Family History (Parent hip fracture): no History of Fracture in Adulthood: no Secondary Osteoporosis: yes 3. Menopause before 45: yes 30 Rheumatoid Arthritis: yes Current Tobacco Use: yes RISK FACTORS HISTORY OF: Surgery to Spine/Hip(right/left)/Wrist (right/left): no MEDICATIONS: Thyroid Medications: no Osteoporosis Medications: no EXAM MEASUREMENTS: Bone mineral densitometry was performed using the User Replay System. Bone mineral density as measured about the Lumbar spine is: ----- L1-L4(G/cm2): 1.230 T Score Values are as follows: ----- L1: 0.2 ----- L2: 0.1 ----- L3: 0.3 ----- L4: 0.7 ----- L1-L4: 0.4 Z Score Values are as follows: ----- L1: 1.4 ----- L2: 1.3 ----- L3: 1.5 ----- L4: 1.9 ----- L1-L4: 1.6 Bone mineral density baseline Bone mineral density about the R hip (g/cm2): 0.967 Bone mineral density about the L hip (g/cm2): 0.888 T Score values are as follows: -----R Neck: 0.3 -----L Neck: -1.5 -----R Total: -0.3 -----L Total: -1.0 Z Score values are as follows: -----R Neck: 1.5 -----L Neck: -0.3 -----R Total: 0.6 -----L Total: 0.0 Bone mineral density baseline FRAX%s: The graph provided illustrates a 18.3% chance for a major osteoporotic fx and a 3.5% chance f or the hips probability for fx in 10 years time. IMPRESSION: Normal (Values between +1 and -1 indicate normal bone mass). Consider repeating this study in 5 year s or sooner if there is some new clinical indication. NOTE: T-SCORE=SD OF THE YOUNG ADULT MEAN. [facility], , 01/12/2024 10:25 AM
== END | disposition home or self-care (01) ==
LOC: RADMAMWWP 08:19
PROVIDERS: ATTEND Family Medicine
CPT/HCPCS: 77061; 77065; 77080

== ENCOUNTER → 2024-01-30 | Outpatient (CLI) | payer MEDICARE, OTHER ==
--- NOTE | 2024-01-30 11:02 | CT ---
EXAMINATION TYPE: CT chest wo con CT DLP: 348 mGycm, Automated exposure control for dose reduction was used. DATE OF EXAM: 01/30/2024 10:43 AM COMPARISON: PET/CT 08/30/2009. Chest radiograph 01/03/2024 CLINICAL INDICATION:Female, 63 years old with history of R91.1 SOLITARY PULMONARY NODULE; PHH, pulmon rossana nodule TECHNIQUE: Multiple axial images were obtained through the chest without IV contrast. Lack of IV or o ral contrast limits evaluation of solid and hollow organ viscera. . Coronal and sagittal reformats re viewed. FINDINGS: LUNGS/ PLEURA: No pleural effusion or pneumothorax. Scattered peripheral calcified granulomas through out the lungs redemonstrate. Biapical pleural parenchymal scarring with a stable right apical 1.5 cm groundglass opacity dating back to PET/CT 08/30/2009 and considered benign (series 4, image 11). Mild centrilobular emphysematous changes. AIRWAY: Patent and unremarkable.. HEART: The heart is mildly increased in size.. Trace pericardial effusion. Mild coronary arterial ta cifications. MEDIASTINUM: No gross evidence of adenopathy. VASCULATURE: No aortic aneurysm. Atherosclerotic calcification of the aorta and its branches. Mildly enlarged main pulmonary artery measuring up to 3.3 cm which can be seen with pulmonary hypertension. MUSCULOSKELETAL: No acute osseous abnormalities. Multilevel degenerative disc disease with anterior o steophytosis. SOFT TISSUES/LYMPH NODES: Right breast prosthesis. LOWER NECK: No significant findings. UPPER ABDOMEN: Gallbladder surgically absent. Dilatation of the common bile but measures up to 1.6 cm which is likely post cholecystectomy related. IMPRESSION: 1. Biapical pleural parenchymal scarring with a stable right apical 1.5 cm groundglass opacity dating back to PET/CT 08/30/2009 and considered benign. Multiple similar peripheral calcified granulomas. No definitive suspicious pulmonary nodule. 2. Mild COPD changes. [facility], , 01/30/2024 11:00 AM
== END | disposition home or self-care (01) ==
LOC: RADCTMAIN 09:53
PROVIDERS: ATTEND Internal Medicine
DX: J44.9 Chronic obstructive pulmonary disease, unspecified (principal); J84.10 Pulmonary fibrosis, unspecified; R91.1 Solitary pulmonary nodule; J98.4 Other disorders of lung
CPT/HCPCS: 71250

== ENCOUNTER 2024-02-29 22:05 | Observation (INO) | payer MEDICARE, OTHER ==
--- NOTE | 2024-02-29 22:33 | ED ---
General Adult HPI - General Chief complaint: Chest Pain Stated complaint: Chest Pain Time Seen by Provider: 02/29/24 22:15 Source: patient Mode of arrival: ambulatory Limitations: no limitations - History of Present Illness Initial comments: Dictation was produced using [employer] dictation software. please excuse any grammatical, word or spelling errors. Chief Complaint: 64-year-old female presents with abnormal outpatient lab History of Present Illness: Patient 64-year-old female she has multiple comorbidities include coronary artery disease, tobacco use, severe emphysema. Patient went to go see her primary care doctor yesterday for dizziness. Much of blood work was drawn. She was called today told to come to the ER for elevated BNP. Patient told that she is unable to take Lasix due to electrolyte derangement that it causes. Patient states that she has some chest pain back pain. She does feel short of breath. She does cough. The ROS documented in this emergency department record has been reviewed and confirmed by me. Those systems with pertinent positive or negative responses have been documented in the HPI. All other systems are other negative and/or noncontributory. - Related Data Home Medications Medication Instructions Recorded Confirmed Insulin Aspart [NovoLOG Flexpen] See Protocol SQ ACHS 01/15/19 08/26/23 Insulin Glargine [Lantus Vial] 4 unit SQ HS 01/15/19 08/26/23 Linaclotide [Linzess] 145 mcg PO BID 01/15/19 08/26/23 Montelukast Sodium [Singulair] 10 mg PO HS 01/15/19 08/26/23 Nitroglycerin Sl Tabs [Nitrostat] 0.4 mg SUBLINGUAL Q5M PRN 01/15/19 08/26/23 dilTIAZem HCL [Cardizem CD] 120 mg PO HS 01/15/19 08/26/23 gemfibroziL [Lopid] 600 mg PO BID 01/15/19 08/26/23 levETIRAcetam [Keppra] 750 mg PO BID 01/15/19 08/26/23 Baclofen 10 mg PO TID 12/04/21 08/26/23 Citalopram Hydrobromide 40 mg PO DAILY 12/04/21 08/26/23 [Citalopram HBr] Evolocumab [Repatha Sureclick] 140 mg SQ Q14D 12/04/21 08/26/23 Folic Acid 1 mg PO DAILY 12/04/21 08/26/23 Gabapentin [Neurontin] 200 mg PO BID 12/04/21 08/26/23 Magnesium Chloride [Mag64] 128 mg PO DAILY 12/04/21 08/26/23 Triamterene/Hydrochlorothiazid 1 tab PO HS 12/04/21 08/26/23 [Triamterene-Hctz 37.5-25 mg Tb] oxyCODONE HCL [oxyCODONE HCL (IR)] 10 mg PO TID 12/04/21 08/26/23 rOPINIRole HCL [Requip] 1 mg PO TID 12/04/21 08/26/23 Metoprolol Succinate (ER) [Toprol 25 mg PO W/LUNCH 04/16/22 08/26/23 XL] Albuterol Inhaler [Ventolin Hfa 1 puff INHALATION DAILY PRN 02/18/23 08/26/23 Inhaler] Ezetimibe [Zetia] 10 mg PO DAILY 08/12/23 08/26/23 Magnesium Chloride [Mag64] 64 mg PO DAILY 08/12/23 08/26/23 Previous Rx's Medication Instructions Recorded Aspirin 81 mg PO DAILY #30 tab 04/21/22 Ferrous Sulfate [Iron (65 MG 325 mg PO BID-W/MEALS #60 tab 04/21/22 Elemental)] Pantoprazole Sodium [Protonix] 40 mg PO DAILY #30 tab 04/21/22 Allergies Allergy/AdvReac Type Severity Reaction Status Date / Time atorvastatin [From Lipitor] Allergy Unknown Unknown Verified 02/29/24 22:13 Corticosteroids Allergy Unknown Anaphylaxis Verified 02/29/24 22:13 (Glucocorticoids) doxycycline Allergy Unknown Unknown Verified 02/29/24 22:13 Oujsgvr-CCU-TnQ Reductase Allergy Unknown Anaphylaxis Verified 02/29/24 22:13 Inhibitor [Snqbaxe-Gpb-Rfp Reductase Inhibitor] Sulfa (Sulfonamide AdvReac Unknown Nausea & Verified 02/29/24 22:13 Antibiotics) Vomiting ANABOLIC STEROIDS Allergy Severe Anaphylaxis Uncoded 02/29/24 22:13 persumesor aerosol products Allergy Severe Anaphylaxis Uncoded 02/29/24 22:13 STEROIDS Allergy Severe Anaphylaxis Uncoded 02/29/24 22:13 EKG Electrode Patches Allergy Unknown Blisters Uncoded 02/29/24 22:13 Review of Systems ROS Statement: Those systems with pertinent positive or pertinent negative responses have been documented in the HPI. ROS Other: All systems not noted in ROS Statement are negative. Past Medical History Past Medical History: Cancer, Chest Pain / Angina, COPD, CVA/TIA, Diabetes Mellitus, GERD/Reflux, Hypertension, Pneumonia, Rheumatoid Arthritis (RA), Seizure Disorder, Sleep Apnea/CPAP/BIPAP Additional Past Medical History / Comment(s): SEIZURE X1 (2011), HX TIA, HX OF HEAD INJURIES, MIGRAINES, BRONCHITIS, SLEEP APNEA-USES C-PAP MACHINE, HERNIATED DISCS WITH BACK PAIN, OSTEOPOROSIS, IBS, HX COLON POLYPS, HX OF DYSPHAGIA WITH DILATION- STATES USUALLY YEARLY., RIGHT BREAST CANCER 2010 WITH SURGERY & CHEMO., FACIAL SKIN CANCER.. VARICOSE VEINS, STATES ENLARGED LEFT VENTRICLE. History of Any Multi-Drug Resistant Organisms: None Reported Past Surgical History: Appendectomy, Breast Surgery, Section, Cholec ystectomy, Heart Catheterization, Heart Catheterization With Stent, Hysterectomy, Tonsillectomy Additional Past Surgical History / Comment(s): CARPAL TUNNEL, LEFT BREAST BX AND LIFT, RIGHT BREAST BX, LUMPECTOMY'S AND RIGHT BREAST MASTECTOMY AND RECONSTRUCTION. PORT-A-CATH INSERTED AND REMOVED. Past Anesthesia/Blood Transfusion Reactions: No Reported Reaction, Motion Sickness Date of Last Stent Placement:: 10/19/22 Past Psychological History: Anxiety, Depression Smoking Status: Current every day smoker Past Alcohol Use History: None Reported Past Drug Use History: None Reported - Past Family History Mother Family Medical History: Cancer Additional Family Medical History / Comment(s): LUNG CANCER. Father Family Medical History: Coronary Artery Disease (CAD), Diabetes Mellitus General Exam - General Exam Comments Initial Comments: PHYSICAL EXAM: General Impression: Alert and oriented x3, not in acute distress HEENT: Normocephalic atraumatic, extra-ocular movements intact, pupils equal and reactive to light bilaterally, mucous membranes moist. Cardiovascular: Heart regular rate and rhythm Chest: Able to complete full sentences, no retractions, no tachypnea, diffuse lung wheezing Abdomen: abdomen soft, non-tender, non-distended, no organomegaly Musculoskeletal: Pulses present and equal in all extremities, 2+ pitting edema bilaterally Motor: no focal deficits noted Neurological: CN II-XII grossly intact, no focal motor or sensory deficits noted Skin: Intact with no visualized rashes Psych: Normal affect and mood Limitations: no limitations Course Vital Signs 02/29/24 03/01/24 22:09 00:23 Temperature 98.6 F Pulse Rate 77 66 Respiratory 17 18 Rate Blood Pressure 117/77 133/83 O2 Sat by Pulse 87 L 93 L Oximetry Medical Decision Making - Medical Decision Making Was pt. sent in by a medical professional or institution (, PA, DIABETES EDUCATOR, urgent care, hospital, or long term...) When possible be specific @ -No Did you speak to anyone other than the patient for history (EMS, parent, family, police, friend...)? What history was obtained from this source @ -No Did you review nursing and triage notes (agree or disagree)? Why? @ -I reviewed and agree with nursing and triage notes Were old charts reviewed (outside hosp., previous admission, EMS record, old EKG, old radiological studies, urgent care reports/EKG's, long term records)? Report findings @ -No old charts were reviewed Differential Diagnosis (chest pain, altered mental status, abdominal pain women, abdominal pain men, vaginal bleeding, musculoskeletal, weakness, fever, dyspnea, syncope, headache, dizziness, GI bleed, back pain, seizure, CVA, palpatations, mental health)? @ -Differential Dyspnea: Coronary syndrome, arrhythmia, tamponade, asthma, COPD, pulmonary embolism, pneumonia, pneumothorax, pulmonary effusion, anaphylaxis, diabetic ketoacidosis, flailed chest, pulmonary contusion, diaphragmatic rupture, anemia, neuromuscular, this is not meant to be an all-inclusive list. EKG interpreted by me (3pts min.). @ -See above X-rays interpreted by me (1pt min.). @ -Chest x-ray shows no acute processes CT interpreted by me (1pt min.). @ -CT angiography shows CHF U/S interpreted by me (1pt. min.). @ -None done What testing was considered but not performed or refused? (CT, X-rays, U/S, labs)? Why? @ -None What meds were considered but not given or refused? Why? @ -None Was smoking cessation discussed for >3mins.? @ -No Were there social determinants of health that impacted care today? How? (Homelessness, low income, unemployed, alcoholism, drug addiction, transportation, low edu. Level, literacy, decrease access to med. care, shelter, rehab)? @ -No Was there de-escalation of care discussed even if they declined (Discuss DNR or withdrawal of care, Hospice)? DNR status @ -No What co-morbidities impacted this encounter? (DM, HTN, Smoking, COPD, CAD, Cancer, CVA, ARF, Chemo, Hep., AIDS, mental health diagnosis, sleep apnea, morbid obesity)? @ -COPD, emphysema Was patient admitted / discharged? Hospital course, mention meds given and route, prescriptions, significant lab abnormalities, going to OR and other pertinent info. @ -64-year-old female instructed to come to the ER for abnormal outpatient labs found to have elevated BNP. Vital signs upon arrival shows 87% on room air she does not wear home O2. Rest of vital signs within acceptable limits. Laboratory evaluation obtained. BNP elevated at 6000. Troponin elevated 0.018 likely secondary to trope leak. Rest of labs within acceptable limits. Patient's imaging studies suggest heart failure. Clinical presentation consistent with new onset cardiomyopathy. Patient admitted with consultation to cardiology. Case discussed with hospitalist for admission. Did you discuss the management of the patient with other professionals (professionals i.e. , PA, DIABETES EDUCATOR, lab, RT, psych nurse, nephrology social worker, data support analyst, teacher, deck officer, outsole caser)? Give summary @ -See above Was critical care preformed (if so, how long)? @ -Yes, 33 minutes for hypoxic respiratory failure Undiagnosed new problem with uncertain prognosis? @ -No Drug Therapy requiring intensive monitoring for toxicity (Heparin, Nitro, I nsulin, Cardizem)? @ -No Were any procedures done? @ -No Diagnosis/symptom? Acute, or Chronic, or Acute on Chronic? Uncomplicated (without systemic symptoms) or Complicated (systemic symptoms)? @ -New onset cardiomyopathy Side effects of treatment? @ -No Exacerbation, Progression, or Severe Exacerbation? @ -No Poses a threat to life or bodily function? How? (Chest pain, [place], [place], pneumonia, PE, COPD, DKA, ARF, appy, cholecystitis, CVA, Diverticulitis, Homicidal, Suicidal, threat to staff... and all critical care pts) @ -yes - Lab Data Result diagrams: 02/29/24 22:46 02/29/24 22:46 Lab Results 02/29/24 02/29/24 02/29/24 Range/Units 22:46 22:46 22:46 WBC 4.3 (3.8-10.6) k/uL RBC 5.30 (3.80-5.40) m/uL Hgb 17.0 H (11.4-16.0) gm/dL Hct 53.1 H (34.0-46.0) % MCV 100.2 H (80.0-100.0) fL MCH 32.0 (25.0-35.0) pg MCHC 31.9 (31.0-37.0) g/dL RDW 16.6 H (11.5-15.5) % Plt Count 126 L (150-450) k/uL MPV 9.6 Neutrophils % 55 % Lymphocytes % 31 % Monocytes % 9 % Eosinophils % 1 % Basophils % 1 % Neutrophils # 2.4 (1.3-7.7) k/uL Lymphocytes # 1.3 (1.0-4.8) k/uL Monocytes # 0.4 (0-1.0) k/uL Eosinophils # 0.1 (0-0.7) k/uL Basophils # 0.0 (0-0.2) k/uL Hypochromasia Slight Anisocytosis Slight Macrocytosis Slight PT 11.4 (10.0-12.5) sec INR 1.0 (<1.2) APTT 23.1 (22.0-30.0) sec D-Dimer 1.15 H (<0.60) mg/L FEU Sodium 136 L (137-145) mmol/L Potassium 3.5 (3.5-5.1) mmol/L Chloride 108 H (98-107) mmol/L Carbon Dioxide 25 (22-30) mmol/L Anion Gap 3 mmol/L BUN 24 H (7-17) mg/dL Creatinine 1.03 (0.52-1.04) mg/dL Est GFR (CKD-EPI)AfAm 66 (>60 ml/min/1.73 sqM) Est GFR (CKD-EPI)NonAf 57 (>60 ml/min/1.73 sqM) Glucose 172 H (74-99) mg/dL Calcium 8.4 (8.4-10.2) mg/dL Magnesium 1.9 (1.6-2.3) mg/dL Total Bilirubin 0.7 (0.2-1.3) mg/dL AST 21 (14-36) U/L ALT 12 (4-34) U/L Alkaline Phosphatase 72 (38-126) U/L Troponin I (0.000-0.034) ng/mL NT-Pro-B Natriuret Pep 6120 pg/mL Total Protein 5.7 L (6.3-8.2) g/dL Albumin 3.4 L (3.5-5.0) g/dL 02/29/24 Range/Units 22:46 WBC (3.8-10.6) k/uL RBC (3.80-5.40) m/uL Hgb (11.4-16.0) gm/dL Hct (34.0-46.0) % MCV (80.0-100.0) fL MCH (25.0-35.0) pg MCHC (31.0-37.0) g/dL RDW (11.5-15.5) % Plt Count (150-450) k/uL MPV Neutrophils % % Lymphocytes % % Monocytes % % Eosinophils % % Basophils % % Neutrophils # (1.3-7.7) k/uL Lymphocytes # (1.0-4.8) k/uL Monocytes # (0-1.0) k/uL Eosinophils # (0-0.7) k/uL Basophils # (0-0.2) k/uL Hypochromasia Anisocytosis Macrocytosis PT (10.0-12.5) sec INR (<1.2) APTT (22.0-30.0) sec D-Dimer (<0.60) mg/L FEU Sodium (137-145) mmol/L Potassium (3.5-5.1) mmol/L Chloride (98-107) mmol/L Carbon Dioxide (22-30) mmol/L Anion Gap mmol/L BUN (7-17) mg/dL Creatinine (0.52-1.04) mg/dL Est GFR (CKD-EPI)AfAm (>60 ml/min/1.73 sqM) Est GFR (CKD-EPI)NonAf (>60 ml/min/1.73 sqM) Glucose (74-99) mg/dL Calcium (8.4-10.2) mg/dL Magnesium (1.6-2.3) mg/dL Total Bilirubin (0.2-1.3) mg/dL AST (14-36) U/L ALT (4-34) U/L Alkaline Phosphatase (38-126) U/L Troponin I 0.018 (0.000-0.034) ng/mL NT-Pro-B Natriuret Pep pg/mL Total Protein (6.3-8.2) g/dL Albumin (3.5-5.0) g/dL Disposition Clinical Impression: CHF (congestive heart failure) Disposition: ADMITTED IP TO THIS HOSP Condition: Fair Referrals: Cyn Pulido MD [Primary Care Provider] - 1-2 days Decision Time: 00:15
--- NOTE | 2024-02-29 23:05 | XR ---
EXAMINATION TYPE: XR chest 2V DATE OF EXAM: 02/29/2024 CLINICAL HISTORY: Chest pain. TECHNIQUE: Frontal and lateral views of the chest are obtained. COMPARISON: Chest CT January 30, 2024 FINDINGS: There is persisting cardiomegaly with underlying emphysematous change along with periphera l reticular nodular increased opacities bilaterally. No pleural effusion or pneumothorax is seen. Oss eous structures are intact. IMPRESSION: Chronic parenchymal changes and cardiomegaly without acute pulmonary process. [facility], , 02/29/2024 11:03 PM
[2024-02-29 23:19] LABS: ALT 12 U/L (4-34); AST 21 U/L (14-36); African American GFR (CKD) 66 (>60 ml/min/1.73 sqM); Albumin 3.4 g/dL (3.5-5.0); Alkaline Phosphatase 72 U/L (38-126); Anion Gap 3 mmol/L; Blood Urea Nitrogen 24 mg/dL (7-17); Calcium 8.4 mg/dL (8.4-10.2); Carbon Dioxide 25 mmol/L (22-30); Chloride 108 mmol/L (98-107); Glucose 172 mg/dL (74-99); Magnesium 1.9 mg/dL (1.6-2.3); Non-African American GFR(CKD) 57 (>60 ml/min/1.73 sqM); Potassium 3.5 mmol/L (3.5-5.1); Sodium 136 mmol/L (137-145); Total Bilirubin 0.7 mg/dL (0.2-1.3); Total Protein 5.7 g/dL (6.3-8.2)
[2024-02-29 23:20] LABS: Partial Thromboplastin Time 23.1 sec (22.0-30.0); Prothrombin Time 11.4 sec (10.0-12.5)
[2024-02-29 23:21] LABS: NT-Pro-B-Type Natriuretic Pept 6120 pg/mL
[2024-02-29 23:25] LABS: Anisocytosis Slight; Basophils % (A) 1 %; Eosinophils # (A) 0.1 k/uL (0-0.7); Eosinophils % (A) 1 %; HCT 53.1 % (34.0-46.0); Hypochromasia Slight; Lymphocytes # (A) 1.3 k/uL (1.0-4.8); Lymphocytes % (A) 31 %; MCHC 31.9 g/dL (31.0-37.0); MCV 100.2 fL (80.0-100.0); Macrocytosis Slight; Mean Platelet Volume 9.6; Monocytes # (A) 0.4 k/uL (0-1.0); Monocytes % (A) 9 %; Neutrophils # (A) 2.4 k/uL (1.3-7.7); Neutrophils % (A) 55 %; Platelet Count 126 k/uL (150-450); RDW 16.6 % (11.5-15.5); WBC 4.3 k/uL (3.8-10.6)
[2024-03-01] MEDS: SODIUM CHLORIDE 0.9% 500 ML 250 ML IV STA (00:18)
--- NOTE | 2024-03-01 00:20 | CT ---
EXAMINATION TYPE: CT angio chest DATE OF EXAM: 03/01/2024 COMPARISON: Prior CT January 30, 2024 HISTORY: HIGH D DIMER CT DLP: 480.4 mGycm. Automated Exposure Control for Dose Reduction was Utilized. CONTRAST: CTA scan of the thorax is performed with IV Contrast, patient injected with 80 mL of Isovue 370, pulm onary embolism protocol. MIP Images are created on CT scanner and reviewed. FINDINGS: LUNGS: Mild to moderate underlying emphysematous change is redemonstrated. Stable 1.2 cm right apical scar like opacity axial image 11. No pleural effusion or pneumothorax seen bilaterally. Several tiny calcified nodules or benign granulomas in the periphery of the left lung are redemonstrated. MEDIASTINUM: There is satisfactory enhancement of the pulmonary artery and its branches, there is no CT evidence for pulmonary embolism. Some enhancement of the thoracic aorta without aneurysm or dissec tion. Cardiomegaly is seen. No significant pericardial effusion. Coronary artery calcification is pre sent. OTHER: Right breast implant redemonstrated. Cholecystectomy clips are seen. Mild ascites and visualiz ed upper abdomen. Mild to moderate diffuse subcutaneous edema in the abdomen. Multilevel spurring in the thoracic spine. IMPRESSION: 1. No CT evidence for acute pulmonary embolus. 2. Cardiomegaly and mild to moderate underlying emphysematous change without suspicious new acute pul monary process. 3. New mild ascites in the abdomen and mild to moderate diffuse subcutaneous edema. [facility], , 03/01/2024 12:17 AM
[2024-03-01] MEDS: FUROSEMIDE 10 MG/ML 4 ML VIAL IV SCH ×2 (01:22→21:31)
--- NOTE | 2024-03-01 04:32 | P.HPIM ---
History of Present Illness H&P Date: 03/01/24 Chief Complaint: Chest pain Patient is a 64-year-old female with past medical history of coronary artery disease (left heart cath in 2021 with a stent), tobacco use, severe emphysema, COPD, history of CVA/TIA, diabetes mellitus, GERD, hypertension, rheumatoid arthritis, seizure disorder, history of right breast cancer in 2009 status post of surgery and chemotherapy, and sleep apnea presented to the emergency department with chest pain and shortness of breath that has been progressively getting worse over the past few days. Patient reports that she used to be able to walk a lot more without getting short winded and lightheaded. Her last echocardiogram was done in 2022 and showed left ventricular ejection fraction of 55 to 60%. Patient visited her primary care physician yesterday and blood work was drawn. Her BNP was found to be elevated and patient was called today told to come to the ED for elevated BNP. Patient also reported a constant sharp chest pain that has been going on for the past few days which was not relieved with nitroglycerin. Patient also reported leg swelling that started a few days ago and is now getting worse. Reported that leg swelling is something new and has never happened before. Patient also reports dysuria and blood was found in the urine that started a few days ago. Patient denies fever, chills, vomiting, diarrhea, constipation. Reports belly pain, nausea, lower extremity swelling. ED documentation reviewed. In the ED patient was treated Lasix 40 mg IV. Vitals on admission temperature 98.6, pulse rate 66, respiratory rate 18, blood pressure 133/83, oxygen saturation 93% on nasal cannula at 2 L/min EKG independently interpreted as sinus rhythm with first-degree AV block, anteroseptal myocardial infarction probably old infarct CXR shows chronic parenchymal changes and cardiomegaly without acute pulmonary process CT angio of the chest shows no CT evidence for acute pulmonary embolus, cardiomegaly and mild to moderate underlying emphysematous change without suspicious new acute pulmonary process, new mild ascites in the abdomen and mild to moderate diffuse subcutaneous edema. Labs on admission show WBC 4.3, hemoglobin 17, hematocrit 53.1, platelet count 126, PT 11.4, PTT 23.1, INR 1.0, D-dimer 1.15, sodium 136, potassium 3.5, chloride 108, carbon dioxide 25, BUN 24, creatinine 1.03, glucose 172, troponin 0.018, BNP 6120, albumin 3.4 Review of systems: Pertinent positives and negatives as discussed in HPI, a complete review of systems was performed and all other systems are negative. PMH: coronary artery disease (left heart cath in 2021 with a stent placed and last echocardiogram done in 2022 showed left ventricular ejection fraction of 55 to 60%), tobacco use, severe emphysema, COPD, history of CVA/TIA, diabetes mellitus, GERD, hypertension, rheumatoid arthritis, seizure disorder, history of right breast cancer in 2009 status post of surgery and chemotherapy, and sleep apnea PSH: Appendectomy, breast surgery, , cholecystectomy, heart cath with stent in 2021, hysterectomy, tonsillectomy, carpal tunnel, lumpectomies and a right breast mastectomy and reconstruction, port-a-cath inserted and removed FMH: Mother has a history of lung cancer, father has a history of coronary jj ry disease and diabetes mellitus Allergies: Atorvastatin, corticosteroids, doxycycline, statins Social history: Tobacco: Currently everyday smoker Alcohol: No reported Recreational drugs: None reported Travel: No recent travel history Sick contacts: No recent sick contacts Physical examination: Vital signs reviewed General: nontoxic, no distress, appears at stated age, well-appearing Derm: warm, dry, intact Head: atraumatic, normocephalic, symmetric Eyes: EOMI, anicteric sclera Mouth: no lip lesion, mucus membranes moist Cardiovascular: S1 S2 reg, no murmur, distended JVD Lungs: Diffuse expiratory wheezing was noted, no rhonchi, no rales, no accessory muscle use Abdominal: soft, diffusely tender to palpation, no signs of peritonitis, no rebound tenderness Extremities: No cyanosis, clubbing. 2+ pitting edema noted bilateral lower extremity Neuro: Alert, Oriented, Gross neurological examination did not reveal any focal deficits. Intact muscle strength bilateral upper and lower extremity 5 out of 5. Cranial nerves II to XII grossly intact. Intact sensation in upper lower extremity bilaterally. Psych: appropriate affect Assessment/Plan: Patient is a 64-year-old female with past medical history of coronary artery disease (left heart cath in 2021 with a stent placed and last echocardiogram done in 2022 showed left ventricular ejection fraction of 55 to 60%), tobacco use, severe emphysema, COPD, history of CVA/TIA, diabetes mellitus, GERD, hypertension, rheumatoid arthritis, seizure disorder, history of right breast cancer in 2009 status post of surgery and chemotherapy, and sleep apnea presented to the emergency department with chest pain. Patient will be admitted under inpatient medicine service. Active: #. Congestive heart failure with reduced ejection fraction Last echo in 2022 ejection fraction of 55 to 60% BNP 6120 Order echocardiogram Continue IV Lasix 40 mg every 12 hour, monitor CMP Lisinopril 5 mg once daily Spironolactone 12.5 mg once daily Metoprolol succinate extended release 25 mg once daily Farxiga 10 mg once daily Cardiology consult Cardiac monitoring daily weight fluid restriction to 2000 cc daily #. Urinary tract infection Reports urinary symptoms Urinalysis Urine culture afebrile, no leukocytosis #. Chest pain rule out ACS Cardiac monitoring EKG showed a sinus rhythm with first-degree AV block Troponin 0.018 Trend troponin continue aspirin and zetia #. Diabetes mellitus Glucose 172 Sliding scale insulin Patient reports currently not taking any insulin at home #. Restless leg syndrome Continue home baclofen 10 mg 3 times daily, gabapentin 200 mg twice daily, ropinirole 1 mg 3 times daily One-time dose of oxycodone 10 mg Will restart rest of home medications once pharmacy confirmed with patient in the morning secondary polycythemia Hgb 17 possibly secondary to heavy smoking patient need to consider theraputic phlebotomy as OP to reduce HCT to 45% Chronic: #. GERD Continue Protonix 40 mg daily #. Hypertension Lisinopril 5 mg once daily #. Seizure disorder Continue Keppra 750 mg twice daily F: No restrictions E: Replete as needed N: Heart healthy diet A: Ambulatory DVT prophylaxis: Lovenox 40 mg subcu daily The patient is admitted with an anticipated more than 2 midnight stay for evaluation of congestive heart failure CODE STATUS: No code Discussed with: Dr. Kenyon Anticipated discharge place: Home I have seen and evaluated the patient today. I Discussed the case with the resident and agree with the resident's findings I edited the assessment and plan as necessary as documented in the resident's note. Past Medical History Past Medical History: Cancer, Chest Pain / Angina, COPD, CVA/TIA, Diabetes Mellitus, GERD/Reflux, Hypertension, Pneumonia, Rheumatoid Arthritis (RA), Seizure Disorder, Sleep Apnea/CPAP/BIPAP Additional Past Medical History / Comment(s): SEIZURE X1 (2011), HX TIA, HX OF HEAD INJURIES, MIGRAINES, BRONCHITIS, SLEEP APNEA-USES C-PAP MACHINE, HERNIATED DISCS WITH BACK PAIN, OSTEOPOROSIS, IBS, HX COLON POLYPS, HX OF DYSPHAGIA WITH DILATION- STATES USUALLY YEARLY., RIGHT BREAST CANCER 2010 WITH SURGERY & CHEMO., FACIAL SKIN CANCER.. VARICOSE VEINS, STATES ENLARGED LEFT VENTRICLE. History of Any Multi-Drug Resistant Organisms: None Reported Past Surgical History: Appendectomy, Breast Surgery, Section, Cholecystectomy, Heart Catheterization, Heart Catheterization With Stent, Hysterectomy, Tonsillectomy Additional Past Surgical History / Comment(s): CARPAL TUNNEL, LEFT BREAST BX AND LIFT, RIGHT BREAST BX, LUMPECTOMY'S AND RIGHT BREAST MASTECTOMY AND RECONSTRUCTION. PORT-A-CATH INSERTED AND REMOVED. Past Anesthesia/Blood Transfusion Reactions: No Reported Reaction, Motion Sickness Date of Last Stent Placement:: 10/19/22 Past Psychological History: Anxiety, Depression Smoking Status: Current every day smoker Past Alcohol Use History: None Reported Past Drug Use History: None Reported - Past Family History Mother Family Medical History: Cancer Additional Family Medical History / Comment(s): LUNG CANCER. Father Family Medical History: Coronary Artery Disease (CAD), Diabetes Mellitus Medications and Allergies Home Medications Medication Instructions Recorded Confirmed Type Insulin Aspart [NovoLOG Flexpen] See Protocol SQ ACHS 01/15/19 08/26/23 History Insulin Glargine [Lantus Vial] 4 unit SQ HS 01/15/19 08/26/23 History Linaclotide [Linzess] 145 mcg PO BID 01/15/19 08/26/23 History Montelukast Sodium [Singulair] 10 mg PO HS 01/15/19 08/26/23 History Nitroglycerin Sl Tabs [Nitrostat] 0.4 mg SUBLINGUAL Q5M PRN 01/15/19 08/26/23 History dilTIAZem HCL [Cardizem CD] 120 mg PO HS 01/15/19 08/26/23 History gemfibroziL [Lopid] 600 mg PO BID 01/15/19 08/26/23 History levETIRAcetam [Keppra] 750 mg PO BID 01/15/19 08/26/23 History Baclofen 10 mg PO TID 12/04/21 08/26/23 History Citalopram Hydrobromide 40 mg PO DAILY 12/04/21 08/26/23 History [Citalopram HBr] Evolocumab [Repatha Sureclick] 140 mg SQ Q14D 12/04/21 08/26/23 History Folic Acid 1 mg PO DAILY 12/04/21 08/26/23 History Gabapentin [Neurontin] 200 mg PO BID 12/04/21 08/26/23 History Magnesium Chloride [Mag64] 128 mg PO DAILY 12/04/21 08/26/23 History Triamterene/Hydrochlorothiazid 1 tab PO HS 12/04/21 08/26/23 History [Triamterene-Hctz 37.5-25 mg Tb] oxyCODONE HCL [oxyCODONE HCL (IR)] 10 mg PO TID 12/04/21 08/26/23 History rOPINIRole HCL [Requip] 1 mg PO TID 12/04/21 08/26/23 History Metoprolol Succinate (ER) [Toprol 25 mg PO W/LUNCH 04/16/22 08/26/23 History XL] Aspirin 81 mg PO DAILY #30 tab 04/21/22 08/26/23 Rx Ferrous Sulfate [Iron (65 MG 325 mg PO BID-W/MEALS #60 tab 04/21/22 08/26/23 Rx Elemental)] Pantoprazole Sodium [Protonix] 40 mg PO DAILY #30 tab 04/21/22 08/26/23 Rx Albuterol Inhaler [Ventolin Hfa 1 puff INHALATION DAILY PRN 02/18/23 08/26/23 History Inhaler] Ezetimibe [Zetia] 10 mg PO DAILY 08/12/23 08/26/23 History Magnesium Chloride [Mag64] 64 mg PO DAILY 08/12/23 08/26/23 History Allergies Allergy/AdvReac Type Severity Reaction Status Date / Time atorvastatin [From Lipitor] Allergy Unknown Unknown Verified 02/29/24 22:13 Corticosteroids Allergy Unknown Anaphylaxis Verified 02/29/24 22:13 (Glucocorticoids) doxycycline Allergy Unknown Unknown Verified 02/29/24 22:13 Mcldnnj-IUN-QyS Reductase Allergy Unknown Anaphylaxis Verified 02/29/24 22:13 Inhibitor [Hyuhmqw-Bdu-Aze Reductase Inhibitor] Sulfa (Sulfonamide AdvReac Unknown Nausea & Verified 02/29/24 22:13 Antibiotics) Vomiting ANABOLIC STEROIDS Allergy Severe Anaphylaxis Uncoded 02/29/24 22:13 persumesor aerosol products Allergy Severe Anaphylaxis Uncoded 02/29/24 22:13 STEROIDS Allergy Severe Anaphylaxis Uncoded 02/29/24 22:13 EKG Electrode Patches Allergy Unknown Blisters Uncoded 02/29/24 22:13 Physical Exam Vitals: Vital Signs Temp Pulse Resp BP Pulse Ox 03/01/24 00:23 66 18 133/83 93 L 02/29/24 22:09 98.6 F 77 17 117/77 87 L Intake and Output 02/29/24 02/29/24 03/01/24 14:59 22:59 06:59 Other: Weight 84.822 kg Results CBC & Chem 7: 02/29/24 22:46 02/29/24 22:46 Labs: Abnormal Lab Results - Last 24 Hours (Table) 02/29/24 02/29/24 02/29/24 Range/Units 22:46 22:46 22:46 Hgb 17.0 H (11.4-16.0) gm/dL Hct 53.1 H (34.0-46.0) % MCV 100.2 H (80.0-100.0) fL RDW 16.6 H (11.5-15.5) % Plt Count 126 L (150-450) k/uL D-Dimer 1.15 H (<0.60) mg/L FEU Sodium 136 L (137-145) mmol/L Chloride 108 H (98-107) mmol/L BUN 24 H (7-17) mg/dL Glucose 172 H (74-99) mg/dL Total Protein 5.7 L (6.3-8.2) g/dL Albumin 3.4 L (3.5-5.0) g/dL
[2024-03-01] MEDS ORDERED: IPRATROPIUM-ALBUTEROL 3 ML NEB INHALATION PRN (06:45)
[2024-03-01] MEDS ORDERED: DEXTROSE 50% SYRINGE 50 ML IVP PRN ×2 (07:12)
[2024-03-01 07:37] LABS: Glucose,Whole Blood 153 mg/dL (70-110)
[2024-03-01] MEDS: INSULIN ASPART (NovoLOG) 100 UNIT/ML VIAL SQ SCH (07:40)
[2024-03-01] MEDS: PANTOPRAZOLE 40 MG TABLET PO SCH ×2 (07:41→19:41)
[2024-03-01] MEDS: BACLOFEN 10 MG TAB PO SCH (08:20)
[2024-03-01] MEDS: DAPAGLIFLOZIN PROPANEDIOL 10 MG TABLET PO SCH (08:20)
[2024-03-01] MEDS: ASPIRIN 81 MG PO SCH (08:20)
[2024-03-01] MEDS: ENOXAPARIN 40 MG/0.4 ML SYRINGE SQ SCH (08:20)
[2024-03-01] MEDS: GABAPENTIN 100 MG CAP PO SCH (08:21)
[2024-03-01] MEDS: EZETIMIBE 10 MG TAB PO SCH (08:21)
[2024-03-01] MEDS: SPIRONOLACTONE 25 MG TAB PO SCH (08:21)
[2024-03-01] MEDS: lisinopriL 5 MG TAB PO SCH (08:22)
[2024-03-01] MEDS: CITALOPRAM HYDROBROMIDE 20 MG TAB PO SCH (10:30)
[2024-03-01] MEDS: lisinopriL 5 MG TAB PO ONE (10:30)
--- NOTE | 2024-03-01 11:24 | P.CRDCN ---
History of Present Illness History of present illness: HISTORY OF PRESENT ILLNESS: This is a 64-year-old female with a past medical history significant for hypertension, hyperlipidemia, diabetes, coronary artery disease with previous stenting, and anemia with small intestinal AVM. Patient follows in the office with Dr. Michaels. We have been asked to see the patient in consultation for CHF. Patient examined at the bedside in the emergency room. Patient states she has been short of breath at home for the past few days. She also reports lower extremity edema. She also endorses dizziness and lightheadedness. She states her oxygen saturations at home are usually in the 90s but the past week have been in the 70s and 80s. She went to her PCP to get labs drawn. She states she was called afterwards and told she had some abnormal blood work and was directed to come to the emergency room. Patient states at home her blood pressure u sually runs around 190. She states she has been compliant with all of her medications. She also reports having some vague chest discomfort. However she states that she is under a lot of stress lately and "everything hurts". DIAGNOSTICS: - EKG reveals sinus mechanism with first-degree AV block. No signs of acute ischemia. - Chest xray chronic parenchymal changes and cardiomegaly without acute pulmonary process - CTA: Negative for pulmonary embolism. Cardiomegaly and mild to moderate underlying emphysematous changes without suspicious no acute pulmonary process. New mild ascites in the abdomen and mild to moderate diffuse subcutaneous edema - Laboratory data: WBC 4.3. Hemoglobin 17.0. Platelet count 126. Sodium 136. Potassium 3.5. BUN 24. Creatinine 1.03. Troponin negative x 2. proBNP 6120. - Current home cardiac medications include Jardiance 10 mg daily, midodrine 5 mg twice a day, Ranexa 500 mg twice a day, Zetia 10 mg daily, metoprolol succinate 12.5 mg daily - Most recent echocardiogram obtained in March 2022 revealing ejection fraction of 55 to 60%, mild MR, mild TR -Patient underwent Lexiscan stress test in April 2023 revealing nonspecific stress EKG portion secondary to baseline EKG abnormalities - Cardiac catheterization history: November 2021 revealing mild luminal irregularities of the left system and 99% distal RCA stenosis, status post PCI of the distal RCA REVIEW OF SYSTEMS: At the time of my exam: CONSTITUTIONAL: Denies fever or chills. HEENT: Denies blurred vision, vision changes, or eye pain. Denies hemoptysis CARDIOVASCULAR: Denies chest pain. Denies orthopnea. Denies PND. Denies palpitations RESPIRATORY: Denies shortness of breath. GASTROINTESTINAL: Denies abdominal pain. Denies nausea or vomiting. HEMATOLOGIC: Denies bleeding disorders. GENITOURINARY: Denies any blood in urine. SKIN: Denies pruitis. Denies rash. PHYSICAL EXAM: VITAL SIGNS: Reviewed. GENERAL: Well-developed in no acute distress. HEENT: Head is normocephalic. Pupils are equal, round. Sclerae anicteric. Mucous membranes of the mouth are moist. Neck supple. No JVD or thyromegaly LUNGS: Respirations even and unlabored. Lungs essentially clear to auscultation bilaterally. HEART: Regular rate and rhythm. S1 and S2 heard. ABDOMEN: Soft. Nondistended. Nontender. EXTREMITIES: Normal range of motion. No clubbing or cyanosis. Peripheral pulses intact. Bilateral lower extremity edema noted NEUROLOGIC: Awake and alert. Oriented x 3. ASSESSMENT: Shortness of breath Acute heart failure with preserved EF 55% in 2022, repeat echo pending Coronary artery disease with previous stenting of the RCA Hypertension Hyperlipidemia Diabetes History of anemia with small intestinal AVM History of breast cancer Nicotine dependence PLAN: Obtain 2D echo to assess cardiac structure and function Continue IV Lasix 40 mg every 12 hours. Transition to oral diuretics 40 mg twice a day starting tomorrow. Daily weights, accurate intake and output, and monitoring of kidney function Continue additional cardiac medications Increase lisinopril to 10 mg daily Patient instructed to take her blood pressure cuff to her next doctor's appointment to confirm accuracy of cuff as she states her blood pressures at home run in the 190s. However blood pressures here are not that elevated. Smoking cessation recommended. Patient to be referred to [place] quit line upon discharge Further recommendations pending patient course Nurse practitioner note has been reviewed by physician. Signing provider agrees with the documented findings, assessment, and plan of care documented by HANDLE [employer]ENT MACHINE OPERATOR as a scribe. Past Medical History Past Medical History: Cancer, Chest Pain / Angina, COPD, CVA/TIA, Diabetes Mellitus, GERD/Reflux, Hypertension, Pneumonia, Rheumatoid Arthritis (RA), Seizure Disorder, Sleep Apnea/CPAP/BIPAP Additional Past Medical History / Comment(s): SEIZURE X1 (2011), HX TIA, HX OF HEAD INJURIES, MIGRAINES, BRONCHITIS, SLEEP APNEA-USES C-PAP MACHINE, HERNIATED DISCS WITH BACK PAIN, OSTEOPOROSIS, IBS, HX COLON POLYPS, HX OF DYSPHAGIA WITH DILATION- STATES USUALLY YEARLY., RIGHT BREAST CANCER 2010 WITH SURGERY & CHEMO., FACIAL SKIN CANCER.. VARICOSE VEINS, STATES ENLARGED LEFT VENTRICLE. History of Any Multi-Drug Resistant Organisms: None Reported Past Surgical History: Appendectomy, Breast Surgery, Section, Cholecystectomy, Heart Catheterization, Heart Catheterization With Stent, Hysterectomy, Tonsillectomy Additional Past Surgical History / Comment(s): CARPAL TUNNEL, LEFT BREAST BX AND LIFT, RIGHT BREAST BX, LUMPECTOMY'S AND RIGHT BREAST MASTECTOMY AND RECONSTRUCTION. PORT-A-CATH INSERTED AND REMOVED. Past Anesthesia/Blood Transfusion Reactions: No Reported Reaction, Motion Sickness Date of Last Stent Placement:: 10/19/22 Past Psychological History: Anxiety, Depression Smoking Status: Current every day smoker Past Alcohol Use History: None Reported Past Drug Use History: None Reported - Past Family History Mother Family Medical History: Cancer Additional Family Medical History / Comment(s): LUNG CANCER. Father Family Medical History: Coronary Artery Disease (CAD), Diabetes Mellitus Medications and Allergies Home Medications Medication Instructions Recorded Confirmed Type Montelukast Sodium [Singulair] 10 mg PO HS 01/15/19 03/01/24 History dilTIAZem HCL [Cardizem CD] 120 mg PO HS 01/15/19 03/01/24 History levETIRAcetam [Keppra] 750 mg PO BID 01/15/19 03/01/24 History Baclofen 10 mg PO TID 12/04/21 03/01/24 History Citalopram Hydrobromide 40 mg PO DAILY 12/04/21 03/01/24 History [Citalopram HBr] Evolocumab [Repatha Sureclick] 140 mg SQ Q14D 12/04/21 03/01/24 History Gabapentin [Neurontin] 200 mg PO BID 12/04/21 03/01/24 History Magnesium Chloride [Mag64] 128 mg PO DAILY 12/04/21 03/01/24 History Triamterene/Hydrochlorothiazid 1 tab PO DAILY 12/04/21 03/01/24 History [Triamterene-Hctz 37.5-25 mg Tb] oxyCODONE HCL [oxyCODONE HCL (IR)] 10 mg PO TID PRN 12/04/21 03/01/24 History rOPINIRole HCL [Requip] 1 mg PO TID 12/04/21 03/01/24 History Metoprolol Succinate (ER) [Toprol 12.5 mg PO DAILY 04/16/22 03/01/24 History XL] Albuterol Inhaler [Ventolin Hfa 2 puff INHALATION RT-Q6H PRN 02/18/23 03/01/24 History Inhaler] Ezetimibe [Zetia] 10 mg PO DAILY 08/12/23 03/01/24 History Cholecalciferol (Vitamin D3) 50 mcg PO DAILY 03/01/24 03/01/24 History [Vitamin D3 (50 Mcg = 2000 Iu)] Empagliflozin [Jardiance] 10 mg PO DAILY 03/01/24 03/01/24 History Esomeprazole Magnesium [NexIUM] 40 mg PO BID 03/01/24 03/01/24 History Ipratropium-Albuterol Nebulize 3 ml INHALATION RT-QID PRN 03/01/24 03/01/24 History [Duoneb 0.5 mg-3 mg/3 ml Soln] Midodrine [ProAmatine] 5 mg PO BID 03/01/24 03/01/24 History Nitrofurantoin Monohyd/M-Cryst 100 mg PO Q12HR 03/01/24 03/01/24 History [Macrobid] Ranolazine [Ranexa] 500 mg PO BID 03/01/24 03/01/24 History Allergies Allergy/AdvReac Type Severity Reaction Status Date / Time atorvastatin [From Lipitor] Allergy Unknown Unknown Verified 03/01/24 09:33 Corticosteroids Allergy Unknown Anaphylaxis Verified 03/01/24 09:33 (Glucocorticoids) doxycycline Allergy Unknown Unknown Verified 03/01/24 09:33 Okfcmco-BEZ-OhY Reductase Allergy Unknown Anaphylaxis Verified 03/01/24 09:33 Inhibitor [Ckcvpqa-Wop-Gkn Reductase Inhibitor] Sulfa (Sulfonamide AdvReac Unknown Nausea & Verified 03/01/24 09:33 Antibiotics) Vomiting ANABOLIC STEROIDS Allergy Severe Anaphylaxis Uncoded 03/01/24 09:33 persumesor aerosol products Allergy Severe Anaphylaxis Uncoded 03/01/24 09:33 STEROIDS Allergy Severe Anaphylaxis Uncoded 12/12/24 09:33 EKG Electrode Patches Allergy Unknown Blisters Uncoded 03/01/24 09:33 Physical Exam Vitals: Vital Signs Temp Pulse Resp BP Pulse Ox 03/01/24 08:53 129/69 03/01/24 07:42 98.4 F 76 18 146/90 94 L 03/01/24 03:00 75 18 153/92 94 L 03/01/24 00:23 66 18 133/83 93 L 02/29/24 22:09 98.6 F 77 17 117/77 87 L Intake and Output 02/29/24 03/01/24 03/01/24 22:59 06:59 14:59 Other: Weight 84.822 kg 80.195 kg Results 02/29/24 22:46 02/29/24 22:46 Cardiac Enzymes 02/29/24 02/29/24 03/01/24 Range/Units 22:46 22:46 07:55 AST 21 (14-36) U/L Troponin I 0.018 0.020 (0.000-0.034) ng/mL Coagulation 02/29/24 Range/Units 22:46 PT 11.4 (10.0-12.5) sec APTT 23.1 (22.0-30.0) sec CBC 02/29/24 Range/Units 22:46 WBC 4.3 (3.8-10.6) k/uL RBC 5.30 (3.80-5.40) m/uL Hgb 17.0 H (11.4-16.0) gm/dL Hct 53.1 H (34.0-46.0) % Plt Count 126 L (150-450) k/uL Comprehensive Metabolic Panel 02/29/24 Range/Units 22:46 Sodium 136 L (137-145) mmol/L Potassium 3.5 (3.5-5.1) mmol/L Chloride 108 H (98-107) mmol/L Carbon Dioxide 25 (22-30) mmol/L BUN 24 H (7-17) mg/dL Creatinine 1.03 (0.52-1.04) mg/dL Glucose 172 H (74-99) mg/dL Calcium 8.4 (8.4-10.2) mg/dL AST 21 (14-36) U/L ALT 12 (4-34) U/L Alkaline Phosphatase 72 (38-126) U/L Total Protein 5.7 L (6.3-8.2) g/dL Albumin 3.4 L (3.5-5.0) g/dL Current Medications Generic Name Dose Route Start Last Admin Trade Name Freq PRN Reason Stop Dose Admin Albuterol/Ipratropium 3 ml 03/01/24 06:45 Ipratropium-Albuterol 3 Ml Neb INHALATION RT-QID PRN Shortness Of Breath Or Wheezing Aspirin 81 mg 03/01/24 09:00 03/01/24 08:20 Aspirin 81 Mg PO 81 mg DAILY JESUS Administration Baclofen 10 mg 03/01/24 09:00 03/01/24 08:20 Baclofen 10 Mg Tab PO 10 mg TID JESUS Administration Cefdinir 300 mg 03/01/24 10:15 Cefdinir 300 Mg Cap PO BID JESUS Protocol Citalopram Hydrobromide 40 mg 03/01/24 10:16 03/01/24 10:30 Citalopram Hydrobromide 20 Mg Tab PO 40 mg DAILY JESUS Administration Dapagliflozin 10 mg 03/01/24 09:00 03/01/24 08:20 Dapagliflozin Propanediol 10 Mg Tablet PO 10 mg DAILY JESUS Administration Dextrose/Water 25 ml 03/01/24 07:12 Dextrose 50% Syringe 50 Ml IVP PER PROTOCOL PRN Hypoglycemia Protocol Dextrose/Water 50 ml 03/01/24 07:12 Dextrose 50% Syringe 50 Ml IVP PER PROTOCOL PRN Hypoglycemia Protocol Ezetimibe 10 mg 03/01/24 09:00 03/01/24 08:21 Ezetimibe 10 Mg Tab PO 10 mg DAILY JESUS Administration Enoxaparin Sodium 40 mg 03/01/24 09:00 03/01/24 08:20 Enoxaparin 40 Mg/0.4 Ml Syringe SQ 40 mg DAILY JESUS Administration Furosemide 40 mg 03/01/24 01:00 03/01/24 01:22 Furosemide 10 Mg/Ml 4 Ml Vial IV 40 mg Q12H JESUS Administration Gabapentin 200 mg 03/01/24 09:00 03/01/24 08:21 Gabapentin 100 Mg Cap PO 200 mg BID JESUS Administration Insulin Aspart 0 unit 03/01/24 07:30 03/01/24 07:40 Insulin Aspart (Novolog) 100 Unit/Ml Vial SQ 2 unit ACHS JESUS Administration Protocol Levetiracetam 750 mg 03/01/24 04:23 03/01/24 08:31 Levetiracetam 750 Mg Tab PO Not Given BID JESUS Lisinopril 10 mg 03/02/24 09:00 Lisinopril 10 Mg Tab PO DAILY JESUS Metoprolol Succinate 25 mg 03/01/24 12:30 Metoprolol Succinate (Er) 25 Mg Tab.Er.24h PO W/LUNCH JESUS Montelukast Sodium 10 mg 03/01/24 21:00 Montelukast 10 Mg Tab PO HS JESUS Oxycodone HCl 10 mg 03/01/24 06:42 Oxycodone Hcl 5 Mg Tab PO TID PRN Pain Pantoprazole Sodium 40 mg 03/01/24 17:30 Pantoprazole 40 Mg Tablet PO AC-BID JESUS Ropinirole HCl 1 mg 03/01/24 04:18 03/01/24 04:40 Ropinirole Hcl 1 Mg Tab PO 1 mg TID JESUS Administration Spironolactone 25 mg 03/01/24 09:00 03/01/24 08:21 Spironolactone 25 Mg Tab PO 25 mg DAILY JESUS Administration Intake and Output 02/29/24 03/01/24 03/01/24 22:59 06:59 14:59 Other: Weight 84.822 kg 80.195 kg Patient Weight 03/02/24 06:59 Weight 80.195 kg 02/29/24 22:46 02/29/24 22:46
[2024-03-01] MEDS: METOPROLOL SUCCINATE (ER) 25 MG TAB.ER.24H PO SCH (11:34)
[2024-03-01] MEDS: CEFDINIR 300 MG CAP PO SCH (11:34)
[2024-03-01 11:36] LABS: Glucose,Whole Blood 96 mg/dL (70-110)
[2024-03-01 18:25] LABS: Glucose,Whole Blood 161 mg/dL (70-110)
[2024-03-01 21:02] LABS: Glucose,Whole Blood 278 mg/dL (70-110)
[2024-03-01] MEDS: MONTELUKAST 10 MG TAB PO SCH (21:17)
[2024-03-02 05:18] VITALS: RESP 18
[2024-03-02 06:25] LABS: Glucose,Whole Blood 95 mg/dL (70-110)
[2024-03-02 08:05] LABS: African American GFR (CKD) 71 (>60 ml/min/1.73 sqM); Anion Gap 1 mmol/L; Blood Urea Nitrogen 24 mg/dL (7-17); Calcium 8.4 mg/dL (8.4-10.2); Carbon Dioxide 38 mmol/L (22-30); Chloride 98 mmol/L (98-107); Glucose 93 mg/dL (74-99); Non-African American GFR(CKD) 62 (>60 ml/min/1.73 sqM); Potassium 3.1 mmol/L (3.5-5.1); Sodium 137 mmol/L (137-145)
[2024-03-02] MEDS: lisinopriL 10 MG TAB PO SCH (08:07)
[2024-03-02] MEDS ORDERED: NON FORMULARY DRUG (Citalopram Hydrobromide [Citalopram Hbr] 40 MG Tablet) PO SCH (09:00)
--- NOTE | 2024-03-02 10:09 | CA ---
Transthoracic Echo Report Name: Valerie Rios Age: 64 Gender: F : 1960 Exam Date: 03/01/2024 09:22 Exam Location: [place] Echo Ht (in): 63 Wt (lb): 187 Ordering Physician: Radha Kenyon MD Attending/Referring Phys: [id number], Kostas Revenue Investigator Carole Alberts, [facility] Procedure CPT: Indications: chf exacerbation .LVEF Cardiac Hx: Technical Quality: Fair Contrast 1: Total Dose (mL): Contrast 2: Total Dose (mL): MEASUREMENTS (Male / Female) Normal Values 2D ECHO LV Diastolic Diameter PLAX 3.5 cm 4.2 - 5.9 / 3.9 - 5.3 cm LV Systolic Diameter PLAX 2.7 cm IVS Diastolic Thickness 0.9 cm 0.6 - 1.0 / 0.6 - 0.9 cm LVPW Diastolic Thickness 0.8 cm 0.6 - 1.0 / 0.6 - 0.9 cm LV Relative Wall Thickness 0.5 RV Internal Dim ED PLAX 3.9 cm LA Systolic Diameter LX 3.4 cm 3.0 - 4.0 / 2.7 - 3.8 cm M-MODE Aortic Root Diameter MM 3.1 cm AV Cusp Separation MM 1.7 cm DOPPLER AV Peak Velocity 131.0 cm/s AV Peak Gradient 6.9 mmHg Mitral E Point Velocity 68.7 cm/s Mitral A Point Velocity 92.9 cm/s Mitral E to A Ratio 0.7 MV Deceleration Time 360.4 ms MV E' Velocity 5.5 cm/s Mitral E to MV E' Ratio 12.5 TR Peak Velocity 282.7 cm/s TR Peak Gradient 32.0 mmHg Right Ventricular Systolic Press 50.0 mmHg FINDINGS Left Ventricle Left ventricular ejection fraction is estimated at 55-60 %. Small left ventricular cavity. Left ventricular wall thickness normal. Flattening of ventricular septum Right Ventricle Moderate right ventricular dilatation. Moderate pulmonary hypertension. Right ventricular systolic pressure estimated at 50 mm hg. Right Atrium Moderate right atrial dilatation. No right atrial thrombus or mass seen. Left Atrium Normal left atrial size. No left atrial thrombus or mass present. Mitral Valve Structurally normal mitral valve. No mitral stenosis, regurgitation or prolapse. Aortic Valve Trileaflet aortic valve. No aortic valve stenosis or regurgitation. Tricuspid Valve [id number] tricuspid regurgitation. Pulmonic Valve Structurally normal pulmonic valve. No pulmonic regurgitation. Pericardium No pericardial or pleural effusion. Aorta Normal size aortic root and proximal ascending aorta. CONCLUSIONS Normal LV size and systolic function. Enlarged right ventricle. Flattening of interventricular septum moderate to severe pulmonary hypertension right atrial enlargement. Mild mitral and moderate tricuspid regurgitation. No pericardial Previewed by: Dr. Randolph Brar MD (Electronically Signed) Final Date: 02 March 2024 10:08
[2024-03-02] MEDS ORDERED: IPRATROPIUM-ALBUTEROL 3 ML NEB INHALATION PRN (10:56)
[2024-03-02 12:07] LABS: Glucose,Whole Blood 134 mg/dL (70-110)
[2024-03-02] MEDS: POTASSIUM CHLORIDE ER 20 MEQ TAB.ER PO SCH (12:22)
[2024-03-02] MEDS: RANOLAZINE 500 MG TAB.ER.12H PO SCH (12:22)
[2024-03-02 14:12] VITALS: BMI 30.4
[2024-03-02] MEDS: FUROSEMIDE 40 MG TAB PO SCH (15:15)
--- NOTE | 2024-03-02 16:54 | P.PN ---
Subjective Progress Note Date: 03/02/24 Patient is a 64-year-old female with a past medical history of CHF with preserved ejection fraction (EF 55-60% per reports in 2022), coronary artery disease (left heart catheterization in 2021 with a stent), severe emphysema, COPD, history of CVA/TIA, diabetes mellitus, hypertension, rheumatoid arthritis, seizure disorder, history of right breast cancer in 2009 status post of surgery and chemotherapy, GERD, and sleep apnea presented to the emergency department with chest pain and shortness of breath that has been progressively getting worse over the past few days. She reports that she used to be able to walk a lot more without getting short of breath and lightheaded. She visited her primary care physician yesterday and blood work was performed. Her BNP was found to be elevated and she was called told to come to the ED for elevated BNP. She also reported a constant sharp chest pain that has been going on for the past few days which was not relieved with nitroglycerin. She also reported leg swelling that started a few days ago and is now getting worse. She reported that leg swelling is something new and has never happened before. Patient also reports dysuria and hematuria that started a few days ago. Patient denies fever, chills, vomiting, diarrhea, constipation. Endorses abdominal pain, nausea, lower extremity swelling. In the ED she was treated with IV Lasix 40 mg. Initial vitals showed T 98.6 F, FL 66 bpm, RR 18, BP 133/83, O2 sat 93% on 2 L nasal cannula. Initial EKG independently interpreted as sinus rhythm with first-degree AV block. Initial chest x-ray showed chronic parenchymal changes and cardiomegaly without acute pulmonary process. CT angio of the chest shows no evidence of acute pulmonary embolus, cardiomegaly, and mild to moderate underlying emphysematous change without suspicious no acute pulmonary process, new mild ascites in the abdomen and mild to moderate diffuse subcutaneous edema. Initial labs: WBCs 4.3, hemoglobin 17, hematocrit 53.1, platelets 126, PT 11.1, INR 1.0, APTT 23.1, D-dimer 1.15, sodium 136, potassium 3.5, chloride 108, CO2 25, BUN 24, creatinine 1.03, glucose 172, troponin X1 0.08, BNP 6120, albumin 3.4. 03/02. Patient seen and examined. No acute events overnight. She has no significant complaints today. Patient is currently on 3 L nasal cannula with O2 saturation at 93%. She endorses improved shortness of breath and cough. Echo revealed moderate to severe pulmonary hypertension, right atrial enlargement, en larged right ventricle, normal LV size and systolic function, mild mitral and moderate tricuspid regurgitation. Labs today: Sodium 137, potassium 3.1, chloride 98, CO2 38, BUN 24, creatinine 0.97, A1c 8.3, glucose 93, magnesium 1.7. Pertinent positives and negatives discussed above, a complete review of systems was performed and all the other systems were negative. Physical examination: Vital signs reviewed General: Nontoxic, no distress, appears stated age, well-appearing Derm: Warm, dry, intact Head: Atraumatic, normocephalic, symmetric Eyes: EOMI, anicteric sclera Mouth: No lip lesion, mucus membranes moist Cardiovascular: S1-S2 regular, no murmur Lungs: Diffuse expiratory wheezes bilaterally, no rhonchi, no rales, no accessory muscle use Abdominal: Soft, non-tender to palpation Extremities: No cyanosis, clubbing. 1+ pitting edema bilaterally Neuro: Alert, oriented x 3, gross neurological examination did not reveal any focal deficits. Cranial nerves II to XII grossly intact. Psych: Appropriate affect and mood Assessment and Plan: Patient is a 64-year-old female with a past medical history of CHF with preserved ejection fraction (EF 55-60% per reports in 2022), coronary artery disease (left heart catheterization in 2021 with a stent), severe emphysema, COPD, history of CVA/TIA, diabetes mellitus, hypertension, rheumatoid arthritis, seizure disorder, history of right breast cancer in 2009 status post of surgery and chemotherapy, GERD, and sleep apnea admitted for chest pain and COPD exacerbation. Active #. Acute exacerbation of heart failure with preserved ejection fraction, last EF 55-60% #Cor pulmonale Lasix 40 mg PO twice daily Metoprolol 25 mg PO daily Zetia 10 mg PO daily Cardiology following, pending further recommendations #. Pulmonary hypertension, group 3 #. COPD, not in acute exacerbation Oxygen supplementation as needed DuoNeb 4 times daily as needed #. Hypokalemia Replete potassium Hold hydrochlorothiazide #. UTI, diagnosed outpatient prior to admission Cefdinir 300 mg PO twice daily Resolved #. Chest pain #. Dyspnea Chronic #. Hypertension Lisinopril 10 mg PO daily -Unclear why patient is on diltiazem, currently on hold #. Diabetes mellitus Accu-Cheks ACHS Insulin sliding scale Monitor for hypoglycemia Farxiga 10 mg PO daily #. Seizure disorder Keppra 750 mg PO twice daily #. Restless leg syndrome Baclofen 10 mg PO 3 times daily Gabapentin 200 mg PO twice daily Ropinirole 1 mg PO 3 times daily #. GERD Protonix 40 mg PO daily F: None E: Replete if required N: Heart healthy diet A: Ambulatory DVT prophylaxis: Subcutaneous Lovenox 40 mg daily GI prophylaxis: Protonix 40 mg PO daily Code status: No code Anticipated discharge place: Home I have seen and evaluated the patient today. Discussed with the resident and agree with the residents finding and plan as documented in the resident's note. Changes highlighted in blue font. Objective - Vital Signs Vital signs: Vital Signs Temp 98.4 F 03/01/24 07:42 Pulse 62 03/02/24 04:00 Resp 18 03/02/24 04:00 BP 115/70 03/02/24 04:00 Pulse Ox 95 03/02/24 04:00 FiO2 Intake & Output 03/01/24 03/01/24 03/02/24 06:59 18:59 06:59 Output Total 1 Balance -1 Weight 84.822 kg 80.195 kg 77.9 kg Output: Urine 1 Other: Voiding Method Toilet # Voids 3 - Labs CBC & Chem 7: 02/29/24 22:46 03/02/24 07:00 Labs: Abnormal Lab Results - Last 24 Hours (Table) 03/01/24 03/01/24 03/01/24 Range/Units 07:36 18:23 21:01 POC Glucose (mg/dL) 153 H 161 H 278 H (70-110) mg/dL
--- NOTE | 2024-03-02 20:24 | P.PN ---
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 However CT of the chest did not show any evidence for acute pulm embolism Plan Continue aspirin Farxiga Zetia Continue Lasix 40 mg twice daily Continue lisinopril 10 mg p.o. daily Continue metoprolol succinate 25 mg daily Continue spironolactone 25 mg p.o. daily Outpatient evaluation of pulmonary hypertension Objective - Vital Signs Vital signs: Vital Signs Temp 98.4 F 03/02/24 20:00 Pulse 66 03/02/24 20:00 Resp 18 03/02/24 20:00 BP 93/56 03/02/24 20:00 Pulse Ox 92 L 03/02/24 20:00 FiO2 Intake & Output 03/02/24 03/02/24 03/03/24 06:59 18:59 06:59 Output Total 1 Balance -1 Weight 77.9 kg 77.9 kg Output: Urine 1 Other: Voiding Method Toilet Toilet # Voids 3 - Labs CBC & Chem 7: 02/29/24 22:46 03/02/24 07:00 Labs: Abnormal Lab Results - Last 24 Hours (Table) 03/01/24 03/02/24 03/02/24 Range/Units 21:01 07:00 07:00 Potassium 3.1 L (3.5-5.1) mmol/L Carbon Dioxide 38 H (22-30) mmol/L BUN 24 H (7-17) mg/dL POC Glucose (mg/dL) 278 H (70-110) mg/dL Hemoglobin A1c 8.3 H (<=6.0) % 03/02/24 Range/Units 12:05 Potassium (3.5-5.1) mmol/L Carbon Dioxide (22-30) mmol/L BUN (7-17) mg/dL POC Glucose (mg/dL) 134 H (70-110) mg/dL Hemoglobin A1c (<=6.0) %
[2024-03-02 20:39] LABS: Glucose,Whole Blood 167 mg/dL (70-110)
[2024-03-03 04:34] VITALS: TEMP 98.2
[2024-03-03 06:10] LABS: Glucose,Whole Blood 164 mg/dL (70-110)
[2024-03-03 08:11] LABS: African American GFR (CKD) 74 (>60 ml/min/1.73 sqM); Anion Gap 1 mmol/L; Blood Urea Nitrogen 27 mg/dL (7-17); Calcium 8.7 mg/dL (8.4-10.2); Carbon Dioxide 37 mmol/L (22-30); Chloride 99 mmol/L (98-107); Glucose 143 mg/dL (74-99); Non-African American GFR(CKD) 64 (>60 ml/min/1.73 sqM); Sodium 137 mmol/L (137-145)
[2024-03-03 09:47] VITALS: BP 100/54; PULSE 62
--- NOTE | 2024-03-03 13:07 | P.DS ---
Providers Date of admission: 03/01/24 00:55 Expected date of discharge: 03/03/24 Attending physician: Radha Kenyon MD Consults: 03/01/24 00:54 Consult Physician Routine Consulting Provider: Donny Barriga Consult Reason/Comments: chf Do you want consulting provider notified?: Yes Primary care physician: [facility] Hospital Course: Hospital Course: Patient is a 64-year-old female with a past medical history of CHF with preserved ejection fraction (EF 55-60% per reports in 2022), coronary artery disease (left heart catheterization in 2021 with a stent), severe emphysema, COPD, history of CVA/TIA, diabetes mellitus, hypertension, rheumatoid arthritis, seizure disorder, history of right breast cancer in 2009 status post of surgery and chemotherapy, GERD, and sleep apnea presented to the emergency department with chest pain and shortness of breath that has been progressively getting worse over the past few days. She reports that she used to be able to walk a lot more without getting short of breath and lightheaded. She visited her primary care physician yesterday and blood work was performed. Her BNP was found to be elevated and she was called told to come to the ED for elevated BNP. She also reported a constant sharp chest pain that has been going on for the past few days which was not relieved with nitroglycerin. She also reported leg swelling that started a few days ago and is now getting worse. She reported that leg swelling is something new and has never happened before. Patient also reports dysuria and hematuria that started a few days ago. Patient denies fever, chills, vomiting, diarrhea, constipation. Endorses abdominal pain, nausea, lower extremity swelling. In the ED she was treated with IV Lasix 40 mg. Initial vitals showed T 98.6 F, OR 66 bpm, RR 18, BP 133/83, O2 sat 93% on 2 L nasal cannula. Initial EKG independently interpreted as sinus rhythm with first-degree AV block. Initial chest x-ray showed chronic parenchymal changes and cardiomegaly without acute pulmonary process. CT angio of the chest shows no evidence of acute pulmonary embolus, cardiomegaly, and mild to moderate underlying emphysematous change without suspicious no acute pulmonary process, new mild ascites in the abdomen and mild to moderate diffuse subcutaneous edema. Initial labs: WBCs 4.3, hemoglobin 17, hematocrit 53.1, platelets 126, PT 11.1, INR 1.0, APTT 23.1, D-dimer 1.15, sodium 136, potassium 3.5, chloride 108, CO2 25, BUN 24, creatinine 1.03, glucose 172, troponin X1 0.08, BNP 6120, albumin 3.4. Cardiology was consulted. Dyspnea and cough have resolved. Echocardiogram showed normal LV size and systolic function, enlarged right ventricle, moderate to severe pulmonary hypertension. Patient should follow-up with primary care provider, knitted goods shaper, and arabic translator. Medications changes upon discharge: Start spironolactone 25 mg PO daily, aspirin 81 mg PO daily, Lasix 40 mg PO twice daily, metoprolol succinate (ER) 25 mg PO daily, lisinopril 10 mg PO daily, cefdinir 300 mg PO twice daily for 2 more days; discontinue Cardizem 120 mg PO at bedtime, triamterene/hydrochlorothiazide 37.5-25 mg PO daily, metoprolol succinate (ER) 12.5 mg PO daily, Macrobid 100 mg PO twice daily, midodrine Patient is medically stable for discharge. Final Diagnosis: #. Acute exacerbation of heart failure with preserved ejection fraction, last EF 55-60% #. Acute cor pulmonale #. Suspected pulmonary hypertension, group 3 #. COPD, not in acute exacerbation #. UTI, diagnosed outpatient prior to admission #. Hypokalemia. Resolved. #. Chest pain. Resolved. #. Dyspnea. Resolved. #. Hypertension #. Diabetes mellitus #. Seizure disorder #. Restless leg syndrome #. GERD Physical examination: Vital signs reviewed General: Nontoxic, no distress, appears stated age, well-appearing Derm: Warm, dry, intact Head: Atraumatic, normocephalic, symmetric Eyes: EOMI, anicteric sclera Mouth: No lip lesion, mucus membranes moist Cardiovascular: S1-S2 regular, no murmur Lungs: Diffuse expiratory wheezes bilaterally, no rhonchi, no rales, no accessory muscle use Abdominal: Soft, non-tender to palpation Extremities: No cyanosis, clubbing. 1+ pitting edema bilaterally Neuro: Alert, oriented x 3, gross neurological examination did not reveal any focal deficits. Cranial nerves II to XII grossly intact. Psych: Appropriate affect and mood A total of 36 minutes of time were spent preparing this complex discharge summary. Patient was discharged on 03/03/2024 at 858. I have seen and evaluated the patient today. Discussed with the resident and agree with the residents finding and plan as documented in the resident's note. Changes highlighted in blue font. Patient Condition at Discharge: Stable Plan - Discharge Summary Discharge Rx Participant: No New Discharge Prescriptions: New Spironolactone [Aldactone] 25 mg PO DAILY #90 tab Aspirin 81 mg PO DAILY #90 tab Furosemide [Lasix] 40 mg PO BID@0900,1600 #180 tab Cefdinir [Omnicef] 300 mg PO BID #4 cap Metoprolol Succinate (ER) [Toprol XL] 25 mg PO W/LUNCH #90 tab lisinopriL [Zestril] 10 mg PO DAILY #90 tab Continue Montelukast Sodium [Singulair] 10 mg PO HS levETIRAcetam [Keppra] 750 mg PO BID rOPINIRole HCL [Requip] 1 mg PO TID Magnesium Chloride [Mag64] 128 mg PO DAILY Evolocumab [Repatha Sureclick] 140 mg SQ Q14D Citalopram Hydrobromide [Citalopram HBr] 40 mg PO DAILY Cholecalciferol (Vitamin D3) [Vitamin D3 (50 Mcg = 2000 Iu)] 50 mcg PO DAILY Ranolazine [Ranexa] 500 mg PO BID Esomeprazole Magnesium [NexIUM] 40 mg PO BID Baclofen 10 mg PO TID Gabapentin [Neurontin] 200 mg PO BID oxyCODONE HCL [oxyCODONE HCL (IR)] 10 mg PO TID PRN PRN Reason: Pain Albuterol Inhaler [Ventolin Hfa Inhaler] 2 puff INHALATION RT-Q6H PRN PRN Reason: Shortness Of Breath Ezetimibe [Zetia] 10 mg PO DAILY Ipratropium-Albuterol Nebulize [Duoneb 0.5 mg-3 mg/3 ml Soln] 3 ml INHALATION RT-QID PRN PRN Reason: Shortness Of Breath Empagliflozin [Jardiance] 10 mg PO DAILY Discontinued dilTIAZem HCL [Cardizem CD] 120 mg PO HS Triamterene/Hydrochlorothiazid [Triamterene-Hctz 37.5-25 mg Tb] 1 tab PO DELMY LY Metoprolol Succinate (ER) [Toprol XL] 12.5 mg PO DAILY Nitrofurantoin Monohyd/M-Cryst [Macrobid] 100 mg PO Q12HR Midodrine [ProAmatine] 5 mg PO BID Discharge Medication List Montelukast Sodium [Singulair] 10 mg PO HS 01/15/19 [History] levETIRAcetam [Keppra] 750 mg PO BID 01/15/19 [History] Baclofen 10 mg PO TID 12/04/21 [History] Citalopram Hydrobromide [Citalopram HBr] 40 mg PO DAILY 12/04/21 [History] Evolocumab [Repatha Sureclick] 140 mg SQ Q14D 12/04/21 [History] Gabapentin [Neurontin] 200 mg PO BID 12/04/21 [History] Magnesium Chloride [Mag64] 128 mg PO DAILY 12/04/21 [History] oxyCODONE HCL [oxyCODONE HCL (IR)] 10 mg PO TID PRN 12/04/21 [History] rOPINIRole HCL [Requip] 1 mg PO TID 12/04/21 [History] Albuterol Inhaler [Ventolin Hfa Inhaler] 2 puff INHALATION RT-Q6H PRN 02/18/23 [History] Ezetimibe [Zetia] 10 mg PO DAILY 08/12/23 [History] Cholecalciferol (Vitamin D3) [Vitamin D3 (50 Mcg = 2000 Iu)] 50 mcg PO DAILY 03/01/24 [History] Empagliflozin [Jardiance] 10 mg PO DAILY 03/01/24 [History] Esomeprazole Magnesium [NexIUM] 40 mg PO BID 03/01/24 [History] Ipratropium-Albuterol Nebulize [Duoneb 0.5 mg-3 mg/3 ml Soln] 3 ml INHALATION RT-QID PRN 03/01/24 [History] Ranolazine [Ranexa] 500 mg PO BID 03/01/24 [History] Aspirin 81 mg PO DAILY #90 tab 03/03/24 [Rx] Cefdinir [Omnicef] 300 mg PO BID #4 cap 03/03/24 [Rx] Furosemide [Lasix] 40 mg PO BID@0900,1600 #180 tab 03/03/24 [Rx] Metoprolol Succinate (ER) [Toprol XL] 25 mg PO W/LUNCH #90 tab 03/03/24 [Rx] Spironolactone [Aldactone] 25 mg PO DAILY #90 tab 03/03/24 [Rx] lisinopriL [Zestril] 10 mg PO DAILY #90 tab 03/03/24 [Rx] Follow up Appointment(s)/Referral(s): Montana Xie MD [STAFF PHYSICIAN] - 1 Week Jaydon Burnett MD [STAFF PHYSICIAN] - 1 Week Cyn Pulido MD [Primary Care Provider] - 1-2 days Patient Instructions/Handouts: Cor Pulmonale (DC), COPD (Chronic Obstructive Pulmonary Disease) (DC) Activity/Diet/Wound Care/Special Instructions: Please follow-up with primary care provider, cardiology, and pulmonology. Discharge Disposition: HOME SELF-CARE
== END 2024-03-03 11:23 | disposition home or self-care (01) ==
LOC: EC 22:05 → 3SCARD 03-01 00:55
PROVIDERS: ADMIT Internal Medicine; ATTEND Internal Medicine
DX: I11.0 Hypertensive heart disease with heart failure (principal); I50.33 Acute on chronic diastolic (congestive) heart failure; I26.09 Other pulmonary embolism with acute cor pulmonale; I27.23 Pulmonary hypertension due to lung diseases and hypoxia; J44.9 Chronic obstructive pulmonary disease, unspecified; N39.0 Urinary tract infection, site not specified; E87.6 Hypokalemia; I07.1 Rheumatic tricuspid insufficiency; E11.9 Type 2 diabetes mellitus without complications; G25.81 Restless legs syndrome; E78.5 Hyperlipidemia, unspecified; F17.200 Nicotine dependence, unspecified, uncomplicated; F32.A Depression, unspecified; F41.9 Anxiety disorder, unspecified; G40.909 Epilepsy, unspecified, not intractable, without status epilepticus; I25.10 Atherosclerotic heart disease of native coronary artery without angina pectoris; I44.0 Atrioventricular block, first degree; K21.9 Gastro-esophageal reflux disease without esophagitis; M06.9 Rheumatoid arthritis, unspecified; M81.0 Age-related osteoporosis without current pathological fracture; Z79.4 Long term (current) use of insulin; Z79.82 Long term (current) use of aspirin; Z88.8 Allergy status to other drugs, medicaments and biological substances; Z88.1 Allergy status to other antibiotic agents; Z88.2 Allergy status to sulfonamides; Z79.899 Other long term (current) drug therapy; Z86.73 Personal history of transient ischemic attack (TIA), and cerebral infarction without residual deficits; Z95.5 Presence of coronary angioplasty implant and graft
CPT/HCPCS: 96372 ×2; 96376 ×2; 96374; 99291; 36415; 94760 ×2; 93005; 93306; 85379; 83880; 80053; 80048 ×2; 83735 ×2; 84484 ×2; 85025; 85610; 85730; 83036; 71046; 71275; G0378 ×3; J1940 ×2; J1650 ×2; Q9967

== ENCOUNTER → 2024-03-09 | Outpatient (CLI) | payer MEDICARE ==
[2024-03-09 16:21] LABS: ALT 15 U/L (8-44); AST 24 U/L (13-35); Chol/HDL Ratio 3.79 Ratio
[2024-03-09 16:22] LABS: LDL Cholesterol,Calculated 91.7 mg/dL (0.0-131.0)
== END | disposition home or self-care (01) ==
LOC: LABWHC1 08:31
PROVIDERS: ATTEND Internal Medicine
DX: E78.2 Mixed hyperlipidemia (principal)
CPT/HCPCS: 36415; 80061; 84450; 84460

== ENCOUNTER 2024-03-23 11:25 | Inpatient (IN) | payer MEDICARE ==
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
[2024-03-23 12:41] LABS: Glucose,Whole Blood 136 mg/dL (70-110)
[2024-03-23 12:46] LABS: Basophils % (A) 1 %; Eosinophils # (A) 0.1 k/uL (0-0.7); Eosinophils % (A) 2 %; Lymphocytes # (A) 1.6 k/uL (1.0-4.8); Lymphocytes % (A) 24 %; MCH 32.9 pg (25.0-35.0); MCHC 33.7 g/dL (31.0-37.0); MCV 97.7 fL (80.0-100.0); Mean Platelet Volume 10.4; Monocytes # (A) 0.4 k/uL (0-1.0); Monocytes % (A) 7 %; Neutrophils # (A) 4.2 k/uL (1.3-7.7); Neutrophils % (A) 64 %; Platelet Count 121 k/uL (150-450); RBC 5.78 m/uL (3.80-5.40); RDW 15.5 % (11.5-15.5); WBC 6.5 k/uL (3.8-10.6)
[2024-03-23 13:02] LABS: ALT 15 U/L (4-34); African American GFR (CKD) 30 (>60 ml/min/1.73 sqM); Anion Gap 15 mmol/L; Blood Urea Nitrogen 80 mg/dL (7-17); Calcium 10.1 mg/dL (8.4-10.2); Carbon Dioxide 20 mmol/L (22-30); Chloride 103 mmol/L (98-107); Glucose 141 mg/dL (74-99); Non-African American GFR(CKD) 26 (>60 ml/min/1.73 sqM); Sodium 138 mmol/L (137-145); Total Protein 8.1 g/dL (6.3-8.2)
[2024-03-23 13:03] LABS: AST 36 U/L (14-36); Magnesium 2.3 mg/dL (1.6-2.3); Potassium 5.7 mmol/L (3.5-5.1)
[2024-03-23 13:04] LABS: Alkaline Phosphatase 94 U/L (38-126)
--- NOTE | 2024-03-23 13:04 | XR ---
EXAMINATION TYPE: XR chest 2V DATE OF EXAM: 03/23/2024 12:57 PM COMPARISON: 02/29/2024 CLINICAL INDICATION: Female, 64 years old with history of chest pain, TECHNIQUE: XR chest 2V view(s) obtained. FINDINGS: The heart size is upper limits of normal. The pulmonary vasculature is normal. The lungs are clear. IMPRESSION: 1. No acute pulmonary process. [facility], , 03/23/2024 1:01 PM
[2024-03-23 13:08] LABS: HCT 56.5 % (34.0-46.0)
[2024-03-23 13:09] LABS: NT-Pro-B-Type Natriuretic Pept 974 pg/mL
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
[2024-03-23] MEDS: IPRATROPIUM-ALBUTEROL 3 ML NEB INHALATION STA (13:28)
[2024-03-23] MEDS: SODIUM CHLORIDE 0.9% 1,000 ML IV ONE ×2 (14:16→20:02)
[2024-03-23 14:47] LABS: Partial Thromboplastin Time 24.3 sec (22.0-30.0)
[2024-03-23 14:55] LABS: INR 0.9 (<1.2)
[2024-03-23] MEDS: cefTRIAXone IN SWFI 1,000 MG/10 ML SYRINGE IVP STA ×2 (14:56→14:59)
[2024-03-23 15:01] LABS: ABG HCO3 22 mmol/L (21-25); ABG Oxygen Saturation 89.7 % (94-97); ABG PCO2 48 mmHg (35-45); ABG PH 7.28 (7.35-7.45); ABG PO2 71 mmHg (83-108); ABG TCO2 24 mmol/L (19-24); Allen Test Performed? Yes
[2024-03-23] MEDS ORDERED: NALOXONE 0.4 MG/ML 1 ML VIAL IVP PRN (15:29)
[2024-03-23] MEDS ORDERED: IPRATROPIUM-ALBUTEROL 3 ML NEB INHALATION PRN (15:29)
[2024-03-23] MEDS: IPRATROPIUM-ALBUTEROL 3 ML NEB INHALATION SCH (17:24)
[2024-03-23] MEDS ORDERED: BACLOFEN 10 MG TAB PO PRN (18:06)
[2024-03-23] MEDS ORDERED: bisacodyL 5 MG TABLET.DR PO PRN (18:09)
[2024-03-23] MEDS ORDERED: DOCUSATE 100 MG CAP PO PRN (18:09)
[2024-03-23] MEDS ORDERED: MELATONIN 3 MG TABLET PO PRN (18:09)
[2024-03-23] MEDS ORDERED: ACETAMINOPHEN TAB 325 MG TAB PO PRN (18:09)
[2024-03-23] MEDS ORDERED: ONDANSETRON 4 MG/2 ML VIAL IVP PRN (18:09)
[2024-03-23] MEDS ORDERED: DEXTROSE 50% SYRINGE 50 ML IVP PRN ×2 (18:18)
--- NOTE | 2024-03-23 18:22 | P.HPIM ---
History of Present Illness H&P Date: 03/23/24 64 year old F with PMH of diastolic CHF, chronic respiratory failure on 4L NC, COPD/emphysema, h/o breast CA with L masectomy, DM, RA, HLD, HTN, sleep apnea, seizure disorder presents to the ED. She reports chest pain that has been ongoing for the past 3 days. Intermittent, left sided, sharp and stabbing sometimes radiating to the jaw. Pain is tender to palpation. Pain is associated with shortness of breath. She also reports poor appetite over the past few days with bilateral lower quadrant pain that is colicky in nature. She has a history of IBS and feels constipated, last bowel movement 4 days ago. She did have one episode of N/V today. No dysuria. No lightheadedness, palpitations, fever, chills, headache, numbness/weakness/tingling of the extremities. In the ED she underwent extensive evaluation. BP 77/52, HR 61, RR 20, T 97.6F, 92% on RA. CBC, Coag panel, CMP significant for RBC 5.78, Hg 19, Hct 56.5, Plt 121, K 5.7, bicarb 20, BUN 80, Cr 1.99, glu 141. Trop 0.015. Mag 2.3. Lactic acid 0.9. BNP 974. COVID, RSV, Flu neg. ABG pH 7.28, pCO2 48. EKG sinus bradycardia with first degree AV block. CXR no acute process. CT head/C-spine no acute process, advanced COPD, multilevel DJD. Patient is admitted for further workup and management. General: non toxic, no distress, appears at stated age Derm: warm, dry Head: atraumatic, normocephalic, symmetric Eyes: EOMI, no lid lag, anicteric sclera Mouth: no lip lesion, mucus membranes moist Cardiovascular: Normal S1 S2. systolic murmur. Lungs: Decreased BS BL with scattered wheezing, no accessory muscle use Ext: no gross muscle atrophy, no edema, no contractures Psych: Alert, oriented, appropriate affect, slow to respond Based on my assessment of this patient, this patient meets a high complexity level of care. Acute metabolic encephalopathy: Slow to respond. Per ED, worse on admission. Hold Baclofen, Gabapentin, Percocet for now. Chest pain: Atypical. Appears MSK. Trend Trop/EKG to rule out ACS. Recent Echo EF 55-60%, mod-severe pulmonary HTN, mild MR, mod TR. Telemetry monitoring. Cardiology consultation. Acute kidney injury with metabolic acidosis: Due to dehydration. Hold Farxiga, Lisinopril, Aldactone. Gentle hydration with NS at 50 cc/hr. Hyperkalemia: Hemolyzed. Repeat BMP in the AM. Chronic respiratory failure with COPD exacerbation: DuoNeb QID + Q2H PRN. Prednisone 40 mg PO QD. Singulair 10 mg PO QHS. Diastolic CHF not in acute exacerbation DM: ISS + Acchecks ACHS. Hypoglycemic precautions. HLD: ASA 81 mg PO QD. Zetia 10 mg PO QD. HTN: Metoprolol 25 mg PO QD. Sleep apnea: CPAP QHS. Seizure disorder: Keppra 750 mg PO BID. CODE STATUS: FULL CODE DVT Prophylaxis: Heparin SQ. GI Prophylaxis: Protonix PO Designated medical POA if patient is not able to make medical decisions for themselves: I have reviewed the following business intelligence consultant notes: ED note. I have reviewed the results of the following tests: As above. I have ordered the following tests: As above. I have discussed the care of this patient with the following independent historian: I have independently interpreted the following test below: CXR I have discussed the management of this patient with the following physician: Dr. Kelley Past Medical History Past Medical History: Cancer, Chest Pain / Angina, COPD, CVA/TIA, Diabetes Mellitus, GERD/Reflux, Hypertension, Pneumonia, Rheumatoid Arthritis (RA), Seizure Disorder, Sleep Apnea/CPAP/BIPAP Additional Past Medical History / Comment(s): SEIZURE X1 (2011), HX TIA, HX OF HEAD INJURIES, MIGRAINES, BRONCHITIS, SLEEP APNEA-USES C-PAP MACHINE, HERNIATED DISCS WITH BACK PAIN, OSTEOPOROSIS, IBS, HX COLON POLYPS, HX OF DYSPHAGIA WITH DILATION- STATES USUALLY YEARLY., RIGHT BREAST CANCER 2010 WITH SURGERY & CHEMO., FACIAL SKIN CANCER.. VARICOSE VEINS, STATES ENLARGED LEFT VENTRICLE. History of Any Multi-Drug Resistant Organisms: None Reported Past Surgical History: Appendectomy, Breast Surgery, Section, Cholecystectomy, Heart Catheterization, Heart Catheterization With Stent, Hysterectomy, Tonsillectomy Additional Past Surgical History / Comment(s): CARPAL TUNNEL, LEFT BREAST BX AND LIFT, RIGHT BREAST BX, LUMPECTOMY'S AND RIGHT BREAST MASTECTOMY AND RECONSTRUCTION. PORT-A-CATH INSERTED AND REMOVED. Past Anesthesia/Blood Transfusion Reactions: No Reported Reaction, Motion Sickness Date of Last Stent Placement:: 10/19/22 Smoking Status: Current every day smoker - Past Family History Mother Family Medical History: Cancer Additional Family Medical History / Comment(s): LUNG CANCER. Father Family Medical History: Coronary Artery Disease (CAD), Diabetes Mellitus Medications and Allergies Home Medications Medication Instructions Recorded Confirmed Type Montelukast Sodium [Singulair] 10 mg PO HS 01/15/19 03/23/24 History levETIRAcetam [Keppra] 750 mg PO BID 01/15/19 03/23/24 History Baclofen 10 mg PO TID 12/04/21 03/23/24 History Citalopram Hydrobromide 40 mg PO DAILY 12/04/21 03/23/24 History [Citalopram HBr] Evolocumab [Repatha Sureclick] 140 mg SQ Q14D 12/04/21 03/23/24 History Gabapentin [Neurontin] 200 mg PO BID 12/04/21 03/23/24 History Magnesium Chloride [Mag64] 128 mg PO DAILY 12/04/21 03/23/24 History oxyCODONE HCL [oxyCODONE HCL (IR)] 10 mg PO TID PRN 12/04/21 03/23/24 History rOPINIRole HCL [Requip] 1 mg PO TID 12/04/21 03/23/24 History Albuterol Inhaler [Ventolin Hfa 2 puff INHALATION RT-Q6H PRN 02/18/23 03/23/24 History Inhaler] Ezetimibe [Zetia] 10 mg PO DAILY 08/12/23 03/23/24 History Cholecalciferol (Vitamin D3) 50 mcg PO DAILY 03/01/24 03/23/24 History [Vitamin D3 (50 Mcg = 2000 Iu)] Empagliflozin [Jardiance] 10 mg PO DAILY 03/01/24 03/23/24 History Esomeprazole Magnesium [NexIUM] 40 mg PO BID 03/01/24 03/23/24 History Ipratropium-Albuterol Nebulize 3 ml INHALATION RT-QID PRN 03/01/24 03/23/24 History [Duoneb 0.5 mg-3 mg/3 ml Soln] Ranolazine [Ranexa] 500 mg PO BID 03/01/24 03/23/24 History Aspirin 81 mg PO DAILY #90 tab 03/03/24 03/23/24 Rx Furosemide [Lasix] 40 mg PO BID@0900,1600 #180 tab 03/03/24 03/23/24 Rx Metoprolol Succinate (ER) [Toprol 25 mg PO W/LUNCH #90 tab 03/03/24 03/23/24 Rx XL] Spironolactone [Aldactone] 25 mg PO DAILY #90 tab 03/03/24 03/23/24 Rx lisinopriL [Zestril] 10 mg PO DAILY #90 tab 03/03/24 03/23/24 Rx Folic Acid 1 mg PO DAILY 03/23/24 03/23/24 History Insulin Aspart [NovoLOG Flexpen] See Protocol SQ ACHS 03/23/24 03/23/24 History Insulin Glargine,Hum.rec.anlog 30 units SQ DAILY 03/23/24 03/23/24 History [Lantus Solostar Pen] Naloxegol Oxalate [Movantik] 25 mg PO DAILY 03/23/24 03/23/24 History Nitroglycerin Sl Tabs [Nitrostat] 0.4 mg SUBLINGUAL Q5M PRN 03/23/24 03/23/24 History Tiotropium 2.5 Mcg/Puff [Spiriva 2 puff INHALATION RT-DAILY 03/23/24 03/23/24 History Respimat 2.5 Mcg] Allergies Allergy/AdvReac Type Severity Reaction Status Date / Time atorvastatin [From Lipitor] Allergy Unknown Unknown Verified 03/23/24 14:05 Corticosteroids Allergy Unknown Anaphylaxis Verified 03/23/24 14:05 (Glucocorticoids) doxycycline Allergy Unknown Unknown Verified 03/23/24 14:05 [id number]-[id number] Reductase Allergy Unknown Anaphylaxis Verified 03/23/24 14:05 Inhibitor [Qucipek-Uux-Nii Reductase Inhibitor] Sulfa (Sulfonamide AdvReac Unknown Nausea & Verified 03/23/24 14:05 Antibiotics) Vomiting ANABOLIC STEROIDS Allergy Severe Anaphylaxis Uncoded 03/23/24 11:57 persumesor aerosol products Allergy Severe Anaphylaxis Uncoded 03/23/24 11:57 STEROIDS Allergy Severe Anaphylaxis Uncoded 03/23/24 11:57 EKG Electrode Patches Allergy Unknown Blisters Uncoded 03/23/24 11:57 Physical Exam Vitals: Vital Signs Temp Pulse Resp BP Pulse Ox 03/23/24 17:10 56 L 16 109/64 96 03/23/24 16:42 56 L 18 89/56 94 L 03/23/24 15:34 63 18 94/60 92 L 03/23/24 15:01 66 18 101/61 95 03/23/24 14:44 63 16 102/59 92 L 03/23/24 14:17 51 L 18 84/55 95 03/23/24 13:42 52 L 14 81/51 93 L 03/23/24 13:40 52 L 03/23/24 13:28 54 L 03/23/24 12:41 56 L 18 93/59 95 03/23/24 12:16 97/65 03/23/24 11:58 97.6 F 61 20 77/52 92 L Intake and Output 03/23/24 03/23/24 03/23/24 06:59 14:59 22:59 Other: Weight 68.039 kg Results CBC & Chem 7: 03/23/24 12:05 03/23/24 12:05 Labs: Abnormal Lab Results - Last 24 Hours (Table) 03/23/24 03/23/24 03/23/24 Range/Units 12:05 12:05 12:39 RBC 5.78 H (3.80-5.40) m/uL Hgb 19.0 H (11.4-16.0) gm/dL Hct 56.5 H (34.0-46.0) % Plt Count 121 L (150-450) k/uL ABG pH (7.35-7.45) ABG pCO2 (35-45) mmHg ABG pO2 (83-108) mmHg ABG O2 Saturation (94-97) % Hemoglobin (11.4-16.0) gm/dL Potassium 5.7 H (3.5-5.1) mmol/L Carbon Dioxide 20 L (22-30) mmol/L BUN 80 H (7-17) mg/dL Creatinine 1.99 H (0.52-1.04) mg/dL Glucose 141 H (74-99) mg/dL POC Glucose (mg/dL) 136 H (70-110) mg/dL 03/23/24 Range/Units 14:56 RBC (3.80-5.40) m/uL Hgb (11.4-16.0) gm/dL Hct (34.0-46.0) % Plt Count (150-450) k/uL ABG pH 7.28 L (7.35-7.45) ABG pCO2 48 H (35-45) mmHg ABG pO2 71 L (83-108) mmHg ABG O2 Saturation 89.7 L (94-97) % Hemoglobin 18.0 H (11.4-16.0) gm/dL Potassium (3.5-5.1) mmol/L Carbon Dioxide (22-30) mmol/L BUN (7-17) mg/dL Creatinine (0.52-1.04) mg/dL Glucose (74-99) mg/dL POC Glucose (mg/dL) (70-110) mg/dL
[2024-03-23 19:53] LABS: Glucose,Whole Blood 116 mg/dL (70-110)
[2024-03-23] MEDS: INSULIN ASPART (NovoLOG) 100 UNIT/ML VIAL SQ SCH (20:02)
[2024-03-23] MEDS ORDERED: GABAPENTIN 100 MG CAP PO SCH (21:00)
[2024-03-23] MEDS: MIDODRINE 5 MG TAB PO SCH (21:18)
[2024-03-23] MEDS: AMOXIC-POT CLAV 875-125MG 1 EACH TAB PO SCH (21:18)
[2024-03-23] MEDS: MONTELUKAST 10 MG TAB PO SCH (21:18)
[2024-03-23] MEDS: RANOLAZINE 500 MG TAB.ER.12H PO SCH (21:18)
[2024-03-23] MEDS: PANTOPRAZOLE 40 MG TABLET PO SCH (21:18)
[2024-03-23] MEDS: SODIUM CHLORIDE 0.9% 1,000 ML IV SCH (21:18)
[2024-03-23] MEDS: HEPARIN SODIUM,PORCINE 5,000 UNIT/ML 1 ML VIAL SQ SCH (21:19)
[2024-03-24 06:14] LABS: Glucose,Whole Blood 114 mg/dL (70-110)
[2024-03-24 06:30] LABS: Basophils % (A) 1 %; Eosinophils # (A) 0.1 k/uL (0-0.7); Eosinophils % (A) 2 %; HCT 50.1 % (34.0-46.0); HGB 16.3 gm/dL (11.4-16.0); Lymphocytes # (A) 1.4 k/uL (1.0-4.8); Lymphocytes % (A) 25 %; MCH 31.9 pg (25.0-35.0); MCHC 32.5 g/dL (31.0-37.0); MCV 98.3 fL (80.0-100.0); Mean Platelet Volume 10.3; Monocytes # (A) 0.4 k/uL (0-1.0); Monocytes % (A) 7 %; Neutrophils # (A) 3.6 k/uL (1.3-7.7); Neutrophils % (A) 64 %; Platelet Count 117 k/uL (150-450); RDW 15.5 % (11.5-15.5); WBC 5.6 k/uL (3.8-10.6)
[2024-03-24 06:54] LABS: African American GFR (CKD) 50 (>60 ml/min/1.73 sqM); Anion Gap 10 mmol/L; Blood Urea Nitrogen 56 mg/dL (7-17); Calcium 8.7 mg/dL (8.4-10.2); Carbon Dioxide 19 mmol/L (22-30); Chloride 113 mmol/L (98-107); Glucose 94 mg/dL (74-99); Magnesium 1.9 mg/dL (1.6-2.3); Non-African American GFR(CKD) 43 (>60 ml/min/1.73 sqM); Potassium 4.3 mmol/L (3.5-5.1); Sodium 142 mmol/L (137-145)
[2024-03-24 07:05] LABS: Appearance,Urine Clear (Clear); Bilirubin,Urine Negative (Negative); Blood,Urine Negative (Negative); Color,Urine Light Yellow; Glucose,Urine (UA) 3+ (Negative); Ketones,Urine Negative (Negative); Leukocyte Esterase,Urine Negative (Negative); Nitrite,Urine Negative (Negative); PH, Urine 5.5 (5.0-8.0); Protein,Urine Negative (Negative); Specific Gravity,Urine 1.015 (1.001-1.035); Urobilinogen,Urine <2.0 mg/dL (<2.0)
[2024-03-24] MEDS: NON FORMULARY DRUG (Naloxegol Oxalate [Movantik] 25 MG Tablet) PO SCH (07:37)
[2024-03-24] MEDS: CITALOPRAM HYDROBROMIDE 20 MG TAB PO SCH (07:39)
[2024-03-24] MEDS: EZETIMIBE 10 MG TAB PO SCH (07:39)
[2024-03-24] MEDS: ASPIRIN 81 MG PO SCH (07:40)
[2024-03-24] MEDS ORDERED: predniSONE 20 MG TAB PO SCH (09:00)
[2024-03-24] MEDS ORDERED: DAPAGLIFLOZIN PROPANEDIOL 5 MG TABLET PO SCH (09:00)
[2024-03-24 11:31] LABS: Glucose,Whole Blood 166 mg/dL (70-110)
[2024-03-24] MEDS: MIDODRINE 5 MG TAB PO SCH (12:27)
[2024-03-24] MEDS: METOPROLOL SUCCINATE (ER) 25 MG TAB.ER.24H PO SCH (12:27)
--- NOTE | 2024-03-24 12:28 | P.CRDCN ---
History of Present Illness History of present illness: HISTORY OF PRESENT ILLNESS: This is a 64-year-old female with a past medical history significant for CAD with previous stenting of the RCA, hypertension, hyperlipidemia, diabetes, seizure disorder, COPD, and nicotine dependence. Patient follows in the office with Dr. Michaels. We have been asked to see the patient in consultation for chest pain. Patient examined at the bedside. Patient's family is present. Patient states that she was evicted from her house on 03/20/2024. She states she has been very stressed out over this. She states she was in the process of moving over the past couple days and was unable to find any of her medication so she has been without them for 2 days. She also reports she has been having chest pain since finding out she was getting evicted. She states the pain is in the middle of her chest. She denies any radiation of the pain. She states the pain is worse with deep inspiration. Patient is a current cigarette smoker. She also reports that she has been smoking more the past few weeks due to her infection. Apparently yesterday, the patient had a syncopal episode at home. She reports that she felt dizzy and lightheaded prior to falling. She does report that she lost consciousness. She denies any loss of bowel or bladder. She states that when she woke up she did feel confused. Patient was hypotensive when she presented to the emergency room with a blood pressure of 77/52. Blood pressure this morning 110/57. Started on midodrine 10 mg 3 times daily per primary medicine. Additionally patient was found to have EDUARDA. Creatinine 1.99 on admission. Repeat this morning 1.30. DIAGNOSTICS: - EKG reveals sinus mechanism with T wave inversions inferiorly in V1V3 - Chest xray negative for acute process - Head CT: Negative for acute intracranial process. No evidence of cervical spine fracture. Mild multilevel degenerative disc disease. Advanced COPD changes. - Laboratory data: WBC 5.6. Hemoglobin 16.3. Platelet count 117. Sodium 142. Potassium 4.3. BUN 56. Creatinine 1.30. Troponin negative x 3. - Current home cardiac medications include aspirin 81 mg daily, Jardiance 10 mg daily, Zetia 10 mg daily, Lasix 40 mg twice a day, metoprolol succinate 25 mg with lunch, Ranexa 500 mg twice a day, Aldactone 25 mg daily, lisinopril 10 mg daily. - Most recent echocardiogram obtained in February 2024 revealed ejection fraction 55 to 60%, moderate pulmonary hypertension, mild to moderate tricuspid regurgitation, right atrial enlargement, enlarged right ventricle - Cardiac catheterization history: November 2021 revealing mild luminary irregularities of the left system and 99% distal RCA stenosis. Patient underwe nt stenting of the distal RCA. - Patient underwent Lexiscan stress test in April 2023 which was negative for ischemia REVIEW OF SYSTEMS: At the time of my exam: CONSTITUTIONAL: Denies fever or chills. HEENT: Denies blurred vision, vision changes, or eye pain. Denies hemoptysis CARDIOVASCULAR: Denies chest pain. Denies orthopnea. Denies PND. Denies palpitations RESPIRATORY: Denies shortness of breath. GASTROINTESTINAL: Denies abdominal pain. Denies nausea or vomiting. HEMATOLOGIC: Denies bleeding disorders. GENITOURINARY: Denies any blood in urine. SKIN: Denies pruitis. Denies rash. PHYSICAL EXAM: VITAL SIGNS: Reviewed. GENERAL: Well-developed in no acute distress. HEENT: Head is normocephalic. Pupils are equal, round. Sclerae anicteric. Mucous membranes of the mouth are moist. Neck supple. No JVD or thyromegaly LUNGS: Respirations even and unlabored. Lungs essentially clear to auscultation bilaterally, diminished. HEART: Regular rate and rhythm. S1 and S2 heard. ABDOMEN: Soft. Nondistended. Nontender. EXTREMITIES: Normal range of motion. No clubbing or cyanosis. Peripheral pulses intact. Trace bilateral lower extremity edema NEUROLOGIC: Awake and alert. Oriented x 3. ASSESSMENT: Syncope, likely secondary to hypotension Hypotension, improving Acute kidney injury, improving Chest pain, troponin negative x 3, noncardiac and reproducible with examination Coronary arteries with previous stenting of the RCA, 2021 History of hypertension History of hyperlipidemia History of diabetes Seizure disorder COPD Nicotine dependence PLAN: An acute coronary event has been ruled out Decrease midodrine to 5 mg 3 times a day Continue to hold blood pressure medications and nephrotoxic agents Repeat BMP in a.m. Continue to monitor blood pressures. Obtain orthostatic blood pressures Continue telemetry monitoring to assess for any arrhythmias Smoking cessation encouraged. Patient referred to [place] quit line upon discharge It is noted that the patient is scheduled for outpatient right heart cath on March 29, 2024 Further recommendations pending patient course Nurse practitioner note has been reviewed by physician. Signing provider agrees with the documented findings, assessment, and plan of care documented by MYCOLOGY TEACHER as a scribe. Past Medical History Past Medical History: Cancer, Chest Pain / Angina, COPD, CVA/TIA, Diabetes Mellitus, GERD/Reflux, Hypertension, Pneumonia, Rheumatoid Arthritis (RA), Seizure Disorder, Sleep Apnea/CPAP/BIPAP Additional Past Medical History / Comment(s): SEIZURE X1 (2011), HX TIA, HX OF HEAD INJURIES, MIGRAINES, BRONCHITIS, SLEEP APNEA-USES C-PAP MACHINE, HERNIATED DISCS WITH BACK PAIN, OSTEOPOROSIS, IBS, HX COLON POLYPS, HX OF DYSPHAGIA WITH DILATION- STATES USUALLY YEARLY., RIGHT BREAST CANCER 2009 WITH SURGERY & CHEMO., FACIAL SKIN CANCER.. VARICOSE VEINS, STATES ENLARGED LEFT VENTRICLE. History of Any Multi-Drug Resistant Organisms: None Reported Past Surgical History: Appendectomy, Breast Surgery, Section, Cholecystectomy, Heart Catheterization, Heart Catheterization With Stent, Hysterectomy, Tonsillectomy Additional Past Surgical History / Comment(s): CARPAL TUNNEL, LEFT BREAST BX AND LIFT, RIGHT BREAST BX, LUMPECTOMY'S AND RIGHT BREAST MASTECTOMY AND RECON STRUCTION. PORT-A-CATH INSERTED AND REMOVED. Past Anesthesia/Blood Transfusion Reactions: No Reported Reaction, Motion Sickness Date of Last Stent Placement:: 10/19/22 Smoking Status: Current every day smoker - Past Family History Mother Family Medical History: Cancer Additional Family Medical History / Comment(s): LUNG CANCER. Father Family Medical History: Coronary Artery Disease (CAD), Diabetes Mellitus Medications and Allergies Home Medications Medication Instructions Recorded Confirmed Type Montelukast Sodium [Singulair] 10 mg PO HS 01/15/19 03/23/24 History levETIRAcetam [Keppra] 750 mg PO BID 01/15/19 03/23/24 History Baclofen 10 mg PO TID 12/04/21 03/23/24 History Citalopram Hydrobromide 40 mg PO DAILY 12/04/21 03/23/24 History [Citalopram HBr] Evolocumab [Repatha Sureclick] 140 mg SQ Q14D 12/04/21 03/23/24 History Gabapentin [Neurontin] 200 mg PO BID 12/04/21 03/23/24 History Magnesium Chloride [Mag64] 128 mg PO DAILY 12/04/21 03/23/24 History oxyCODONE HCL [oxyCODONE HCL (IR)] 10 mg PO TID PRN 12/04/21 03/23/24 History rOPINIRole HCL [Requip] 1 mg PO TID 12/04/21 03/23/24 History Albuterol Inhaler [Ventolin Hfa 2 puff INHALATION RT-Q6H PRN 02/18/23 03/23/24 History Inhaler] Ezetimibe [Zetia] 10 mg PO DAILY 08/12/23 03/23/24 History Cholecalciferol (Vitamin D3) 50 mcg PO DAILY 03/01/24 03/23/24 History [Vitamin D3 (50 Mcg = 2000 Iu)] Empagliflozin [Jardiance] 10 mg PO DAILY 03/01/24 03/23/24 History Esomeprazole Magnesium [NexIUM] 40 mg PO BID 03/01/24 03/23/24 History Ipratropium-Albuterol Nebulize 3 ml INHALATION RT-QID PRN 03/01/24 03/23/24 History [Duoneb 0.5 mg-3 mg/3 ml Soln] Ranolazine [Ranexa] 500 mg PO BID 03/01/24 03/23/24 History Aspirin 81 mg PO DAILY #90 tab 03/03/24 03/23/24 Rx Furosemide [Lasix] 40 mg PO BID@0900,1600 #180 tab 03/03/24 03/23/24 Rx Metoprolol Succinate (ER) [Toprol 25 mg PO W/LUNCH #90 tab 03/03/24 03/23/24 Rx XL] Spironolactone [Aldactone] 25 mg PO DAILY #90 tab 03/03/24 03/23/24 Rx lisinopriL [Zestril] 10 mg PO DAILY #90 tab 03/03/24 03/23/24 Rx Folic Acid 1 mg PO DAILY 03/23/24 03/23/24 History Insulin Aspart [NovoLOG Flexpen] See Protocol SQ ACHS 03/23/24 03/23/24 History Insulin Glargine,Hum.rec.anlog 30 units SQ DAILY 03/23/24 03/23/24 History [Lantus Solostar Pen] Naloxegol Oxalate [Movantik] 25 mg PO DAILY 03/23/24 03/23/24 History Nitroglycerin Sl Tabs [Nitrostat] 0.4 mg SUBLINGUAL Q5M PRN 03/23/24 03/23/24 History Tiotropium 2.5 Mcg/Puff [Spiriva 2 puff INHALATION RT-DAILY 03/23/24 03/23/24 History Respimat 2.5 Mcg] Allergies Allergy/AdvReac Type Severity Reaction Status Date / Time atorvastatin [From Lipitor] Allergy Unknown Unknown Verified 03/23/24 14:05 Corticosteroids Allergy Unknown Anaphylaxis Verified 03/23/24 14:05 (Glucocorticoids) doxycycline Allergy Unknown Unknown Verified 03/23/24 14:05 Tksaniy-LLP-JzA Reductase Allergy Unknown Anaphylaxis Verified 03/23/24 14:05 Inhibitor [Ycduysi-Dsz-Ghz Reductase Inhibitor] Sulfa (Sulfonamide AdvReac Unknown Nausea & Verified 03/23/24 14:05 Antibiotics) Vomiting ANABOLIC STEROIDS Allergy Severe Anaphylaxis Uncoded 03/23/24 11:57 persumesor aerosol products Allergy Severe Anaphylaxis Uncoded 03/23/24 11:57 STEROIDS Allergy Severe Anaphylaxis Uncoded 03/23/24 11:57 EKG Electrode Patches Allergy Unknown Blisters Uncoded 03/23/24 11:57 Physical Exam Vitals: Vital Signs Temp Pulse Pulse Resp BP BP Pulse Ox 03/24/24 07:27 97.9 F 66 14 110/57 99 03/24/24 04:00 70 16 94/53 91 L 03/24/24 00:00 71 16 97/60 94 L 03/23/24 21:04 95/60 03/23/24 20:34 86/49 03/23/24 20:00 97.4 F L 59 L 16 67/44 96 03/23/24 18:22 98.4 F 67 14 110/68 98 03/23/24 17:56 98.7 F 61 16 98/56 95 03/23/24 17:10 56 L 16 109/64 96 03/23/24 16:42 56 L 18 89/56 94 L 03/23/24 15:34 63 18 94/60 92 L 03/23/24 15:01 66 18 101/61 95 03/23/24 14:44 63 16 102/59 92 L 03/23/24 14:17 51 L 18 84/55 95 03/23/24 13:42 52 L 14 81/51 93 L 03/23/24 13:40 52 L 03/23/24 13:28 54 L 03/23/24 12:41 56 L 18 93/59 95 03/23/24 12:16 97/65 03/23/24 11:58 97.6 F 61 20 77/52 92 L Intake and Output 03/23/24 03/24/24 03/24/24 22:59 06:59 14:59 Intake Total 100 Balance 100 Intake: Oral 100 Other: Voiding Method Toilet Toilet # Voids 1 1 Weight 68.039 kg 72.1 kg Results 03/24/24 05:50 03/24/24 05:50 Cardiac Enzymes 03/23/24 03/23/24 03/23/24 Range/Units 00:12 12:05 12:05 AST 36 (14-36) U/L Troponin I 0.016 0.015 (0.000-0.034) ng/mL 03/23/24 Range/Units 18:45 AST (14-36) U/L Troponin I <0.012 (0.000-0.034) ng/mL Coagulation 03/23/24 Range/Units 14:34 PT 10.0 (10.0-12.5) sec APTT 24.3 (22.0-30.0) sec CBC 03/23/24 03/24/24 Range/Units 12:05 05:50 WBC 6.5 5.6 (3.8-10.6) k/uL RBC 5.78 H 5.10 (3.80-5.40) m/uL Hgb 19.0 H 16.3 H (11.4-16.0) gm/dL Hct 56.5 H 50.1 H (34.0-46.0) % Plt Count 121 L 117 L (150-450) k/uL Comprehensive Metabolic Panel 03/23/24 03/24/24 Range/Units 12:05 05:50 Sodium 138 142 (137-145) mmol/L Potassium 5.7 H 4.3 (3.5-5.1) mmol/L Chloride 103 113 H (98-107) mmol/L Carbon Dioxide 20 L 19 L (22-30) mmol/L BUN 80 H 56 H (7-17) mg/dL Creatinine 1.99 H 1.30 H (0.52-1.04) mg/dL Glucose 141 H 94 (74-99) mg/dL Calcium 10.1 8.7 (8.4-10.2) mg/dL AST 36 (14-36) U/L ALT 15 (4-34) U/L Alkaline Phosphatase 94 (38-126) U/L Total Protein 8.1 (6.3-8.2) g/dL Albumin 5.0 (3.5-5.0) g/dL Current Medications Generic Name Dose Route Start Last Admin Trade Name Freq PRN Reason Stop Dose Admin Acetaminophen 650 mg 03/23/24 18:09 Acetaminophen Tab 325 Mg Tab PO Q6HR PRN Mild Pain or Fever > 100.5 Albuterol/Ipratropium 3 ml 03/23/24 16:00 03/23/24 20:54 Ipratropium-Albuterol 3 Ml Neb INHALATION Not Given RT-QID [facility] Albuterol/Ipratropium 3 ml 03/23/24 15:29 Ipratropium-Albuterol 3 Ml Neb INHALATION RT-Q2H PRN Shortness Of Breath Or Wheezing Amoxicillin/Clavulanate Potassium 1 each 03/23/24 21:00 03/24/24 07:40 Amoxic-Pot Clav 875-125mg 1 Each Tab PO 03/28/24 09:01 1 each Q12HR JESUS Administration Protocol Aspirin 81 mg 03/24/24 09:00 03/24/24 07:40 Aspirin 81 Mg PO 81 mg DAILY [facility] Administration Bisacodyl 5 mg 03/23/24 18:09 Bisacodyl 5 Mg Tablet.Dr PO DAILY PRN Constipation Citalopram Hydrobromide 40 mg 03/24/24 09:00 03/24/24 07:39 Citalopram Hydrobromide 20 Mg Tab PO 40 mg DAILY [facility] Administration Dextrose/Water 50 ml 03/23/24 18:18 Dextrose 50% Syringe 50 Ml IVP PER PROTOCOL PRN Hypoglycemia Protocol Dextrose/Water 25 ml 03/23/24 18:18 Dextrose 50% Syringe 50 Ml IVP PER PROTOCOL PRN Hypoglycemia Protocol Docusate Sodium 100 mg 03/23/24 18:09 Docusate 100 Mg Cap PO BID PRN Constipation Ezetimibe 10 mg 03/24/24 09:00 03/24/24 07:39 Ezetimibe 10 Mg Tab PO 10 mg DAILY [facility] Administration Heparin Sodium (Porcine) 5,000 unit 03/23/24 21:00 03/24/24 07:36 Heparin Sodium,Porcine 5,000 Unit/Ml 1 Ml Vial SQ Not Given Q12HR [facility] Lactated Ringer's 1,000 mls @ 50 mls/hr 03/24/24 08:30 Lactated Ringers IV .Q20H [facility] Insulin Aspart 0 unit 03/23/24 21:00 03/24/24 06:34 Insulin Aspart (Novolog) 100 Unit/Ml Vial SQ Not Given ACHS [facility] Protocol Levetiracetam 750 mg 03/23/24 21:00 03/24/24 07:39 Levetiracetam 750 Mg Tab PO 750 mg BID [facility] Administration Melatonin 3 mg 03/23/24 18:09 Melatonin 3 Mg Tablet PO HS PRN Insomnia Metoprolol Succinate 25 mg 03/24/24 12:30 Metoprolol Succinate (Er) 25 Mg Tab.Er.24h PO W/LUNCH [facility] Midodrine 10 mg 03/23/24 19:55 03/24/24 06:33 Midodrine 5 Mg Tab PO 10 mg AC-TID [facility] Administration Montelukast Sodium 10 mg 03/23/24 21:00 03/23/24 21:18 Montelukast 10 Mg Tab PO 10 mg HS [facility] Administration Naloxone HCl 0.2 mg 03/23/24 15:29 Naloxone 0.4 Mg/Ml 1 Ml Vial IVP Q2M PRN Opioid Reversal Non-Formulary Medication 25 mg 03/24/24 09:00 03/24/24 07:37 Naloxegol Oxalate [Movantik] PO Not Given DAILY [facility] Ondansetron HCl 4 mg 03/23/24 18:09 Ondansetron 4 Mg/2 Ml Vial IVP Q8HR PRN Nausea And Vomiting Pantoprazole Sodium 40 mg 03/23/24 21:00 03/24/24 07:39 Pantoprazole 40 Mg Tablet PO 40 mg BID [facility] Administration Ranolazine 500 mg 03/23/24 21:00 03/24/24 07:40 Ranolazine 500 Mg Tab.Er.12h PO 500 mg BID [facility] Administration Ropinirole HCl 1 mg 03/23/24 22:00 03/24/24 07:39 Ropinirole Hcl 1 Mg Tab PO 1 mg TID [facility] Administration Intake and Output 03/23/24 03/24/24 03/24/24 22:59 06:59 14:59 Intake Total 100 Balance 100 Intake: Oral 100 Other: Voiding Method Toilet Toilet # Voids 1 1 Weight 68.039 kg 72.1 kg 03/24/24 05:50 03/24/24 05:50
[2024-03-24] MEDS: LACTATED RINGERS 1,000 ML IV SCH (12:29)
--- NOTE | 2024-03-24 12:37 | P.PN ---
Subjective Progress Note Date: 03/24/24 64 year old F with PMH of diastolic CHF, chronic respiratory failure on 4L NC, COPD/emphysema, h/o breast CA with L masectomy, DM, RA, HLD, HTN, sleep apnea, seizure disorder presents to the ED. She reports chest pain that has been ongoing for the past 3 days. Intermittent, left sided, sharp and stabbing sometimes radiating to the jaw. Pain is tender to palpation. Pain is associated with shortness of breath. She also reports poor appetite over the past few days with bilateral lower quadrant pain that is colicky in nature. She has a history of IBS and feels constipated, last bowel movement 4 days ago. She did have one episode of N/V today. No dysuria. No lightheadedness, palpitations, fever, chills, headache, numbness/weakness/tingling of the extremities. In the ED she underwent extensive evaluation. BP 77/52, HR 61, RR 20, T 97.6F, 92% on RA. CBC, Coag panel, CMP significant for RBC 5.78, Hg 19, Hct 56.5, Plt 121, K 5.7, bicarb 20, BUN 80, Cr 1.99, glu 141. Trop 0.015. Mag 2.3. Lactic acid 0.9. BNP 974. COVID, RSV, Flu neg. ABG pH 7.28, pCO2 48. EKG sinus bradycardia with first degree AV block. CXR no acute process. CT head/C-spine no acute process, advanced COPD, multilevel DJD. Patient is admitted for further workup and management. 03/24 Patient was seen and examined. Family at bedside. Apparently patient had a syncopal episode on the day of admission which she did not mention yesterday. She was standing, walking to the bathroom when she went to go fiber picker a Kleenex on the floor when she passed out. She was quick to regain consciousness. She did hit her head. CBC and BMP significant for Hg 16.3, Hct 50.1, Cl 113, bicarb 19, BUN 56, Cr 1.3. Mag 1.9. UA neg LE or nitrite. Trop 0.016, 0.015, < 0.012. General: non toxic, no distress, appears at stated age Derm: warm, dry Head: atraumatic, normocephalic, symmetric Eyes: EOMI, no lid lag, anicteric sclera Mouth: no lip lesion, mucus membranes moist Cardiovascular: Normal S1 S2. systolic murmur. Lungs: Decreased BS BL, no accessory muscle use Ext: no gross muscle atrophy, no edema, no contractures Psych: Alert, oriented, appropriate affect, slow to respond Based on my assessment of this patient, this patient meets a high complexity level of care. Syncope: Likely hypotension. Precipitated by BP meds and dehydration. Hold Metoprolol, Lisinopril, Aldactone. Discussed with Dr. Peace, Midodrine 5 mg PO TID PRN and monitor BP. Fall precautions. Cardiology on board. Chest pain: Atypical. Appears MSK. ACS ruled out. Recent Echo EF 55-60%, mod- severe pulmonary HTN, mild MR, mod TR. Telemetry monitoring. Cardiology on . Acute kidney injury with metabolic acidosis: Due to dehydration. Hold Farxiga, Lisinopril, Aldactone. Gentle hydration with NS at 50 cc/hr. Chronic respiratory failure with COPD exacerbation: DuoNeb QID + Q2H PRN. Prednisone 40 mg PO QD. Singulair 10 mg PO QHS. Diastolic CHF not in acute exacerbation DM: ISS + Acchecks ACHS. Hypoglycemic precautions. HLD: ASA 81 mg PO QD. Zetia 10 mg PO QD. HTN: Hold all meds as above. Sleep apnea: CPAP QHS. Seizure disorder: Keppra 750 mg PO BID. Resolved: HyperK CODE STATUS: FULL CODE DVT Prophylaxis: Heparin SQ. GI Prophylaxis: Protonix PO Designated medical POA if patient is not able to make medical decisions for themselves: I have reviewed the following industrial methods consultant notes: I have reviewed the results of the following tests: CBC, BMP, Mag, UA, Trop x 2. I have ordered the following tests: BMP in the AM. I have discussed the care of this patient with the following independent historian: I have independently interpreted the following test below: I have discussed the management of this patient with the following physician: Dr. Peace + Tinana STEVENS Objective - Vital Signs Vital signs: Vital Signs Temp 97.9 F 03/24/24 07:27 Pulse 60 03/24/24 11:26 Resp 14 03/24/24 11:26 BP 111/59 03/24/24 11:26 Pulse Ox 92 L 03/24/24 11:26 FiO2 Intake & Output 03/23/24 03/24/24 03/24/24 18:59 06:59 18:59 Intake Total 210 Output Total 400 Balance -190 Weight 68.039 kg 72.1 kg Intake: Oral 210 Output: Urine 400 Other: Voiding Method Toilet Toilet # Voids 1 1 - Labs CBC & Chem 7: 03/24/24 05:50 03/24/24 05:50 Labs: Abnormal Lab Results - Last 24 Hours (Table) 03/23/24 03/23/24 03/23/24 Range/Units 12:05 12:05 12:39 RBC 5.78 H (3.80-5.40) m/uL Hgb 19.0 H (11.4-16.0) gm/dL Hct 56.5 H (34.0-46.0) % Plt Count 121 L (150-450) k/uL ABG pH (7.35-7.45) ABG pCO2 (35-45) mmHg ABG pO2 (83-108) mmHg ABG O2 Saturation (94-97) % Hemoglobin (11.4-16.0) gm/dL Potassium 5.7 H (3.5-5.1) mmol/L Chloride (98-107) mmol/L Carbon Dioxide 20 L (22-30) mmol/L BUN 80 H (7-17) mg/dL Creatinine 1.99 H (0.52-1.04) mg/dL Glucose 141 H (74-99) mg/dL POC Glucose (mg/dL) 136 H (70-110) mg/dL Urine Glucose (UA) (Negative) 03/23/24 03/23/24 03/24/24 Range/Units 14:56 19:51 05:50 RBC (3.80-5.40) m/uL Hgb 16.3 H (11.4-16.0) gm/dL Hct 50.1 H (34.0-46.0) % Plt Count 117 L (150-450) k/uL ABG pH 7.28 L (7.35-7.45) ABG pCO2 48 H (35-45) mmHg ABG pO2 71 L (83-108) mmHg ABG O2 Saturation 89.7 L (94-97) % Hemoglobin 18.0 H (11.4-16.0) gm/dL Potassium (3.5-5.1) mmol/L Chloride (98-107) mmol/L Carbon Dioxide (22-30) mmol/L BUN (7-17) mg/dL Creatinine (0.52-1.04) mg/dL Glucose (74-99) mg/dL POC Glucose (mg/dL) 116 H (70-110) mg/dL Urine Glucose (UA) (Negative) 03/24/24 03/24/24 03/24/24 Range/Units 05:50 06:00 06:10 RBC (3.80-5.40) m/uL Hgb (11.4-16.0) gm/dL Hct (34.0-46.0) % Plt Count (150-450) k/uL ABG pH (7.35-7.45) ABG pCO2 (35-45) mmHg ABG pO2 (83-108) mmHg ABG O2 Saturation (94-97) % Hemoglobin (11.4-16.0) gm/dL Potassium (3.5-5.1) mmol/L Chloride 113 H (98-107) mmol/L Carbon Dioxide 19 L (22-30) mmol/L BUN 56 H (7-17) mg/dL Creatinine 1.30 H (0.52-1.04) mg/dL Glucose (74-99) mg/dL POC Glucose (mg/dL) 114 H (70-110) mg/dL Urine Glucose (UA) 3+ H (Negative) 03/24/24 Range/Units 11:29 RBC (3.80-5.40) m/uL Hgb (11.4-16.0) gm/dL Hct (34.0-46.0) % Plt Count (150-450) k/uL ABG pH (7.35-7.45) ABG pCO2 (35-45) mmHg ABG pO2 (83-108) mmHg ABG O2 Saturation (94-97) % Hemoglobin (11.4-16.0) gm/dL Potassium (3.5-5.1) mmol/L Chloride (98-107) mmol/L Carbon Dioxide (22-30) mmol/L BUN (7-17) mg/dL Creatinine (0.52-1.04) mg/dL Glucose (74-99) mg/dL POC Glucose (mg/dL) 166 H (70-110) mg/dL Urine Glucose (UA) (Negative)
[2024-03-24 16:41] LABS: Glucose,Whole Blood 138 mg/dL (70-110)
[2024-03-24 20:35] LABS: Glucose,Whole Blood 170 mg/dL (70-110)
[2024-03-25 06:15] LABS: Glucose,Whole Blood 108 mg/dL (70-110)
[2024-03-25 07:44] LABS: African American GFR (CKD) 69 (>60 ml/min/1.73 sqM); Anion Gap 6 mmol/L; Blood Urea Nitrogen 33 mg/dL (7-17); Calcium 9.5 mg/dL (8.4-10.2); Carbon Dioxide 26 mmol/L (22-30); Chloride 112 mmol/L (98-107); Glucose 95 mg/dL (74-99); Non-African American GFR(CKD) 60 (>60 ml/min/1.73 sqM); Potassium 4.4 mmol/L (3.5-5.1); Sodium 144 mmol/L (137-145)
[2024-03-25 11:28] LABS: Glucose,Whole Blood 144 mg/dL (70-110)
--- NOTE | 2024-03-25 11:58 | P.PN ---
Subjective Progress Note Date: 03/25/24 64 year old F with PMH of diastolic CHF, chronic respiratory failure on 4L NC, COPD/emphysema, h/o breast CA with L masectomy, DM, RA, HLD, HTN, sleep apnea, seizure disorder presents to the ED. She reports chest pain that has been ongoing for the past 3 days. Intermittent, left sided, sharp and stabbing sometimes radiating to the jaw. Pain is tender to palpation. Pain is associated with shortness of breath. She also reports poor appetite over the past few days with bilateral lower quadrant pain that is colicky in nature. She has a history of IBS and feels constipated, last bowel movement 4 days ago. She did have one episode of N/V today. No dysuria. No lightheadedness, palpitations, fever, chills, headache, numbness/weakness/tingling of the extremities. In the ED she underwent extensive evaluation. BP 77/52, HR 61, RR 20, T 97.6F, 92% on RA. CBC, Coag panel, CMP significant for RBC 5.78, Hg 19, Hct 56.5, Plt 121, K 5.7, bicarb 20, BUN 80, Cr 1.99, glu 141. Trop 0.015. Mag 2.3. Lactic acid 0.9. BNP 974. COVID, RSV, Flu neg. ABG pH 7.28, pCO2 48. EKG sinus bradycardia with first degree AV block. CXR no acute process. CT head/C-spine no acute process, advanced COPD, multilevel DJD. Patient is admitted for further workup and management. 03/24 Patient was seen and examined. Family at bedside. Apparently patient had a syncopal episode on the day of admission which she did not mention yesterday. She was standing, walking to the bathroom when she went to go slat pickler a Kleenex on the floor when she passed out. She was quick to regain consciousness. She did hit her head. CBC and BMP significant for Hg 16.3, Hct 50.1, Cl 113, bicarb 19, BUN 56, Cr 1.3. Mag 1.9. UA neg LE or nitrite. Trop 0.016, 0.015, < 0.012. 03/25 Patient was seen and examined. Cardiology recommended holding all antihype rtensive medication and starting Midodrine. BP is 150/67 this morning with HR 75. BMP shows Cl 112, BUN 33. Discussed with Tianna STEVENS, possible right heart cath tomorrow. General: non toxic, no distress, appears at stated age Derm: warm, dry Head: atraumatic, normocephalic, symmetric Eyes: EOMI, no lid lag, anicteric sclera Mouth: no lip lesion, mucus membranes moist Cardiovascular: Normal S1 S2. systolic murmur. Lungs: Decreased BS BL, no accessory muscle use Ext: no gross muscle atrophy, no edema, no contractures Psych: Alert, oriented, appropriate affect, slow to respond Based on my assessment of this patient, this patient meets a high complexity level of care. Syncope due to hypotension: Precipitated by BP meds and dehydration. Discussed with Tianna STEVENS, possible right heart cath tomorrow, DC Midodrine, restart antihypertensive medications tomorrow if BP remains stable. Fall precautions. Cardiology on board. Chest pain: Atypical. Appears MSK. ACS ruled out. Recent Echo EF 55-60%, mod- severe pulmonary HTN, mild MR, mod TR. Telemetry monitoring. Cardiology on board. Acute kidney injury on CKD stage II: Due to dehydration. Hold Farxiga, Lisinopril, Aldactone. Resolving. DC IVF and encourage hydration by mouth. Chronic respiratory failure with COPD exacerbation: DuoNeb QID + Q2H PRN. Prednisone 40 mg PO QD. Singulair 10 mg PO QHS. Diastolic CHF not in acute exacerbation DM: ISS + Acchecks ACHS. Hypoglycemic precautions. HLD: ASA 81 mg PO QD. Zetia 10 mg PO QD. HTN: Metoprolol, Lisinopril, Aldactone and Lasix on hold. Sleep apnea: CPAP QHS. Seizure disorder: Keppra 750 mg PO BID. Resolved: HyperK, Metabolic acidosis CODE STATUS: FULL CODE DVT Prophylaxis: Heparin SQ. GI Prophylaxis: Protonix PO Designated medical POA if patient is not able to make medical decisions for themselves: I have reviewed the following bridal sales consultant notes: Cardiology. I have reviewed the results of the following tests: BMP. I have ordered the following tests: I have discussed the care of this patient with the following independent historian: I have independently interpreted the following test below: I have discussed the management of this patient with the following physician: Tianna STEVENS Objective - Vital Signs Vital signs: Vital Signs Temp 97.9 F 03/25/24 07:39 Pulse 75 03/25/24 07:39 Resp 14 03/25/24 07:39 BP 150/67 03/25/24 07:39 Pulse Ox 91 L 03/25/24 07:39 FiO2 Intake & Output 03/24/24 03/25/24 03/25/24 18:59 06:59 18:59 Intake Total 660 540 200 Output Total 400 Balance 260 540 200 Weight 72.6 kg Intake: Oral 660 540 200 Output: Urine 400 Other: Voiding Method Toilet Toilet # Voids 1 2 - Labs CBC & Chem 7: 03/24/24 05:50 03/25/24 06:14 Labs: Abnormal Lab Results - Last 24 Hours (Table) 03/24/24 03/24/24 03/24/24 Range/Units 11:29 16:39 20:34 Chloride (98-107) mmol/L BUN (7-17) mg/dL POC Glucose (mg/dL) 166 H 138 H 170 H (70-110) mg/dL 03/25/24 Range/Units 06:14 Chloride 112 H (98-107) mmol/L BUN 33 H (7-17) mg/dL POC Glucose (mg/dL) (70-110) mg/dL Microbiology - Last 24 Hours (Table) 03/23/24 14:45 Blood Culture - Preliminary Blood
--- NOTE | 2024-03-25 13:55 | P.PN ---
Subjective HISTORY OF PRESENT ILLNESS: This is a 64-year-old female with a past medical history significant for CAD with previous stenting of the RCA, hypertension, hyperlipidemia, diabetes, seizure disorder, COPD, and nicotine dependence. Patient follows in the office with Dr. Michaels. We have been asked to see the patient in consultation for chest pain. Patient examined at the bedside. Patient's family is present. Patient states that she was evicted from her house on 03/20/2024. She states she has been very stressed out over this. She states she was in the process of moving over the past couple days and was unable to find any of her medication so she has been without them for 2 days. She also reports she has been having chest pain since finding out she was getting evicted. She states the pain is in the middle of her chest. She denies any radiation of the pain. She states the pain is worse with deep inspiration. Patient is a current cigarette smoker. She also reports that she has been smoking more the past few weeks due to her i nfection. Apparently yesterday, the patient had a syncopal episode at home. She reports that she felt dizzy and lightheaded prior to falling. She does report that she lost consciousness. She denies any loss of bowel or bladder. She states that when she woke up she did feel confused. Patient was hypotensive when she presented to the emergency room with a blood pressure of 77/52. Blood pressure this morning 110/57. Started on midodrine 10 mg 3 times daily per primary medicine. Additionally patient was found to have EDUARDA. Creatinine 1.99 on admission. Repeat this morning 1.30. DIAGNOSTICS: - EKG reveals sinus mechanism with T wave inversions inferiorly in V1V3 - Chest xray negative for acute process - Head CT: Negative for acute intracranial process. No evidence of cervical spine fracture. Mild multilevel degenerative disc disease. Advanced COPD changes. - Laboratory data: WBC 5.6. Hemoglobin 16.3. Platelet count 117. Sodium 142. Potassium 4.3. BUN 56. Creatinine 1.30. Troponin negative x 3. - Current home cardiac medications include aspirin 81 mg daily, Jardiance 10 mg daily, Zetia 10 mg daily, Lasix 40 mg twice a day, metoprolol succinate 25 mg with lunch, Ranexa 500 mg twice a day, Aldactone 25 mg daily, lisinopril 10 mg daily. - Most recent echocardiogram obtained in February 2024 revealed ejection fraction 55 to 60%, moderate pulmonary hypertension, mild to moderate tricuspid regurgitation, right atrial enlargement, enlarged right ventricle - Cardiac catheterization history: November 2021 revealing mild luminary irregularities of the left system and 99% distal RCA stenosis. Patient underwent stenting of the distal RCA. - Patient underwent Lexiscan stress test in April 2023 which was negative for ischemia 03/25/2024 Patient examined this morning the bedside. Patient currently denies chest pain or pressure. She denies shortness of breath. Kidney function has returned to normal today with a creatinine of 1.08. Patient's blood pressures have been stable. Her midodrine was decreased yesterday. PHYSICAL EXAM: VITAL SIGNS: Reviewed. GENERAL: Well-developed in no acute distress. HEENT: Head is normocephalic. Pupils are equal, round. Sclerae anicteric. Mucous membranes of the mouth are moist. Neck supple. No JVD or thyromegaly LUNGS: Respirations even and unlabored. Lungs essentially clear to auscultation bilaterally, diminished. HEART: Regular rate and rhythm. S1 and S2 heard. ABDOMEN: Soft. Nondistended. Nontender. EXTREMITIES: Normal range of motion. No clubbing or cyanosis. Peripheral pulses intact. Trace bilateral lower extremity edema NEUROLOGIC: Awake and alert. Oriented x 3. ASSESSMENT: Syncope, likely secondary to hypotension Hypotension, improving Acute kidney injury, improving Chest pain, troponin negative x 3, noncardiac and reproducible with examination Coronary artery disease with previous stenting of the RCA, 2021 History of hypertension History of hyperlipidemia History of diabetes Seizure disorder COPD Nicotine dependence PLAN: An acute coronary event has been ruled out Discontinue midodrine Continue to monitor blood pressure. If patient remains stable tomorrow we will slowly reintroduce some of her diuretics and antihypertensive medications Continue telemetry monitoring to assess for any arrhythmias Smoking cessation encouraged. Patient referred to [place] quit line upon discharge It is noted that the patient is scheduled for outpatient right heart cath on March 29, 2024. N.p.o. at midnight. We will discuss with Dr. Michaels tomorrow to see if he can perform right heart cath tomorrow. Further recommendations pending patient course Nurse practitioner note has been reviewed by physician. Signing provider agrees with the documented findings, assessment, and plan of care documented by GRANITE FABRICATOR as a scribe. Objective - Vital Signs Vital signs: Vital Signs Temp 97.5 F L 03/25/24 11:50 Pulse 69 03/25/24 11:50 Resp 14 03/25/24 11:50 BP 121/74 03/25/24 11:50 Pulse Ox 91 L 03/25/24 11:50 FiO2 Intake & Output 03/24/24 03/25/24 03/25/24 18:59 06:59 18:59 Intake Total 660 540 200 Output Total 400 Balance 260 540 200 Weight 72.6 kg Intake: Oral 660 540 200 Output: Urine 400 Other: Voiding Method Toilet Toilet Toilet # Voids 1 2 - Labs CBC & Chem 7: 03/24/24 05:50 03/25/24 06:14 Labs: Abnormal Lab Results - Last 24 Hours (Table) 03/24/24 03/24/24 03/25/24 Range/Units 16:39 20:34 06:14 Chloride 112 H (98-107) mmol/L BUN 33 H (7-17) mg/dL POC Glucose (mg/dL) 138 H 170 H (70-110) mg/dL 03/25/24 Range/Units 11:27 Chloride (98-107) mmol/L BUN (7-17) mg/dL POC Glucose (mg/dL) 144 H (70-110) mg/dL Microbiology - Last 24 Hours (Table) 03/23/24 14:45 Blood Culture - Preliminary Blood
[2024-03-25 16:54] LABS: Glucose,Whole Blood 128 mg/dL (70-110)
[2024-03-25 21:03] LABS: Glucose,Whole Blood 242 mg/dL (70-110)
[2024-03-26 05:52] LABS: Glucose,Whole Blood 111 mg/dL (70-110)
[2024-03-26 08:34] LABS: African American GFR (CKD) 70 (>60 ml/min/1.73 sqM); Anion Gap 8 mmol/L; Blood Urea Nitrogen 21 mg/dL (7-17); Calcium 9.6 mg/dL (8.4-10.2); Carbon Dioxide 27 mmol/L (22-30); Chloride 106 mmol/L (98-107); Glucose 100 mg/dL (74-99); Non-African American GFR(CKD) 61 (>60 ml/min/1.73 sqM); Potassium 4.4 mmol/L (3.5-5.1); Sodium 141 mmol/L (137-145)
[2024-03-26] MEDS ORDERED: ALPRAZolam 0.5 MG TAB PO PRN (10:12)
[2024-03-26] MEDS ORDERED: ALPRAZolam 0.25 MG TAB PO PRN (10:12)
[2024-03-26] MEDS ORDERED: NITROGLYCERIN SL TABS 0.4 MG TAB SUBLINGUAL PRN (10:12)
[2024-03-26] MEDS: ASPIRIN 325 MG TAB PO STA (10:27)
--- NOTE | 2024-03-26 10:33 | P.PN ---
Subjective HISTORY OF PRESENT ILLNESS: This is a 64-year-old female with a past medical history significant for CAD with previous stenting of the RCA, hypertension, hyperlipidemia, diabetes, seizure disorder, COPD, and nicotine dependence. Patient follows in the office with Dr. Michaels. We have been asked to see the patient in consultation for chest pain. Patient examined at the bedside. Patient's family is present. Patient states that she was evicted from her house on 03/20/2024. She states she has been very stressed out over this. She states she was in the process of moving over the past couple days and was unable to find any of her medication so she has been without them for 2 days. She also reports she has been having chest pain since finding out she was getting evicted. She states the pain is in the middle of her chest. She denies any radiation of the pain. She states the pain is worse with deep inspiration. Patient is a current cigarette smoker. She also reports that she has been smoking more the past few weeks due to her i nfection. Apparently yesterday, the patient had a syncopal episode at home. She reports that she felt dizzy and lightheaded prior to falling. She does report that she lost consciousness. She denies any loss of bowel or bladder. She states that when she woke up she did feel confused. Patient was hypotensive when she presented to the emergency room with a blood pressure of 77/52. Blood pressure this morning 110/57. Started on midodrine 10 mg 3 times daily per primary medicine. Additionally patient was found to have EDUARDA. Creatinine 1.99 on admission. Repeat this morning 1.30. DIAGNOSTICS: - EKG reveals sinus mechanism with T wave inversions inferiorly in V1V3 - Chest xray negative for acute process - Head CT: Negative for acute intracranial process. No evidence of cervical spine fracture. Mild multilevel degenerative disc disease. Advanced COPD changes. - Laboratory data: WBC 5.6. Hemoglobin 16.3. Platelet count 117. Sodium 142. Potassium 4.3. BUN 56. Creatinine 1.30. Troponin negative x 3. - Current home cardiac medications include aspirin 81 mg daily, Jardiance 10 mg daily, Zetia 10 mg daily, Lasix 40 mg twice a day, metoprolol succinate 25 mg with lunch, Ranexa 500 mg twice a day, Aldactone 25 mg daily, lisinopril 10 mg daily. - Most recent echocardiogram obtained in February 2024 revealed ejection fraction 55 to 60%, moderate pulmonary hypertension, mild to moderate tricuspid regurgitation, right atrial enlargement, enlarged right ventricle - Cardiac catheterization history: November 2021 revealing mild luminary irregularities of the left system and 99% distal RCA stenosis. Patient underwent stenting of the distal RCA. - Patient underwent Lexiscan stress test in April 2023 which was negative for ischemia 03/25/2024 Patient examined this morning the bedside. Patient currently denies chest pain or pressure. She denies shortness of breath. Kidney function has returned to normal today with a creatinine of 1.08. Patient's blood pressures have been stable. Her midodrine was decreased yesterday. 03/26/2024 Patient examined this morning at the bedside. She reports she has been having some chest discomfort since being in the hospital that is worse with exertion. Denies SOB at the time of examination. Vital signs are stable. PHYSICAL EXAM: VITAL SIGNS: Reviewed. GENERAL: Well-developed in no acute distress. HEENT: Head is normocephalic. Pupils are equal, round. Sclerae anicteric. Mucous membranes of the mouth are moist. Neck supple. No JVD or thyromegaly LUNGS: Respirations even and unlabored. Lungs essentially clear to auscultation bilaterally, diminished. HEART: Regular rate and rhythm. S1 and S2 heard. ABDOMEN: Soft. Nondistended. Nontender. EXTREMITIES: Normal range of motion. No clubbing or cyanosis. Peripheral pulse s intact. Trace bilateral lower extremity edema NEUROLOGIC: Awake and alert. Oriented x 3. ASSESSMENT: Syncope, likely secondary to hypotension Hypotension, improving Acute kidney injury, improving Chest pain, troponin negative x 3, noncardiac and reproducible with examination Coronary artery disease with previous stenting of the RCA, 2021 History of hypertension History of hyperlipidemia History of diabetes Seizure disorder COPD Nicotine dependence PLAN: An acute coronary event has been ruled out Continue to hold diuretics and antihypertensive medications for today. We will reassess tomorrow. Continue telemetry monitoring to assess for any arrhythmias Smoking cessation encouraged. Patient referred to [place] quit line upon discharge Patient to undergo left and right heart cath today with Dr. Michaels Further recommendations pending patient course Nurse practitioner note has been reviewed by physician. Signing provider agrees with the documented findings, assessment, and plan of care documented by HEARING AID MECHANIC as a scribe. Objective - Vital Signs Vital signs: Vital Signs Temp 98.4 F 03/26/24 04:00 Pulse 68 03/26/24 04:00 Resp 18 03/26/24 04:00 BP 154/82 03/26/24 04:00 Pulse Ox 97 03/26/24 08:06 FiO2 Intake & Output 03/25/24 03/26/24 03/26/24 18:59 06:59 18:59 Intake Total 930 Output Total 1550 Balance -620 Weight 72.8 kg Intake: Oral 930 Output: Urine 1550 Other: Voiding Method Toilet Toilet # Voids 1 - Labs CBC & Chem 7: 03/24/24 05:50 03/26/24 07:43 Labs: Abnormal Lab Results - Last 24 Hours (Table) 03/25/24 03/25/24 03/25/24 Range/Units 11:27 16:52 21:02 BUN (7-17) mg/dL Glucose (74-99) mg/dL POC Glucose (mg/dL) 144 H 128 H 242 H (70-110) mg/dL 03/26/24 03/26/24 Range/Units 05:51 07:43 BUN 21 H (7-17) mg/dL Glucose 100 H (74-99) mg/dL POC Glucose (mg/dL) 111 H (70-110) mg/dL Microbiology - Last 24 Hours (Table) 03/23/24 14:45 Blood Culture - Preliminary Blood
[2024-03-26 11:33] LABS: Glucose,Whole Blood 111 mg/dL (70-110)
[2024-03-26] MEDS: SODIUM CHLORIDE 0.9% 1,000 ML in EMPTY BAG 1 BAG IV SCH (12:03)
--- NOTE | 2024-03-26 12:45 | P.PN ---
Subjective Progress Note Date: 03/26/24 64 year old F with PMH of diastolic CHF, chronic respiratory failure on 4L NC, COPD/emphysema, h/o breast CA with L masectomy, DM, RA, HLD, HTN, sleep apnea, seizure disorder presents to the ED. She reports chest pain that has been ongoing for the past 3 days. Intermittent, left sided, sharp and stabbing sometimes radiating to the jaw. Pain is tender to palpation. Pain is associated with shortness of breath. She also reports poor appetite over the past few days with bilateral lower quadrant pain that is colicky in nature. She has a history of IBS and feels constipated, last bowel movement 4 days ago. She did have one episode of N/V today. No dysuria. No lightheadedness, palpitations, fever, chills, headache, numbness/weakness/tingling of the extremities. In the ED she underwent extensive evaluation. BP 77/52, HR 61, RR 20, T 97.6F, 92% on RA. CBC, Coag panel, CMP significant for RBC 5.78, Hg 19, Hct 56.5, Plt 121, K 5.7, bicarb 20, BUN 80, Cr 1.99, glu 141. Trop 0.015. Mag 2.3. Lactic acid 0.9. BNP 974. COVID, RSV, Flu neg. ABG pH 7.28, pCO2 48. EKG sinus bradycardia with first degree AV block. CXR no acute process. CT head/C-spine no acute process, advanced COPD, multilevel DJD. Patient is admitted for further workup and management. Apparently patient had a syncopal episode on the day of admission which she did not mention yesterday. 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 She was quick to regain consciousness. She did hit her head. Trop 0.016, 0.015, < 0.012. Syncope thought to the related to hypotension, all antihypertensive medications were held and patient started on Midodrine. 03/26 Patient was seen and examined. Doing well. Cardiology recommended continuing to hold all antihypertensive medication with plans for cardiac cath today. BP is 160/79 this morning with HR 75. BMP shows BUN 21, glu 100. Discussed with Tianna STEVENS, monitor renal function post cath overnight and possibly re-start antihype rtensive medications tomorrow. General: non toxic, no distress, appears at stated age Derm: warm, dry Head: atraumatic, normocephalic, symmetric Eyes: EOMI, no lid lag, anicteric sclera Mouth: no lip lesion, mucus membranes moist Cardiovascular: Normal S1 S2. systolic murmur. Lungs: Decreased BS BL, no accessory muscle use Ext: no gross muscle atrophy, no edema, no contractures Psych: Alert, oriented, appropriate affect, slow to respond Based on my assessment of this patient, this patient meets a high complexity level of care. Syncope due to hypotension: Precipitated by BP meds and dehydration. Plans for cardiac cath today. Cardiology recommends continuing to hold all antihypertensive medication. Fall precautions. Cardiology on board. Chest pain: Atypical. Appears MSK. ACS ruled out. Recent Echo EF 55-60%, mod- severe pulmonary HTN, mild MR, mod TR. Telemetry monitoring. Cardiology on board. Acute kidney injury on CKD stage II: Due to dehydration. Hold Farxiga, Lisinopril, Aldactone. Resolving. Encourage hydration by mouth. Chronic respiratory failure with COPD not in acute exacerbation: DuoNeb QID + Q2H PRN. Singulair 10 mg PO QHS. Diastolic CHF not in acute exacerbation DM: ISS + Acchecks ACHS. Hypoglycemic precautions. HLD: ASA 81 mg PO QD. Zetia 10 mg PO QD. HTN: Metoprolol, Lisinopril, Aldactone and Lasix on hold. Sleep apnea: CPAP QHS. Seizure disorder: Keppra 750 mg PO BID. Resolved: HyperK, Metabolic acidosis CODE STATUS: FULL CODE DVT Prophylaxis: Heparin SQ. GI Prophylaxis: Protonix PO Designated medical POA if patient is not able to make medical decisions for themselves: I have reviewed the following customer consultant notes: Cardiology. I have reviewed the results of the following tests: BMP. I have ordered the following tests: BMP in the AM. I have discussed the care of this patient with the following independent historian: I have independently interpreted the following test below: I have discussed the management of this patient with the following physician: Tianna STEVENS Objective - Vital Signs Vital signs: Vital Signs Temp 98.4 F 03/26/24 04:00 Pulse 72 03/26/24 11:34 Resp 18 03/26/24 08:20 BP 160/79 01/06/25 08:20 Pulse Ox 94 L 03/26/24 08:20 FiO2 Intake & Output 03/25/24 03/26/24 03/26/24 18:59 06:59 18:59 Intake Total 930 0 Output Total 1550 700 Balance -620 -700 Weight 72.8 kg Intake: Oral 930 0 Output: Urine 1550 700 Other: Voiding Method Toilet Toilet Toilet # Voids 1 # Bowel Movements 0 - Labs CBC & Chem 7: 03/24/24 05:50 03/26/24 07:43 Labs: Abnormal Lab Results - Last 24 Hours (Table) 03/25/24 03/25/24 03/26/24 Range/Units 16:52 21:02 05:51 BUN (7-17) mg/dL Glucose (74-99) mg/dL POC Glucose (mg/dL) 128 H 242 H 111 H (70-110) mg/dL 03/26/24 03/26/24 Range/Units 07:43 11:32 BUN 21 H (7-17) mg/dL Glucose 100 H (74-99) mg/dL POC Glucose (mg/dL) 111 H (70-110) mg/dL Microbiology - Last 24 Hours (Table) 03/23/24 14:45 Blood Culture - Preliminary Blood
[2024-03-26] MEDS: MIDAZOLAM 2 MG/2 ML VIAL IVP ONE (12:49)
[2024-03-26] MEDS: HEPARIN SODIUM,PORCINE (1 ML) 2,500 UNIT in SODIUM CHLORIDE 0.9% 250 ML IRRIGATION PRN (13:27)
[2024-03-26] MEDS: HEPARIN SODIUM,PORCINE 10,000 UNIT in SODIUM CHLORIDE 0.9% 1,000 ML IRRIGATION PRN (13:27)
[2024-03-26] MEDS: fentaNYL (PF) 50 MCG/1 ML VIAL IVP ONE (13:49)
[2024-03-26] MEDS: LIDOCAINE 1% INJ 10MG/ML (20 ML MDV) SQ ONE (13:49)
[2024-03-26] MEDS: VERAPAMIL SYRINGE (5 MG/10 ML) INTRAARTER ONE (13:53)
[2024-03-26] MEDS: HEPARIN SODIUM 1,000 UN/ML (10ML VL) IVP ONE (14:08)
[2024-03-26 14:22] LABS: O2 Sat Blood Gas 70.4 %
[2024-03-26 14:24] LABS: O2 Sat Blood Gas 88.5 %
[2024-03-26 14:25] LABS: O2 Sat Blood Gas 69.2 %
[2024-03-26] MEDS: IOPAMIDOL-370 100ML BTL INJ ONE (14:38)
--- NOTE | 2024-03-26 14:48 | P.CARDCATH ---
Description of Procedure: PROCEDURES PERFORMED: Left heart catheterization, right heart catheterization, bilateral coronary angiography, ultrasound guided arterial access INDICATION: Pulmonary hypertension, chest pain concerning for unstable angina with some dynamic ST changes CONSENT:I have discussed the risks, benefits and alternative therapies for the above-mentioned procedure and for both sedation/analgesia as well as necessary blood product administration, if indicated, as they pertain to this patient. The patient has indicated understanding and acceptance of the risks and procedures discussed. PROCEDURE: After the risks, benefits and alternatives of the above mentioned procedure explained in detail with the patient, informed consent was obtained. Patient was taken to the catheterization lab and prepped and draped in usual fashion. Ultrasound guidance was used to assess for arterial access. 1% lidocaine was used to anesthetize the right radial artery and right brachial area. A 6-Dutch sheath was placed in the right radial artery and additional 6Fr sheath placed in the right brachial vein using modified Seldinger technique and ultrasound guidance. A 6-Dutch [place]-Jai catheter was inserted in the right atrium, right ventricle, pulmonary artery and pulmonary Wedge Position. Pressure measurements and Oxygen saturation measurements were obtained. Thermodilution was performed. Left coronary angiography was performed with a 5-Dutch JL 3.5 catheter and right coronary angiography was performed with a 5-Dutch FR5 catheter in various views. A 5-Dutch FR5 catheter was inserted into the left ventricle and pressure measurements were obtained. The right radial sheath was removed and a TR band was placed with hemostasis achieved. The patient tolerated the procedure well. Patient was transported back to the post catheterization holding area in stable condition. Conscious Sedation: Patient was monitored under the direct supervision of myself for conscious sedation using Versed and fentanyl for a total duration of 29 minutes HEMODYNAMICS: Ao: 139/72 LV: 135/10, LVEDP 19 PCWP: 18 PA: 82/30 RV: 81/5 RA: 8 RA oxygen saturation: 69% PA oxygen saturation: 70% Right radial artery oxygen saturation: 89% (on 4L NC usually on 3L NC at home) CO by thermo: 5.8 L/min CI by thermo: 3.3 L/min/m2 CO by HAJA: 5.6 L/min CI by HAJA: 3.3 L/min/m2 SELECTIVE CORONARY ARTERIOGRAPHY: LEFT MAIN: The left main is a large caliber vessel which bifurcates into the LAD and circumflex. There is no significant stenosis. LEFT ANTERIOR DESCENDING CORONARY ARTERY: LAD is a large caliber vessel which wraps around to the apex. There is mild mid LAD 10-20% stenosis and a mid LAD 30-40% bridging stenosis. Otherwise there are mild luminal irregularities. LEFT CIRCUMFLEX CORONARY ARTERY: Left circumflex is a moderate caliber vessel with mild 10- 20% stenosis RIGHT CORONARY ARTERY: The right coronary artery is a large caliber vessel which gives off a PDA and PLV branch and is the dominant vessel. There is a patent mid to distal RCA stents and otherwise mid RCA 30-40% stenosis. FINAL IMPRESSION: 1. Stable CAD as described above including mid LAD 30-40% stenosis, mid RCA 30- 40% stenosis, patent RCA stents, mid LAD bridging 2. Borderline elevated left sided filling pressures, normal right sided filling pressures 3. Precapillary pulmonary hypertension appears predominantly group 1, group 3 PLAN: 1. Aggressive risk factor modification per most recent ACC/AHA guidelines. 2. Attempt more aggressive pulmonary hypertension management. Add Revatio. Consider pulmonary hypertension specialist workup.
[2024-03-26 16:36] LABS: Glucose,Whole Blood 168 mg/dL (70-110)
[2024-03-26 20:40] LABS: Glucose,Whole Blood 162 mg/dL (70-110)
[2024-03-27 06:11] LABS: Glucose,Whole Blood 106 mg/dL (70-110)
[2024-03-27 08:23] LABS: African American GFR (CKD) >90 (>60 ml/min/1.73 sqM); Anion Gap 6 mmol/L; Blood Urea Nitrogen 18 mg/dL (7-17); Calcium 9.3 mg/dL (8.4-10.2); Carbon Dioxide 28 mmol/L (22-30); Chloride 107 mmol/L (98-107); Glucose 83 mg/dL (74-99); Non-African American GFR(CKD) 80 (>60 ml/min/1.73 sqM); Potassium 4.3 mmol/L (3.5-5.1); Sodium 141 mmol/L (137-145)
[2024-03-27] MEDS: SILDENAFIL 20 MG TAB PO SCH (08:41)
[2024-03-27 09:40] VITALS: TEMP 98.1
[2024-03-27] MEDS: ATORVASTATIN 80 MG TAB PO STA (10:41)
[2024-03-27 11:28] LABS: Glucose,Whole Blood 174 mg/dL (70-110)
[2024-03-27 11:30] VITALS: BP 148/78; PULSE 68; RESP 18
[2024-03-27] MEDS: SPIRONOLACTONE 25 MG TAB PO SCH (11:49)
[2024-03-27] MEDS: lisinopriL 5 MG TAB PO SCH (11:49)
[2024-03-27] MEDS: FUROSEMIDE 40 MG TAB PO SCH (11:49)
--- NOTE | 2024-03-27 11:59 | P.DS ---
Providers Date of admission: 03/23/24 15:30 Expected date of discharge: 03/27/24 Attending physician: Dayton Thomson Consults: 03/23/24 18:10 Consult Physician Routine Consulting Provider: William Salas Consult Reason/Comments: chest pain Do you want consulting provider notified?: Yes Primary care physician: [facility] Course: Discharge Diagnosis: Pulmonary hypertension CAD status post prior stent EDUARDA on CKD stage III Hyperkalemia Metabolic acidosis Diastolic CHF Diabetes Dyslipidemia Hypertension Seizure disorder Syncope Hypotension Atypical chest pain Chronic hypoxic respiratory failure with COPD, not in exacerbation Hospital Course: 64 year old F with PMH of diastolic CHF, chronic respiratory failure on 4L NC, COPD/emphysema, h/o breast CA with L masectomy, DM, RA, HLD, HTN, sleep apnea, seizure disorder presents to the ED. She reports chest pain that has been ongoing for the past 3 days. Intermittent, left sided, sharp and stabbing sometimes radiating to the jaw. Pain is tender to palpation. Pain is associated with shortness of breath. She also reports poor appetite over the past few days with bilateral lower quadrant pain that is colicky in nature. Had a syncopal episode. Patient slightly hypotensive initially. In the ED she underwent extensive evaluation. BP 77/52, HR 61, RR 20, T 97.6F, 92% on RA. CBC, Coag panel, CMP significant for RBC 5.78, Hg 19, Hct 56.5, Plt 121, K 5.7, bicarb 20, BUN 80, Cr 1.99, glu 141. Trop 0.015. Mag 2.3. Lactic acid 0.9. BNP 974. COVID, RSV, Flu neg. ABG pH 7.28, pCO2 48. EKG sinus bradycardia with first degree AV block. CXR no acute process. CT head/C-spine no acute process, advanced COPD, multilevel DJD. Patient is admitted for further workup and management. Cardiology also consulted. Syncope likely secondary to antihypertensive medications, were initially held. Patient also had a cardiac cath which showed stable CAD involving mid LAD 30 to 40% stenosis, mid RCA 30 to 40% stenosis, patent RCA stents, mid LAD bridging, precapillary pulmonary hypertension appears predominantly Group 1 and group 3. Patient started on sildenafil, reduced dose of lisinopril, reduced dose of Lasix, resumed Aldactone, discontinue metoprolol. Patient also had EDUARDA which is resolved. Patient denies any further lightheadedness at the time of discharge. Follow-up outpatient with PCP, c ardiology and pulmonary hypertension specialist Patient seen and examined at bedside. Vital signs reviewed and stable. General: Nontoxic, no distress, appears at stated age, chronically ill-appearing Derm: Warm, dry Head: Atraumatic, normocephalic, symmetric Eyes: EOMI, no lid lag, anicteric sclera Mouth: No lip lesion, mucus membranes moist Cardiovascular: S1S2 reg, no murmur Lungs: CTA bilateral, no rhonchi, no rales, no accessory muscle use, supplemental oxygen Abdominal: Soft, nontender to palpation, no guarding, no appreciable organomegaly Ext: No gross muscle atrophy, no edema, no contractures Neuro: CN II-XI grossly intact, no focal neuro deficits Psych: Alert, oriented, appropriate affect A total of 33 minutes of time were spent preparing this complex discharge summary. Patient was discharged on 03/27/2024 at 1150. Patient Condition at Discharge: Stable Plan - Discharge Summary New Discharge Prescriptions: New Furosemide [Lasix] 40 mg PO DAILY #90 tab Sildenafil [Revatio] 20 mg PO TID #90 tab lisinopriL [Zestril] 5 mg PO DAILY #90 tab Continue Montelukast Sodium [Singulair] 10 mg PO HS levETIRAcetam [Keppra] 750 mg PO BID rOPINIRole HCL [Requip] 1 mg PO TID Magnesium Chloride [Mag64] 128 mg PO DAILY Evolocumab [Repatha Sureclick] 140 mg SQ Q14D Citalopram Hydrobromide [Citalopram HBr] 40 mg PO DAILY Cholecalciferol (Vitamin D3) [Vitamin D3 (50 Mcg = 2000 Iu)] 50 mcg PO DAILY Ranolazine [Ranexa] 500 mg PO BID Esomeprazole Magnesium [NexIUM] 40 mg PO BID Spironolactone [Aldactone] 25 mg PO DAILY #90 tab Aspirin 81 mg PO DAILY #90 tab Naloxegol Oxalate [Movantik] 25 mg PO DAILY oxyCODONE HCL [oxyCODONE HCL (IR)] 10 mg PO TID PRN PRN Reason: Pain Albuterol Inhaler [Ventolin Hfa Inhaler] 2 puff INHALATION RT-Q6H PRN PRN Reason: Shortness Of Breath Ezetimibe [Zetia] 10 mg PO DAILY Ipratropium-Albuterol Nebulize [Duoneb 0.5 mg-3 mg/3 ml Soln] 3 ml INHALATION RT-QID PRN PRN Reason: Shortness Of Breath Empagliflozin [Jardiance] 10 mg PO DAILY Nitroglycerin Sl Tabs [Nitrostat] 0.4 mg SUBLINGUAL Q5M PRN PRN Reason: Chest Pain Tiotropium 2.5 Mcg/Puff [Spiriva Respimat 2.5 Mcg] 2 puff INHALATION RT-DAILY Insulin Glargine,Hum.rec.anlog [Lantus Solostar Pen] 30 units SQ DAILY Insulin Aspart [NovoLOG Flexpen] See Protocol SQ ACHS Folic Acid 1 mg PO DAILY Discontinued Furosemide [Lasix] 40 mg PO BID@0900,1600 #180 tab Metoprolol Succinate (ER) [Toprol XL] 25 mg PO W/LUNCH #90 tab lisinopriL [Zestril] 10 mg PO DAILY #90 tab Baclofen 10 mg PO TID Gabapentin [Neurontin] 200 mg PO BID Discharge Medication List Montelukast Sodium [Singulair] 10 mg PO HS 01/15/19 [History] levETIRAcetam [Keppra] 750 mg PO BID 01/15/19 [History] Citalopram Hydrobromide [Citalopram HBr] 40 mg PO DAILY 12/04/21 [History] Evolocumab [Repatha Sureclick] 140 mg SQ Q14D 12/04/21 [History] Magnesium Chloride [Mag64] 128 mg PO DAILY 12/04/21 [History] oxyCODONE HCL [oxyCODONE HCL (IR)] 10 mg PO TID PRN 12/04/21 [History] rOPINIRole HCL [Requip] 1 mg PO TID 12/04/21 [History] Albuterol Inhaler [Ventolin Hfa Inhaler] 2 puff INHALATION RT-Q6H PRN 02/18/23 [History] Ezetimibe [Zetia] 10 mg PO DAILY 08/12/23 [History] Cholecalciferol (Vitamin D3) [Vitamin D3 (50 Mcg = 2000 Iu)] 50 mcg PO DAILY 03/01/24 [History] Empagliflozin [Jardiance] 10 mg PO DAILY 03/01/24 [History] Esomeprazole Magnesium [NexIUM] 40 mg PO BID 03/01/24 [History] Ipratropium-Albuterol Nebulize [Duoneb 0.5 mg-3 mg/3 ml Soln] 3 ml INHALATION RT-QID PRN 03/01/24 [History] Ranolazine [Ranexa] 500 mg PO BID 03/01/24 [History] Aspirin 81 mg PO DAILY #90 tab 03/03/24 [Rx] Spironolactone [Aldactone] 25 mg PO DAILY #90 tab 03/03/24 [Rx] Folic Acid 1 mg PO DAILY 03/23/24 [History] Insulin Aspart [NovoLOG Flexpen] See Protocol SQ ACHS 03/23/24 [History] Insulin Glargine,Hum.rec.anlog [Lantus Solostar Pen] 30 units SQ DAILY 03/23/24 [History] Naloxegol Oxalate [Movantik] 25 mg PO DAILY 03/23/24 [History] Nitroglycerin Sl Tabs [Nitrostat] 0.4 mg SUBLINGUAL Q5M PRN 03/23/24 [History] Tiotropium 2.5 Mcg/Puff [Spiriva Respimat 2.5 Mcg] 2 puff INHALATION RT-DAILY 03/23/24 [History] Furosemide [Lasix] 40 mg PO DAILY #90 tab 03/27/24 [Rx] Sildenafil [Revatio] 20 mg PO TID #90 tab 03/27/24 [Rx] lisinopriL [Zestril] 5 mg PO DAILY #90 tab 03/27/24 [Rx] Follow up Appointment(s)/Referral(s): Nitesh Michaels DO [STAFF PHYSICIAN] - 1 Week Cyn Pulido MD [Primary Care Provider] - 1-2 days Patient Instructions/Handouts: Cor Pulmonale (DC), Acute Kidney Injury (DC), Syncope (DC) Activity/Diet/Wound Care/Special Instructions: Please see your PCP and cardiology. Also see pulmonary hypertension specialist either in [place] or [place]. Discharge Disposition: HOME SELF-CARE
--- NOTE | 2024-03-27 13:32 | P.PN ---
Subjective HISTORY OF PRESENT ILLNESS: This is a 64-year-old female with a past medical history significant for CAD with previous stenting of the RCA, hypertension, hyperlipidemia, diabetes, seizure disorder, COPD, and nicotine dependence. Patient follows in the office with Dr. Michaels. We have been asked to see the patient in consultation for chest pain. Patient examined at the bedside. Patient's family is present. Patient states that she was evicted from her house on 03/20/2024. She states she has been very stressed out over this. She states she was in the process of moving over the past couple days and was unable to find any of her medication so she has been without them for 2 days. She also reports she has been having chest pain since finding out she was getting evicted. She states the pain is in the middle of her chest. She denies any radiation of the pain. She states the pain is worse with deep inspiration. Patient is a current cigarette smoker. She also reports that she has been smoking more the past few weeks due to her i nfection. Apparently yesterday, the patient had a syncopal episode at home. She reports that she felt dizzy and lightheaded prior to falling. She does report that she lost consciousness. She denies any loss of bowel or bladder. She states that when she woke up she did feel confused. Patient was hypotensive when she presented to the emergency room with a blood pressure of 77/52. Blood pressure this morning 110/57. Started on midodrine 10 mg 3 times daily per primary medicine. Additionally patient was found to have EDUARDA. Creatinine 1.99 on admission. Repeat this morning 1.30. DIAGNOSTICS: - EKG reveals sinus mechanism with T wave inversions inferiorly in V1V3 - Chest xray negative for acute process - Head CT: Negative for acute intracranial process. No evidence of cervical spine fracture. Mild multilevel degenerative disc disease. Advanced COPD changes. - Laboratory data: WBC 5.6. Hemoglobin 16.3. Platelet count 117. Sodium 142. Potassium 4.3. BUN 56. Creatinine 1.30. Troponin negative x 3. - Current home cardiac medications include aspirin 81 mg daily, Jardiance 10 mg daily, Zetia 10 mg daily, Lasix 40 mg twice a day, metoprolol succinate 25 mg with lunch, Ranexa 500 mg twice a day, Aldactone 25 mg daily, lisinopril 10 mg daily. - Most recent echocardiogram obtained in February 2024 revealed ejection fraction 55 to 60%, moderate pulmonary hypertension, mild to moderate tricuspid regurgitation, right atrial enlargement, enlarged right ventricle - Cardiac catheterization history: November 2021 revealing mild luminary irregularities of the left system and 99% distal RCA stenosis. Patient underwent stenting of the distal RCA. - Patient underwent Lexiscan stress test in April 2023 which was negative for ischemia 03/25/2024 Patient examined this morning the bedside. Patient currently denies chest pain or pressure. She denies shortness of breath. Kidney function has returned to normal today with a creatinine of 1.08. Patient's blood pressures have been stable. Her midodrine was decreased yesterday. 03/26/2024 Patient examined this morning at the bedside. She reports she has been having some chest discomfort since being in the hospital that is worse with exertion. Denies SOB at the time of examination. Vital signs are stable. 03/27/2024 Patient underwent right and left heart cath yesterday with Dr. Michaels revealing stable CAD including mid LAD 30 to 40% stenosis, mid RCA 30 to 40% stenosis, patent RCA stents and mid LAD bridging. Borderline elevated left- sided filling pressures, normal right sided filling pressures. Precapillary pulmonary hypertension appears predominantly Group 1, group 3. Patient has been started on Revatio this morning. PHYSICAL EXAM: VITAL SIGNS: Reviewed. GENERAL: Well-developed in no acute distress. HEENT: Head is normocephalic. Pupils are equal, round. Sclerae anicteric. Mucous membranes of the mouth are moist. Neck supple. No JVD or thyromegaly LUNGS: Respirations even and unlabored. Lungs essentially clear to auscultation bilaterally, diminished. HEART: Regular rate and rhythm. S1 and S2 heard. ABDOMEN: Soft. Nondistended. Nontender. EXTREMITIES: Normal range of motion. No clubbing or cyanosis. Peripheral pulses intact. Trace bilateral lower extremity edema NEUROLOGIC: Awake and alert. Oriented x 3. ASSESSMENT: Syncope, likely secondary to hypotension Hypotension, improving Acute kidney injury, improving Chest pain, troponin negative x 3, noncardiac and reproducible with examination, status post cardiac cath revealing stable CAD Pulmonary hypertension Coronary artery disease with previous stenting of the [id number] History of hypertension History of hyperlipidemia History of diabetes Seizure disorder COPD Nicotine dependence PLAN: Continue current cardiac medications Resume Aldactone 25 mg daily Resume lisinopril at decreased dose of 5 mg daily Resume Lasix at decreased dose of 40 mg daily instead of twice a day Possible outpatient referral to pulmonary hypertension specialist at [facility] Patient is stable for discharge home today from a cardiac standpoint Patient to follow-up postdischarge in the office with Dr. Michaels Nurse practitioner note has been reviewed by physician. Signing provider agrees with the documented findings, assessment, and plan of care documented by C[employer]ING [employer] TENDER as a scribe. Objective - Vital Signs Vital signs: Vital Signs Temp 98.2 F 03/27/24 04:00 Pulse 69 03/27/24 04:00 Resp 18 03/27/24 04:00 BP 153/88 03/27/24 04:00 Pulse Ox 95 03/27/24 04:00 FiO2 Intake & Output 03/26/24 03/27/24 03/27/24 18:59 06:59 18:59 Intake Total 700 Output Total 700 Balance 0 Weight 72.9 kg Intake: IV 100 Oral 600 Output: Urine 700 Other: Voiding Method Toilet Toilet # Voids 1 1 # Bowel Movements 0 - Labs CBC & Chem 7: 03/24/24 05:50 03/27/24 07:41 Labs: Abnormal Lab Results - Last 24 Hours (Table) 03/26/24 03/26/24 03/26/24 Range/Units 11:32 16:35 20:35 BUN (7-17) mg/dL POC Glucose (mg/dL) 111 H 168 H 162 H (70-110) mg/dL 03/27/24 Range/Units 07:41 BUN 18 H (7-17) mg/dL POC Glucose (mg/dL) (70-110) mg/dL Microbiology - Last 24 Hours (Table) 03/23/24 14:45 Blood Culture - Preliminary Blood
--- NOTE | 2024-03-28 10:44 | CDI ---
Documentation Clarification Form Date: 03/28/2024 10:31:26 AM From: Elisabeth Adamson Phone: Admit Date: 03/23/2024 03:30:00 PM Patient Name: Valerie Rios Visit Number: [id number] Discharge Date: 03/27/2024 01:02:00 PM ATTENTION: The Clinical Documentation Specialists (CDI) and [facility] Coding Staff appreciate your assistance in clarifying documentation. Please respond to the clarification below the line at the bottom and electronically sign. The CDI & [facility] Coding staff will review the response and follow-up if needed. Please note: Queries are made part of the Legal Health Record. If you have any questions, please contact the author of this message via ITS. Doctor/Provider: Dayton Thomson Acutemetabolic encephalopathy is documented in H/P note on 03/23 which may lack sufficient clinical evidence/support in the medical record. Additional clarification is requested. History/Risk Factors: 64 year old F with PMH ofdiastolic CHF, chronicrespiratory failureon 4L NC,COPD/emphysema, h/obreast CAwith L mastectomy,DM,RA,HLD,HTN,sleep apnea, seizure disorderpresents to the ED. She reportschest painthat has been ongoing for the past 3 days Clinical Indicators: on 03/23 acutemetabolic encephalopathy: Slow to respond.Per ED, worse on admission. Hold Baclofen, Gabapentin, Percocet for now. Vitals -Temp Pulse Resp BP Pulse Ox 03/23/2516:10 56 L 16 109/64 96 Lab 03/23 -WBC 5.6.Hemoglobin 16.3.Platelet count 117.Sodium 142. Potassium 4.3.BUN 56.Creatinine 1.30.Troponin negative x 3. Pn 03/24 Patient was seen and examined. Family at bedside. Apparently patient had a syncopalepisode on the day of admission which she did not mention yesterday. 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 She was quick to regain consciousness. She did hit her head.CBC andBMPsignificant for Hg 16.3, Hct 50.1, Cl 113, bicarb 19, BUN 56, Cr 1.3.Mag 1.9.UA neg LE or nitrite.Trop 0.016, 0.015, < 0.012. Pn 03/27 -Patient underwentright and left heart cathyesterday with Dr. 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 Treatment: Hold Baclofen, Gabapentin, Percocet for now. Patient started on sildenafil,reduceddose of lisinopril,reduceddose of Lasix, resumed Aldactone, discontinue metoprolol. Please clarify if Acutemetabolic encephalopathy is a valid diagnosis? [ x ] No, Acutemetabolic encephalopathy is ruled out [ ] Yes, Acutemetabolic encephalopathy is present as evidence by (additional clinical support): [ ] Other (please specify diagnosis) [ ] Unable to determine (Template Last Revised: August 2023) MTDD
== END 2024-03-27 13:02 | disposition home or self-care (01) | DRG 287 ==
LOC: EC 11:25 → 3SCARD 15:30
PROVIDERS: ADMIT Student in an Organized Health Care Education/Training Program; ATTEND Student in an Organized Health Care Education/Training Program
PROC: B2111ZZ Fluoroscopy of Multiple Coronary Arteries using Low Osmolar Contrast (ICD-10-PCS; 2024-03-26)
PROC: 4A023N8 Measurement of Cardiac Sampling and Pressure, Bilateral, Percutaneous Approach (ICD-10-PCS; principal; 2024-03-26 13:20)
DX: I27.20 Pulmonary hypertension, unspecified (principal); I13.0 Hypertensive heart and chronic kidney disease with heart failure and stage 1 through stage 4 chronic kidney disease, or unspecified chronic kidney disease; N17.9 Acute kidney failure, unspecified; I50.32 Chronic diastolic (congestive) heart failure; J96.11 Chronic respiratory failure with hypoxia; I25.10 Atherosclerotic heart disease of native coronary artery without angina pectoris; N18.30 Chronic kidney disease, stage 3 unspecified; E11.22 Type 2 diabetes mellitus with diabetic chronic kidney disease; E87.5 Hyperkalemia; E78.5 Hyperlipidemia, unspecified; G40.909 Epilepsy, unspecified, not intractable, without status epilepticus; I95.9 Hypotension, unspecified; J44.9 Chronic obstructive pulmonary disease, unspecified; I44.0 Atrioventricular block, first degree; R00.1 Bradycardia, unspecified; D75.1 Secondary polycythemia; M50.320 Other cervical disc degeneration, mid-cervical region, unspecified level; K58.9 Irritable bowel syndrome, unspecified; E86.0 Dehydration; G47.30 Sleep apnea, unspecified; I07.1 Rheumatic tricuspid insufficiency; M06.9 Rheumatoid arthritis, unspecified; T46.5X5A Adverse effect of other antihypertensive drugs, initial encounter; M81.0 Age-related osteoporosis without current pathological fracture; F17.210 Nicotine dependence, cigarettes, uncomplicated; Z79.899 Other long term (current) drug therapy; Z79.82 Long term (current) use of aspirin; Z88.1 Allergy status to other antibiotic agents; Z88.2 Allergy status to sulfonamides; Z88.8 Allergy status to other drugs, medicaments and biological substances; Z88.9 Allergy status to unspecified drugs, medicaments and biological substances; Z79.84 Long term (current) use of oral hypoglycemic drugs; Z95.5 Presence of coronary angioplasty implant and graft
CPT/HCPCS: 36415; 36600; 70450; 71046; 72125; 80048; 80053; 81003; 82805; 82810; 83605; 83735; 83880; 84484; 85018; 85025; 85610; 85730; 87040; 87636; 93005; 93460; 94640; 94760; 96374; 96376; 99285

== ENCOUNTER 2024-05-27 20:55 | Emergency (ER) | payer MEDICARE, OTHER ==
[2024-05-27 21:02] VITALS: TEMP 97.8
--- NOTE | 2024-05-27 21:33 | ED ---
Fall HPI - General Chief Complaint: Extremity Injury, Upper Stated Complaint: Fall Source: patient, EMS, RN notes reviewed, old records reviewed Mode of arrival: EMS Limitations: no limitations - History of Present Illness Initial Comments: This is a 64-year-old female after a fall down 3-4 stairs. Patient states the lights were turned off she missed a step and went down the stairs landing on her right arm complaining of severe arm pain right elbow pain right shoulder pain mild shortness of breath with normal with her COPD, did hit her head no neck pain. 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, by family Place Fall Occurred: home Loss of Consciousness: none Prolonged Down Time?: no Symptoms Prior to Fall: none Location: head, chest Location - Extremities: Right: Shoulder, Arm, Elbow, Forearm Severity: severe Severity scale (1-10): 8 Context: tripped/slipped Associated Symptoms: denies - Related Data Home Medications Medication Instructions Recorded Confirmed Montelukast Sodium [Singulair] 10 mg PO HS 01/15/19 03/23/24 levETIRAcetam [Keppra] 750 mg PO BID 01/15/19 03/23/24 Citalopram Hydrobromide 40 mg PO DAILY 12/04/21 03/23/24 [Citalopram HBr] Evolocumab [Repatha Sureclick] 140 mg SQ Q14D 12/04/21 03/23/24 Magnesium Chloride [Mag64] 128 mg PO DAILY 12/04/21 03/23/24 oxyCODONE HCL [oxyCODONE HCL (IR)] 10 mg PO TID PRN 12/04/21 03/23/24 rOPINIRole HCL [Requip] 1 mg PO TID 12/04/21 03/23/24 Albuterol Inhaler [Ventolin Hfa 2 puff INHALATION RT-Q6H PRN 02/18/23 03/23/24 Inhaler] Ezetimibe [Zetia] 10 mg PO DAILY 08/12/23 03/23/24 Cholecalciferol (Vitamin D3) 50 mcg PO DAILY 03/01/24 03/23/24 [Vitamin D3 (50 Mcg = 2000 Iu)] Empagliflozin [Jardiance] 10 mg PO DAILY 03/01/24 03/23/24 Esomeprazole Magnesium [NexIUM] 40 mg PO BID 03/01/24 03/23/24 Ipratropium-Albuterol Nebulize 3 ml INHALATION RT-QID PRN 03/01/24 03/23/24 [Duoneb 0.5 mg-3 mg/3 ml Soln] Ranolazine [Ranexa] 500 mg PO BID 03/01/24 03/23/24 Folic Acid 1 mg PO DAILY 03/23/24 03/23/24 Insulin Aspart [NovoLOG Flexpen] See Protocol SQ ACHS 03/23/24 03/23/24 Insulin Glargine,Hum.rec.anlog 30 units SQ DAILY 03/23/24 03/23/24 [Lantus Solostar Pen] Naloxegol Oxalate [Movantik] 25 mg PO DAILY 03/23/24 03/23/24 Nitroglycerin Sl Tabs [Nitrostat] 0.4 mg SUBLINGUAL Q5M PRN 03/23/24 03/23/24 Tiotropium 2.5 Mcg/Puff [Spiriva 2 puff INHALATION RT-DAILY 03/23/24 03/23/24 Respimat 2.5 Mcg] Previous Rx's Medication Instructions Recorded Aspirin 81 mg PO DAILY #90 tab 03/03/24 Spironolactone [Aldactone] 25 mg PO DAILY #90 tab 03/03/24 Furosemide [Lasix] 40 mg PO DAILY #90 tab 03/27/24 Sildenafil [Revatio] 20 mg PO TID #90 tab 03/27/24 lisinopriL [Zestril] 5 mg PO DAILY #90 tab 03/27/24 HYDROcodone/APAP 7.5-325MG [[place] 1 tab PO Q4H PRN 3 Days #18 tab 05/28/24 7.5-325] Ketorolac [Toradol] 10 mg PO Q6HR PRN #8 tab 05/28/24 Allergies Allergy/AdvReac Type Severity Reaction Status Date / Time atorvastatin [From Lipitor] Allergy Unknown Unknown Verified 05/28/24 18:53 Corticosteroids Allergy Unknown Anaphylaxis Verified 05/28/24 18:53 (Glucocorticoids) doxycycline Allergy Unknown Unknown Verified 05/28/24 18:53 Bnehgjs-ZQS-OxO Reductase Allergy Unknown Anaphylaxis Verified 05/28/24 18:53 Inhibitor [Xlfsvzn-Hyg-Jdz Reductase Inhibitor] Sulfa (Sulfonamide AdvReac Unknown Nausea & Verified 05/28/24 18:53 Antibiotics) Vomiting ANABOLIC STEROIDS Allergy Severe Anaphylaxis Uncoded 05/28/24 18:53 persumesor aerosol products Allergy Severe Anaphylaxis Uncoded 05/28/24 18:53 STEROIDS Allergy Severe Anaphylaxis Uncoded 05/28/24 18:53 EKG Electrode Patches Allergy Unknown Blisters Uncoded 05/28/24 18:53 Review of Systems ROS Statement: Those systems with pertinent positive or pertinent negative responses have been documented in the HPI. ROS Other: All systems not noted in ROS Statement are negative. Past Medical History Past Medical History: Cancer, Chest Pain / Angina, COPD, CVA/TIA, Diabetes Mellitus, GERD/Reflux, Hypertension, Pneumonia, Rheumatoid Arthritis (RA), Seiz[place] re Disorder, Sleep Apnea/CPAP/BIPAP Additional Past Medical History / Comment(s): SEIZURE X1 (2011), HX TIA, HX OF HEAD INJURIES, MIGRAINES, BRONCHITIS, SLEEP APNEA-USES C-PAP MACHINE, HERNIATED DISCS WITH BACK PAIN, OSTEOPOROSIS, IBS, HX COLON POLYPS, HX OF DYSPHAGIA WITH DILATION- STATES USUALLY YEARLY., RIGHT BREAST CANCER 2009 WITH SURGERY & CHEMO., FACIAL SKIN CANCER.. VARICOSE VEINS, STATES ENLARGED LEFT VENTRICLE. History of Any Multi-Drug Resistant Organisms: None Reported Past Surgical History: Appendectomy, Breast Surgery, Section, Cholecystectomy, Heart Catheterization, Heart Catheterization With Stent, Hysterectomy, Tonsillectomy Additional Past Surgical History / Comment(s): CARPAL TUNNEL, LEFT BREAST BX AND LIFT, RIGHT BREAST BX, LUMPECTOMY'S AND RIGHT BREAST MASTECTOMY AND RECONSTRUCTION. PORT-A-CATH INSERTED AND REMOVED. Past Anesthesia/Blood Transfusion Reactions: No Reported Reaction, Motion Sickness Date of Last Stent Placement:: 10/19/22 Past Psychological History: Anxiety, Depression Smoking Status: Current every day smoker Past Alcohol Use History: None Reported Past Drug Use History: None Reported - Past Family History Mother Family Medical History: Cancer Additional Family Medical History / Comment(s): LUNG CANCER. Father Family Medical History: Coronary Artery Disease (CAD), Diabetes Mellitus General Exam Limitations: no limitations General appearance: alert, in no apparent distress Head exam: Present: atraumatic, normocephalic, normal inspection Eye exam: Present: normal appearance, PERRL, EOMI. Absent: scleral icterus, conjunctival injection, periorbital swelling ENT exam: Present: normal exam, mucous membranes moist Neck exam: Present: normal inspection. Absent: tenderness, meningismus, lymphadenopathy Respiratory exam: Present: normal lung sounds bilaterally. Absent: respiratory distress, wheezes, rales, rhonchi, stridor Cardiovascular Exam: Present: regular rate, normal rhythm, normal heart sounds. Absent: systolic murmur, diastolic murmur, rubs, gallop, clicks GI/Abdominal exam: Present: soft, normal bowel sounds. Absent: distended, tenderness, guarding, rebound, rigid Extremities exam: Present: tenderness, normal capillary refill, other (Right shoulder deformity). Absent: full ROM, pedal edema, joint swelling, calf tenderness Back exam: Present: normal inspection Neurological exam: Present: alert, oriented X3, CN II-XII intact Psychiatric exam: Present: normal affect, normal mood Skin exam: Present: warm, dry, intact, normal color. Absent: rash Course Vital Signs 05/27/24 05/27/24 05/27/24 20:59 23:01 23:09 Temperature 97.8 F Pulse Rate 65 75 78 Respiratory 18 Rate Blood Pressure 104/68 O2 Sat by Pulse 90 L Oximetry 05/27/24 23:57 Temperature Pulse Rate 88 Respiratory 16 Rate Blood Pressure 116/65 O2 Sat by Pulse 90 L Oximetry - Reevaluation(s) Reevaluation #1: 05/27/24 21:54 Medical records reviewed Reevaluation #2: 05/27/24 23:47 Well-controlled here in the ER after multiple rounds of pain medication Reevaluation #3: 05/27/24 23:47 Informed of results and questions answered Reevaluation #4: Was pt. sent in by a medical professional or institution (, PA, TRANS ROUTER, urgent care, hospital, or correction...) When possible be specific @ -no Did you speak to anyone other than the patient for history (EMS, parent, family, police, friend...)? What history was obtained from this source @ -no Did you review nursing and triage notes (agree or disagree)? Why? @ -agree Are old charts reviewed (outside hosp., previous admission, EMS record, old EKG, old radiological studies, urgent care reports/EKG's, correction records)? Report findings @ -yes Differential Diagnosis (chest pain, altered mental status, abdominal pain women, abdominal pain men, vaginal bleeding, weakness, fever, dyspnea, syncope, headache, dizziness, GI bleed, back pain, seizure, CVA, palpatations, mental health, musculoskeletal)? @ -prior EKG interpreted by me (3pts min.). @ -yno X-rays interpreted by me (1pt min.). @ -yes negative for acute disease CT interpreted by me (1pt min.). @ -yes negative for acute disease U/S interpreted by me (1pt. min.). @ -no What testing was considered but not performed or refused? (CT, X-rays, U/S, labs)? Why? @ -none What meds were considered but not given or refused? Why? @ -none Did you discuss the management of the patient with other professionals (professionals i.e. , PA, TRANS ROUTER, lab, RT, psych nurse, social services designee, combo welder, teacher, plain clothes police officer, piano case and bench assembler)? Give summary @ -no Was smoking cessation discussed for >3mins.? @ -no Was critical care preformed (if so, how long)? @ -no Were there social determinants of health that impacted care today? How? (Homelessness, low income, unemployed, alcoholism, drug addiction, transportation, low edu. Level, literacy, decrease access to med. care, fci, rehab)? @ -none Was there de-escalation of care discussed even if they declined (Discuss DNR or withdrawal of care, Hospice)? DNR status @ -no What co-morbidities impacted this encounter? (DM, HTN, Smoking, COPD, CAD, Cancer, CVA, ARF, Chemo, Hep., AIDS, mental health diagnosis, sleep apnea, morbid obesity)? @ -none Was patient admitted / discharged? Hospital course, mention meds given and route, prescriptions, significant lab abnormalities, going to OR and other pertinent info. @ - 64 female to ER positive fall positive right humerus fracture had with displacement. No dislocation of the humeral head, patient placed in a sling given pain control follow-up with orthopedics tomorrow Discharge Undiagnosed new problem with uncertain prognosis? @ -no Drug Therapy requiring intensive monitoring for toxicity (Heparin, Nitro, Insulin, Cardizem)? @ -no Were any procedures done? @ -no Diagnosis/symptom? @ -Right humerus fracture Acute, or Chronic, or Acute on Chronic? @ -Acute Uncomplicated (without systemic symptoms) or Complicated (systemic symptoms)? @ -Complicated Side effects of treatment? @ -no Exacerbation, Progression, or Severe Exacerbation? @ -exacerbation Poses a threat to life or bodily function? How? (Chest pain, [place], PR, pneumonia, PE, COPD, DKA, ARF, appy, cholecystitis, CVA, Diverticulitis, Homicidal, Suicidal, threat to staff... and all critical care pts) @ -no Medical Decision Making - Medical Decision Making 64 female to ER positive fall positive right humerus fracture had with displacement. No dislocation of the humeral head, patient placed in a sling given pain control follow-up with orthopedics tomorrow - Radiology Data Radiology results: report reviewed (CT brain C-spine chest and pelvis x-ray right shoulder and right elbow x-ray positive for right humerus fracture), image reviewed Disposition Clinical Impression: Acute exacerbation of chronic obstructive pulmonary disease, Fall, Closed right humeral fracture, Comminuted right humeral fracture Disposition: HOME SELF-CARE Condition: Fair Instructions (If sedation given, give patient instructions): Arm Fracture in Adults (ED) Is patient prescribed a controlled substance at d/c from ED?: No Referrals: Cyn Pulido MD [Primary Care Provider] - 1-2 days Cody Montano DO [Doctor of Osteopathic Medicine] - 1-2 days Time of Disposition: 23:30
--- NOTE | 2024-05-27 22:02 | XR ---
EXAMINATION TYPE: XR shoulder complete RT DATE OF EXAM: 05/27/2024 9:53 PM COMPARISON: None CLINICAL INDICATION: Female, 64 years old with history of fall; PHH, pain TECHNIQUE: XR shoulder complete RT; examined in AP, internally rotated and scapular Y projections. FINDINGS: Comminuted displaced fracture of the right humeral head. Humeral head appears laterally distracted re lative to the proximal right humerus. Indeterminate whether the humeral head articulates with the gle noid. Moderate degenerative osteoarthritic changes of the acromioclavicular joint. IMPRESSION: Comminuted displaced fracture of the right humeral head as described above. Recommend orthopedic cons ultation for further evaluation. [facility], , 05/27/2024 10:00 PM
--- NOTE | 2024-05-27 22:03 | XR ---
EXAMINATION TYPE: XR chest 1V DATE OF EXAM: 05/27/2024 9:51 PM COMPARISON: Previous chest radiograph 03/23/2024. CLINICAL INDICATION: Female, 64 years old with history of fall; [facility] TECHNIQUE: XR chest 1V Frontal view of the chest. FINDINGS: Lungs/Pleura: There is no evidence of pleural effusion, focal consolidation, or pneumothorax. Pulmonary vascularity: Unremarkable. Heart/mediastinum: Cardiomediastinal silhouette is unremarkable. Musculoskeletal: Partially visualized, and fracture of the right humeral head. IMPRESSION: No acute cardiopulmonary disease/process. [facility], , 05/27/2024 10:01 PM
--- NOTE | 2024-05-27 22:04 | XR ---
EXAMINATION TYPE: XR pelvis AP view DATE OF EXAM: 05/27/2024 9:54 PM COMPARISON: None. CLINICAL INDICATION: Female, 64 years old with history of fall; PHH, pain TECHNIQUE: XR pelvis AP view, examined in a single projection. FINDINGS: There is no evidence of fracture or dislocation. There is no soft tissue abnormality. No a bnormal calcifications are present. The spine appears intact. The hips appear intact. Moderate bilate ral degenerative osteoarthritic changes of the hips. IMPRESSION: No acute osseous pathology. [facility], , 05/27/2024 10:02 PM
[2024-05-27] MEDS: HYDROmorphone 1 MG/ML 1 ML SYRINGE IVP STA ×2 (22:12→23:51)
[2024-05-27] MEDS: SODIUM CHLORIDE 0.9% 1,000 ML IV ONE (22:24)
[2024-05-27] MEDS: IPRATROPIUM-ALBUTEROL 3 ML NEB INHALATION STA (23:00)
--- NOTE | 2024-05-27 23:12 | XR ---
EXAM: XR Right Elbow Complete, 3 or More Views CLINICAL HISTORY: ITS.REASON XR Reason: fall TECHNIQUE: Frontal, lateral and oblique views of the right elbow. COMPARISON: No previous studies. FINDINGS: Bones/joints: Unremarkable. Normal anatomic alignment. No acute fracture or dislocation. Soft tissues: Soft tissues are unremarkable. IMPRESSION: No acute fracture or dislocation.
--- NOTE | 2024-05-27 23:19 | CT ---
EXAM: CT Head Without Intravenous Contrast CLINICAL HISTORY: ITS.REASON CT Reason: fall TECHNIQUE: Axial computed tomography images of the head/brain without intravenous contrast. CTDI is 45.2 mGy and DLP is 1007 mGy-cm. This CT exam was performed using one or more of the following dose reduction techniques: automated exposure control, adjustment of the mA and/or kV according to patient size, and/or use of iterative reconstruction technique. COMPARISON: 03/23/2024. FINDINGS: Brain: Unremarkable. No hemorrhage. No significant white matter disease. No abnormal extra-axial collection is noted. Midline shift: Midline anatomy is unremarkable. Ventricles: Unremarkable. No ventriculomegaly. Bones/joints: Calvarium is within normal limits. No acute fracture. Soft tissues: Unremarkable. Sinuses: Visualized sinuses are unremarkable. Mastoid air cells: Mastoid air cells are well pneumatized to. Sella: Empty sella. Other findings: Age-related changes. IMPRESSION: 1. Age-related changes. 2. No acute intracranial pathology. 3. If there is concern for etiology such as early acute lacunar infarcts, MRI imaging of the brain with diffusion-weighted sequences should be performed. EXAM: CT Cervical Spine Without Intravenous Contrast CLINICAL HISTORY: ITS.REASON CT Reason: fall TECHNIQUE: Axial computed tomography images of the cervical spine without intravenous contrast. CTDI is 12.5 mGy and DLP is 343 mGy-cm. This CT exam was performed using one or more of the following dose reduction techniques: automated exposure control, adjustment of the mA and/or kV according to patient size, and/or use of iterative reconstruction technique. COMPARISON: No previous studies. FINDINGS: Vertebrae: Cervical and visualized thoracic vertebral bodies are maintained in height. Spinous processes are unremarkable. Dextroscoliosis. There is a normal relationship of C1 and C2. Transaxial images of the cervical spine reveals moderate posterior facet hypertrophy and disc osteophyte complexes. No acute fracture. Discs/spinal canal/neural foramina: Mild to moderate degenerative disc disease of the cervical spine. No spinal canal stenosis. Soft tissues: Unremarkable. Lung apices: Scarring and calcified granulomata are noted at the upper lobes. IMPRESSION: 1. Degenerative disc disease. 2. No acute injury to the cervical spine.
[2024-05-27] MEDS: ACET/COD 300 MG/30 MG STARTER PACK 6 TAB BTL PO STA (23:52)
[2024-05-27] MEDS: KETOROLAC 15 MG/ML 1 ML VIAL IVP STA (23:53)
[2024-05-28 00:13] VITALS: BP 116/65; PULSE 88; RESP 16
== END 2024-05-27 23:57 | disposition home or self-care (01) ==
LOC: EC 20:55
DX: S42.351A Displaced comminuted fracture of shaft of humerus, right arm, initial encounter for closed fracture (principal); J44.1 Chronic obstructive pulmonary disease with (acute) exacerbation; F17.200 Nicotine dependence, unspecified, uncomplicated; Z88.1 Allergy status to other antibiotic agents; Z88.2 Allergy status to sulfonamides; Z88.8 Allergy status to other drugs, medicaments and biological substances; Z86.73 Personal history of transient ischemic attack (TIA), and cerebral infarction without residual deficits; W10.9XXA Fall (on) (from) unspecified stairs and steps, initial encounter; Y92.009 Unspecified place in unspecified non-institutional (private) residence as the place of occurrence of the external cause
CPT/HCPCS: 94640; 72170; 73030; 73070; 71045; 72125; 70450; 99284; 96374; 96375; 96376; 96361; L3670; J1171; J1885

== ENCOUNTER 2024-05-28 18:47 | Emergency (ER) | payer MEDICARE, OTHER ==
[2024-05-28 18:53] VITALS: RESP 16
[2024-05-28] MEDS: KETOROLAC 15 MG/ML 1 ML VIAL IM STA (19:37)
[2024-05-28] MEDS: HYDROcodone/APAP 7.5-325MG 1 EACH TAB PO ONE ×2 (19:38→20:34)
--- NOTE | 2024-05-28 20:27 | ED ---
General Adult HPI - General Chief complaint: Extremity Injury, Upper Stated complaint: Right arm, shoulder injury Time Seen by Provider: 05/28/24 18:58 Source: patient Mode of arrival: ambulatory Limitations: no limitations - History of Present Illness Initial comments: 64-year-old female presenting with chief complaint of right arm pain. Patient was seen in our ER last night and diagnosed with a proximal humerus fracture which is comminuted and displaced. She has been taking Tylenol 3 which has not been adequately controlling her pain. She was concerned because she is having swelling of the right hand. No pallor. No numbness. She was having a pins and needle sensation. Patient states that she could not take the pain so she came to the ER. She does have an orthopedic appointment scheduled for 05/30. - Related Data Home Medications Medication Instructions Recorded Confirmed Montelukast Sodium [Singulair] 10 mg PO HS 01/15/19 03/23/24 levETIRAcetam [Keppra] 750 mg PO BID 01/15/19 03/23/24 Citalopram Hydrobromide 40 mg PO DAILY 12/04/21 03/23/24 [Citalopram HBr] Evolocumab [Repatha Sureclick] 140 mg SQ Q14D 12/04/21 03/23/24 Magnesium Chloride [Mag64] 128 mg PO DAILY 12/04/21 03/23/24 oxyCODONE HCL [oxyCODONE HCL (IR)] 10 mg PO TID PRN 12/04/21 03/23/24 rOPINIRole HCL [Requip] 1 mg PO TID 12/04/21 03/23/24 Albuterol Inhaler [Ventolin Hfa 2 puff INHALATION RT-Q6H PRN 02/18/23 03/23/24 Inhaler] Ezetimibe [Zetia] 10 mg PO DAILY 08/12/23 03/23/24 Cholecalciferol (Vitamin D3) 50 mcg PO DAILY 03/01/24 03/23/24 [Vitamin D3 (50 Mcg = 2000 Iu)] Empagliflozin [Jardiance] 10 mg PO DAILY 03/01/24 03/23/24 Esomeprazole Magnesium [NexIUM] 40 mg PO BID 03/01/24 03/23/24 Ipratropium-Albuterol Nebulize 3 ml INHALATION RT-QID PRN 03/01/24 03/23/24 [Duoneb 0.5 mg-3 mg/3 ml Soln] Ranolazine [Ranexa] 500 mg PO BID 03/01/24 03/23/24 Folic Acid 1 mg PO DAILY 03/23/24 03/23/24 Insulin Aspart [NovoLOG Flexpen] See Protocol SQ ACHS 03/23/24 03/23/24 Insulin Glargine,Hum.rec.anlog 30 units SQ DAILY 03/23/24 03/23/24 [Lantus Solostar Pen] Naloxegol Oxalate [Movantik] 25 mg PO DAILY 03/23/24 03/23/24 Nitroglycerin Sl Tabs [Nitrostat] 0.4 mg SUBLINGUAL Q5M PRN 03/23/24 03/23/24 Tiotropium 2.5 Mcg/Puff [Spiriva 2 puff INHALATION RT-DAILY 03/23/24 03/23/24 Respimat 2.5 Mcg] Previous Rx's Medication Instructions Recorded Aspirin 81 mg PO DAILY #90 tab 03/03/24 Spironolactone [Aldactone] 25 mg PO DAILY #90 tab 03/03/24 Furosemide [Lasix] 40 mg PO DAILY #90 tab 03/27/24 Sildenafil [Revatio] 20 mg PO TID #90 tab 03/27/24 lisinopriL [Zestril] 5 mg PO DAILY #90 tab 03/27/24 HYDROcodone/APAP 7.5-325MG [Arcadia 1 tab PO Q4H PRN 3 Days #18 tab 05/28/24 7.5-325] Ketorolac [Toradol] 10 mg PO Q6HR PRN #8 tab 05/28/24 Allergies Allergy/AdvReac Type Severity Reaction Status Date / Time atorvastatin [From Lipitor] Allergy Unknown Unknown Verified 05/28/24 18:53 Corticosteroids Allergy Unknown Anaphylaxis Verified 05/28/24 18:53 (Glucocorticoids) doxycycline Allergy Unknown Unknown Verified 05/28/24 18:53 Fpdaitn-PBO-RnN Reductase Allergy Unknown Anaphylaxis Verified 05/28/24 18:53 Inhibitor [Pmnqbbm-Bok-Gyq Reductase Inhibitor] Sulfa (Sulfonamide AdvReac Unknown Nausea & Verified 05/28/24 18:53 Antibiotics) Vomiting ANABOLIC STEROIDS Allergy Severe Anaphylaxis Uncoded 05/28/24 18:53 persumesor aerosol products Allergy Severe Anaphylaxis Uncoded 05/28/24 18:53 STEROIDS Allergy Severe Anaphylaxis Uncoded 05/28/24 18:53 EKG Electrode Patches Allergy Unknown Blisters Uncoded 05/28/24 18:53 Review of Systems ROS Statement: Those systems with pertinent positive or pertinent negative responses have been documented in the HPI. ROS Other: All systems not noted in ROS Statement are negative. Past Medical History Past Medical History: Cancer, Chest Pain / Angina, COPD, CVA/TIA, Diabetes Mellitus, GERD/Reflux, Hypertension, Pneumonia, Rheumatoid Arthritis (RA), Seizure Disorder, Sleep Apnea/CPAP/BIPAP Additional Past Medical History / Comment(s): SEIZURE X1 (2011), HX TIA, HX OF HEAD INJURIES, MIGRAINES, BRONCHITIS, SLEEP APNEA-USES C-PAP MACHINE, HERNIATED DISCS WITH BACK PAIN, OSTEOPOROSIS, IBS, HX COLON POLYPS, HX OF DYSPHAGIA WITH DILATION- STATES USUALLY YEARLY., RIGHT BREAST CANCER 2009 WITH SURGERY & CHEMO., FACIAL SKIN CANCER.. VARICOSE VEINS, STATES ENLARGED LEFT VENTRICLE. History of Any Multi-Drug Resistant Organisms: None Reported Past Surgical History: Appendectomy, Breast Surgery, Section, Cholecystectomy, Heart Catheterization, Heart Catheterization With Stent, Hysterectomy, Tonsillectomy Additional Past Surgical History / Comment(s): CARPAL TUNNEL, LEFT BREAST BX AND LIFT, RIGHT BREAST BX, LUMPECTOMY'S AND RIGHT BREAST MASTECTOMY AND RECONSTRUCTION. PORT-A-CATH INSERTED AND REMOVED. Past Anesthesia/Blood Transfusion Reactions: No Reported Reaction, Motion Sickness Date of Last Stent Placement:: 10/19/22 Past Psychological History: Anxiety, Depression Smoking Status: Current every day smoker Past Alcohol Use History: None Reported Past Drug Use History: None Reported - Past Family History Mother Family Medical History: Cancer Additional Family Medical History / Comment(s): LUNG CANCER. Father Family Medical History: Coronary Artery Disease (CAD), Diabetes Mellitus General Exam Limitations: no limitations General appearance: alert, in no apparent distress Head exam: Present: atraumatic, normocephalic, normal inspection Eye exam: Present: normal appearance, EOMI Neck exam: Present: normal inspection. Absent: meningismus Respiratory exam: Absent: respiratory distress Cardiovascular Exam: Present: regular rate Right Shoulder Exam: Present: tenderness, swelling. Absent: full ROM Hand Wrist exam: Present: swelling Vascular: Present: normal capillary refill. Absent: vascular compromise Neurological exam: Present: alert, oriented X3 Psychiatric exam: Present: normal affect, normal mood Skin exam: Present: warm, dry, normal color Course Vital Signs 05/28/24 05/28/24 05/28/24 18:50 19:27 20:38 Temperature 97.8 F 98.1 F Pulse Rate 73 76 73 Respiratory 16 16 16 Rate Blood Pressure 85/53 106/67 100/64 O2 Sat by Pulse 98 93 L Oximetry Medical Decision Making - Medical Decision Making Was pt. sent in by a medical professional or institution (, PA, [employer], urgent care, hospital, or alf...) When possible be specific @ -No Did you speak to anyone other than the patient for history (EMS, parent, family, police, friend...)? What history was obtained from this source @ -No Did you review nursing and triage notes (agree or disagree)? Why? @ -I reviewed and agree with nursing and triage notes Were old charts reviewed (outside hosp., previous admission, EMS record, old EKG, old radiological studies, urgent care reports/EKG's, alf records)? Report findings @ -Reviewed past notes visit including x-ray which shows comminuted displaced fracture of the right humeral head Differential Diagnosis (chest pain, altered mental status, abdominal pain women, abdominal pain men, vaginal bleeding, weakness, fever, dyspnea, syncope, headache, dizziness, GI bleed, back pain, seizure, CVA, palpatations, mental health, musculoskeletal)? @ -Differential Musculoskeletal Muscular strain, contusion, ligament sprain, fracture, arthritis, septic arthritis, bursitis, cellulitis, muscle spasm, nerve compression, DVT, arterial occlusion, herpes zoster, electrolyte abnormality, tumor.... This is not meant to be in all inclusive list EKG interpreted by me (3pts min.). @ -As above X-rays interpreted by me (1pt min.). @ -None done CT interpreted by me (1pt min.). @ -None done U/S interpreted by me (1pt. min.). @ -None done What testing was considered but not performed or refused? (CT, X-rays, U/S, labs)? Why? @ -None What meds were considered but not given or refused? Why? @ -None Did you discuss the management of the patient with other professionals (professionals i.e. DrJulio, PA, [employer], lab, RT, psych nurse, social service manager, sign language interpreter, teacher, home school liaison officer, bilingual patient support caseworker)? Give summary @ -No Was smoking cessation discussed for >3mins.? @ -No Was critical care preformed (if so, how long)? @ -No Were there social determinants of health that impacted care today? How? (Homelessness, low income, unemployed, alcoholism, drug addiction, transportation, low edu. Level, literacy, decrease access to med. care, [facility], rehab)? @ -No Was there de-escalation of care discussed even if they declined (Discuss DNR or withdrawal of care, Hospice)? DNR status @ -No What co-morbidities impacted this encounter? (DM, HTN, Smoking, COPD, CAD, Cancer, CVA, ARF, Chemo, Hep., AIDS, mental health diagnosis, sleep apnea, morbid obesity)? @ -None Was patient admitted / discharged? Hospital course, mention meds given and route, prescriptions, significant lab abnormalities, going to OR and other pertinent info. @ -64-year-old female presenting with chief complaint of right arm pain. She was seen here last night diagnosed with a fracture of the right humeral head. Her medication is not controlling her pain adequately at home. History and physical examination are conducted. Normal color to the hand, there is some swelling of the hand, normal pulses. Patient is treated with Toradol and Arcadia. On reassessment she reports improvement of pain. Patient would like to try these medications at home. her orthopedic appointment is on 05/30. She is provided with 1 Arcadia for home. Follow-up with PCP. Report back to ER with any new or worsening symptoms. Discussed return parameters and answered all questions. Patient conveyed verbal understanding and agreed to the plan. I discussed this case in detail with my attending . Keya Was later contacted by the patient's pharmacy, she recently got 90 oxycodone for the month from Dr. Matias. She will not be receiving additional Arcadia. Undiagnosed new problem with uncertain prognosis? @ -No Drug Therapy requiring intensive monitoring for toxicity (Heparin, Nitro, Insulin, Cardizem)? @ -No Were any procedures done? @ -No Diagnosis/symptom? @ -Humeral head fracture Acute, or Chronic, or Acute on Chronic? @ -Acute Uncomplicated (without systemic symptoms) or Complicated (systemic symptoms)? @ -Uncomplicated Side effects of treatment? @ -No Exacerbation, Progression, or Severe Exacerbation? @ -No Poses a threat to life or bodily function? How? (Chest pain, [place], ND, pneumonia, PE, COPD, DKA, ARF, appy, cholecystitis, CVA, Diverticulitis, Homicidal, Suicidal, threat to staff... and all critical care pts) @ -Potential if she does not follow-up with orthopedics Disposition Clinical Impression: Closed right humeral fracture, Comminuted right humeral fracture Disposition: HOME SELF-CARE Condition: Good Instructions (If sedation given, give patient instructions): Proximal Humerus Fracture (ED) Additional Instructions: Follow-up with orthopedics at your scheduled appointment. Report back to ER with any new or worsening symptoms. Take medication as prescribed. Do not combine Toradol with Motrin (ibuprofen) or Aleve (naproxen). Prescriptions: HYDROcodone/APAP 7.5-325MG [Arcadia 7.5-325] 1 tab PO Q4H PRN 3 Days #18 tab PRN Reason: Pain Ketorolac [Toradol] 10 mg PO Q6HR PRN #8 tab PRN Reason: Pain Is patient prescribed a controlled substance at d/c from ED?: Yes When asked, does pt state using other controlled substances?: No If prescribed controlled substance>3 days was MAPS reviewed?: Prescribed <3 Days If opioid is for acute pain is fill amount 7 days or less?: Yes Referrals: Cyn Pulido MD [Primary Care Provider] - 1-2 days Time of Disposition: 20:26
[2024-05-28 20:48] VITALS: BP 100/64; PULSE 73; TEMP 98.1
== END 2024-05-28 20:38 | disposition home or self-care (01) ==
LOC: EC 18:47
DX: S42.201A Unspecified fracture of upper end of right humerus, initial encounter for closed fracture (principal); S42.351A Displaced comminuted fracture of shaft of humerus, right arm, initial encounter for closed fracture; F17.200 Nicotine dependence, unspecified, uncomplicated; X58.XXXA Exposure to other specified factors, initial encounter
CPT/HCPCS: 99284; 96372; J1885

== ENCOUNTER → 2024-06-14 | Outpatient (CLI) | payer MEDICARE ==
--- NOTE | 2024-06-14 16:47 | CT ---
EXAMINATION TYPE: CT shoulder RT wo con DATE OF EXAM: 06/14/2024 COMPARISON: None. CLINICAL INDICATION: Female, 64 years old with history of S42.291A CLOSED DISPLACEMENT FRACTURE OF R HUMERUS; [facility], Closed displacement fracture of right humerus CT DLP: 488 mGycm Automated exposure control for dose reduction was used. FINDINGS: Comminuted displaced fracture through the surgical neck proximal left humerus is present. There is si gnificant impaction along with medial displacement of the large distal fracture fragment. There are m ultiple small ossific fracture fragments throughout the anterior aspect of the humeral head. A few ar e seen anterior to the glenohumeral joint axial image 22. Osseous glenoid is intact. Moderate to tera re narrowing at the acromioclavicular joint is present with mild to moderate spurring. Visualized lung shows moderate to severe emphysematous change greatest in the upper lungs with a diff use scattered small nodules seen bilaterally likely calcified granulomas. Right breast implant is par tially imaged. There is moderate calcified plaque in the periphery of the right carotid bulb. IMPRESSION: As above. [facility], , 06/14/2024 4:45 PM
== END | disposition home or self-care (01) ==
LOC: RADCTMAIN 10:50
PROVIDERS: ATTEND Orthopaedic Surgery
DX: S42.291A Other displaced fracture of upper end of right humerus, initial encounter for closed fracture (principal); R91.8 Other nonspecific abnormal finding of lung field; J43.9 Emphysema, unspecified; M19.011 Primary osteoarthritis, right shoulder; I65.21 Occlusion and stenosis of right carotid artery; Z98.890 Other specified postprocedural states

== ENCOUNTER 2024-08-03 21:17 | Observation (INO) | payer MEDICARE ==
[2024-08-03] MEDS: ASPIRIN 81 MG PO STA (22:22)
[2024-08-03] MEDS: ONDANSETRON 4 MG/2 ML VIAL IVP STA (22:23)
[2024-08-03] MEDS: MORPHINE SULFATE 4 MG/ML SYRINGE IVP STA (22:23)
[2024-08-03 22:27] LABS: Basophils # (A) 0.03 10*3/uL (0.00-0.10); Basophils % (A) 0.6 %; Eosinophils # (A) 0.11 10*3/uL (0.04-0.35); HCT 45.7 % (37.2-46.3); HGB 15.5 g/dL (12.0-15.0); Lymphocytes # (A) 1.24 10*3/uL (0.90-5.00); Lymphocytes % (A) 22.9 %; MCH 34.6 pg (27.0-32.0); MCHC 33.9 g/dL (32.0-37.0); Mean Platelet Volume 10.6 fL (9.5-12.2); Monocytes # (A) 0.56 10*3/uL (0.20-1.00); Monocytes % (A) 10.3 %; Neutrophils # (A) 3.46 10*3/uL (1.80-7.70); Neutrophils % (A) 63.8 %; Platelet Count 170 10*3/uL (140-440); RBC 4.48 10*6/uL (4.10-5.20); RDW 13.6 % (11.5-14.5); WBC 5.42 10*3/uL (4.50-10.00)
[2024-08-03 22:37] LABS: ALT 10 U/L (4-34); African American GFR (CKD) >90 (>60 ml/min/1.73 sqM); Albumin 3.7 g/dL (3.5-5.0); Anion Gap 7 mmol/L; Blood Urea Nitrogen 17 mg/dL (7-17); Calcium 8.9 mg/dL (8.4-10.2); Carbon Dioxide 21 mmol/L (22-30); Chloride 108 mmol/L (98-107); Glucose 182 mg/dL (74-99); Non-African American GFR(CKD) 81 (>60 ml/min/1.73 sqM); Sodium 136 mmol/L (137-145); Total Bilirubin 0.7 mg/dL (0.2-1.3)
[2024-08-03 22:40] LABS: AST 25 U/L (14-36); Alkaline Phosphatase 80 U/L (38-126); Magnesium 1.9 mg/dL (1.6-2.3); Potassium 4.1 mmol/L (3.5-5.1); Total Protein 6.5 g/dL (6.3-8.2)
[2024-08-03 22:42] LABS: INR 0.9 (<1.2)
--- NOTE | 2024-08-03 23:21 | ED ---
General Adult HPI - General Chief complaint: Fall Stated complaint: Fall Time Seen by Provider: 08/03/24 21:41 Source: patient Mode of arrival: ambulatory Limitations: no limitations - History of Present Illness Initial comments: Patient is a 64-year-old female with a past medical history of CHF, COPD, presenting today for fall while walking up the stairs, suspected to be secondary to a syncopal episode. Patient states that she had an additional fall about a month ago which resulted in her breaking her right shoulder. States that today she was going up the stairs when the next and she remembers is waking up on the stairs with right arm pain. Patient thinks she may have lost consciousness though is unsure. She denies any tongue biting or urinary incontinence and does not think she had a seizure. She denies hitting her head or injuring her head or neck. She endorses pain of the right upper extremity as well as right ankle pain. Of note patient endorsed intermittent chest pain earlier today throughout the day today. It was described as centralized and sharp in nature. She currently denies chest pain, shortness of breath, headache, changes in vision or focal numbness or weakness, tongue biting or urinary incontinence, neck pain, re cent fevers or chills, vomiting or nausea, episodes of diarrhea, melena or hematochezia. - Related Data Home Medications Medication Instructions Recorded Confirmed Montelukast Sodium [Singulair] 10 mg PO DAILY 01/15/19 08/04/24 levETIRAcetam [Keppra] 750 mg PO BID 01/15/19 08/04/24 Citalopram Hydrobromide 40 mg PO DAILY 12/04/21 08/04/24 [Citalopram HBr] Evolocumab [Repatha Sureclick] 140 mg SQ Q14D 12/04/21 08/04/24 Magnesium Chloride [Mag64] 128 mg PO DAILY 12/04/21 08/04/24 oxyCODONE HCL [oxyCODONE HCL (IR)] 10 mg PO BID 12/04/21 08/04/24 rOPINIRole HCL [Requip] 1 mg PO TID 12/04/21 08/04/24 Albuterol Inhaler [Ventolin Hfa 2 puff INHALATION RT-Q4H PRN 02/18/23 08/04/24 Inhaler] Ezetimibe [Zetia] 10 mg PO DAILY 08/12/23 08/04/24 Cholecalciferol (Vitamin D3) 50 mcg PO DAILY 03/01/24 08/04/24 [Vitamin D3 (50 Mcg = 2000 Iu)] Empagliflozin [Jardiance] 10 mg PO DAILY 03/01/24 08/04/24 Esomeprazole Magnesium [NexIUM] 40 mg PO BID 03/01/24 08/04/24 Ipratropium-Albuterol Nebulize 3 ml INHALATION RT-QID PRN 03/01/24 08/04/24 [Duoneb 0.5 mg-3 mg/3 ml Soln] Ranolazine [Ranexa] 500 mg PO BID 03/01/24 08/04/24 Insulin Aspart [NovoLOG Flexpen] See Protocol SQ ACHS 03/23/24 08/04/24 Insulin Glargine,Hum.rec.anlog 10 units SQ HS 03/23/24 08/04/24 [Lantus Solostar Pen] Naloxegol Oxalate [Movantik] 25 mg PO DAILY 03/23/24 08/04/24 Nitroglycerin Sl Tabs [Nitrostat] 0.4 mg SUBLINGUAL Q5M PRN 03/23/24 08/04/24 Tiotropium 2.5 Mcg/Puff [Spiriva 2 puff INHALATION RT-DAILY 03/23/24 08/04/24 Respimat 2.5 Mcg] Cyclobenzaprine [Flexeril] 10 mg PO TID 08/04/24 08/04/24 Escitalopram [Lexapro] 10 mg PO DAILY 08/04/24 08/04/24 Metoprolol Succinate [Metoprolol 12.5 mg PO DAILY 08/04/24 08/04/24 Succinate ER] Midodrine [ProAmatine] 5 mg PO BID 08/04/24 08/04/24 tadalafiL 40 mg PO DAILY 08/04/24 08/04/24 Previous Rx's Medication Instructions Recorded Aspirin 81 mg PO DAILY #90 tab 03/03/24 Spironolactone [Aldactone] 25 mg PO DAILY #90 tab 03/03/24 Furosemide [Lasix] 40 mg PO DAILY #90 tab 03/27/24 HYDROcodone/APAP 5-325MG [[place] 1 tab PO Q6HR PRN 3 Days #12 tab 08/06/24 5-325] Allergies Allergy/AdvReac Type Severity Reaction Status Date / Time atorvastatin [From Lipitor] Allergy Unknown Unknown Verified 08/04/24 10:20 Corticosteroids Allergy Unknown Anaphylaxis Verified 08/04/24 10:20 (Glucocorticoids) doxycycline Allergy Unknown Unknown Verified 08/04/24 10:20 Bloxmhs-LYR-BvW Reductase Allergy Unknown Anaphylaxis Verified 08/04/24 10:20 Inhibitor [Krqgkbh-Iuw-Aok Reductase Inhibitor] Sulfa (Sulfonamide AdvReac Unknown Nausea & Verified 08/04/24 10:20 Antibiotics) Vomiting ANABOLIC STEROIDS Allergy Severe Anaphylaxis Uncoded 05/28/24 18:53 persumesor aerosol products Allergy Severe Anaphylaxis Uncoded 05/28/24 18:53 STEROIDS Allergy Severe Anaphylaxis Uncoded 05/28/24 18:53 EKG Electrode Patches Allergy Unknown Blisters Uncoded 05/28/24 18:53 Review of Systems ROS Statement: Those systems with pertinent positive or pertinent negative responses have been documented in the HPI. ROS Other: All systems not noted in ROS Statement are negative. Past Medical History Past Medical History: Cancer, Chest Pain / Angina, COPD, CVA/TIA, Diabetes Mellitus, GERD/Reflux, Hypertension, Pneumonia, Rheumatoid Arthritis (RA), Seizure Disorder, Sleep Apnea/CPAP/BIPAP Additional Past Medical History / Comment(s): SEIZURE X1 (2011), HX TIA, HX OF HEAD INJURIES, MIGRAINES, BRONCHITIS, SLEEP APNEA-USES C-PAP MACHINE, HERNIATED DISCS WITH BACK PAIN, OSTEOPOROSIS, IBS, HX COLON POLYPS, HX OF DYSPHAGIA WITH DILATION- STATES USUALLY YEARLY., RIGHT BREAST CANCER 2009 WITH SURGERY & CHEMO., FACIAL SKIN CANCER.. VARICOSE VEINS, STATES ENLARGED LEFT VENTRICLE. History of Any Multi-Drug Resistant Organisms: None Reported Past Surgical History: Appendectomy, Breast Surgery, Section, Cholecystectomy, Heart Catheterization, Heart Catheterization With Stent, Hysterectomy, Tonsillectomy Additional Past Surgical History / Comment(s): CARPAL TUNNEL, LEFT BREAST BX AND LIFT, RIGHT BREAST BX, LUMPECTOMY'S AND RIGHT BREAST MASTECTOMY AND RECONSTRU CTION. PORT-A-CATH INSERTED AND REMOVED. Past Anesthesia/Blood Transfusion Reactions: No Reported Reaction, Motion Sickness Date of Last Stent Placement:: 10/19/22 Past Psychological History: Anxiety, Depression Smoking Status: Current every day smoker Past Alcohol Use History: None Reported Past Drug Use History: None Reported - Past Family History Mother Family Medical History: Cancer Additional Family Medical History / Comment(s): LUNG CANCER. Father Family Medical History: Coronary Artery Disease (CAD), Diabetes Mellitus General Exam - General Exam Comments Initial Comments: PE: CONSTITUTIONAL: No apparent distress, chronically ill-appearing, nontoxic SKIN: Warm, dry, no jaundice, hives or petechiae, small bruise and abrasion to the lateral right chapman EYES: Pupils are equally round, extraocular movements intact without nystagmus, clear conjunctiva, non-icteric sclera HENT: Normocephalic, atraumatic, moist mucus membranes, oropharynx clear without exudates NECK: , Full range of motion, normal appearance, no midline spinal tenderness palpation PULMONARY: Clear to auscultation without wheezes, rhonchi, or rales, normal excursion, no accessory muscle use and no stridor CARDIOVASCULAR: Regular rate, rhythm, normal S1 and S2. No appreciated murmurs, rubs or gallops. Strong radial pulses with intact distal perfusion. No lower extremity edema GASTROINTESTINAL: Soft, active bowel sounds throughout, non-tender, non- distended, no palpable masses, no rebound or guarding. No hepatosplenomegaly GENITOURINARY: MUSCULOSKELETAL: Right upper extremity has swelling shoulder, patient is unable to abduct the right upper extremity of the shoulder, is tender to palpation at the distal humerus and elbow without gross deformity in these regions, patient is unable to flex and extend at her elbow secondary to pain, mild edema of the right hand without point tenderness to palpation or deformity, some decreased eye clinic manager strength due to pain in her right hand and elbow, sensation to light touch is intact throughout the extremity, remaining extremities have no gross deformity, no edema, redness,. Small contusion to the lateral right chapman of the right lower extremity, patient is able to range the right lower extremity through full range of motion, no gross deformity, extremities are all neurovascularly intact, no calf swelling NEUROLOGIC:_a/o x 3, GCS 15, normal mentation and speech. Unable to move right upper extremity through full range of motion secondary to injuries as noted above, moves remaining 3 extremities without motor or sensory deficit PSYCHIATRIC:_normal mood and affect, thought process is clear and linear Limitations: no limitations Course Vital Signs 08/03/24 08/03/24 08/04/24 21:28 23:55 01:35 Temperature 97.8 F Pulse Rate 91 85 88 Respiratory 15 18 18 Rate Blood Pressure 98/65 108/64 125/59 O2 Sat by Pulse 91 L 92 L 92 L Oximetry 08/04/24 08/04/24 08/04/24 02:52 07:55 10:21 Temperature 97.6 F Pulse Rate 90 97 92 Respiratory 16 20 Rate Blood Pressure 113/63 128/74 O2 Sat by Pulse 91 L 86 L 93 L Oximetry 08/04/24 10:40 Temperature 99.0 F Pulse Rate 92 Respiratory 21 Rate Blood Pressure 138/67 O2 Sat by Pulse 91 L Oximetry EKG Findings - EKG Comments: EKG Findings:: Heart rate 83 bpm, intervals within acceptable limits, normal axis, there is significant artifact limiting interpretation however no clear ST elevations or depressions, no arrhythmia, no STEMI Medical Decision Making - Medical Decision Making Was pt. sent in by a medical professional or institution (, PA, EEG TECH, urgent care, hospital, or skilled nursing...) When possible be specific @ -[No] Did you speak to anyone other than the patient for history (EMS, parent, family, police, friend...)? What history was obtained from this source @ -[No] Did you review nursing and triage notes (agree or disagree)? Why? @ -[I reviewed and agree with nursing and triage notes] Were old charts reviewed (outside hosp., previous admission, EMS record, old EKG, old radiological studies, urgent care reports/EKG's, skilled nursing records)? Report findings @ -[Medical records reviewed]-Reviewed CT shoulder from 06/14/2024 which showed a comminuted displaced fracture through the surgical neck of the proximal humerus Differential Diagnosis (chest pain, altered mental status, abdominal pain women, abdominal pain men, vaginal bleeding, weakness, fever, dyspnea, syncope, headache, dizziness, GI bleed, back pain, seizure, CVA, palpatations, mental health, musculoskeletal)? @ -Differential Syncope: Valvular disease, hypertrophic cardiomyopathy, pulmonary embolism, tamponade, tachycardia, bradycardia, SD, hypovolemia, hemorrhage, dissection, anemia, intracranial hemorrhage, seizure, hypoglycemia, carbon monoxide poisoning, this is not meant to be an all-inclusive list. Differential Musculoskeletal Muscular strain, contusion, ligament sprain, fracture, arthritis, septic arthritis, bursitis, cellulitis, muscle spasm, nerve compression, DVT, arterial occlusion, herpes zoster, electrolyte abnormality, tumor.... This is not meant to be in all inclusive list EKG interpreted by me (3pts min.). @ -[As above] X-rays interpreted by me (1pt min.). Personally reviewed x-rays, humerus x-ray appears to show comminuted, impacted right humerus fracture, remaining x-rays including elbow,Elbow, forearm and x- ray tibia-fibula do not appear to show additional fracture or dislocation I agree with radiologist interpretation x-ray of the chest was reviewed and appeared to show borderline cardiomegaly without obvious consolidation or pleural effusion, I agree with radiologist interpretation CT interpreted by me (1pt min.). @Personally reviewed CT chest did not see evidence of pulmonary embolism, I ag ree with radiologist interpretation, of note radiologist did note a spiculated lung nodule present on CT. I did discuss this with the patient and she is already aware of lung nodule, I discussed with her the importance of close follow-up within the next month for continued monitoring U/S interpreted by me (1pt. min.). @ -[None done] What testing was considered but not performed or refused? (CT, X-rays, U/S, labs)? Why? @ -[None] What meds were considered but not given or refused? Why? @ -[None] Did you discuss the management of the patient with other professionals (professionals i.e. , PA, EEG TECH, lab, RT, psych nurse, social media editor, manager of internal, teacher, military source operations officer, supervisor case loading)? Give summary @ -[No] Was smoking cessation discussed for >3mins.? @ -[No] Was critical care preformed (if so, how long)? @ -[No] Were there social determinants of health that impacted care today? How? (Homelessness, low income, unemployed, alcoholism, drug addiction, transportation, low edu. Level, literacy, decrease access to med. care, shelter, rehab)? @ -[No] Was there de-escalation of care discussed even if they declined (Discuss DNR or withdrawal of care, Hospice)? @ -[No] What co-morbidities impacted this encounter? (DM, HTN, Smoking, COPD, CAD, Cancer, CVA, ARF, Chemo, Hep., AIDS, mental health diagnosis, sleep apnea, morbid obesity)? @ -COPD, pulmonary arterial hypertension Was patient admitted / discharged? Hospital course, mention meds given and route, prescriptions, significant lab abnormalities, going to OR and other pertinent info. Admission-this is a 64-year-old female past medical history COPD pulmonary serial hypertension, recent right humerus fracture presenting today for suspecte d syncopal episode causing a fall while walking upstairs, and resultant right elbow pain, no head or neck trauma, not on blood thinners. Vital signs stable on arrival. Discussed with patient plan for plain films, pain control, comprehensive labs. Patient agreeable plan of care. Workup was significant for comminuted fracture of the humerus, of note this does appear to be similar to fracture noted on CT in May. Labs significant for D dimer elevated. PE study obtained, showed no PE. Notes known humerus fracture, spiculated lung mass. Updated pt to findings and plan for admission given episodes of CP and syncopal episode. Pt agreeable with POC. Case was discussed with Maty Mccollum, who kindly accepted pt for admission. Undiagnosed new problem with uncertain prognosis? @ -[No] Drug Therapy requiring intensive monitoring for toxicity (Heparin, Nitro, Insulin, Cardizem)? @ -[No] Were any procedures done? @ -[No] Diagnosis/symptom? syncope, chest pain, humerus fracture Acute, or Chronic, or Acute on Chronic? @ acute Uncomplicated (without systemic symptoms) or Complicated (systemic symptoms)? @complicated Side effects of treatment? @ -[No] Exacerbation, Progression, or Severe Exacerbation? @ -[No] Poses a threat to life or bodily function? How? (Chest pain, USA, SD, pneumonia, PE, COPD, DKA, ARF, appy, cholecystitis, CVA, Diverticulitis, Homicidal, Suicidal, threat to staff... and all critical care pt Potentially - Lab Data Result diagrams: 08/06/24 02:38 08/06/24 02:38 Lab Results 08/03/24 08/03/24 08/03/24 Range/Units 22:20 22:20 22:20 WBC 5.42 (4.50-10.00) 10*3/uL RBC 4.48 (4.10-5.20) 10*6/uL Hgb 15.5 H (12.0-15.0) g/dL Hct 45.7 (37.2-46.3) % MCV 102.0 H (80.0-97.0) fL MCH 34.6 H (27.0-32.0) pg MCHC 33.9 (32.0-37.0) g/dL Plt Count 170 (140-440) 10*3/uL MPV 10.6 (9.5-12.2) fL Immature Gran % (Auto) 0.4 % Neutrophils % 63.8 % Lymphocytes % 22.9 % Monocytes % 10.3 % Eosinophils % 2.0 % Basophils % 0.6 % Immature Gran # 0.02 (0.00-0.04) 10*3/uL Neutrophils # 3.46 (1.80-7.70) 10*3/uL Lymphocytes # 1.24 (0.90-5.00) 10*3/uL Monocytes # 0.56 (0.20-1.00) 10*3/uL Eosinophils # 0.11 (0.04-0.35) 10*3/uL Basophils # 0.03 (0.00-0.10) 10*3/uL PT 10.0 (10.0-12.5) sec INR 0.9 (<1.2) APTT 23.0 (22.0-30.0) sec D-Dimer 1.94 H (<0.60) mg/L FEU Sodium 136 L (137-145) mmol/L Potassium 4.1 (3.5-5.1) mmol/L Chloride 108 H (98-107) mmol/L Carbon Dioxide 21 L (22-30) mmol/L Anion Gap 7 mmol/L BUN 17 (7-17) mg/dL Creatinine 0.77 (0.52-1.04) mg/dL Est GFR (CKD-EPI)AfAm >90 (>60 ml/min/1.73 sqM) Est GFR (CKD-EPI)NonAf 81 (>60 ml/min/1.73 sqM) Glucose 182 H (74-99) mg/dL Calcium 8.9 (8.4-10.2) mg/dL Magnesium 1.9 (1.6-2.3) mg/dL Total Bilirubin 0.7 (0.2-1.3) mg/dL AST 25 (14-36) U/L ALT 10 (4-34) U/L Alkaline Phosphatase 80 (38-126) U/L Troponin I (0.000-0.034) ng/mL Total Protein 6.5 (6.3-8.2) g/dL Albumin 3.7 (3.5-5.0) g/dL / Range/Units 22:20 WBC (4.50-10.00) 10*3/uL RBC (4.10-5.20) 10*6/uL Hgb (12.0-15.0) g/dL Hct (37.2-46.3) % MCV (80.0-97.0) fL MCH (27.0-32.0) pg MCHC (32.0-37.0) g/dL Plt Count (140-440) 10*3/uL MPV (9.5-12.2) fL Immature Gran % (Auto) % Neutrophils % % Lymphocytes % % Monocytes % % Eosinophils % % Basophils % % Immature Gran # (0.00-0.04) 10*3/uL Neutrophils # (1.80-7.70) 10*3/uL Lymphocytes # (0.90-5.00) 10*3/uL Monocytes # (0.20-1.00) 10*3/uL Eosinophils # (0.04-0.35) 10*3/uL Basophils # (0.00-0.10) 10*3/uL PT (10.0-12.5) sec INR (<1.2) APTT (22.0-30.0) sec D-Dimer (<0.60) mg/L FEU Sodium (137-145) mmol/L Potassium (3.5-5.1) mmol/L Chloride (98-107) mmol/L Carbon Dioxide (22-30) mmol/L Anion Gap mmol/L BUN (7-17) mg/dL Creatinine (0.52-1.04) mg/dL Est GFR (CKD-EPI)AfAm (>60 ml/min/1.73 sqM) Est GFR (CKD-EPI)NonAf (>60 ml/min/1.73 sqM) Glucose (74-99) mg/dL Calcium (8.4-10.2) mg/dL Magnesium (1.6-2.3) mg/dL Total Bilirubin (0.2-1.3) mg/dL AST (14-36) U/L ALT (4-34) U/L Alkaline Phosphatase (38-126) U/L Troponin I <0.012 (0.000-0.034) ng/mL Total Protein (6.3-8.2) g/dL Albumin (3.5-5.0) g/dL Disposition Clinical Impression: Fall, Syncope, Chest pain, Humerus fracture, Lung nodule Disposition: ADMITTED IP TO THIS HOSP Condition: Stable
[2024-08-04] MEDS: MORPHINE SULFATE 4 MG/ML SYRINGE IVP STA (00:23)
--- NOTE | 2024-08-04 01:16 | XR ---
EXAM: XR Right Forearm, 2 Views CLINICAL HISTORY: ITS.REASON XR Reason: Fall, known "shoulder" fx, now worsening elbow you TECHNIQUE: Frontal and lateral views of the right forearm. COMPARISON: No relevant prior studies available. FINDINGS: Bones/joints: No acute fracture. No dislocation. Soft tissues: Dorsal soft tissue swelling. IMPRESSION: Dorsal soft tissue swelling. No acute osseous findings.
--- NOTE | 2024-08-04 01:20 | XR ---
EXAM: XR Right Elbow Complete, 3 or More Views CLINICAL HISTORY: ITS.REASON XR Reason: Fall, known "shoulder" fx, now worsening elbow you TECHNIQUE: Frontal, lateral and oblique views of the right elbow. COMPARISON: No relevant prior studies available. FINDINGS: Bones/joints: No acute fracture. No dislocation. No significant joint effusion. Soft tissues: Posterior soft tissue swelling. IMPRESSION: Posterior soft tissue swelling. No acute osseous findings.
--- NOTE | 2024-08-04 01:23 | XR ---
EXAM: XR Right Tibia and Fibula, 2 Views CLINICAL HISTORY: ITS.REASON XR Reason: fall bruising lat right chapman TECHNIQUE: Frontal and lateral views of the right tibia and fibula. COMPARISON: No relevant prior studies available. FINDINGS: Bones/joints: No acute fracture or dislocation. Posterior calcaneal enthesopathy. Soft tissues: Unremarkable. No radiopaque foreign body. IMPRESSION: No acute osseous findings.
--- NOTE | 2024-08-04 01:23 | XR ---
EXAM: XR Right Humerus, 2 or More Views CLINICAL HISTORY: ITS.REASON XR Reason: Fall, known "shoulder" fx, now worsening elbow you TECHNIQUE: Frontal and lateral views of the right humerus. COMPARISON: No relevant prior studies available. FINDINGS: Bones/joints: Acute displaced and comminuted fracture through the surgical neck of the humerus. Humeral head fragment is rotated posteriorly. There is subluxation of the glenohumeral joint without marisol dislocation. Soft tissues: Soft tissue swelling. IMPRESSION: Acute displaced and comminuted fracture through the surgical neck of the humerus. Humeral head fragment is rotated posteriorly. There is subluxation of the glenohumeral joint without marisol dislocation.
--- NOTE | 2024-08-04 01:25 | XR ---
EXAM: XR Chest, 2 Views CLINICAL HISTORY: ITS.REASON XR Reason: syncope TECHNIQUE: Frontal and lateral views of the chest. COMPARISON: No relevant prior studies available. FINDINGS: Lungs: No consolidation. Pleural space: No pleural effusion or pneumothorax. Heart: No cardiomegaly or pulmonary vascular congestion. Bones/joints: Displaced proximal right humerus fracture involving the surgical neck. Soft tissues: Right breast implant. IMPRESSION: Displaced proximal right humerus fracture involving the surgical neck.
[2024-08-04] MEDS: HYDROmorphone 1 MG/ML 1 ML SYRINGE IVP STA (01:26)
--- NOTE | 2024-08-04 01:30 | CT ---
EXAM: CT Angiography Chest With Intravenous Contrast CLINICAL HISTORY: ITS.REASON CT Reason: syncope, elevated dimer TECHNIQUE: Axial computed tomographic angiography images of the chest with intravenous contrast. CTDI is 17.7 mGy and DLP is 363.4 mGy-cm. This CT exam was performed using one or more of the following dose reduction techniques: automated exposure control, adjustment of the mA and/or kV according to patient size, and/or use of iterative reconstruction technique. MIP reconstructed images were created and reviewed. COMPARISON: No relevant prior studies available. FINDINGS: Pulmonary arteries: Adequate pulmonary artery opacification. Enlarged main pulmonary artery in keeping with pulmonary arterial hypertension. No evidence of acute pulmonary embolism. Aorta: Thoracic aortic atherosclerosis without aneurysm or dissection. Lungs: Extensive calcified granulomas throughout the bilateral lung wade. Emphysema. No consolidation. Spiculated nodule at the right lung apex measuring 13 mm (axial 30), stable from prior favored scarring. Juxtapleural nodule measuring 9 mm in the left lower lobe (axial 46); per Fleischner Society guidelines, no follow-up indicated. Pleural space: Unremarkable. No significant effusion. No pneumothorax. Heart: Mild cardiomegaly, coronary artery atherosclerosis, and pericardial effusion measuring 9 mm anteriorly. Bones/joints: Acute comminuted and displaced fracture through the surgical neck of the humerus. Humeral head fragment is posteriorly subluxed with respect to the glenoid but not dislocated. Laminectomies in the mid thoracic spine. Soft tissues: Right breast implant. Lymph nodes: Unremarkable. No lymphadenopathy by size criteria. Gallbladder and bile ducts: Cholecystectomy. Dilated common bile duct, likely reservoir effect. IMPRESSION: 1. No evidence of acute pulmonary embolism. 2. Acute comminuted and displaced fracture through the surgical neck of the humerus. Humeral head fragment is posteriorly subluxed with respect to the glenoid but not dislocated. 3. Spiculated nodule at the right lung apex measuring 13 mm (axial 30), stable from prior and favored scarring. For high-risk patients (smoking history or other known risk factors) recommend follow-up chest CT at 12-18 months. If unchanged, no further follow-up.
[2024-08-04] MEDS ORDERED: NALOXONE 0.4 MG/ML 1 ML VIAL IV PRN (02:19)
[2024-08-04] MEDS ORDERED: oxyCODONE-APAP 5-325MG 1 EACH TAB PO PRN (02:19)
[2024-08-04] MEDS ORDERED: ONDANSETRON 4 MG/2 ML VIAL IVP PRN (02:19)
[2024-08-04] MEDS ORDERED: DEXTROSE 50% SYRINGE 50 ML IVP PRN ×2 (04:20)
[2024-08-04] MEDS: HYDROmorphone 1 MG/ML 1 ML SYRINGE IVP PRN (05:33)
--- NOTE | 2024-08-04 06:09 | P.HPIM ---
History of Present Illness H&P Date: 08/04/24 History of present illness; Patient is a 64 year old female with diastolic CHF, chronic respiratory failure, COPD/emphysema, h/o breast CA with left masectomy, DM, seizure disorder presents for uncontrolled pain and syncope. Patient states that 7 weeks ago she had fallen over several stairs and had fractured her right humerus at that time and was told that she is not a candidate for surgical intervention. 2 nights ago patient fell from her air mattress and continued to have right shoulder pain. Today patient states that she was going up stairs at her home briefly felt dizzy and had syncopal episode. When she woke up she called her family for help. Patient has history of seizures and states she does not believe this is a seizure from lack of postictal confusion. Patient does attest to history of dizziness and falls previously due to getting up from seated position too quickly. Currently, she states she continues to have moderate right wrist, elbow, shoulder pain. She did have chest discomfort which has now subsided. Patient reports absence of fever, chest pain, dyspnea, cough, abdominal pain, weakness, myalgia, dizziness, headache, and dysuria. Spoke with the ER physician, patient admission was accepted by internal medicine service for treatment. REVIEW OF SYSTEMS: Pertinent positives and negatives noted in HPI. PHYSICAL EXAMINATION: VITAL SIGNS: Reviewed GENERAL: Resting comfortably in bed. CARDIOVASCULAR: S1 and S2 present. No murmurs, rubs, or gallops. PULMONARY: Chest is clear to auscultation, no wheezing, rhonchi, or crackles. ABDOMEN: Soft, nontender, nondistended. No palpable organomegaly. MUSCULOSKELETAL: Mild swelling apparent in right elbow and wrist EXTREMITIES: No apparent cyanosis, clubbing. No pedal edema. ER FINDINGS: Labs significant for hemoglobin 15.5, MCV 100.2, D-dimer 1.94, sodium 136, chloride 108, bicarb 21, glucose 182, troponin< 0.012 EKG independently interpreted showed sinus rhythm heart rate of 87, QTc 426, no ST segment elevation or depression seen, no T-wave inversions seen. Multiple x-rays taken, with findings of right humerus x-ray acute displaced and communicated fracture through the surgical neck of the humerus. Humeral head fragment is rotated posteriorly. There is subluxation of the glenohumeral joint without marisol dislocation. Forearm, elbow, tibia-fibula, chest x-ray are unremarkable other than soft tissue swelling. Chest CTA with no evidence of acute pulmonary embolism. Spiculated nodule of the right lung apex measuring 13 mm stable from prior reading. Assessment and Plan: In summary, patient is a 64 year old female with diastolic CHF, chronic respiratory failure, COPD/emphysema, h/o breast CA with left masectomy, DM, seizure disorder presents for uncontrolled pain and syncope. #Right humeral fracture and displacement #Syncopal episode likely due to pulmonary hypertension #Recurrent falls #Atypical chest pain Echocardiogram 02/2024 with moderate to severe pulmonary hypertension Troponin < 0.012 is normal, D-dimer 1.94 is elevated CTA chest without evidence of pulmonary embolism X-ray of right humerus with acute displaced and communicated fracture through surgical neck, similar appearance to 05/27/2024 Continue Dilaudid 1 mg IVP every 3 hours, Percocet 5-325 mg, and tramadol 50 mg as needed for pain management Orthopedic surgery consulted neurovascular checks of the right UE #Diabetes mellitus, type 2 glucose 182 elevated Holding oral medications Begin Accu-Cheks and low-dose sliding scale, monitor for hypoglycemia unremarkable renal function sodium 136, chloride 108, bicarb 21, Chronic Medical Conditions: CAD status post prior stent Diastolic CHF Diabetes Dyslipidemia Hypertension Seizure disorder Chronic hypoxic respiratory failure with COPD Resume home medication when reconciled DVT ppx: Subq Lovenox 40 meq daily Code status: Full code F: P.o. E: Replete as needed N: Heart healthy diet Anticipated discharge place: Home Anticipated discharge time: 1 to 2 days Gaetano Robbins MD Internal Medicine Resident, PGY1 Dictation was produced using [employer] dictation software. Please excuse any grammatical, word or spelling errors. I have seen and evaluated the patient today. I Discussed the case with the resident and agree with the resident's findings I edited the assessment and plan as necessary as documented in the resident's note. Past Medical History Past Medical History: Cancer, Chest Pain / Angina, COPD, CVA/TIA, Diabetes Mellitus, GERD/Reflux, Hypertension, Pneumonia, Rheumatoid Arthritis (RA), Seizure Disorder, Sleep Apnea/CPAP/BIPAP Additional Past Medical History / Comment(s): SEIZURE X1 (2011), HX TIA, HX OF HEAD INJURIES, MIGRAINES, BRONCHITIS, SLEEP APNEA-USES C-PAP MACHINE, HERNIATED DISCS WITH BACK PAIN, OSTEOPOROSIS, IBS, HX COLON POLYPS, HX OF DYSPHAGIA WITH DILATION- STATES USUALLY YEARLY., RIGHT BREAST CANCER 2010 WITH SURGERY & CHEMO., FACIAL SKIN CANCER.. VARICOSE VEINS, STATES ENLARGED LEFT VENTRICLE. History of Any Multi-Drug Resistant Organisms: None Reported Past Surgical History: Appendectomy, Breast Surgery, Section, Cholecystectomy, Heart Catheterization, Heart Catheterization With Stent, Hysterectomy, Tonsillectomy Additional Past Surgical History / Comment(s): CARPAL TUNNEL, LEFT BREAST BX AND LIFT, RIGHT BREAST BX, LUMPECTOMY'S AND RIGHT BREAST MASTECTOMY AND RECONSTRUCTION. PORT-A-CATH INSERTED AND REMOVED. Past Anesthesia/Blood Transfusion Reactions: No Reported Reaction, Motion Sickness Date of Last Stent Placement:: 10/19/22 Past Psychological History: Anxiety, Depression Smoking Status: Current every day smoker Past Alcohol Use History: None Reported Past Drug Use History: None Reported - Past Family History Mother Family Medical History: Cancer Additional Family Medical History / Comment(s): LUNG CANCER. Father Family Medical History: Coronary Artery Disease (CAD), Diabetes Mellitus Medications and Allergies Home Medications Medication Instructions Recorded Confirmed Type Montelukast Sodium [Singulair] 10 mg PO HS 01/15/19 03/23/24 History levETIRAcetam [Keppra] 750 mg PO BID 01/15/19 03/23/24 History Citalopram Hydrobromide 40 mg PO DAILY 12/04/21 03/23/24 History [Citalopram HBr] Evolocumab [Repatha Sureclick] 140 mg SQ Q14D 12/04/21 03/23/24 History Magnesium Chloride [Mag64] 128 mg PO DAILY 12/04/21 03/23/24 History oxyCODONE HCL [oxyCODONE HCL (IR)] 10 mg PO TID PRN 12/04/21 03/23/24 History rOPINIRole HCL [Requip] 1 mg PO TID 12/04/21 03/23/24 History Albuterol Inhaler [Ventolin Hfa 2 puff INHALATION RT-Q6H PRN 02/18/23 03/23/24 History Inhaler] Ezetimibe [Zetia] 10 mg PO DAILY 08/12/23 03/23/24 History Cholecalciferol (Vitamin D3) 50 mcg PO DAILY 03/01/24 03/23/24 History [Vitamin D3 (50 Mcg = 2000 Iu)] Empagliflozin [Jardiance] 10 mg PO DAILY 03/01/24 03/23/24 History Esomeprazole Magnesium [NexIUM] 40 mg PO BID 03/01/24 03/23/24 History Ipratropium-Albuterol Nebulize 3 ml INHALATION RT-QID PRN 03/01/24 03/23/24 History [Duoneb 0.5 mg-3 mg/3 ml Soln] Ranolazine [Ranexa] 500 mg PO BID 03/01/24 03/23/24 History Aspirin 81 mg PO DAILY #90 tab 03/03/24 03/23/24 Rx Spironolactone [Aldactone] 25 mg PO DAILY #90 tab 03/03/24 03/23/24 Rx Folic Acid 1 mg PO DAILY 03/23/24 03/23/24 History Insulin Aspart [NovoLOG Flexpen] See Protocol SQ ACHS 03/23/24 03/23/24 History Insulin Glargine,Hum.rec.anlog 30 units SQ DAILY 03/23/24 03/23/24 History [Lantus Solostar Pen] Naloxegol Oxalate [Movantik] 25 mg PO DAILY 03/23/24 03/23/24 History Nitroglycerin Sl Tabs [Nitrostat] 0.4 mg SUBLINGUAL Q5M PRN 03/23/24 03/23/24 History Tiotropium 2.5 Mcg/Puff [Spiriva 2 puff INHALATION RT-DAILY 03/23/24 03/23/24 History Respimat 2.5 Mcg] Furosemide [Lasix] 40 mg PO DAILY #90 tab 03/27/24 Rx Sildenafil [Revatio] 20 mg PO TID #90 tab 03/27/24 Rx lisinopriL [Zestril] 5 mg PO DAILY #90 tab 03/27/24 Rx HYDROcodone/APAP 7.5-325MG [Bard 1 tab PO Q4H PRN 3 Days #18 tab 05/28/24 Rx 7.5-325] Ketorolac [Toradol] 10 mg PO Q6HR PRN #8 tab 05/28/24 Rx Allergies Allergy/AdvReac Type Severity Reaction Status Date / Time atorvastatin [From Lipitor] Allergy Unknown Unknown Verified 05/28/24 18:53 Corticosteroids Allergy Unknown Anaphylaxis Verified 05/28/24 18:53 (Glucocorticoids) doxycycline Allergy Unknown Unknown Verified 05/28/24 18:53 Fjulcxn-AJM-GcX Reductase Allergy Unknown Anaphylaxis Verified 05/28/24 18:53 Inhibitor [Drdvxzw-Eug-Phr Reductase Inhibitor] Sulfa (Sulfonamide AdvReac Unknown Nausea & Verified 05/28/24 18:53 Antibiotics) Vomiting ANABOLIC STEROIDS Allergy Severe Anaphylaxis Uncoded 05/28/24 18:53 persumesor aerosol products Allergy Severe Anaphylaxis Uncoded 05/28/24 18:53 STEROIDS Allergy Severe Anaphylaxis Uncoded 05/28/24 18:53 EKG Electrode Patches Allergy Unknown Blisters Uncoded 05/28/24 18:53 Physical Exam Vitals: Vital Signs Temp Pulse Resp BP Pulse Ox 08/03/24 21:28 97.8 F 91 15 98/65 91 L Intake and Output 08/03/24 08/03/24 08/04/24 14:59 22:59 06:59 Other: Weight 72.575 kg Results CBC & Chem 7: 08/03/24 22:20 08/03/24 22:20 Labs: Abnormal Lab Results - Last 24 Hours (Table) 08/03/24 08/03/24 08/03/24 Range/Units 22:20 22:20 22:20 Hgb 15.5 H (12.0-15.0) g/dL MCV 102.0 H (80.0-97.0) fL MCH 34.6 H (27.0-32.0) pg D-Dimer 1.94 H (<0.60) mg/L FEU Sodium 136 L (137-145) mmol/L Chloride 108 H (98-107) mmol/L Carbon Dioxide 21 L (22-30) mmol/L Glucose 182 H (74-99) mg/dL
[2024-08-04 07:30] LABS: Glucose,Whole Blood 169 mg/dL (70-110)
[2024-08-04] MEDS: INSULIN LISPRO (HumaLOG) 100 UNIT/ML 10 mL VL SQ SCH (07:45)
[2024-08-04] MEDS: ACETAMINOPHEN TAB 325 MG TAB PO PRN (08:57)
[2024-08-04 11:31] LABS: Glucose,Whole Blood 150 mg/dL (70-110)
[2024-08-04] MEDS ORDERED: NITROGLYCERIN SL TABS 0.4 MG TAB SUBLINGUAL PRN (13:12)
[2024-08-04] MEDS ORDERED: IPRATROPIUM-ALBUTEROL 3 ML NEB INHALATION PRN (13:12)
--- NOTE | 2024-08-04 13:40 | US ---
EXAMINATION TYPE: US venous doppler duplex LE RT DATE OF EXAM: 08/04/2024 1:29 PM COMPARISON: NONE CLINICAL INDICATION: Female, 64 years old with history of rule out dvt; pain, elevated d-dimer, Pain TECHNIQUE: The lower extremity deep venous system is examined utilizing real time linear array sonog donna with graded compression, color doppler sonography, and spectral doppler. SIDE PERFORMED: Right FINDINGS: VESSELS IMAGED: Common Femoral Vein Deep Femoral Vein Greater Saphenous Vein * Femoral Vein Popliteal Vein Small Saphenous Vein * Proximal Calf Veins (* superficial vessels)Right Leg: Negative for DVT, Color Doppler imaging shows patency of the vesse ls. Spectral waveforms are within normal limits. exam limited by habitus. Poor visualization of distal femoral vein and non visualization of peroneal veins IMPRESSION: Secondary patient's body habitus limited evaluation of distal femoral vein and no visualization of th e peroneal veins. Within limits exam however there is no right lower extremity DVT [facility], Workstation: CHALINO 08/04/2024 1:38 PM
--- NOTE | 2024-08-04 13:42 | US ---
EXAMINATION TYPE: US venous doppler duplex UE RT DATE OF EXAM: 08/04/2024 COMPARISON: NONE CLINICAL INDICATION: Female, 64 years old with history of rule out dvt; broken arm, pain TECHNIQUE: Grayscale, color Doppler and spectral Doppler imaging of the upper extremity. SIDE PERFORMED: right VESSELS IMAGED: IJV Subclavian Vein Axilla Vein Brachial Vein(s) Radial Paired Veins Ulnar Paired Veins Cephalic Vein* Basilic Vein* (*superficial vessels) FINDINGS: The deep venous system of the right upper extremity is patent and compressible without internal flow. Right Arm: Negative for DVT Grayscale, color doppler, spectral doppler imaging performed of the deep veins of the upper extremiti es. Exam limited by edema, small vessel caliber, habitus IMPRESSION: No evidence for DVT. [facility], Workstation: [facility]INO 08/04/2024 1:39 PM
[2024-08-04] MEDS: CITALOPRAM HYDROBROMIDE 20 MG TAB PO SCH (14:15)
[2024-08-04] MEDS: MONTELUKAST 10 MG TAB PO SCH (14:15)
[2024-08-04] MEDS: PANTOPRAZOLE 40 MG TABLET PO SCH (14:15)
[2024-08-04] MEDS: SPIRONOLACTONE 25 MG TAB PO SCH (14:15)
[2024-08-04] MEDS: METOPROLOL SUCCINATE (ER) 25 MG TAB.ER.24H PO SCH (14:15)
[2024-08-04] MEDS: MIDODRINE 5 MG TAB PO SCH (14:16)
[2024-08-04] MEDS: ASPIRIN 81 MG PO SCH (14:16)
[2024-08-04] MEDS: MAGNESIUM OXIDE 400 MG TAB PO SCH (14:16)
[2024-08-04] MEDS: CHOLECALCIFEROL 25 MCG (1000 IU) TABLET PO SCH (14:16)
[2024-08-04] MEDS: FUROSEMIDE 40 MG TAB PO SCH (14:16)
[2024-08-04] MEDS: EZETIMIBE 10 MG TAB PO SCH (14:16)
[2024-08-04] MEDS: PATIENT'S OWN (Tadalafil [Tadalafil] 20 MG Tablet) PO SCH (14:30)
[2024-08-04] MEDS: NALOXEGOL OXALATE 25 MG PO SCH (14:30)
[2024-08-04] MEDS: ESCITALOPRAM 10 MG TAB PO SCH (14:34)
[2024-08-04 16:34] LABS: Glucose,Whole Blood 192 mg/dL (70-110)
[2024-08-04 21:14] LABS: Glucose,Whole Blood 132 mg/dL (70-110)
[2024-08-05] MEDS: NICOTINE 21MG/24HR PATCH TRANSDERM SCH (00:19)
[2024-08-05] MEDS: traMADol 50 MG TAB PO PRN (06:23)
[2024-08-05 06:26] LABS: Glucose,Whole Blood 131 mg/dL (70-110)
[2024-08-05] MEDS: ENOXAPARIN 40 MG/0.4 ML SYRINGE SQ SCH (09:21)
[2024-08-05 09:26] LABS: Basophils # (A) 0.04 X 10*3/uL (0.00-0.10); Basophils % (A) 0.6 %; Eosinophils # (A) 0.14 X 10*3/uL (0.04-0.35); HCT 46.5 % (37.2-46.3); HGB 14.8 g/dL (12.0-15.0); Lymphocytes # (A) 1.46 X 10*3/uL (0.90-5.00); Lymphocytes % (A) 20.6 %; MCH 33.3 pg (27.0-32.0); MCHC 31.8 g/dL (32.0-37.0); MCV 104.5 FL (80.0-97.0); Mean Platelet Volume 10.5 FL (9.5-12.2); Monocytes # (A) 0.66 X 10*3/uL (0.20-1.00); Monocytes % (A) 9.3 %; NRBC Per 100 WBC 0 X 10*3/uL (0.00-0.01); Neutrophils # (A) 4.77 X 10*3/uL (1.80-7.70); Neutrophils % (A) 67.2 %; Platelet Count 194 X 10*3/uL (140-440); RBC 4.45 X 10*6/uL (4.10-5.20); RDW 13.5 % (11.5-14.5); WBC 7.09 X 10*3/uL (4.50-10.00)
[2024-08-05] MEDS: TIOTROPIUM 2.5 MCG INHALER INHALATION SCH (09:36)
[2024-08-05] MEDS: ALBUTEROL NEBULIZED 2.5 MG/3 ML INHALATION PRN (09:36)
[2024-08-05 09:44] LABS: ALT 9 U/L (8-44); AST 18 U/L (13-35); Albumin 3.9 g/dL (3.8-4.9); Alkaline Phosphatase 96 U/L (41-126); Blood Urea Nitrogen 17.6 mg/dL (9.0-27.0); Calcium 8.5 mg/dL (8.7-10.3); Carbon Dioxide 23.5 mmol/L (21.6-31.8); Chloride 103 mmol/L (96-109); Globulin 2.3 g/dL (1.6-3.3); Glucose 130 mg/dL (70-110); Potassium 4.3 mmol/L (3.5-5.5); Sodium 136 mmol/L (135-145); Total Bilirubin 0.2 mg/dL (0.3-1.2); Total Protein 6.2 g/dL (6.2-8.2)
[2024-08-05 11:38] LABS: Glucose,Whole Blood 145 mg/dL (70-110)
[2024-08-05] MEDS: SENNOSIDES-DOCUSATE SODIUM 1 EACH TAB PO SCH (14:04)
--- NOTE | 2024-08-05 14:37 | P.PN ---
Subjective Progress Note Date: 08/05/24 No new complaints. ongoing pain in right arm/shoulder Gen: In NAD, non-toxic HEENT: normocephalic, atraumatic, hearing acuity is intant, mucous membranes moist CVS: perfusing all extremities well, no pitting edema, Respiratory: symmetric chest expansion, no accessory muscle use, GI: soft, NTTP, ND, : no suprapubic tenderness, no CVA tenderness MSK/Derm: no rashes, cyanosis Neuro: CN II-XII intact, no motor weakness, Psych: cooperative, euthymic mood, judgment and insight is intact Hospital course: Patient is a 64 year old female with diastolic CHF, chronic respiratory failure, COPD/emphysema, h/o breast CA with left masectomy, DM, seizure disorder presented for uncontrolled pain and syncope. ER FINDINGS: Labs significant for hemoglobin 15.5, MCV 100.2, D-dimer 1.94, sodium 136, chlo ride 108, bicarb 21, glucose 182, troponin< 0.012 EKG independently interpreted showed sinus rhythm heart rate of 87, QTc 426, no ST segment elevation or depression seen, no T-wave inversions seen. Multiple x-rays taken, with findings of right humerus x-ray acute displaced and communicated fracture through the surgical neck of the humerus. Humeral head fragment is rotated posteriorly. There is subluxation of the glenohumeral joint without marisol dislocation. Forearm, elbow, tibia-fibula, chest x-ray are unremarkable other than soft tissue swelling. Chest CTA with no evidence of acute pulmonary embolism. Spiculated nodule of the right lung apex measuring 13 mm stable from prior reading. Spoke with the ER physician, patient admission was accepted by internal medicine service for treatment. Assessment and Plan: In summary, patient is a 64 year old female with diastolic CHF, chronic respiratory failure, COPD/emphysema, h/o breast CA with left masectomy, DM, seizure disorder presents for uncontrolled pain and syncope. #Right humeral fracture and displacement #Syncopal episode likely due to WHO Class III pulmonary hypertension #Recurrent falls #Atypical chest pain Echocardiogram 02/2024 with moderate to severe pulmonary hypertension Troponin < 0.012 is normal, D-dimer 1.94 is elevated CTA chest without evidence of pulmonary embolism X-ray of right humerus with acute displaced and communicated fracture through surgical neck, similar appearance to 05/27/2024 Continue Dilaudid 1 mg IVP every 3 hours, Percocet 5-325 mg, and tramadol 50 mg as needed for pain management Orthopedic surgery consulted, pending neurovascular checks of the right UE - US of UE and LE were negative for DVT #Diabetes mellitus, type 2 glucose 182 elevated Holding oral medications Begin Accu-Cheks and low-dose sliding scale, monitor for hypoglycemia unremarkable renal function sodium 136, chloride 108, bicarb 21, Chronic Medical Conditions: CAD status post prior stent Diastolic CHF Diabetes Dyslipidemia Hypertension Seizure disorder Chronic hypoxic respiratory failure with COPD Resume home medication when reconciled DVT ppx: Subq Lovenox 40 meq daily Code status: Full code F: P.o. E: Replete as needed N: Heart healthy diet Anticipated discharge place: Home Anticipated discharge time: 1 to 2 days Objective - Vital Signs Vital signs: Vital Signs Temp 97.8 F 08/05/24 13:38 Pulse 77 08/05/24 13:38 Resp 19 08/05/24 13:38 BP 109/65 08/05/24 13:38 Pulse Ox 96 08/05/24 13:38 FiO2 Intake & Output 08/04/24 08/05/24 08/05/24 18:59 06:59 18:59 Weight 72.575 kg Other: Voiding Method Toilet Toilet # Voids 2 2 - Labs CBC & Chem 7: 08/05/24 02:37 08/05/24 02:37 Labs: Abnormal Lab Results - Last 24 Hours (Table) 08/04/24 08/04/24 08/05/24 Range/Units 16:32 21:12 02:37 Hct 46.5 H (37.2-46.3) % MCV 104.5 H (80.0-97.0) FL MCH 33.3 H (27.0-32.0) pg MCHC 31.8 L (32.0-37.0) g/dL BUN/Creatinine Ratio (12.00-20.00) Ratio Glucose (70-110) mg/dL POC Glucose (mg/dL) 192 H 132 H (70-110) mg/dL Calcium (8.7-10.3) mg/dL Total Bilirubin (0.3-1.2) mg/dL 08/05/24 08/05/24 08/05/24 Range/Units 02:37 06:25 11:24 Hct (37.2-46.3) % MCV (80.0-97.0) FL MCH (27.0-32.0) pg MCHC (32.0-37.0) g/dL BUN/Creatinine Ratio 22.00 H (12.00-20.00) Ratio Glucose 130 H (70-110) mg/dL POC Glucose (mg/dL) 131 H 145 H (70-110) mg/dL Calcium 8.5 L (8.7-10.3) mg/dL Total Bilirubin 0.2 L (0.3-1.2) mg/dL
[2024-08-05 17:10] LABS: Glucose,Whole Blood 137 mg/dL (70-110)
[2024-08-05 20:25] LABS: Glucose,Whole Blood 227 mg/dL (70-110)
[2024-08-05 21:46] VITALS: RESP 16
[2024-08-06 06:26] LABS: Glucose,Whole Blood 127 mg/dL (70-110)
[2024-08-06 08:28] LABS: BUN/Creat Ratio 23.62 Ratio (12.00-20.00); Blood Urea Nitrogen 18.9 mg/dL (9.0-27.0); Calcium 8.8 mg/dL (8.7-10.3); Carbon Dioxide 24.6 mmol/L (21.6-31.8); Chloride 101 mmol/L (96-109); Glucose 141 mg/dL (70-110); Magnesium 1.9 mg/dL (1.5-2.4); Potassium 4.2 mmol/L (3.5-5.5); Sodium 136 mmol/L (135-145)
[2024-08-06 08:35] VITALS: BP 104/64; PULSE 79; TEMP 97.5
[2024-08-06 09:31] LABS: Basophils # (A) 0.03 X 10*3/uL (0.00-0.10); Basophils % (A) 0.5 %; Eosinophils # (A) 0.13 X 10*3/uL (0.04-0.35); Eosinophils % (A) 2.1 %; HCT 44.6 % (37.2-46.3); HGB 14.4 g/dL (12.0-15.0); Lymphocytes # (A) 1.25 X 10*3/uL (0.90-5.00); MCH 33.3 pg (27.0-32.0); MCHC 32.3 g/dL (32.0-37.0); MCV 103.2 FL (80.0-97.0); Mean Platelet Volume 10.5 FL (9.5-12.2); Monocytes # (A) 0.56 X 10*3/uL (0.20-1.00); Monocytes % (A) 8.9 %; NRBC Per 100 WBC 0 X 10*3/uL (0.00-0.01); Neutrophils # (A) 4.26 X 10*3/uL (1.80-7.70); Platelet Count 190 X 10*3/uL (140-440); RBC 4.32 X 10*6/uL (4.10-5.20); RDW 13.6 % (11.5-14.5); WBC 6.26 X 10*3/uL (4.50-10.00)
[2024-08-06 11:32] LABS: Glucose,Whole Blood 123 mg/dL (70-110)
--- NOTE | 2024-08-06 12:31 | P.CNOR ---
History of Present Illness - HPI Consult date: 08/06/24 History of present illness: This is a 64-year-old female who was admitted after a syncopal episode. Orthopedics is consulted due to right proximal humerus fracture. Patient has been following for this injury as an outpatient. Original injury occurred in May 2024. Patient states that she has had 2 recent falls and now has more pain in the right upper extremity. Patient states that before these most recent falls she was getting along well with her activities of daily living and she states that her pain was well-controlled. Patient states that she now has some pain in the elbow and right shoulder again. Patient's past medical history is significant for history of breast cancer, history of TIA, seizure disorder, he art failure, pulmonary arterial hypertension, COPD, diabetes mellitus, GERD, hypertension, rheumatoid arthritis, sleep apnea, osteoporosis, IBS, history of colon polyps, and history of skin cancer. Patient denies any fever/chills, chest pain, shortness breath, abdominal pain, numbness, weakness or tingling. Review of Systems See HPI. Past Medical History Past Medical History: Cancer, Chest Pain / Angina, Heart Failure, COPD, CVA/TIA, Diabetes Mellitus, GERD/Reflux, Hypertension, Pneumonia, Rheumatoid Arthritis (RA), Seizure Disorder, Sleep Apnea/CPAP/BIPAP Additional Past Medical History / Comment(s): SEIZURE X1 (2011), HX TIA, HX OF HEAD INJURIES, MIGRAINES, BRONCHITIS, SLEEP APNEA-USES C-PAP MACHINE, HERNIATED DISCS WITH BACK PAIN, OSTEOPOROSIS, IBS, HX COLON POLYPS, HX OF DYSPHAGIA WITH DILATION- STATES USUALLY YEARLY., RIGHT BREAST CANCER 2009 WITH SURGERY & CHEMO., FACIAL SKIN CANCER.. VARICOSE VEINS, STATES ENLARGED LEFT VENTRICLE, Pulmonary Arterial Hypertension. History of Any Multi-Drug Resistant Organisms: None Reported Past Surgical History: Appendectomy, Breast Surgery, Section, Cholecystectomy, Heart Catheterization, Heart Catheterization With Stent, Hysterectomy, Tonsillectomy Additional Past Surgical History / Comment(s): CARPAL TUNNEL, LEFT BREAST BX AND LIFT, RIGHT BREAST BX, LUMPECTOMY'S AND RIGHT BREAST MASTECTOMY AND RECONSTRUCTION. PORT-A-CATH INSERTED AND REMOVED. Past Anesthesia/Blood Transfusion Reactions: No Reported Reaction, Motion Si ckness Date of Last Stent Placement:: 10/19/22 Past Psychological History: Anxiety, Depression Smoking Status: Current every day smoker Past Alcohol Use History: None Reported Additional Past Alcohol Use History / Comment(s): SMOKES 1/2 PPD, SMOKING SINCE 11 YEARS OLD Past Drug Use History: None Reported - Past Family History Mother Family Medical History: Cancer Additional Family Medical History / Comment(s): LUNG CANCER. Father Family Medical History: Coronary Artery Disease (CAD), Diabetes Mellitus Medications and Allergies Home Medications Medication Instructions Recorded Confirmed Type Montelukast Sodium [Singulair] 10 mg PO DAILY 01/15/19 08/04/24 History levETIRAcetam [Keppra] 750 mg PO BID 01/15/19 08/04/24 History Citalopram Hydrobromide 40 mg PO DAILY 12/04/21 08/04/24 History [Citalopram HBr] Evolocumab [Repatha Sureclick] 140 mg SQ Q14D 12/04/21 08/04/24 History Magnesium Chloride [Mag64] 128 mg PO DAILY 12/04/21 08/04/24 History oxyCODONE HCL [oxyCODONE HCL (IR)] 10 mg PO BID 12/04/21 08/04/24 History rOPINIRole HCL [Requip] 1 mg PO TID 12/04/21 08/04/24 History Albuterol Inhaler [Ventolin Hfa 2 puff INHALATION RT-Q4H PRN 02/18/23 08/04/24 History Inhaler] Ezetimibe [Zetia] 10 mg PO DAILY 08/12/23 08/04/24 History Cholecalciferol (Vitamin D3) 50 mcg PO DAILY 03/01/24 08/04/24 History [Vitamin D3 (50 Mcg = 2000 Iu)] Empagliflozin [Jardiance] 10 mg PO DAILY 03/01/24 08/04/24 History Esomeprazole Magnesium [NexIUM] 40 mg PO BID 03/01/24 08/04/24 History Ipratropium-Albuterol Nebulize 3 ml INHALATION RT-QID PRN 03/01/24 08/04/24 History [Duoneb 0.5 mg-3 mg/3 ml Soln] Ranolazine [Ranexa] 500 mg PO BID 03/01/24 08/04/24 History Aspirin 81 mg PO DAILY #90 tab 03/03/24 08/04/24 Rx Spironolactone [Aldactone] 25 mg PO DAILY #90 tab 03/03/24 08/04/24 Rx Insulin Aspart [NovoLOG Flexpen] See Protocol SQ ACHS 03/23/24 08/04/24 History Insulin Glargine,Hum.rec.anlog 10 units SQ HS 03/23/24 08/04/24 History [Lantus Solostar Pen] Naloxegol Oxalate [Movantik] 25 mg PO DAILY 03/23/24 08/04/24 History Nitroglycerin Sl Tabs [Nitrostat] 0.4 mg SUBLINGUAL Q5M PRN 03/23/24 08/04/24 History Tiotropium 2.5 Mcg/Puff [Spiriva 2 puff INHALATION RT-DAILY 03/23/24 08/04/24 History Respimat 2.5 Mcg] Furosemide [Lasix] 40 mg PO DAILY #90 tab 03/27/24 08/04/24 Rx Cyclobenzaprine [Flexeril] 10 mg PO TID 08/04/24 08/04/24 History Escitalopram [Lexapro] 10 mg PO DAILY 08/04/24 08/04/24 History Metoprolol Succinate [Metoprolol 12.5 mg PO DAILY 08/04/24 08/04/24 History Succinate ER] Midodrine [ProAmatine] 5 mg PO BID 08/04/24 08/04/24 History tadalafiL 40 mg PO DAILY 08/04/24 08/04/24 History HYDROcodone/APAP 5-325MG [Trevor 1 tab PO Q6HR PRN 3 Days #12 tab 08/06/24 Rx 5-325] Allergies Allergy/AdvReac Type Severity Reaction Status Date / Time atorvastatin [From Lipitor] Allergy Unknown Unknown Verified 08/04/24 10:20 Corticosteroids Allergy Unknown Anaphylaxis Verified 08/04/24 10:20 (Glucocorticoids) doxycycline Allergy Unknown Unknown Verified 08/04/24 10:20 Hevtitf-KVH-AhX Reductase Allergy Unknown Anaphylaxis Verified 08/04/24 10:20 Inhibitor [Hrglijt-Cuj-Pab Reductase Inhibitor] Sulfa (Sulfonamide AdvReac Unknown Nausea & Verified 08/04/24 10:20 Antibiotics) Vomiting ANABOLIC STEROIDS Allergy Severe Anaphylaxis Uncoded 05/28/24 18:53 persumesor aerosol products Allergy Severe Anaphylaxis Uncoded 05/28/24 18:53 STEROIDS Allergy Severe Anaphylaxis Uncoded 05/28/24 18:53 EKG Electrode Patches Allergy Unknown Blisters Uncoded 05/28/24 18:53 Physical Examination On exam patient is resting comfortably in bed in no acute distress. Patient is alert and oriented 3. Right upper extremity: Mild swelling of the right upper extremity. Sling is int act to the right upper extremity. Limited motion of the right upper extremity. Sensation intact. Neurovascular status and circulatory status are intact. Results X-rays of the right humerus dated 08/03/2024 show acute displaced and comminuted fracture through the surgical neck of the humerus. Humeral head fragment is rotated posteriorly. There is subluxation of the glenohumeral joint without marisol dislocation. X-ray of the right forearm and elbow dated 08/03/2024 shows: Dorsal soft tissue swelling. No acute osseous findings. - Labs Labs: Abnormal Lab Results - Last 24 Hours (Table) 08/05/24 08/05/24 08/06/24 Range/Units 17:07 20:23 02:38 MCV 103.2 H (80.0-97.0) FL MCH 33.3 H (27.0-32.0) pg BUN/Creatinine Ratio (12.00-20.00) Ratio Glucose (70-110) mg/dL POC Glucose (mg/dL) 137 H 227 H (70-110) mg/dL 08/06/24 08/06/24 08/06/24 Range/Units 02:38 06:23 11:30 MCV (80.0-97.0) FL MCH (27.0-32.0) pg BUN/Creatinine Ratio 23.62 H (12.00-20.00) Ratio Glucose 141 H (70-110) mg/dL POC Glucose (mg/dL) 127 H 123 H (70-110) mg/dL H & H 08/03/24 08/05/24 08/06/24 Range/Units 22:20 02:37 02:38 Hgb 15.5 H 14.8 14.4 (12.0-15.0) g/dL Hct 45.7 46.5 H 44.6 (37.2-46.3) % Coagulation 08/03/24 Range/Units 22:20 INR 0.9 (<1.2) Result Diagrams: 08/06/24 02:38 08/06/24 02:38 Assessment and Plan (1) Proximal humerus fracture Current Visit: Yes Status: Acute Code(s): S42.209A - UNSP FRACTURE OF UPPER END OF UNSP HUMERUS, INIT FOR CLOS FX SNOMED Code(s): 410148255 (2) Fall Current Visit: Yes Status: Acute Code(s): W19.XXXA - UNSPECIFIED FALL, INITIAL ENCOUNTER SNOMED Code(s): 9710010 Plan: 1. Maintain arm sling for comfort. Patient is a poor surgical candidate due to multiple comorbidities. 2. Continue conservative management. Will continue to follow as an outpatient.
--- NOTE | 2024-08-06 12:57 | P.DS ---
Providers Date of admission: 08/04/24 02:19 Expected date of discharge: 08/06/24 Attending physician: Radha Kenyon MD Consults: 08/04/24 02:19 Consult Physician Urgent Consulting Provider: Cody Montano Consult Reason/Comments: humerus fracture Do you want consulting provider notified?: Yes, Notify in am 08/04/24 11:55 Consult Physician Urgent Consulting Provider: Cody Montano Consult Reason/Comments: sees Kathi Hanson for fractured humerous, fell and has been admitted. Do you want consulting provider notified?: Yes Primary care physician: [facility] Course: Hospital course Patient is a 64 year old female with diastolic CHF, chronic respiratory failure, COPD/emphysema, h/o breast CA with left masectomy, DM, seizure disorder presents for uncontrolled pain and syncope. Labs significant for hemoglobin 15.5, MCV 100.2, D-dimer 1.94, sodium 136, chloride 108, bicarb 21, glucose 182, troponin< 0.012. EKG independently interpreted showed sinus rhythm heart rate of 87, QTc 426, no ST segment elevation or depression seen, no T-wave inversions seen. Multiple x-rays taken, with findings of right humerus x-ray acute displaced and communicated fracture through the surgical neck of the humerus. Humeral head fragment is rotated posteriorly. There is subluxation of the glenohumeral joint without marisol dislocation. Forearm, elbow, tibia-fibula, chest x-ray are unremarkable other than soft tissue swelling. Chest CTA with no evidence of acute pulmonary embolism. Spiculated nodule of the right lung apex measuring 13 mm stable from prior reading. Doppler ultrasound of right upper and lower extremity showed no signs of DVT. Orthopedics saw the patient on 08/06/2024 and recommended conservative management and follow-up as an outpatient. Patient is medically stable to be discharged home. [facility]. Patient will be discharged home with [facility] for 3 days. Physical exam GENERAL: This is a 64-year-old in no apparent distress at the time of examination. Pleasant and cooperative. HEENT: Head is atraumatic, normocephalic. Pupils are equal, round, and reactive to light. Sclerae anicteric. Conjunctivae are clear. Mucus membranes of the mouth are moist. Neck is supple. RESPIRATORY: Clear to auscultation. No wheezes, rales, or rhonchi. No use of accessory muscles. Patient maintaining oxygen saturation greater than 92%. No chest wall tenderness is noted on palpation or with deep breathing. CARDIOVASCULAR: Regular rate and rhythm. S1 and S2 noted. No systolic or diastolic murmur auscultated. No JVD noted. No S3 or S4 noted. GASTROINTESTINAL: No distention noted. Abdomen soft and round. Normal active bowel sounds auscultated x 4 quadrants. No pain or tenderness noted upon palpation. INTEGUMENTARY: No cyanosis. No jaundice. No rashes noted. No cellulitis noted. EXTREMITIES: 2+ peripheral pulses. No evidence of peripheral edema. No calf tenderness noted. Right arm wrapped in a sling. NEUROLOGIC: Cranial nerves II-XII intact. PSYCHIATRIC: Awake, alert, and oriented X 3. Appropriate affect. Intact judgem ent and insight. DISCHARGE DIAGNOSIS: Right chronic humeral fracture and displacement Syncopal episode likely due to pulmonary hypertension Recurrent falls Atypical chest pain Type 2 diabetes mellitus Coronary artery disease status post prior stent Diastolic CHF Dyslipidemia Hypertension Seizure disorder Chronic hypoxic respiratory failure with COPD I saw and evaluated the patient during the reynolds and critical portions of this encounter, and discussed the case in detail with the resident author of this note, I agree with the Assessment and Plan, and my changes, if any, are highlighted in blue. Patient Condition at Discharge: Stable Plan - Discharge Summary Discharge Rx Participant: No New Discharge Prescriptions: New HYDROcodone/APAP 5-325MG [[place] 5-325] 1 tab PO Q6HR PRN 3 Days #12 tab PRN Reason: Pain Continue Montelukast Sodium [Singulair] 10 mg PO DAILY levETIRAcetam [Keppra] 750 mg PO BID rOPINIRole HCL [Requip] 1 mg PO TID Magnesium Chloride [Mag64] 128 mg PO DAILY Evolocumab [Repatha Sureclick] 140 mg SQ Q14D Citalopram Hydrobromide [Citalopram HBr] 40 mg PO DAILY Cholecalciferol (Vitamin D3) [Vitamin D3 (50 Mcg = 2000 Iu)] 50 mcg PO DAILY Ranolazine [Ranexa] 500 mg PO BID Esomeprazole Magnesium [NexIUM] 40 mg PO BID Spironolactone [Aldactone] 25 mg PO DAILY #90 tab Aspirin 81 mg PO DAILY #90 tab Naloxegol Oxalate [Movantik] 25 mg PO DAILY Furosemide [Lasix] 40 mg PO DAILY #90 tab tadalafiL 40 mg PO DAILY oxyCODONE HCL [oxyCODONE HCL (IR)] 10 mg PO BID Albuterol Inhaler [Ventolin Hfa Inhaler] 2 puff INHALATION RT-Q4H PRN PRN Reason: Shortness Of Breath Ezetimibe [Zetia] 10 mg PO DAILY Ipratropium-Albuterol Nebulize [Duoneb 0.5 mg-3 mg/3 ml Soln] 3 ml INHALATION RT-QID PRN PRN Reason: Shortness Of Breath Empagliflozin [Jardiance] 10 mg PO DAILY Nitroglycerin Sl Tabs [Nitrostat] 0.4 mg SUBLINGUAL Q5M PRN PRN Reason: Chest Pain Tiotropium 2.5 Mcg/Puff [Spiriva Respimat 2.5 Mcg] 2 puff INHALATION RT-DAILY Insulin Glargine,Hum.rec.anlog [Lantus Solostar Pen] 10 units SQ HS Insulin Aspart [NovoLOG Flexpen] See Protocol SQ ACHS Midodrine [ProAmatine] 5 mg PO BID Metoprolol Succinate [Metoprolol Succinate ER] 12.5 mg PO DAILY Cyclobenzaprine [Flexeril] 10 mg PO TID Escitalopram [Lexapro] 10 mg PO DAILY Discharge Medication List Montelukast Sodium [Singulair] 10 mg PO DAILY 01/15/19 [History] levETIRAcetam [Keppra] 750 mg PO BID 01/15/19 [History] Citalopram Hydrobromide [Citalopram HBr] 40 mg PO DAILY 12/04/21 [History] Evolocumab [Repatha Sureclick] 140 mg SQ Q14D 12/04/21 [History] Magnesium Chloride [Mag64] 128 mg PO DAILY 12/04/21 [History] oxyCODONE HCL [oxyCODONE HCL (IR)] 10 mg PO BID 12/04/21 [History] rOPINIRole HCL [Requip] 1 mg PO TID 12/04/21 [History] Albuterol Inhaler [Ventolin Hfa Inhaler] 2 puff INHALATION RT-Q4H PRN 02/18/23 [History] Ezetimibe [Zetia] 10 mg PO DAILY 08/12/23 [History] Cholecalciferol (Vitamin D3) [Vitamin D3 (50 Mcg = 2000 Iu)] 50 mcg PO DAILY 03/01/24 [History] Empagliflozin [Jardiance] 10 mg PO DAILY 03/01/24 [History] Esomeprazole Magnesium [NexIUM] 40 mg PO BID 03/01/24 [History] Ipratropium-Albuterol Nebulize [Duoneb 0.5 mg-3 mg/3 ml Soln] 3 ml INHALATION RT-QID PRN 03/01/24 [History] Ranolazine [Ranexa] 500 mg PO BID 03/01/24 [History] Aspirin 81 mg PO DAILY #90 tab 03/03/24 [Rx] Spironolactone [Aldactone] 25 mg PO DAILY #90 tab 03/03/24 [Rx] Insulin Aspart [NovoLOG Flexpen] See Protocol SQ ACHS 03/23/24 [History] Insulin Glargine,Hum.rec.anlog [Lantus Solostar Pen] 10 units SQ HS 03/23/24 [History] Naloxegol Oxalate [Movantik] 25 mg PO DAILY 03/23/24 [History] Nitroglycerin Sl Tabs [Nitrostat] 0.4 mg SUBLINGUAL Q5M PRN 03/23/24 [History] Tiotropium 2.5 Mcg/Puff [Spiriva Respimat 2.5 Mcg] 2 puff INHALATION RT-DAILY 03/23/24 [History] Furosemide [Lasix] 40 mg PO DAILY #90 tab 03/27/24 [Rx] Cyclobenzaprine [Flexeril] 10 mg PO TID 08/04/24 [History] Escitalopram [Lexapro] 10 mg PO DAILY 08/04/24 [History] Metoprolol Succinate [Metoprolol Succinate ER] 12.5 mg PO DAILY 08/04/24 [History] Midodrine [ProAmatine] 5 mg PO BID 08/04/24 [History] tadalafiL 40 mg PO DAILY 08/04/24 [History] HYDROcodone/APAP 5-325MG [[place] 5-325] 1 tab PO Q6HR PRN 3 Days #12 tab 08/06/24 [Rx] Follow up Appointment(s)/Referral(s): Cyn Pulido MD [Primary Care Provider] - 08/29/24 9:00 am Cody Montano DO [Doctor of Osteopathic Medicine] - 10 Days Patient Instructions/Handouts: Shoulder Pain (GEN) Activity/Diet/Wound Care/Special Instructions: Patient has an appointment with Ortho on August 15 Discharge Disposition: HOME SELF-CARE
[2024-08-15] MEDS ORDERED: PATIENT'S OWN (Evolocumab [Repatha Sureclick] 140 MG/ML Each) SQ SCH (09:00)
== END 2024-08-06 13:22 | disposition home or self-care (01) ==
LOC: EC 21:17 → 4SSUR 08-04 02:19
PROVIDERS: ADMIT Internal Medicine; ATTEND Internal Medicine
DX: R55 Syncope and collapse (principal); R07.89 Other chest pain; I27.21 Secondary pulmonary arterial hypertension; R29.6 Repeated falls; S42.211A Unspecified displaced fracture of surgical neck of right humerus, initial encounter for closed fracture; W10.9XXA Fall (on) (from) unspecified stairs and steps, initial encounter; I11.0 Hypertensive heart disease with heart failure; I50.30 Unspecified diastolic (congestive) heart failure; I25.10 Atherosclerotic heart disease of native coronary artery without angina pectoris; J43.9 Emphysema, unspecified; J96.11 Chronic respiratory failure with hypoxia; J44.9 Chronic obstructive pulmonary disease, unspecified; R91.1 Solitary pulmonary nodule; M06.9 Rheumatoid arthritis, unspecified; M81.0 Age-related osteoporosis without current pathological fracture; E11.65 Type 2 diabetes mellitus with hyperglycemia; E78.5 Hyperlipidemia, unspecified; F17.210 Nicotine dependence, cigarettes, uncomplicated; F32.A Depression, unspecified; F41.9 Anxiety disorder, unspecified; K21.9 Gastro-esophageal reflux disease without esophagitis; G40.909 Epilepsy, unspecified, not intractable, without status epilepticus; K58.9 Irritable bowel syndrome, unspecified; G47.30 Sleep apnea, unspecified; Z79.82 Long term (current) use of aspirin; Z79.84 Long term (current) use of oral hypoglycemic drugs; Z79.899 Other long term (current) drug therapy; Z85.3 Personal history of malignant neoplasm of breast; Z85.828 Personal history of other malignant neoplasm of skin; Z86.73 Personal history of transient ischemic attack (TIA), and cerebral infarction without residual deficits; Z88.8 Allergy status to other drugs, medicaments and biological substances; Z79.891 Long term (current) use of opiate analgesic; Z79.4 Long term (current) use of insulin; Z88.2 Allergy status to sulfonamides; Z88.1 Allergy status to other antibiotic agents; Z90.11 Acquired absence of right breast and nipple; Z86.0100 Personal history of colon polyps, unspecified
CPT/HCPCS: 96376 ×4; 96374; 96375; 99285; 36415; 94640 ×2; 94760; 93005; 97161; 97166; 85379; 80053 ×2; 80048; 83735 ×2; 84484; 85025 ×3; 85610; 85730; 73060; 73080; 73090; 73590; 71046; 93971 ×2; 71275; G0378 ×3; J2270 ×2; J2405; J1171 ×3; Q9967

== ENCOUNTER 2024-10-12 18:38 | Emergency (ER) | payer MEDICARE ==
--- NOTE | 2024-10-12 18:50 | ED ---
Chest Pain HPI <TrevraulGaetano Trevor - Last Filed: 10/12/24 21:17> - General Source: patient, EMS Mode of arrival: EMS Limitations: no limitations <Kathryn Bravo - Last Filed: 10/12/24 21:42> - General Chief Complaint: Chest Pain Stated Complaint: Chest Pain Time Seen by Provider: 10/12/24 18:47 - History of Present Illness Initial Comments: 64-year-old female with chief complaint of shortness of breath fatigue, melanotic stool. Previous history of gastric ulcer taking Nexium at home. No anticoagulation. (Geatano Laura) 64-year-old female with CAD with stent placement, COPD on 3 L home oxygen, DM, seizure history, PAH, history of CVA here for chest pain. Patient reported that 4 hours ago she started to have chest pressure that was midsternal radiating to the back with associated productive cough, fatigue, shortness of breath and bilateral lower extremity edema. He has been immobile due to the fatigue most hours of the day. she denied fever, chills, weakness, abdominal pain, prolonged travel, recent surgery, recent trauma or fall. (Kathryn Bravo) - Related Data Home Medications Medication Instructions Recorded Confirmed Montelukast Sodium [Singulair] 10 mg PO HS 01/15/19 10/12/24 levETIRAcetam [Keppra] 750 mg PO BID 01/15/19 10/12/24 Evolocumab [Repatha Sureclick] 140 mg SQ Q14D 12/04/21 10/12/24 Magnesium Chloride [Mag64] 64 mg PO BID 12/04/21 10/12/24 oxyCODONE HCL [oxyCODONE HCL (IR)] 10 mg PO TID 12/04/21 10/12/24 rOPINIRole HCL [Requip] 1 mg PO TID 12/04/21 10/12/24 Albuterol Inhaler [Ventolin Hfa 2 puff INHALATION RT-Q6H PRN 02/18/23 10/12/24 Inhaler] Ezetimibe [Zetia] 10 mg PO DAILY 08/12/23 10/12/24 Cholecalciferol (Vitamin D3) 50 mcg PO DAILY 03/01/24 10/12/24 [Vitamin D3 (50 Mcg = 2000 Iu)] Empagliflozin [Jardiance] 10 mg PO DAILY 03/01/24 10/12/24 Esomeprazole Magnesium [NexIUM] 40 mg PO BID 03/01/24 10/12/24 Ranolazine [Ranexa] 500 mg PO BID 03/01/24 10/12/24 Insulin Aspart [NovoLOG Flexpen] See Protocol SQ AC-TID 03/23/24 10/12/24 Insulin Glargine,Hum.rec.anlog 8 units SQ HS 03/23/24 10/12/24 [Lantus Solostar Pen] Naloxegol Oxalate [Movantik] 25 mg PO HS 03/23/24 10/12/24 Cyclobenzaprine [Flexeril] 10 mg PO TID 08/04/24 10/12/24 Escitalopram [Lexapro] 10 mg PO DAILY 08/04/24 10/12/24 Midodrine [ProAmatine] 5 mg PO BID 08/04/24 10/12/24 tadalafiL 20 mg PO DAILY 08/04/24 10/12/24 Acetaminophen Tab [Tylenol Tab] 1,000 mg PO Q6H PRN 10/12/24 10/12/24 Macitentan [Opsumit] 10 mg PO HS 10/12/24 10/12/24 Previous Rx's Medication Instructions Recorded Aspirin 81 mg PO DAILY #90 tab 03/03/24 Spironolactone [Aldactone] 25 mg PO DAILY #90 tab 03/03/24 Allergies Allergy/AdvReac Type Severity Reaction Status Date / Time atorvastatin [From Lipitor] Allergy Unknown Nausea & Verified 10/12/24 20:54 Vomiting/Dizziness Corticosteroids Allergy Unknown Anaphylaxis Verified 10/12/24 20:54 (Glucocorticoids) doxycycline Allergy Unknown Rash/Hives Verified 10/12/24 20:54 Yscyozy-HCX-KwF Reductase Allergy Unknown Anaphylaxis/Nausea Verified 10/12/24 20:54 Inhibitor & Vomiting [Pmrghmp-Ugr-Hdt Reductase Inhibitor] codeine Allergy Rash/Hives/Nausea Verified 10/12/24 20:54 & Vomiting prednisone Allergy Anaphylaxis Verified 10/12/24 20:54 Sulfa (Sulfonamide AdvReac Unknown Nausea & Verified 10/12/24 20:54 Antibiotics) Vomiting Beef Containing Products AdvReac Nausea & Verified 10/12/24 20:54 Vomiting & Diarrhea ibuprofen [From Motrin] AdvReac "kidney Verified 10/12/24 20:54 function" Milk Containing Products AdvReac Nausea & Verified 10/12/24 20:54 (Dairy) Vomiting & Diarrhea monosodium glutamate AdvReac Nausea & Verified 10/12/24 20:54 Vomiting morphine AdvReac Nausea & Verified 10/12/24 20:54 Vomiting ANABOLIC STEROIDS Allergy Severe Anaphylaxis Uncoded 10/12/24 20:54 persumesor aerosol products Allergy Severe Anaphylaxis Uncoded 10/12/24 20:54 STEROIDS Allergy Severe Anaphylaxis Uncoded 10/12/24 20:54 EKG Electrode Patches Allergy Unknown Blisters Uncoded 10/12/24 20:54 Review of Systems ROS Other: All systems not noted in ROS Statement are negative. <Gaetano Laura - Last Filed: 10/12/24 21:17> ROS Other: All systems not noted in ROS Statement are negative. <Kathryn Bravo - Last Filed: 10/12/24 21:42> ROS Statement: Those systems with pertinent positive or pertinent negative responses have been documented in the HPI. EKG Findings - EKG Comments: EKG Findings:: Sinus rhythm with a rate of 70 bpm, MA interval 187 MS, QRS duration 90 MS, no ST-T changes, QTc 417 MS <Kathryn Bravo - Last Filed: 10/12/24 21:42> Past Medical History Past Medical History: Cancer, Chest Pain / Angina, Heart Failure, COPD, CVA/TIA, Diabetes Mellitus, GERD/Reflux, Hypertension, Pneumonia, Rheumatoid Arthritis (RA), Seizure Disorder, Sleep Apnea/CPAP/BIPAP Additional Past Medical History / Comment(s): SEIZURE X1 (2011), HX TIA, HX OF HEAD INJURIES, MIGRAINES, BRONCHITIS, SLEEP APNEA-USES C-PAP MACHINE, HERNIATED DISCS WITH BACK PAIN, OSTEOPOROSIS, IBS, HX COLON POLYPS, HX OF DYSPHAGIA WITH DILATION- STATES USUALLY YEARLY., RIGHT BREAST CANCER 2010 WITH SURGERY & CHEMO., FACIAL SKIN CANCER.. VARICOSE VEINS, STATES ENLARGED LEFT VENTRICLE. History of Any Multi-Drug Resistant Organisms: None Reported Past Surgical History: Appendectomy, Breast Surgery, Section, Cholecy stectomy, Heart Catheterization, Heart Catheterization With Stent, Hysterectomy, Tonsillectomy Additional Past Surgical History / Comment(s): CARPAL TUNNEL, LEFT BREAST BX AND LIFT, RIGHT BREAST BX, LUMPECTOMY'S AND RIGHT BREAST MASTECTOMY AND RECONSTRUCTION. PORT-A-CATH INSERTED AND REMOVED. Past Anesthesia/Blood Transfusion Reactions: No Reported Reaction, Motion Sickness Date of Last Stent Placement:: 10/19/22 Past Psychological History: Anxiety, Depression Smoking Status: Current every day smoker Past Alcohol Use History: None Reported Past Drug Use History: None Reported - Past Family History Mother Family Medical History: Cancer Additional Family Medical History / Comment(s): LUNG CANCER. Father Family Medical History: Coronary Artery Disease (CAD), Diabetes Mellitus <Kathryn Bravo - Last Filed: 10/12/24 21:42> General Exam Limitations: no limitations <Kathryn Bravo - Last Filed: 10/12/24 21:42> - General Exam Comments Initial Comments: Physical examination: Vital signs reviewed General: non toxic, no distress, appears at stated age, on room air Head: atraumatic, normocephalic, symmetric Mouth: no lip lesion, mucus membranes moist Cardiovascular: S1S2 reg, no murmur Lungs: CTA bilateral, no rhonchi, no rales, no accessory muscle use Abdominal: soft, nondistended, nontender to palpation, no guarding Ext: muscle strength 5 out of 5 in all 4 extremities grossly, no gross muscle atrophy, no contractures, positive dorsalis pedis pulse bilateral, bilateral +2 lower extremity pitting edema Neuro: no gross focal neuro deficits Psych: Alert and oriented x3, appropriate affect and mood (Kathryn Bravo) Course Vital Signs 10/12/24 10/12/24 10/12/24 18:41 21:08 21:20 Temperature 98.8 F 98.7 F 98.3 F Pulse Rate 74 73 65 Respiratory 20 17 17 Rate Blood Pressure 90/50 108/48 107/44 O2 Sat by Pulse 98 99 99 Oximetry 10/12/24 21:40 Temperature 97.8 F Pulse Rate 64 Respiratory 17 Rate Blood Pressure 119/56 O2 Sat by Pulse 100 Oximetry Chest Pain [facility] <Gaetano Laura - Last Filed: 10/12/24 21:17> <Kathryn Bravo - Last Filed: 10/12/24 21:42> - [facility] I personally saw the patient and performed the critical portion of the service. I discussed the patient care with the resident. I directed management, care planning and final disposition of the patient. This includes, but not limited to, review of all lab work, radiological studies, EKG's, consultations, vital signs, and nursing notes. EKG interpreted by me (3pts min.) @Reviewed by myself, please see above X-Rays interpreted by me (1 pt min.) @ [none] CT interpreted by me ( 1pt min.) @ [none] U/S interpreted by me (1 pt min.) @ [none] Critical care time of [35 minutes] minutes excluding separately billable procedures was spent in conjunction with critical care activities provided by the Resident and Attending simultaneously. I was present during [no procedures] for all critical portions of the procedure and as immediately available to furnish service during the entire procedure. I discussed case with transfer center at [facility] and GI physician Dr. Zaidi, Patient has been accepted for transfer to [facility] The patient receives 1 unit of packed RBCs, 80 mg of Protonix. Stable for transfer for GI evaluation. (Gaetano Laura) Was pt. sent in by a medical professional or institution (, PA, DEVELOPMENT TECHNICIAN, urgent care, hospital, or [place] health care facility...) When possible be specific @ -No Did you speak to anyone other than the patient for history (EMS, parent, family, police, friend...)? What history was obtained from this source @ -No Did you review nursing and triage notes (agree or disagree)? Why? @ -I reviewed and agree with nursing and triage notes Were old charts reviewed (outside hosp., previous admission, EMS record, old EKG, old radiological studies, urgent care reports/EKG's, [place] health care facility records)? Report findings @ -Old charts reviewed Differential Diagnosis? @ -Differential Chest Pain: Stable Angina, Unstable Angina, STEMI, NSTEMI Aortic Dissection, Pneumothorax, Musculoskeletal, Esophageal Spasm GERD, Cholecystitis, Pancreatitis, Zoster, this is not meant to be an all-inclusive list. EKG interpreted by me (3pts min.). @ -As above X-rays interpreted by me (1pt min.). @ -None done CT interpreted by me (1pt min.). @ -None done U/S interpreted by me (1pt. min.). @ -None done What testing was considered but not performed or refused? (CT, X-rays, U/S, labs)? Why? @ -None What meds were considered but not given or refused? Why? @ -None Did you discuss the management of the patient with other professionals (professionals i.e. , PA, DEVELOPMENT TECHNICIAN, lab, RT, psych nurse, social service technician, tonsorial artist, teacher, chief legal officer, field case manager)? Give summary @ -Dr. Diaz, supervising physician Was smoking cessation discussed for >3mins.? @ -No Was critical care preformed (if so, how long)? @ -Yes 35 minutes Were there social determinants of health that impacted care today? How? (Homelessness, low income, unemployed, alcoholism, drug addiction, transportation, low edu. Level, literacy, decrease access to med. care, longterm, rehab)? @ -No Was there de-escalation of care discussed even if they declined (Discuss DNR or withdrawal of care, Hospice)? DNR status @ -No What co-morbidities impacted this encounter? (DM, HTN, Smoking, COPD, CAD, Cancer, CVA, ARF, Chemo, Hep., AIDS, mental health diagnosis, sleep apnea, morbid obesity)? @ -None Was patient admitted / discharged? Hospital course, mention meds given and route, prescriptions, significant lab abnormalities, going to OR and other pertinent info. @ -Transferred. Ordered CBC, CMP, troponin, proBNP. CBC hemoglobin of 5.9. Stool occult blood positive. IV pantoprazole ordered. Transfuse 1 unit packed RBC and process transfer to [facility] due to need for urgent GI consult. Undiagnosed new problem with uncertain prognosis? @ -[No] Drug Therapy requiring intensive monitoring for toxicity (Heparin, Nitro, Insulin, Cardizem)? @ -No Were any procedures done? @ -No Diagnosis/symptom? @ -[default] Acute, or Chronic, or Acute on Chronic? @ -Acute Uncomplicated (without systemic symptoms) or Complicated (systemic symptoms)? @ -Complicated Side effects of treatment? @ -[No] Exacerbation, Progression, or Severe Exacerbation? @ -[No] Poses a threat to life or bodily function? How? (Chest pain, [place], [place], pneumonia, PE, COPD, DKA, ARF, appy, cholecystitis, CVA, Diverticulitis, Homicidal, Suicidal, threat to staff... and all critical care pts) @ -[No] (Kathryn Bravo) Critical Care Time Critical Care Time: Yes Total Critical Care Time: 35 <Gaetano Laura - Last Filed: 10/12/24 21:17> Disposition Is patient prescribed a controlled substance at d/c from ED?: No Time of Disposition: 21:20 - Out of Hospital Transfer - Req. Specs Out of Hospital Transfer - Requested Specifics: Other Emergency Center (Transfer to [facility]) <Gaetano Laura - Last Filed: 10/12/24 21:17> <Kathryn Bravo - Last Filed: 10/12/24 21:42> Clinical Impression: GI bleed, Anemia Disposition: OTHER INSTITUTION NOT DEFINED Condition: Stable Referrals: Cyn Pulido MD [Primary Care Provider] - 1-2 days
[2024-10-12 19:13] LABS: Basophils # (A) 0.02 10*3/uL (0.00-0.10); Basophils % (A) 0.6 %; Eosinophils # (A) 0.07 10*3/uL (0.04-0.35); Eosinophils % (A) 1.9 %; HCT 20.3 % (37.2-46.3); Lymphocytes # (A) 0.96 10*3/uL (0.90-5.00); Lymphocytes % (A) 26.7 %; MCH 24.2 pg (27.0-32.0); MCHC 29.1 g/dL (32.0-37.0); MCV 83.2 fL (80.0-97.0); Monocytes # (A) 0.24 10*3/uL (0.20-1.00); Monocytes % (A) 6.7 %; Neutrophils # (A) 2.30 10*3/uL (1.80-7.70); Neutrophils % (A) 63.8 %; Platelet Count 139 10*3/uL (140-440); RBC 2.44 10*6/uL (4.10-5.20); RDW 18.7 % (11.5-14.5); WBC 3.60 10*3/uL (4.50-10.00)
[2024-10-12 19:19] LABS: ALT 7 U/L (4-34); AST 24 U/L (14-36); African American GFR (CKD) 73 (>60 ml/min/1.73 sqM); Albumin 3.1 g/dL (3.5-5.0); Alkaline Phosphatase 61 U/L (38-126); Anion Gap 9 mmol/L; Blood Urea Nitrogen 16 mg/dL (7-17); Calcium 8.0 mg/dL (8.4-10.2); Carbon Dioxide 19 mmol/L (22-30); Chloride 105 mmol/L (98-107); Glucose 127 mg/dL (74-99); Magnesium 2.1 mg/dL (1.6-2.3); Non-African American GFR(CKD) 63 (>60 ml/min/1.73 sqM); Potassium 3.8 mmol/L (3.5-5.1); Sodium 133 mmol/L (137-145); Total Protein 5.2 g/dL (6.3-8.2)
[2024-10-12 19:26] LABS: HGB 5.9 g/dL (12.0-15.0)
[2024-10-12 19:27] LABS: NT-Pro-B-Type Natriuretic Pept 2460 pg/mL
[2024-10-12 19:31] LABS: INR 1.0 (<1.2); Partial Thromboplastin Time 22.4 sec (22.0-30.0); Prothrombin Time 11.0 sec (10.0-12.5)
--- NOTE | 2024-10-12 19:37 | XR ---
EXAMINATION TYPE: XR chest 2V DATE OF EXAM: 10/12/2024 7:20 PM COMPARISON: 08/03/24 CLINICAL INDICATION: Female, 64 years old with history of Chest Pain: Shortness of breath TECHNIQUE: XR chest 2V views of the chest are obtained. FINDINGS: Scattered senescent parenchymal changes noted. Hyperinflation compatible with COPD. Hazy opacity throughout the right lung reflecting underlying infiltrate. No evidence for atelectasis. Heart size is stable. Mediastinal structures are stable and grossly unremarkable. No evidence for hilar prominence. Degenerative changes dorsal spine. IMPRESSION: 1. Hazy opacity throughout the right lung reflecting underlying infiltrate. [facility], , 10/12/2024 7:35 PM
[2024-10-12 20:49] LABS: Basophils # (A) 0.02 10*3/uL (0.00-0.10); Basophils % (A) 0.6 %; Eosinophils # (A) 0.05 10*3/uL (0.04-0.35); Eosinophils % (A) 1.4 %; HCT 22.7 % (37.2-46.3); Lymphocytes # (A) 1.11 10*3/uL (0.90-5.00); Lymphocytes % (A) 31.1 %; MCH 24.2 pg (27.0-32.0); MCHC 29.1 g/dL (32.0-37.0); MCV 83.2 fL (80.0-97.0); Monocytes # (A) 0.25 10*3/uL (0.20-1.00); Monocytes % (A) 7.0 %; Neutrophils # (A) 2.13 10*3/uL (1.80-7.70); Neutrophils % (A) 59.6 %; Platelet Count 132 10*3/uL (140-440); RBC 2.73 10*6/uL (4.10-5.20); RDW 18.6 % (11.5-14.5); WBC 3.57 10*3/uL (4.50-10.00)
[2024-10-12 21:06] LABS: HGB 6.6 g/dL (12.0-15.0)
[2024-10-12] MEDS: PANTOPRAZOLE 40 MG/10 ML VIAL IVP SCH (21:08)
[2024-10-12] MEDS: PANTOPRAZOLE 40 MG/10 ML VIAL IVP STA (21:08)
[2024-10-12 23:44] VITALS: BP 117/61; PULSE 72; RESP 18; TEMP 98.3
== END 2024-10-12 23:50 | disposition other institution (70) ==
LOC: EC 18:38
DX: D64.9 Anemia, unspecified (principal); K92.2 Gastrointestinal hemorrhage, unspecified; F17.200 Nicotine dependence, unspecified, uncomplicated; Z91.011 Allergy to milk products; Z88.5 Allergy status to narcotic agent; Z88.8 Allergy status to other drugs, medicaments and biological substances; Z91.018 Allergy to other foods; Z88.2 Allergy status to sulfonamides; Z88.6 Allergy status to analgesic agent
CPT/HCPCS: 36415; 93005; 86900; 86901; 85379; 83880; 80053; 83735; 84484; 85025; 85610; 85730; 86850; 86920; 82272; 71046; 99291; 96374; 36430; P9016; J2470